=== PATIENT | female | born 1960 | race Caucasian/White ===

== ENCOUNTER → 2018-05-28 10:00 | Outpatient (CLI) | payer OTHER, SELFPAY ==
--- NOTE | 2018-05-28 10:08 | RAD_ITS ---
STUDY: X-RAY - LEFT ANKLE REASON FOR EXAM: Female, 58 years old. Left ankle injury following a fall. Lateral ankle pain. TECHNIQUE: 3 view(s) of the ankle. COMPARISON: None. FINDINGS: Normal visualized distal tibia and fibula. There is a nondisplaced oblique fracture of the distal fibula and lateral malleolus. Normal tibiotalar articulation and ankle mortise. Plantar spur. A spur is also seen at the insertion of the Achilles tendon. The visualized subtalar, talonavicular, calcaneocuboid and tarsal articulations are normal. Soft tissue swelling. RAD/Ankle min 3 Views IMPRESSION: Nondisplaced oblique fracture of the distal fibula and lateral malleolus with lateral soft tissue swelling. Electronically Signed: Bryant Zazueta MD at 10:46 EST Tel [phone], Service support ,
== END ==
PROVIDERS: Family Provider Family Medicine; PCP Family Medicine; Referring Provider Family Medicine; Visit Provider Family Medicine
DX: S93.402A Sprain of unspecified ligament of left ankle, initial encounter (principal)
CPT/HCPCS: 73610

== ENCOUNTER → 2018-06-08 17:23 | Outpatient (CLI) | payer OTHER, SELFPAY ==
--- NOTE | 2018-06-08 17:25 | RAD_ITS ---
HISTORY: follow up, fibula fx COMPARISON: None FINDINGS: XR Ankle Min 3 Views: Previous distal left fibular fracture. Fracture fragments are unchanged in position. As seen on the lateral view, fracture union appears solid. A fracture line is no longer visualized. The distal tibia is intact. Ankle mortise is not widened. No posttraumatic arthritis seen. RAD/Ankle min 3 Views IMPRESSION: The fibular fracture fragments are unchanged in position and fracture union appears solid. No complication seen. at 0412 Reported and signed by: Chavez Henson MD Electronically Signed: Chavez Henson, at 4:09 EST Tel , Service support ,
--- OUTSIDE RECORDS SUMMARY | 2018-07-21 16:29 | XMS RPT_ITS ---
:1960 Author Organization OHIP Care Team Providers Name Role Phone Silvestre Agarwal Attending Unavailable Silvestre Agarwal Referring Unavailable Silvestre Agarwal Primary Care Unavailable Ez Booker Attending Unavailable Ez Booker Referring Unavailable Silvestre Agarwal Primary Care Unavailable PROBLEMS PROBLEMS DATE TYPE CONDITION / CODE ATTENDING STATUS SOURCE 06/08/2018 Unknown S82.839A - Other Philomena Booker fracture of upper [facility] and lower end of Hospital unspecified Repository fibula, initial encounter for closed fracture / S82.839A(ICD-10) 05/28/2018 Unknown S93.402A - Sprain Silvestre Agarwal Active [place] of unspecified Community ligament of left Hospital ankle, initial Repository encounter / S93.402A(ICD-10) PROCEDURES PROCEDURES No Procedure Records FoundRESULTS RESULTS ANKLE MIN 3 VIEWS Observed: 06/08/2018 Status: F Source: [place] 5:25 PM [facility] REPOSITORY [facility] Imaging Services [address] [place] [address] Ankle min 3 Views MR#: [id number] Acct: [id number] Name: ECHO SILVESTRE Rep #: [id number] : 1960 F 58 From: Chavez Henson MD PCP: Silvestre Agarwal MD Status: REG CLI Study: Ankle min 3 Views Date of Exam: 06/08/18 Exam# [id number] Ordering Dr: Rhett Booker MD HISTORY: follow up, fibula fx COMPARISON: None FINDINGS: XR Ankle Min 3 Views: Previous distal left fibular fracture. Fracture fragments are unchanged in position. As seen on the lateral view, fracture union appears solid. A fracture line is no longer visualized. The distal tibia is intact. Ankle mortise is not widened. No posttraumatic arthritis seen. RAD/Ankle min 3 Views IMPRESSION: The fibular fracture fragments are unchanged in position and fracture union appears solid. No complication seen. at 0412 Reported and signed by: Chavez Henson MD Electronically Signed: Chavez Henson, at 4:09 EST Tel , Service support , CC: Ez Booker MD; Silvestre Agarwal MD Dinkey Engine Mechanic: Signed ANKLE MIN 3 VIEWS Observed: 05/28/2018 Status: F Source: [place] 10:08 AM [facility] REPOSITORY [facility] Imaging Services [address] [place] [address] Ankle min 3 Views MR#: [id number] Acct: [id number] Name: ECHO SILVESTRE Rep #: [id number] : 1960 F 58 From: Bryant Zazueta MD PCP: Silvestre Agarwal MD Status: REG CLI Study: Ankle min 3 Views Date of Exam: 05/28/18 Exam# [id number] Ordering Dr: Silvestre Agarwal MD STUDY: X-RAY - LEFT ANKLE REASON FOR EXAM: Female, 58 years old. Left ankle injury following a fall. Lateral ankle pain. TECHNIQUE: 3 view(s) of the ankle. COMPARISON: None. FINDINGS: Normal visualized distal tibia and fibula. There is a nondisplaced oblique fracture of the distal fibula and lateral malleolus. Normal tibiotalar articulation and ankle mortise. Plantar spur. A spur is also seen at the insertion of the Achilles tendon. The visualized subtalar, talonavicular, calcaneocuboid and tarsal articulations are normal. Soft tissue swelling. RAD/Ankle min 3 Views IMPRESSION: Nondisplaced oblique fracture of the distal fibula and lateral malleolus with lateral soft tissue swelling. Electronically Signed: Bryant Zazueta MD at 10:46 EST Tel [phone], Service support , CC: Silvestre Agarwal MD Dinkey Engine Mechanic: Signed ALLERGIES ALLERGIES No Allergies Records FoundENCOUNTERS ENCOUNTERS ADMIT/DISCHARGE ACCOUNT ADMITTING ENCOUNTER LOCATION SOURCE NUMBER CLASS 06/08/2018 [id number] [facility] ing:MTRAD Repository 05/28/[id number] [facility] ing:MTRAD Repository PAYERS PAYERS ENCOUNTER GUARANTOR PAYER SUBSCRIBER SOURCE 06/08/2018 ECHO J Primary ECHO J [place] [id number] OLD Insurance:MEDICAL FOUGHTDOB: [facility] [id number] Number: Repository [address]Epk: 330 [id number] [phone] () Date:[id number] [address]PJ: 06/08/2018 Secondary NOT GIVENUNK [place] Insurance:SELF PAY [facility] Number: Effective Repository Date:2018-06-08 05/28/2018 ECHO J Primary ECHO J [place] [id number] OLD Insurance:MEDICAL FOUGHTDOB: [facility] [id number] Number: Repository [address]Jmy: 330 [id number] [phone] () Date:[id number] [address]QI: 05/28/2018 Secondary NOT GIVENUNK [place] Insurance:SELF PAY [facility]: Effective Repository Date:2018-05-28
== END ==
PROVIDERS: Family Provider Family Medicine; PCP Family Medicine; Referring Provider Family Medicine; Visit Provider Family Medicine
DX: S82.832A Other fracture of upper and lower end of left fibula, initial encounter for closed fracture (principal)
CPT/HCPCS: 73610

== ENCOUNTER → 2018-07-22 12:41 | Outpatient (CLI) | payer OTHER, SELFPAY ==
[2018-07-22 15:02] LABS: BUN 11 mg/dL (7-18); Creatinine, Serum 0.57 mg/dL (0.55-1.02); Glucose 101 mg/dL (74-106)
[2018-07-22 15:03] LABS: Anion Gap 7 (5-15); BUN/Creat Ratio 19.2 RATIO (10-20); Calcium,Total 10.3 mg/dL (8.5-10.1); Chloride 99 mmol/L (98-107); Cholesterol 245 mg/dL (200); EST Glomerular Filtration Rate 115 mL/min (>60); Est Glom Filt Rate - Afr Amer 139 mL/min (>60); High Density Lipoprotein 59 mg/dL; Potassium 3.6 mmol/L (3.5-5.1); Sodium Level 139 mmol/L (136-145); Triglycerides 142 mg/dL; Very Low Density Lipoprotein 28 mg/dL (5-40)
== END ==
PROVIDERS: Family Provider Family Medicine; PCP Family Medicine; Referring Provider Family Medicine; Visit Provider Family Medicine
DX: I10 Essential (primary) hypertension (principal)
CPT/HCPCS: 36415; 80048; 80061

== ENCOUNTER 2018-07-31 17:36 | Emergency (ER) | payer OTHER, SELFPAY ==
[2018-07-31] VITALS (7 sets, daily range): BP systolic 133–195; BP diastolic 73–89; PULSE 74–103; RESP 14–20; TEMP 37.8; O2SAT 94–95; BMI 40.4
--- NOTE | 2018-07-31 17:53 | ED.RN ---
PT STATES SHE FEELS LIKE THE SWELLING IS A LITTLE IMPROVED AT THE FRONT OF HER TONGUE. DAVE REPORTS PT SPEECH AND VOICE SOUNDS SOME BETTER WELL.
[2018-07-31] MEDS: MethylPREDNISolone 125 MG/2 ML Vial IV (17:54)
[2018-07-31] MEDS: DiphenhydrAMINE 50 MG/ML Syringe 25 MG IV (17:54)
--- NOTE | 2018-07-31 18:44 | ED.RN ---
SPEECH SOUNDS SLIGHTLY IMPROVED. NO VISIBLE CHANGE IN SWELLING TO TONGUE. PT REPORTS FEELS ABOUT THE SAME.
--- NOTE | 2018-07-31 19:35 | ED.RN ---
pt had a 6 beat run of v-tach.dr winter aware.143/[id number].
--- NOTE | 2018-07-31 20:38 | ED.VISSUMM ---
- ER Visit Summary Date of Service: 07/31/18 Chief Complaint: Tongue swelling History of Present Illness: The patient is a 58 F history of hypertension on hydrochlorothiazide and recently started on lisinopril. States that around 4 PM today started having swelling of her tongue. No trouble swallowing or breathing. She states she is never had this happen before. She denies other complaints. Physical Examination: Well-appearing middle-age female. No acute distress. Vital signs are stable and afebrile. HEENT exam she has moderate swelling of her tongue on the right side more than the left. No drooling. No stridor. No trouble breathing. No distress. Neck nontender no lymphadenopathy. Lungs clear to auscultation bilaterally. Heart regular rhythm no murmur. Abdomen soft and nontender. Extremities moves all 4. No edema. Skin no rashes. Neurologically awake and alert no focal motor deficits. Test Results: None Emergency Department Course and Treatment: Patient's history and exam are consistent with JAN inhibitor induced angioneurotic edema. Patient was treated with IV Pepcid, Solu-Medrol and Benadryl. She has been watched in the ER multiple hours. She has shown signs of improvement. Her tongue is about half the size as she initially presented with. She has no complaints on repeat exam at 2039. Clinically she looks well. She is comfortable being discharged to home. I explained to her the cause of this. She needs us immediately stop her lisinopril. She will log her blood pressures and follow-up with her primary care physician because she may need to be started on a new second blood pressure medication because she is currently already on HCTZ. Treatment Plan: Return if worse. Disposition: Discharge Impression: Acute JAN inhibitor induced angioneurotic edema with tongue swelling This note was generated with CÜR dictation software. It may contain incorrect words, spelling, and punctuation that were not noted in review of the chart prior to signing ED Disposition - Plan for ED Patient: Chief Complaint: Allergic Reaction Referrals: Silvestre Fournier MD [Primary Care Provider] -
--- NOTE | 2018-07-31 20:43 | ED.DCSUM_ITS ---
- ER Visit Summary Date of Service: 07/31/18 Chief Complaint: Tongue swelling History of Present Illness: The patient is a 58 F history of hypertension on hydrochlorothiazide and recently started on lisinopril. States that around 4 PM today started having swelling of her tongue. No trouble swallowing or b reathing. She states she is never had this happen before. She denies other complaints. Physical Examination: Well-appearing middle-age female. No acute distress. Vital signs are stable and afebrile. HEENT exam she has moderate swelling of her tongue on the right side more than the left. No drooling. No stridor. No trouble breathing. No distress. Neck nontender no lymphadenopathy. Lungs clear to auscultation bilaterally. Heart regular rhythm no murmur. Abdomen soft and nontender. Extremities moves all 4. No edema. Skin no rashes. Neurologically awake and alert no focal motor deficits. Test Results: None Emergency Department Course and Treatment: Patient's history and exam are consistent with JAN inhibitor induced angioneurotic edema. Patient was treated with IV Pepcid, Solu-Medrol and Benadryl. She has been watched in the ER multiple hours. She has shown signs of improvement. Her tongue is about half the size as she initially presented with. She has no complaints on repeat exam at 2039. Clinically she looks well. She is comfortable being discharged to home. I explained to her the cause of this. She needs us immediately stop her lisinopril. She will log her blood pressures and follow-up with her primary care physician because she may need to be started on a new second blood pressure medication because she is currently already on HCTZ. Treatment Plan: Return if worse. Disposition: Discharge Impression: Acute JAN inhibitor induced angioneurotic edema with tongue swelling This note was generated with Embedded Chat dictation software. It may contain incorrect words, spelling, and punctuation that were not noted in review of the chart prior to signing ED Disposition - Plan for ED Patient: Chief Complaint: Allergic Reaction Referrals: Silvestre Fournier MD [Primary Care Provider] -
--- NOTE | 2018-07-31 20:43 | ED.DEP ---
ED Disposition - Plan for ED Patient: Disposition: Home or Assisted Living Chief Complaint: Allergic Reaction Instructions: ED Angioedema Referrals: Silvestre Fournier MD [Primary Care Provider] - As soon as possible Additional Instructions: Stop your lisinopril now. That is a JAN inhibitor blood pressure medication that you had a reaction to that caused her tongue to swell. You can no longer take that medication or any other JAN inhibitor blood pressure medications. Return if getting worse. Meaning more swelling of your tongue or any trouble breathing. Follow-up with your primary care physician next week. Log your blood pressures twice daily so Dr. Fournier will know if he needs to add a second blood pressure medication. You can use your hydrochlorothiazide but the lisinopril you must stop
--- OUTSIDE RECORDS SUMMARY | 2018-10-05 08:22 | XMS RPT_ITS ---
:1960 Author Organization OHIP Care Team Providers Name Role Phone Silvestre Agarwal Attending Unavailable Silvestre Agarwal Referring Unavailable Silvestre Agarwal Primary Care Unavailable Silvestre Agarwal Primary Care Unavailable Kelby Pena Attending Unavailable Silvestre Agarwal Attending Unavailable Silvestre Agarwal Referring Unavailable Silvestre Agarwal Primary Care Unavailable Ez Booker Attending Unavailable Ez Booker Referring Unavailable Silvestre Agarwal Primary Care Unavailable PROBLEMS PROBLEMS DATE TYPE CONDITION / CODE ATTENDING STATUS SOURCE 06/08/2018 Unknown S82.839A - Other Philomena Booker [place] fracture of upper [facility] and lower end of Hospital unspecified Repository fibula, initial encounter for closed fracture / S82.839A(ICD-10) 05/28/2018 Unknown S93.402A - Sprain Silvestre Agarwal Active [place] of unspecified Community ligament of left Hospital ankle, initial Repository encounter / S93.402A(ICD-10) PROCEDURES PROCEDURES No Procedure Records FoundRESULTS RESULTS EMERGENCY DEPARTMENT Observed: 08/01/2018 Status: F Source: [place] SUMMARY 12:00 AM [facility] REPOSITORY [facility] Medical Records Department [address] [place] [address] Emergency Department Summary 07/31/182037 MR#: [id number] Acct: [id number] Name: ECHO SILVESTRE Rep #: [id number] : 1960 58 From: Kelby Pena MD PCP: Silvestre Agarwal MD Status: DEP ER - ER Visit Summary Date of Service: 07/31/18 Chief Complaint: Tongue swelling History of Present Illness: The patient is a 58 F history of hypertension on hydrochlorothiazide and recently started on lisinopril. States that around 4 PM today started having swelling of her tongue. No trouble swallowing or breathing. She states she is never had this happen before. She denies other complaints. Physical Examination: Well-appearing middle-age female. No acute distress. Vital signs are stable and afebrile. HEENT exam she has moderate swelling of her tongue on the right side more than the left. No drooling. No stridor. No trouble breathing. No distress. Neck nontender no lymphadenopathy. Lungs clear to auscultation bilaterally. Heart regular rhythm no murmur. Abdomen soft and nontender. Extremities moves all 4. No edema. Skin no rashes. Neurologically awake and alert no focal motor deficits. Test Results: None Emergency Department Course and Treatment: Patient's history and exam are consistent with JAN inhibitor induced angioneurotic edema. Patient was treated with IV Pepcid, Solu-Medrol and Benadryl. She has been watched in the ER multiple hours. She has shown signs of improvement. Her tongue is about half the size as she initially presented with. She has no complaints on repeat exam at 2039. Clinically she looks well. She is comfortable being discharged to home. I explained to her the cause of this. She needs us immediately stop her lisinopril. She will log her blood pressures and follow-up with her primary care physician because she may need to be started on a new second blood pressure medication because she is currently already on HCTZ. Treatment Plan: Return if worse. Disposition: Discharge Impression: Acute JAN inhibitor induced angioneurotic edema with tongue swelling This note was generated with 9158 [employer] dictation software. It may contain incorrect words, spelling, and punctuation that were not noted in review of the chart prior to signing ED Disposition - Plan for ED Patient: Chief Complaint: Allergic Reaction Referrals: Silvestre Agarwal MD [Primary Care Provider] - What to do if you have Problems For any increased pain, shortness of breath, bleeding, nausea or vomiting, chest pain, or any unexpected problems, contact your Primary Care Provider. Call [facility] ([phone]) or report to the closest Emergency Room. Call 911 if necessary. 08/01/18 0000 <Electronically signed by Kelby Pena MD> Date Kelby Pena MD Cosigner Signature (If Indicated): Date CC: Silvestre Agarwal MD DISCHARGE INSTRUCTION Observed: 08/01/2018 Status: F Source: [place] 12:00 AM [facility] Medical Records Department [address] [place] [address] Discharge Instruction 07/31/182042 MR#: [id number] Acct: [id number] Name: ECHO SILVESTRE Rep #: [id number] : 1960 58 From: Kelby Pena MD PCP: Silvestre Agarwal MD Status: [facility] ER ED Disposition - Plan for ED Patient: Disposition: Home or Assisted Living Chief Complaint: Allergic Reaction Instructions: ED Angioedema Referrals: Silvestre Agarwal MD [Primary Care Provider] - As soon as possible Additional Instructions: Stop your lisinopril now. That is a JAN inhibitor blood pressure medication that you had a reaction to that caused her tongue to swell. You can no longer take that medication or any other JAN inhibitor blood pressure medications. Return if getting worse. Meaning more swelling of your tongue or any trouble breathing. Follow-up with your primary care physician next week. Log your blood pressures twice daily so Dr. Agarwal will know if he needs to add a second blood pressure medication. You can use your hydrochlorothiazide but the lisinopril you must stop What to do if you have Problems For any increased pain, shortness of breath, bleeding, nausea or vomiting, chest pain, or any unexpected problems, contact your Primary Care Provider. Call [facility] ([phone]) or report to the closest Emergency Room. Call 911 if necessary. 08/01/18 0000 <Electronically signed by Kelby Pena MD> Date Kelby Pena MD Cosigner Signature (If Indicated): Date CC: Silvestre Agarwal MD BASIC METABOLIC Collected: 07/22/2018 Status: F Source: [place] PROFILE ([facility]) 12:48 PM [facility] REPOSITORY TYPE CODE TESTS RESULT OUT OF RANGE REFERENCE UNITS LAB L501.0100 74-106 mg/dL Normal GLU 101 Result Comment: Fasting Glucose result from 100 to 125 mg/dL suggests IMPAIRED HOMEOSTASIS per A.D.A. criteria. Please note revised GLUCOSE reference range effective 2017. LAB L501.1000 7-18 mg/dL Normal BUN 11 LAB L501.1100 0.55-1.02 mg/dL Normal CREAT,SERUM 0.57 Result Comment: The validity of the calculated GFR AND GFRAA in patients over 70 years has not been determined. Clinical correlation is essential. LAB L501.1110 >60 mL/min Normal EST GFR 115 Result Comment: Non- GFR Calc LAB L501.1115 >60 mL/min Normal EST GFR - AA 139 Result Comment: GFR Calc LAB L501.1300 10-20 RATIO Normal BUN/CRE 19.2 LAB L501.2200 8.5-10.1 mg/dL High CA 10.3 LAB L501.5300 136-145 mmol/L NA Normal 139 LAB L501.5600 3.5-5.1 mmol/L K Normal 3.6 LAB L501.5900 98-107 mmol/L CL Normal 99 LAB L501.6100 21.0-32.0 mmol/L High CO2 33.0 LAB L501.6200 5-15 Normal GAP 7 Performed By: #### L500.2500, L500.4100 #### [facility] [address] [place], [address] LIPID PROFILE Collected: 07/22/2018 Status: F Source: [place] 12:48 PM [facility] REPOSITORY TYPE CODE TESTS RESULT OUT OF RANGE REFERENCE UNITS LAB L501.4900 200 mg/dL High CHOL 245 Result Comment: <200 mg/dL Desirable 200-240 mg/dL Borderline >240 mg/dL High Risk LAB L501.5000 mg/dL Normal TRIG 142 Result Comment: The drugs N-Acetylcysteine and Metamizole may falsely depress this assay. Serum Triglycerides Reference Interval Normal <150 mg/dL Borderline high 150 - 199 mg/dL High 200 - 499 mg/dL Very High > or = 500 mg/dL LAB L501.6400 mg/dL Normal HDL 59 Result Comment: The drugs N-Acetylcysteine and Metamizole may falsely depress this assay. Reference Range HDL <40 mg/dL Low HDL Cholesterol HDL >or= 60 mg/dL High HDL Cholesterol LAB L501.6500 0-130 mg/dL High LDL 158 LAB L501.6600 5-40 mg/dL Normal VLDL 28 Performed By: #### L500.2500, L500.4100 #### [facility] [address] [facility] [place], [address] ANKLE MIN 3 VIEWS Observed: 06/08/2018 Status: F Source: [place] 5:25 PM [facility] REPOSITORY [facility] Imaging Services [address] [place] [address] Ankle min 3 Views MR#: [id number] Acct: [id number] Name: ECHO SILVESTRE Rep #: [id number] : 1960 F 58 From: Chavez Henson MD PCP: Silvestre Agarwal MD Status: REG CLI Study: Ankle min 3 Views Date of Exam: 06/08/18 Exam# [id number] Ordering Dr: Rhett Booker MD HISTORY: follow [...] CC: Ez Booker MD; Silvestre Agarwal MD Eight Arm Operator: Signed ANKLE MIN 3 VIEWS Observed: 05/28/2018 Status: F Source: [place] 10:08 AM [facility] REPOSITORY [facility] Imaging Services [address] [place] [address] Ankle min 3 Views MR#: [id number] Acct: [id number] Name: ECHO SILVESTRE Rep #: [id number] : 1960 F 58 From: Bryant Zazueta MD PCP: Silvestre Agarwal MD Status: REG CLI Study: Ankle min 3 Views Date of Exam: 05/28/18 Exam# [id number] Ordering Dr: Silvestre Agarwal MD STUDY: X-RAY [...] Bryant Zazueta MD at 10:46 EST Tel [phone], Service support , CC: Silvestre Agarwal MD Eight Arm Operator: Signed ALLERGIES ALLERGIES DATE TYPE / CODE NAME / CODE REACTION SEVERITY SOURCE 07/31/2018 Drug lisinopril/F Angioedema Unknown [facility] Allergy/4160 [id number]( Hospital [address]84(SNOMED NORM) Repository CT) ENCOUNTERS ENCOUNTERS ADMIT/DISCHARGE ACCOUNT ADMITTING ENCOUNTER LOCATION SOURCE NUMBER CLASS 07/31/2018/ [id number] Emergency [place] 9 4 [facility] ing:ED Repository 07/22/2018 [id number] Ambulatory [place] 6 [facility] ing:MTLAB Repository 06/08/2018 [id number] Ambulatory [place] 8 [facility] ing:MTRAD Repository 05/28/2018 [id number] Ambulatory [place] 9 [facility] ing:MTRAD Repository PAYERS PAYERS ENCOUNTER GUARANTOR PAYER SUBSCRIBER SOURCE 07/31/2018 ECHO Santana Primary ECHO J [place] [id number] OLD Insurance:MEDICAL FOUGHTDOB: [facility] [id number] Number: Repository [id number]: [phone] [id number] [phone] () Date:2774-81-27[address] [address]VW: 07/31/2018 Secondary NOT GIVENUNK [place] Insurance:SELF PAY [facility] Number: Effective Repository Date:2018-07-31 07/22/2018 ECHO Santana Primary ECHO J [place] [id number] OLD Insurance:MEDICAL FOUGHTDOB: [facility] [id number] Number: Repository [id number]: 330 [id number] [phone] (HP) Date:9636-93-39VW [address] [place] [address]UL: 07/22/2018 Secondary NOT GIVENUNK [place] Insurance:SELF PAY [facility] Number: Effective Repository Date:2018-07-22 06/08/2018 ECHO J Primary ECHO J [place] [id number] OLD Insurance:MEDICAL FOUGHTDOB: [facility] [id number] Number: Repository [id number]: 330 [id number] [phone] (HP) Date:7539-95-68KW [address] [place] [phone]: 06/08/2018 Secondary NOT GIVENUNK [place] Insurance:SELF PAY [facility] Number: Effective Repository Date:2018-06-08 05/28/2018 ECHO J Primary ECHO J [place] [id number] OLD Insurance:MEDICAL FOUGHTDOB: [facility] [id number] Number: Repository [id number]: 330 [id number] [phone] (HP) Date:2034-71-63NF [address] [place] [phone]: 05/28/2018 Secondary NOT GIVENUNK [place] Insurance:SELF PAY [facility] Number: Effective Repository Date:2018-05-28
== END 2018-07-31 20:51 | disposition home or self-care (01) ==
PROVIDERS: Emergency Provider Emergency Medicine; Family Provider Family Medicine; PCP Family Medicine
DX: T78.3XXA Angioneurotic edema, initial encounter (principal); T46.4X5A Adverse effect of angiotensin-converting-enzyme inhibitors, initial encounter; I10 Essential (primary) hypertension; Z79.899 Other long term (current) drug therapy; Z72.0 Tobacco use
CPT/HCPCS: 96374; 96375; 99283; A4216; J3490

== ENCOUNTER → 2019-04-21 | Outpatient (CLI) | payer OTHER, SELFPAY ==
[2018-07-31 17:37] VITALS: BMI 40.4
[2019-04-21 14:25] LABS: Anion Gap 7 (5-15); BUN 11 mg/dL (7-18); BUN/Creat Ratio 18.8 RATIO (10-20); Calcium,Total 9.1 mg/dL (8.5-10.1); Chloride 98 mmol/L (98-107); Cholesterol 249 mg/dL (200); Creatinine, Serum 0.59 mg/dL (0.55-1.02); EST Glomerular Filtration Rate 112 mL/min (>60); Est Glom Filt Rate - Afr Amer 135 mL/min (>60); Glucose 93 mg/dL (74-106); High Density Lipoprotein 55 mg/dL; Potassium 3.5 mmol/L (3.5-5.1); Sodium Level 140 mmol/L (136-145); Triglycerides 145 mg/dL; Very Low Density Lipoprotein 29 mg/dL (5-40)
== END | disposition home or self-care (01) ==
PROVIDERS: Family Medicine; Family Provider Family Medicine; PCP Family Medicine; Referring Provider Family Medicine; Visit Provider Family Medicine
DX: I10 Essential (primary) hypertension (principal); E78.00 Pure hypercholesterolemia, unspecified
CPT/HCPCS: 36415; 80048; 80061

== ENCOUNTER → 2019-07-21 08:14 | Outpatient (CLI) | payer OTHER, SELFPAY ==
[2018-07-31 17:37] VITALS: BMI 40.4
[2019-07-21 10:37] LABS: Cholesterol 146 mg/dL (200); High Density Lipoprotein 59 mg/dL; Triglycerides 173 mg/dL; Very Low Density Lipoprotein 35 mg/dL (5-40)
== END ==
PROVIDERS: Family Provider Family Medicine; PCP Family Medicine; Referring Provider Family Medicine; Visit Provider Family Medicine
DX: E78.00 Pure hypercholesterolemia, unspecified (principal)
CPT/HCPCS: 36415; 80061

== ENCOUNTER → 2019-08-11 10:53 | Outpatient (CLI) | payer OTHER, SELFPAY ==
[2018-07-31 17:37] VITALS: BMI 40.4
--- NOTE | 2019-08-11 10:56 | BI_ITS ---
MAMMOGRAPHY - BILATERAL SCREENING REASON FOR EXAM: Female, 59 years old. Routine annual screening examination. PERTINENT HISTORY: Non-contributory. TECHNIQUE: Digital bilateral breast maria eugenia (3D mammographic acquisition) in the CC and MLO projections. 2-D mediolateral oblique (MLO) and craniocaudad (CC) views of both breasts were obtained. CAD: Full Field Digital Mammography with Computer Added Detection was performed. COMPARISON: Comparison is made with prior outside examination dated December 25, 2010. FINDINGS: Breast Composition: The breasts are almost entirely fatty. There are no dominant masses or suspicious calcifications. Stable benign-appearing bilateral axillary lymph nodes. No other significant abnormalities are identified. There has been no significant change since the prior study. BI/SCREEN MAMM (CAD) W/MARIA EUGENIA BILAT IMPRESSION: Stable bilateral screening mammogram. Yearly follow-up mammogram recommended. (A) ASSESSMENT CATEGORY: BIRADS Category 2: Benign. A letter regarding these results will be sent to the patient by the facility within 30 days. Approximately 10% of breast cancers are not detected by mammography. A normal mammogram should not delay biopsy of a clinically suspicious abnormality. [id number] Electronically Signed: Bryant Zazueta, at 12:16 EST , Service support ,
== END ==
PROVIDERS: Family Provider Family Medicine; PCP Family Medicine; Referring Provider Family Medicine; Visit Provider Family Medicine
DX: Z12.31 Encounter for screening mammogram for malignant neoplasm of breast (principal)
CPT/HCPCS: 77063; 77067

== ENCOUNTER → 2020-02-09 | Outpatient (CLI) | payer OTHER, SELFPAY ==
[2018-07-31 17:37] VITALS: BMI 40.4
[2020-02-09 10:33] LABS: ALB/GLOB Ratio 0.9 RATIO (0.9-2.4); AST(SGOT) 18 U/L (15-37); Alanine Aminotransfer ALT/SGPT 26 U/L (13-56); Albumin, Serum 3.4 g/dL (3.2-5.0); Alkaline Phosphatase 66 U/L (45-117); Anion Gap 1 (5-15); BUN 10 mg/dL (7-18); BUN/Creat Ratio 17.8 RATIO (10-20); Calcium,Total 8.7 mg/dL (8.5-10.1); Chloride 100 mmol/L (98-107); Cholesterol 149 mg/dL (200); Creatinine, Serum 0.56 mg/dL (0.55-1.02); EST Glomerular Filtration Rate 117 mL/min (>60); Est Glom Filt Rate - Afr Amer 141 mL/min (>60); Globulin 3.9 g/dL (2.2-4.2); Glucose 95 mg/dL (74-106); High Density Lipoprotein 57 mg/dL; Potassium 4.1 mmol/L (3.5-5.1); Protein, Total 7.3 g/dL (6.4-8.2); Sodium Level 137 mmol/L (136-145); Triglycerides 134 mg/dL; Very Low Density Lipoprotein 27 mg/dL (5-40)
== END | disposition home or self-care (01) ==
LOC: MFPLAB 08:19
PROVIDERS: PCP Family Medicine; Referring Provider Family Medicine; Visit Provider Family Medicine
DX: I10 Essential (primary) hypertension (principal)
CPT/HCPCS: 36415; 80053; 80061

== ENCOUNTER → 2020-08-16 11:34 | Outpatient (CLI) | payer OTHER, SELFPAY ==
[2018-07-31 17:37] VITALS: BMI 40.4
[2020-08-16 16:01] LABS: AST(SGOT) 20 U/L (15-37); Alanine Aminotransfer ALT/SGPT 24 U/L (13-56); Albumin, Serum 3.6 g/dL (3.2-5.0); Alkaline Phosphatase 71 U/L (45-117); Anion Gap 5 (5-15); BUN 8 mg/dL (7-18); BUN/Creat Ratio 13.1 RATIO (10-20); Calcium,Total 9.9 mg/dL (8.5-10.1); Chloride 96 mmol/L (98-107); Cholesterol 143 mg/dL (200); Creatinine, Serum 0.61 mg/dL (0.55-1.02); EST Glomerular Filtration Rate 106 mL/min (>60); Est Glom Filt Rate - Afr Amer 129 mL/min (>60); Globulin 3.7 g/dL (2.2-4.2); Glucose 99 mg/dL (74-106); High Density Lipoprotein 65 mg/dL; Potassium 3.9 mmol/L (3.5-5.1); Protein, Total 7.3 g/dL (6.4-8.2); Sodium Level 137 mmol/L (136-145); Triglycerides 108 mg/dL; Very Low Density Lipoprotein 22 mg/dL (5-40)
== END ==
PROVIDERS: PCP Family Medicine; Referring Provider Family Medicine; Visit Provider Family Medicine
DX: E78.00 Pure hypercholesterolemia, unspecified (principal)
CPT/HCPCS: 36415; 80053; 80061

== ENCOUNTER → 2020-09-11 09:44 | Outpatient (CLI) | payer OTHER, SELFPAY ==
[2018-07-31 17:37] VITALS: BMI 40.4
--- NOTE | 2020-09-11 09:46 | ECHOCS_ITS ---
Version 2 Reason For Study: MURMUR Procedure This was a 2D Doppler, Color Flow transthoracic echocardiogram. The study was technically difficult. Contrast injection was performed. Exam performed in department. Left Ventricle Normal LV size. Left ventricular systolic function is normal. The estimated ejection fraction is 65 %. No regional wall motion abnormalities noted. Right Ventricle Normal RV size. Normal systolic function. Atria The left atrium is mildly enlarged. Normal right atrium. Mitral Valve Normal mitral valve. Tricuspid Valve Normal tricuspid valve. Aortic Valve The aortic valve is not well visualized. Pulmonic Valve The pulmonic valve is not well visualized. Great Vessels Normal aortic root. The pulmonary artery is normal size. Normal inferior vena cava. Pericardium/Pleural No pericardial effusion. Medication 22 gauge I.V. with prn adaptor inserted into right arm. Diluted definity 4.0ml given slow IV push to enhance endocardial definition. MMode/2D Measurements & Calculations LVIDd: 4.8 cm IVSd: 1.1 cm Ao root diam: 3.8 cm LVIDs: 3.0 cm LVPWd: 1.1 cm RVDd: 4.2 cm FS: 37.4 % LAV(MOD-bp): 74.3 ml LVAd ap4: 32.2 cm2 SV(MOD-sp4): 68.4 ml LAV(MOD-bp) Indexed: 34.2 ml/m2 EDV(MOD-sp4): 100.9 ml LAV(MOD-sp2): 68.3 ml EDV(sp4-el): 101.5 ml LAV(MOD-sp4): 78.0 ml LVAs ap4: 16.3 cm2 ESV(MOD-sp4): 32.5 ml ESV(sp4-el): 33.1 ml EF(MOD-sp4): 67.8 % EF(sp4-el): 67.4 % SV(sp4-el): 68.4 ml LA A4 area: 24.8 cm2 LA dimension(2D): 4.4 cm RA A4 area: 15.7 cm2 Doppler Measurements & Calculations Lat Peak E' Asaf: 4.6 cm/sec Med Peak E' Asaf: 3.6 cm/sec MV V2 max: 131.1 cm/sec MV max P.9 mmHg MV V2 mean: 72.8 cm/sec MV mean P.4 mmHg MV V2 VTI: 29.9 cm Ao V2 max: 195.6 cm/sec LV V1 max: 167.3 cm/sec PA V2 max: 97.1 cm/sec Ao max P.3 mmHg LV V1 max P.2 mmHg TR max asaf: 189.1 cm/sec TR max P.3 mmHg Interpretation Summary Normal LV size. Left ventricular systolic function is normal. The estimated ejection fraction is 65 %. The left atrium is mildly enlarged. Contrast injection was performed. Ordering Physician: Edwin Scott Referring Physician: EDWIN SCOTT Performed By: Ekaterina Chavez, RDCS, RVT
== END ==
PROVIDERS: PCP Family Medicine; Referring Provider Family Medicine; Visit Provider Family Medicine
DX: R01.1 Cardiac murmur, unspecified (principal)
CPT/HCPCS: 93306; Q9957; A4216; C8929

== ENCOUNTER → 2021-02-14 11:10 | Outpatient (CLI) | payer OTHER, SELFPAY ==
[2018-07-31 17:37] VITALS: BMI 40.4
[2021-02-14 12:09] LABS: Hematocrit 54.6 % (37-47); Hemoglobin 17.9 g/dL (12.0-15.0); Mean Corp Hgb Conc 32.8 g/dL (32-36); Mean Corpuscular Hgb 32.1 pg (27.0-32.0); Mean Platelet Vol. 11.4 fl (6.2-12.0); Platelet Count 134 K/mm3 (150-450); RBC Distribution Width CV 13.7 % (11.6-14.6); RBC Distribution Width SD 49.4 fl (35.1-43.9); Red Blood Count 5.57 M/mm3 (4.2-5.4); White Blood Count 5.7 K/mm3 (4.4-11.0)
[2021-02-14 12:30] LABS: ALB/GLOB Ratio 0.9 RATIO (0.9-2.4); AST(SGOT) 21 U/L (15-37); Alanine Aminotransfer ALT/SGPT 24 U/L (13-56); Albumin, Serum 3.5 g/dL (3.2-5.0); Alkaline Phosphatase 69 U/L (45-117); Anion Gap 4 (5-15); BUN 9 mg/dL (7-18); BUN/Creat Ratio 16.4 RATIO (10-20); Calcium,Total 9.4 mg/dL (8.5-10.1); Chloride 98 mmol/L (98-107); Cholesterol 141 mg/dL (200); Creatinine, Serum 0.55 mg/dL (0.55-1.02); EST Glomerular Filtration Rate 120 mL/min (>60); Est Glom Filt Rate - Afr Amer 145 mL/min (>60); Globulin 3.7 g/dL (2.2-4.2); Glucose 101 mg/dL (74-106); High Density Lipoprotein 54 mg/dL; Potassium 3.9 mmol/L (3.5-5.1); Protein, Total 7.2 g/dL (6.4-8.2); Sodium Level 137 mmol/L (136-145); Triglycerides 140 mg/dL; Very Low Density Lipoprotein 28 mg/dL (5-40)
== END ==
PROVIDERS: PCP Family Medicine; Referring Provider Family Medicine; Visit Provider Family Medicine
DX: E78.00 Pure hypercholesterolemia, unspecified (principal); I10 Essential (primary) hypertension
CPT/HCPCS: 36415; 80053; 80061; 85027

== ENCOUNTER 2021-09-25 08:05 | Outpatient (CLI) | payer OTHER, SELFPAY ==
--- NOTE | 2021-09-25 08:06 | BI_ITS ---
MAMMOGRAPHY - BILATERAL SCREENING 3-D TOMOSYNTHESIS REASON FOR EXAM: Female, 61 years old. SCREENING PERTINENT HISTORY: No significant family history. TECHNIQUE: 2-D mammograms and 3-D Tomosynthesis of the breast (s) were performed. CAD was performed. COMPARISON: 08/11/2019 FINDINGS: The breast composition is composed of scattered fibroglandular density. Scattered benign calcifications are seen. No dense spiculated masses or suspicious microcalcifications are identified. No architectural distortion is identified. There is no skin thickening or retraction. There has been no significant change since the prior study. BI/SCRN MAMM (CAD)W/MARIA EUGENIA BILAT IMPRESSION: No mammographic signs of malignancy. Routine yearly mammograms recommended. ASSESSMENT CATEGORY: BIRADS Category 1: Negative. A letter regarding these results will be sent to the patient by the facility within 30 days. FOLLOW UP RECOMMENDATION: Yearly follow up mammogram recommended. (A) Approximately 10% of breast cancers are not detected by mammography. A normal mammogram should not delay biopsy of a clinically suspicious abnormality. Electronically Signed: Javier Love MD at 16:34 EDT ,
== END 2021-09-25 23:59 | disposition home or self-care (01) ==
LOC: OPBI 08:05
PROVIDERS: PCP Nurse Practitioner Family; Visit Provider Nurse Practitioner Family
DX: Z12.31 Encounter for screening mammogram for malignant neoplasm of breast (principal)
CPT/HCPCS: 77063; 77067

== ENCOUNTER → 2022-02-18 | Outpatient (CLI) | payer OTHER, SELFPAY ==
[2022-02-18 18:03] LABS: Absolute Lymphocyte Count 1.39 X10^3/uL (0.83-4.51); Absolute Neutrophil Count 3.5 X10^3/uL (2.0-7.7); Basophil# 0.03 X10^3/uL; Basophil% 0.5 % (0-1); Eosinophil# 0.04 X10^3/uL; Eosinophils% 0.7 % (0-5); Hematocrit 52.5 % (37-47); Hemoglobin 17.7 g/dL (12.0-15.0); Lymphocyte # 1.39 X10^3/ul (0.83-4.51); Lymphocyte % 25.4 % (19-41); Mean Corp Hgb Conc 33.7 g/dL (32-36); Mean Corpuscular Hgb 32.1 pg (27.0-32.0); Mean Corpuscular Volume 95.3 fL (81-99); Mean Platelet Vol. 11.3 fl (6.2-12.0); Monocyte% 9.1 % (0-10); NRBC Flagged by Analyzer 0 % (0-5); Neutrophil % 64.1 % (47-70); Platelet Count 160 K/mm3 (150-450); RBC Distribution Width CV 14.5 % (11.6-14.6); RBC Distribution Width SD 51.1 fl (35.1-43.9); Red Blood Count 5.51 M/mm3 (4.2-5.4); White Blood Count 5.5 K/mm3 (4.4-11.0)
[2022-02-18 18:21] LABS: AST(SGOT) 24 U/L (15-37); Alanine Aminotransfer ALT/SGPT 29 U/L (13-56); Albumin, Serum 3.6 g/dL (3.2-5.0); Alkaline Phosphatase 75 U/L (45-117); Anion Gap 5 (5-15); BUN 11 mg/dL (7-18); BUN/Creat Ratio 14.3 RATIO (10-20); Calcium,Total 10.2 mg/dL (8.5-10.1); Chloride 96 mmol/L (98-107); Cholesterol 151 mg/dL (200); Creatinine, Serum 0.77 mg/dL (0.55-1.02); EST Glomerular Filtration Rate 81 mL/min (>60); Est Glom Filt Rate - Afr Amer 98 mL/min (>60); Globulin 3.7 g/dL (2.2-4.2); Glucose 111 mg/dL (74-106); High Density Lipoprotein 53 mg/dL; Potassium 3.7 mmol/L (3.5-5.1); Protein, Total 7.3 g/dL (6.4-8.2); Sodium Level 136 mmol/L (136-145); Triglycerides 138 mg/dL; Very Low Density Lipoprotein 28 mg/dL (5-40)
[2022-02-18 18:37] LABS: Hemoglobin A1c 5.6 % (3.8-5.6)
== END | disposition home or self-care (01) ==
LOC: MFPLAB 16:34
PROVIDERS: PCP Nurse Practitioner Family; Visit Provider Family Medicine
DX: I10 Essential (primary) hypertension (principal); E66.01 Morbid (severe) obesity due to excess calories; E78.00 Pure hypercholesterolemia, unspecified
CPT/HCPCS: 36415; 80053; 80061; 83036; 85025

== ENCOUNTER → 2023-02-13 | Outpatient (CLI) | payer OTHER, SELFPAY ==
[2023-02-13 12:31] LABS: Hemoglobin A1c 5.5 % (3.8-5.6)
[2023-02-13 12:36] LABS: Absolute Lymphocyte Count 1.48 X10^3/uL (0.83-4.51); Absolute Neutrophil Count 3.9 X10^3/uL (2.0-7.7); Basophil# 0.04 X10^3/uL; Basophil% 0.7 % (0-1); Eosinophil# 0.09 X10^3/uL; Eosinophils% 1.5 % (0-5); Hematocrit 52.3 % (37-47); Hemoglobin 16.9 g/dL (12.0-15.0); Lymphocyte # 1.48 X10^3/ul (0.83-4.51); Lymphocyte % 24.8 % (19-41); Mean Corp Hgb Conc 32.3 g/dL (32-36); Mean Corpuscular Hgb 31.2 pg (27.0-32.0); Mean Corpuscular Volume 96.5 fL (81-99); Mean Platelet Vol. 12.2 fl (6.2-12.0); Monocyte# 0.44 X10^3/uL; Monocyte% 7.4 % (0-10); NRBC Flagged by Analyzer 0 % (0-5); Neutrophil # 3.89 X10^3/uL (2.7-7.7); Neutrophil % 65.3 % (47-70); Platelet Count 141 K/mm3 (150-450); RBC Distribution Width SD 49.9 fl (35.1-43.9); Red Blood Count 5.42 M/mm3 (4.2-5.4)
[2023-02-13 12:57] LABS: ALB/GLOB Ratio 0.9 RATIO (0.9-2.4); AST(SGOT) 19 U/L (15-37); Alanine Aminotransfer ALT/SGPT 27 U/L (13-56); Albumin, Serum 3.3 g/dL (3.2-5.0); Alkaline Phosphatase 75 U/L (45-117); Anion Gap 6 (5-15); BUN 9 mg/dL (7-18); BUN/Creat Ratio 16.1 RATIO (10-20); Calcium,Total 9.2 mg/dL (8.5-10.1); Chloride 98 mmol/L (98-107); Cholesterol 131 mg/dL (200); Creatinine, Serum 0.56 mg/dL (0.55-1.02); EST Glomerular Filtration Rate 117 mL/min (>60); Est Glom Filt Rate - Afr Amer 141 mL/min (>60); Globulin 3.8 g/dL (2.2-4.2); Glucose 109 mg/dL (74-106); High Density Lipoprotein 56 mg/dL; Potassium 3.7 mmol/L (3.5-5.1); Protein, Total 7.1 g/dL (6.4-8.2); Sodium Level 139 mmol/L (136-145); Thyroid Stim Hormone (TSH) 0.92 uIU/mL (0.358-3.74); Triglycerides 136 mg/dL; Very Low Density Lipoprotein 27 mg/dL (5-40)
== END | disposition home or self-care (01) ==
LOC: MTLAB 10:05
PROVIDERS: PCP Nurse Practitioner Family; Visit Provider Family Medicine
DX: I10 Essential (primary) hypertension (principal); E66.01 Morbid (severe) obesity due to excess calories; E78.00 Pure hypercholesterolemia, unspecified
CPT/HCPCS: 36415; 80053; 80061; 83036; 84443; 85025

== ENCOUNTER → 2023-02-27 | Outpatient (CLI) | payer OTHER, SELFPAY ==
--- NOTE | 2023-02-27 09:41 | BI_ITS ---
MAMMOGRAPHY - BILATERAL SCREENING REASON FOR EXAM: Female, 62 years old. Routine annual screening examination. PERTINENT HISTORY: Non-contributory. TECHNIQUE: Digital bilateral breast maria eugenia (3D mammographic acquisition) in the CC and MLO projections. 2-D mediolateral oblique (MLO) and craniocaudad (CC) views of both breasts were obtained. CAD: Full Field Digital Mammography with Computer Added Detection was performed. COMPARISON: Comparison is made with prior study dated September 25, 2021 and February 09, 2020. FINDINGS: Breast Composition: The breasts are almost entirely fatty. There are no dominant masses or suspicious calcifications. No other significant abnormalities are identified. There has been no significant change since the prior study. BI/SCRN MAMM (CAD)W/MARIA EUGENIA BILAT IMPRESSION: Stable bilateral screening mammogram. Yearly follow-up mammogram recommended. (A) ASSESSMENT CATEGORY: BIRADS Category 1: Negative. A letter regarding these results will be sent to the patient by the facility within 30 days. Approximately 10% of breast cancers are not detected by mammography. A normal mammogram should not delay biopsy of a clinically suspicious abnormality. [id number] Electronically Signed: Bryant Zazueta MD at 11:23 EDT ,
== END | disposition home or self-care (01) ==
LOC: OPBI 09:40
PROVIDERS: PCP Family Medicine; Referring Provider Family Medicine; Visit Provider Family Medicine
DX: Z12.31 Encounter for screening mammogram for malignant neoplasm of breast (principal)
CPT/HCPCS: 77063; 77067

== ENCOUNTER 2023-05-05 10:17 | Day surgery (SDC) | payer OTHER, SELFPAY ==
[2023-05-05] VITALS (7 sets, daily range): BP systolic 90–155; BP diastolic 48–81; PULSE 62–82; RESP 18; TEMP 36.5–36.7; O2SAT 92–97; BMI 39.8
--- NOTE | 2023-05-05 10:25 | HP.PCM_ITS ---
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 She has a past medical of mild hypertension. She also is past medical history of mild hypercholesterolemia. He had a colonoscopy proxy 5 years ago that showed some inflammation consistent with colitis. She does not take any medicine on daily b asis for that now. She did take medicine for few months but cannot recall which medicine it was. She denies any diarrhea, bleeding, nausea, chest pain or shortness of breath. [facility] Medical History Family hx of colon cancer High cholesterol History of echocardiogram History of edema HTN (hypertension) Hypercholesteremia Loose, teeth Smoker Home Medications loratadine 10 mg tablet (Allergy Relief (loratadine)) 10 mg PO DAILY 07/31/18 [History Last Taken Unknown] omega-3 fatty acids-fish oil 340 mg-1,000 mg capsule (Fish Oil) 1 ea PO DAILY 07/31/18 [History Last Taken Unknown] pediatric [id number] (Multi-Vitamins with Iron chewable tablet) 1 ea PO DAILY 07/31/18 [History Last Taken Unknown] amlodipine 5 mg tablet 5 mg PO DAILY 03/11/23 [History Last Taken Unknown] ascorbate calcium (vitamin C) 500 mg tablet 500 mg PO DAILY 03/11/23 [History Last Taken Unknown] atorvastatin 40 mg tablet 40 mg PO QHS 03/11/23 [History Last Taken Unknown] cholecalciferol (vitamin D3) 50 mcg (2,000 unit) capsule 50 mcg PO DAILY 03/11/23 [History Last Taken Unknown] hydrochlorothiazide 25 mg tablet 25 mg PO DAILY 03/11/23 [History Last Taken Unknown] zinc gluconate 30 mg tablet 30 mg PO DAILY 03/11/23 [History Last Taken Unknown] Allergy/AdvReac Type Severity Reaction Status Date / Time lisinopril Allergy Angioedema Verified 04/29/23 12:06 Family History (Updated 03/11/23 @ 10:39 by Charity Holman) Father Colon cancer Grandmother Colon cancer Brother Colon polyps Surgical History (Updated 04/29/23 @ 12:15 by Ginger Resendiz) History of tubal ligation History of wisdom tooth extraction Hx of colonoscopy Social History (Updated 03/11/23 @ 10:39 by Charity Holman) household members: children current occupational status: employed Smoking Status: Current every day smoker tobacco type: cigarettes ROS Review of Systems ROS Unobtainable: other Constitutional Constitutional: Denies fatigue, fever(s), poor appetite, weight gain or weight loss ENT HEENT: Denies mouth lesions Cardiovascular Cardiovascular: Denies abdominal bloating, abdominal edema or abdominal pain Respiratory/Chest Respiratory/Chest: Denies change in mental status, change in phlegm color, chest congestion or chest tightness Gastrointestinal Gastrointestinal: Denies belching, bloating, change in bowel habits, change in stool character, chewing difficulty, coffee ground emesis, constipation, cramping, diarrhea, dyspepsia, dysphagia, early satiety, excessive flatus, fecal incontinence, heartburn, hematemesis, hematochezia, hemorrhoids, loose stools, melena, nausea, odynophagia, rectal bleeding, tenesmus, vomiting or weight changes Genitourinary Genitourinary: Denies abdominal discomfort, burning urination or itching Musculoskeletal Musculoskeletal: Reports as per HPI; Denies muscle weakness or myalgias Integumentary Integumentary: Denies jaundice Neurologic Neurologic: Denies lack of coordination or weakness Psychiatric Psychiatric: Denies confusion, depression, memory loss, mood swings, paranoia or suicidal ideation Endocrine Endocrinology: Denies systems reviewed and no addt'l complaints, except as documented Hematologic/Lymphatic Hematologic/Lymphatic: Denies anemia, easy bleeding, easy bruising or lymphadenopathy Allergic/Immunologic Allergic/Immunologic: Denies systems reviewed and no addt'l complaints, except as documented Physical Exam Const alert General Appearance: cooperative Orientation / Consciousness: oriented to person HEENT hearing grossly normal bilaterally Head and Scalp: normal to inspection Face and Sinus: face symmetric Nose: external nose normal Mouth: oral and palatal mucosa normal Eyes conjunctivae normal General Eye: normal appearance of both eyes Neck full ROM General: normal visual inspection Lymph Lymphatic: no lymphadenopathy noted Chest inspection of chest normal and palpation of chest normal Chest: symmetrical chest wall rise Resp normal respiratory effort Effort and Inspection: able to speak in complete sentences Cardio regular rate GI non-distended Percussion: normal to percussion Rectal Exam: deferred Neuro Speech: speech normal Gait (Neuro): normal gait Assessment & Plan Assessment/Plan (1) Encounter for screening for malignant neoplasm of colon: PLAN: She was explained alternatives, risk, benefits including not withstanding bleeding, infection, sepsis, perforation, need for emergent surgery . She will have an ASA of 2.
[2023-05-05] MEDS: Lactated Ringers 1,000 ML 15 ML IV (10:50)
--- NOTE | 2023-05-05 11:45 | COLBX_PTH ---
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 Gregory Ruffin DO : 1960 BED: DIS: 05/05/2023 SPEC #: [id number] RECD: 05/05/23 14:27 STATUS: DEENA REQ #: [id number] HYUN: 05/05/23 11:[address]: Gregory Ruffin DEPT: SURGICAL PATHOLOGY RECD BY: Joanna Hidalgo ENTERED: 05/06/23 08:45 SP TYPE: COLON BX OTHR DR: Maribel Caraballo DO Tissues: A - Sigmoid colon biopsy B - Cecum, NOS C - Rectum, NOS Procedures: Surgery Specimen Level IV HEADER OPERATION: Colonoscopy with biopsy and polypectomy PRE-OP DIAGNOSIS: Screening TISSUE SUBMITTED: A - Sigmoid polyp, B - Cecal polyp biopsy, C - Rectal polyps MICROSCOPIC DIAGNOSIS A. Sigmoid polyp, polypectomy: Tubular adenoma. B. Cecal polyp, biopsy: Tubular adenoma. C. Rectal polyps, polypectomy: Fragments of hyperplastic polyp. JACKI:charmaine 05/07/2023 MICROSCOPIC DESCRIPTION Slides are reviewed. GROSS DESCRIPTION A - Received in fixative is one container labeled with the patient's name and designated sigmoid polyp. The specimen consists of a pink-red polyp measuring 0.9 x 0.8 x 0.6 cm. The presumed base is inked. The polyp is serially sectioned and submitted entirely in one cassette. B - Received in fixative is one container labeled with the patient's name and designated cecal polyp biopsy. The specimen consists of two irregular fragments of light veliz soft tissue that in aggregate measure 0.5 x 0.4 x 0.1 cm. The specimen is totally submitted in one cassette. C - Received in fixative is one container labeled with the patient's name and designated rectal polyps. The specimen consists of multiple irregular fragments of veliz-pink soft tissue that in aggregate measure 1.5 x 1.0 x 0.3 cm. The specimen is totally submitted in one cassette. / JACKI:charmaine 05/06/2023 TC:1 CPT: 57716 x3
--- NOTE | 2023-05-05 12:12 | OP.COLON_ITS ---
Patient Name: Noelle Dunn Procedure Date: 05/05/2023 11:34 AM Date of : 1960 Age: 63 Procedure: Colonoscopy Indications: Screening for colorectal malignant neoplasm Providers: Gregory Ruffin DO Referring MD: Maribel Caraballo Do Medicines: Monitored Anesthesia Care Patient Profile: This is a 63 year old female. Refer to note in patient chart for documentation of history and physical. Last Colonoscopy: several years ago. Complications: No immediate complications. Procedure: Pre-Anesthesia Assessment: - Prior to the procedure, a History and Physical was performed, and patient medications and allergies were reviewed. The risks and benefits of the procedure and the sedation options and risks were discussed with the patient. All questions were answered and informed consent was obtained. Patient identification and proposed procedure were verified by the physician in the pre-procedure area. Mental Status Examination: alert and oriented. Airway Examination: normal oropharyngeal airway and neck mobility. Respiratory Examination: clear to auscultation. CV Examination: normal. Prophylactic Antibiotics: The patient does not require prophylactic antibiotics. Prior Anticoagulants: The patient has taken no anticoagulant or antiplatelet agents. ASA Grade Assessment: II - A patient with mild systemic disease. After reviewing the risks and benefits, the patient was deemed in satisfactory condition to undergo the procedure. The anesthesia plan was to use monitored anesthesia care (MAC). Immediately prior to administration of medications, the patient was re-assessed for adequacy to receive sedatives. The heart rate, respiratory rate, oxygen saturations, blood pressure, adequacy of pulmonary ventilation, and response to care were monitored throughout the procedure. The physical status of the patient was re-assessed after the procedure. After I obtained informed consent, the scope was passed under direct vision. Throughout the procedure, the patient's blood pressure, pulse, and oxygen saturations were monitored continuously. The Colonoscope was introduced through the anus and advanced to the cecum, identified by appendiceal orifice and ileocecal valve. The colonoscopy was performed without difficulty. The patient tolerated the procedure well. The quality of the bowel preparation was adequate. The ileocecal valve, appendiceal orifice, and rectum were photographed. Scope In: 11:44:15 AM Scope Withdrawal Time 0 hours 12 minutes 31 seconds Scope Out: 12:05:14 PM Total Procedure Duration Time 0 hours 20 minutes 59 seconds Findings: The perianal and digital rectal examinations were normal. Multiple small and large-mouthed diverticula were found in the recto-sigmoid colon, sigmoid colon and descending colon. Five sessile polyps were found in the rectum and sigmoid colon. The polyps were 1 to 2 mm in size. These polyps were removed with a saline injection-lift technique using a hot snare. Resection and retrieval were complete. Verification of patient identification for the specimen was done. Estimated blood loss was minimal. Two sessile polyps were found in the rectum and cecum. The polyps were 1 to 2 mm in size. These polyps were removed with a jumbo cold forceps. Resection and retrieval were complete. Verification of patient identification for the specimen was done. Estimated blood loss was minimal. Impression: - Diverticulosis in the recto-sigmoid colon, in the sigmoid colon and in the descending colon. - Five 1 to 2 mm polyps in the rectum and in the sigmoid colon, removed using injection-lift and a hot snare. Resected and retrieved. - Two 1 to 2 mm polyps in the rectum and in the cecum, removed with a jumbo cold forceps. Resected and retrieved. Recommendation: - Repeat colonoscopy in 3 years for surveillance. - Continue present medications. Procedure Code(s): --- Professional --- 63948, Colonoscopy, flexible; with removal of tumor(s), polyp(s), or other lesion(s) by snare technique 49782, 59, Colonoscopy, flexible; with biopsy, single or multiple 63105, Colonoscopy, flexible; with directed submucosal injection(s), any substance CPT copyright 2021 [employer]. All rights reserved. The codes documented in this report are preliminary and upon elastic tape inserter review may be revised to meet current compliance requirements. Gregory Ruffin DO 05/05/2023 12:11:55 PM This report has been signed electronically. Number of Addenda: 0 Note Initiated On: 05/05/2023 11:34 AM
--- NOTE | 2023-05-05 12:12 | OP.CCLET_ITS ---
05/05/2023 Maribel Caraballo Do Re : Colonoscopy procedure for Noelle Dunn Dear Ilya This procedure was performed on Friday, May 05, 2023. My impressions and recommendations are as follows: Impressions : - Diverticulosis in the recto-sigmoid colon, in the sigmoid colon and in the descending colon. - Five 1 to 2 mm polyps in the rectum and in the sigmoid colon, removed using injection-lift and a hot snare. Resected and retrieved. - Two 1 to 2 mm polyps in the rectum and in the cecum, removed with a jumbo cold forceps. Resected and retrieved. Recommendations : - Repeat colonoscopy in 3 years for surveillance. - Continue present medications. My findings are described in the full procedure note, which is enclosed. If I can be of further assistance, please feel free to contact me at . Sincerely, Gregory Ruffin, 05/05/2023 12:11:55 PM This report has been signed electronically.
== END 2023-05-05 12:45 | disposition home or self-care (01) ==
LOC: EN 10:18 → AC 10:21
PROVIDERS: PCP Family Medicine; Referring Provider Family Medicine; Visit Provider Internal Medicine Gastroenterology
PROC: 0DJD8ZZ Inspection of Lower Intestinal Tract, Via Natural or Artificial Opening Endoscopic (ICD-10-PCS; CPT 45378; principal; 2023-05-05 11:40)
DX: Z12.11 Encounter for screening for malignant neoplasm of colon (principal); K57.30 Diverticulosis of large intestine without perforation or abscess without bleeding; I10 Essential (primary) hypertension; K62.1 Rectal polyp; Z80.0 Family history of malignant neoplasm of digestive organs; F17.210 Nicotine dependence, cigarettes, uncomplicated; E78.00 Pure hypercholesterolemia, unspecified; D12.5 Benign neoplasm of sigmoid colon; D12.0 Benign neoplasm of cecum; Z79.899 Other long term (current) drug therapy
CPT/HCPCS: 45380; 45385; 88305; J7120; J2405

== ENCOUNTER 2024-05-21 14:25 | Inpatient (IN) | payer OTHER, SELFPAY ==
[2024-05-21] VITALS (13 sets, daily range): BP systolic 126–144; BP diastolic 48–88; PULSE 81–88; RESP 12–25; TEMP 36.2–37.1; O2SAT 79–95; BMI 41.4; BMI 41.0
--- NOTE | 2024-05-21 14:36 | EKG12_ITS ---
Test Reason : SOB Blood Pressure : */* mmHG Vent. Rate : 88 BPM Atrial Rate : 88 BPM P-R Int : 166 ms QRS Dur : 74 ms QT Int : 362 ms P-R-T Axes : 57 -32 59 degrees QTcB Int : 438 ms Normal sinus rhythm Possible Left atrial enlargement Left axis deviation Low voltage QRS Confirmed by JEANNETTE ALY, HANSEL ([id number]), commercial production editor MAURICE MCNAMARA ([id number]) on 05/24/2024 10:28:59 AM Referred By: Confirmed By: HANSEL MACHADO MD
--- NOTE | 2024-05-21 14:37 | EDS_ITS ---
"HPI History of Present Illness Chief Complaint: Shortness of Breath Informant: patient and spouse/S.O. Narrative Narrative: Presents with daughter for increasing dyspnea fatigue. Symptoms started 5 days ago not feeling well all day on Friday. Friday started slight cough she smokes half pack per day no diagnosed asthma or COPD. States started to use Mucinex therefore productive sputum. She wheezing at home. Denies chest or abdominal pain. Denies nausea or vomiting. Denies fever chills or myalgias. Denies urinary symptoms. Is not a diabetic. Patient blood pressure and cholesterol medicines. She had COVID mild case 2020, no vaccinations no hospitalizations. Denies recent travel or surgeries. No history of PE or DVT. 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 Prior similar symptoms: No PFSH PFSH Medical History Loose, teeth High cholesterol Smoker History of edema History of echocardiogram Hypercholesteremia HTN (hypertension) Family hx of colon cancer Home Medications ?Medication ?Instructions ?Recorded ?Last Taken ?Type loratadine 10 mg tablet (Allergy 10 mg PO DAILY PRN allergy symptoms 07/31/18 Unknown History Relief (loratadine)) omega-3 fatty acids-fish oil 340 1 ea PO DAILY 07/31/18 Unknown History mg-1,000 mg capsule (Fish Oil) ascorbate calcium (vitamin C) 500 500 mg PO DAILY 03/11/23 Unknown History mg tablet atorvastatin 40 mg tablet 40 mg PO QHS 03/11/23 Unknown History cholecalciferol (vitamin D3) 50 50 mcg PO DAILY 03/11/23 Unknown History mcg (2,000 unit) capsule hydrochlorothiazide 25 mg tablet 25 mg PO DAILY 03/11/23 Unknown History zinc gluconate 30 mg tablet 30 mg PO DAILY 03/11/23 Unknown History amlodipine 10 mg tablet 10 mg PO DAILY 05/21/24 Unknown History Allergy/AdvReac Type Severity Reaction Status Date / Time lisinopril Allergy Angioedema Verified 05/21/24 14:26 Family History Father Colon cancer Grandmother Colon cancer Brother Colon polyps Surgical History History of wisdom tooth extraction History of tubal ligation Hx of colonoscopy Social History household members: children current occupational status: employed Smoking Status: Light Smoker (<10/day) ROS ROS ED Constitutional Constitutional ED: Denies chills, fever(s) or sweats Eyes Eyes: Denies change in vision ENT ENT ED: Denies dysphagia or sore throat Cardiovascular Cardiovascular: Denies chest pain, leg edema, palpitations or racing heartbeat Respiratory/Chest Respiratory/Chest: Reports cough and dyspnea; Denies dyspnea on exertion Gastrointestinal Gastrointestinal: Denies abdominal pain, diarrhea, nausea or vomiting Genitourinary Genitourinary ED: Denies dysuria, hematuria or urinary frequency Musculoskeletal Musculoskeletal: Denies back pain, extremity pain or neck pain Integumentary Denies rash or wounds Neurologic Neurologic: Denies headache(s), paresthesias or weakness EXAM Physical Exam Const Vital Signs: 05/21/24 14:26 05/21/24 14:30 05/21/24 14:56 Temperature 97.1 F L Temperature Source Oral Pulse Rate 85 86 Respiratory Rate 16 20 H Respiratory Effort Respiratory Depth Respiratory Pattern Blood Pressure 139/88 H Blood Pressure Mean 105 Pulse Ox 79 87 Oxygen Delivery Method Nasal Cannula Nasal Cannula Oxygen Flow Rate (L/min) 4 7 05/21/24 15:17 05/21/24 15:26 05/21/24 16:00 Temperature Temperature Source Pulse Rate 82 81 Respiratory Rate 19 H 12 Respiratory Effort Short of Breath Respiratory Depth Normal Respiratory Pattern Tachypnea Blood Pressure 138/66 H 144/76 H Blood Pressure Mean 90 98 Pulse Ox 90 90 Oxygen Delivery Method Nasal Cannula High Flow High Flow Oxygen Flow Rate (L/min) 7 7 7 05/21/24 17:00 05/21/24 17:07 05/21/24 17:08 Temperature 98 F 98 F Temperature Source Temporal Pulse Rate 86 86 86 Respiratory Rate 25 H 25 H 25 H Respiratory Effort Respiratory Depth Respiratory Pattern Blood Pressure 143/75 H 143/75 H 143/75 H Blood Pressure Mean 97 97 97 Pulse Ox 89 89 89 Oxygen Delivery Method High Flow High Flow Oxygen Flow Rate (L/min) 7 Positive well nourished and well developed Constitutional Narrative: 6 L nasal cannula no respiratory distress General Appearance ED: well developed and NAD HEENT Reports moist mucous membranes normocephalic and atraumatic Eyes EOMs intact bilaterally and conjunctivae normal General Eye ED: Yes normal appearance of both eyes Neck no lymphadenopathy and supple General: Negative for tenderness Chest Wall Chest: Negative for tenderness Resp Resp Narrative: Diminished breath sounds at the bases. Effort and Inspection: symmetric chest movement; Negative for respiratory distress Cardio regular rate, regular rhythm and no murmurs Peripheral Pulses: pulses 2+ throughout GI normal to inspection, nondistended, normoactive bowel sounds and non-tender Palpation: Negative for guarding or rebound tenderness present Back/Spine no CVA tenderness and no thoracic nor lumbar tenderness Extremity normal to inspection General Extremety ED: Negative for edema or tenderness General Extremity: Negative for edema Neuro oriented x3 and no sensory deficits noted Sensorium / Orientation: awake and alert Skin no rashes or lesions noted and no wounds MDM MDM MDM Narrative Medical decision making narrative: Interventions / MDM: Differential diagnosis: Pneumonia, hypoxia Diagnosis considered but do not suspect: PE however clinically with cough sputum pneumonia symptoms and findings. My EKG interpretation: Sinus rate of 88, no ST changes, T wave versions V1 V2 and aVL. No old for comparison. Imaging independently reviewed and interpreted by myself: 2 view chest x-ray: Right lower lobe infiltrate findings. No effusions. No pneumothorax. CT angiogram chest: No PE, right middle right upper lobe infiltrate with right lower lobe effusion. Also seen hepatic mass of 5 cm per radiology. External documents reviewed: N/A Test considered but not ordered:N/A ED course: Patient hypoxic on arrival reported cyanosis of the lips she was placed on 4 L brought back on 6 L. Current pulse ox 93%. There is diminished lung sounds bilateral bases. Afebrile. Check EKG chest x-ray labs. Solu- Medrol aerosol treatments ordered. 1500: Respiratory gave breathing treatment however placed her on high flow at 7 L due to hypoxia. Will add ABG. ABG pH of 7.42. CO2 60.9 PaO2 61.2. Bicarb 40. 1530: checks x-ray concerning right lower lobe infiltrate she is Continued on 7 L high flow oxygen. She is in no respiratory distress. Rocephin and Zithromax IV ordered for commune acquired pneumonia. I will speak with hospitalist for admission. I did discuss with Dr. Mims, discussed patient's findings with hypoxia, we michelle l obtain a CT angiogram in the ED as she is more hypoxic with slight findings on chest x-ray. I felt this is reasonable. 1705: Results of CT negative for PE right middle right upper lobe infiltrate per radiology. Right pleural effusion. Incidental 5 cm hepatic mass also reported. Dr. Mims was in the room updated the patient and daughter of the findings. Further workup will be required. Patient reports mother history of pancreatic cancer and father had colon cancer. Re-evaluation: stable Disposition discussed with patient/family/significant other: Patient and family Case discussed with consulting clinician: Hospitalist This note was generated with [employer] | [employer] dictation software. It may contain incorrect words, spelling, and punctuation that were not noted in checking the note before signing. Lab Data Attestation: I reviewed the patient's lab results. Labs: Laboratory Results - last 24 hr 05/21/24 14:55 WBC 6.9 RBC 5.77 H Hgb 17.6 H Hct 56.9 H MCV 98.6 MCH 30.5 MCHC 30.9 L RDW Std Deviation 59.3 H RDW Coeff of Blake 17.2 H Plt Count 157 MPV 10.7 Immature Gran % (Auto) 0.700 Neut % (Auto) 75.1 H Lymph % (Auto) 13.1 L [place] % (Auto) 10.7 H Eos % (Auto) 0.0 Baso % (Auto) 0.4 Absolute Neuts (auto) 5.2 Absolute Lymphs (auto) 0.91 Nucleated RBC % 1.2 Sodium 135 L Potassium 3.8 Chloride 93 L Carbon Dioxide 39.0 H Anion Gap 3 L BUN 18 Creatinine 0.54 L Estim Creat Clear Calc 136.48 Est GFR (MDRD) Af Amer 146 Est GFR (MDRD) Non-Af 121 BUN/Creatinine Ratio 33.3 H Glucose 125 H Calcium 10.3 H Total Bilirubin 0.80 AST 23 ALT 34 Alkaline Phosphatase 97 Total Protein 7.4 Albumin 3.2 Globulin 4.2 Albumin/Globulin Ratio 0.8 L ABG Data ABG results: ABG 05/21/24 15:18 Specimen Type ART Sample Site R Radial pH 7.43 Bicarbonate Actual 40.0 H Total CO2 42 Base Excess 16 H O2 Saturation 91 L O2 % 7.0 ABG pCO2 60.9 H ABG pO2 61 L [place] Test Positive O2 Delivery Device Cannula Vent Mode Not entered Radiography Diagnostic Testing: Clinical Impression(s) from Imaging Studies Chest X-Ray 05/21/24 15:00 IMPRESSION: Small right pleural effusion with infiltrate or atelectasis of the right lower lobe. Top normal heart size. Electronically Signed: Tripp Singletary MD at 15:17 EST , Chest CTA 05/21/24 15:47 IMPRESSION: 1. No evidence of acute pulmonary embolism. 2. Enlarged main pulmonary artery suggesting pulmonary arterial hypertension. 3. Right middle and upper lobe pneumonia associated with small right parapneumonic effusion. 4. 5 cm liver mass suspicious for neoplasm. Follow-up CT of the abdomen and pelvis recommended. Electronically Signed: Tripp Singletary MD at 16:58 EST , Discharge Plan Dx/Rx/DC Orders Clinical Impression: Pneumonia, Hypoxia, Tobacco dependence, Liver mass Disposition Disposition: Acute Care Hospital [facility] Discharge Date/Time: 05/21/24 18:10"
--- NOTE | 2024-05-21 15:00 | RAD_ITS ---
EXAM: XR CHEST, 2 VIEWS CLINICAL INDICATION: cough TECHNIQUE: Frontal and lateral views of the chest. COMPARISON: No relevant prior studies available. FINDINGS: LUNGS AND PLEURAL SPACES: Small right pleural effusion. Minimal infiltrate or atelectasis within the right lower lobe. Calcified granulomata noted within the right lung. HEART: Heart is top normal size. MEDIASTINUM: No mediastinal or hilar mass. BONES/JOINTS: No acute abnormality. RAD/Chest PA and Lateral IMPRESSION: Small right pleural effusion with infiltrate or atelectasis of the right lower lobe. Top normal heart size. Electronically Signed: Tripp Singletary MD at 15:17 EST ,
[2024-05-21 15:02] LABS: Absolute Lymphocyte Count 0.91 X10^3/uL (0.83-4.51); Absolute Neutrophil Count 5.2 X10^3/uL (2.0-7.7); Basophil# 0.03 X10^3/uL; Basophil% 0.4 % (0-1); Hemoglobin 17.6 g/dL (12.0-15.0); Lymphocyte # 0.91 X10^3/ul (0.83-4.51); Lymphocyte % 13.1 % (19-41); Mean Corp Hgb Conc 30.9 g/dL (32-36); Mean Corpuscular Hgb 30.5 pg (27.0-32.0); Mean Corpuscular Volume 98.6 fL (81-99); Mean Platelet Vol. 10.7 fl (6.2-12.0); Monocyte# 0.74 X10^3/uL; Monocyte% 10.7 % (0-10); NRBC Flagged by Analyzer 1.2 % (0-5); Neutrophil # 5.21 X10^3/uL (2.7-7.7); Neutrophil % 75.1 % (47-70); Platelet Count 157 K/mm3 (150-450); RBC Distribution Width CV 17.2 % (11.6-14.6); RBC Distribution Width SD 59.3 fl (35.1-43.9); Red Blood Count 5.77 M/mm3 (4.2-5.4); White Blood Count 6.9 K/mm3 (4.4-11.0)
[2024-05-21] MEDS: Ipratropium/Albuterol Sulfate 3 ML AMPUL.NEB INHALATION ×2 (15:09→20:21)
[2024-05-21 15:12] LABS: Hematocrit 56.9 % (37-47)
[2024-05-21] MEDS: MethylPREDNISolone 125 MG/2 ML Vial IV (15:13)
[2024-05-21 15:19] LABS: ALB/GLOB Ratio 0.8 RATIO (0.9-2.4); AST(SGOT) 23 U/L (15-37); Alanine Aminotransfer ALT/SGPT 34 U/L (13-56); Albumin, Serum 3.2 g/dL (3.2-5.0); Alkaline Phosphatase 97 U/L (45-117); Anion Gap 3 (5-15); BUN 18 mg/dL (7-18); BUN/Creat Ratio 33.3 RATIO (10-20); Calcium,Total 10.3 mg/dL (8.5-10.1); Chloride 93 mmol/L (98-107); Creatinine, Serum 0.54 mg/dL (0.55-1.02); EST Glomerular Filtration Rate 121 mL/min (>60); Est Glom Filt Rate - Afr Amer 146 mL/min (>60); Estimated Creatinine Clearance 136.48 ml/min; Globulin 4.2 g/dL (2.2-4.2); Glucose 125 mg/dL (74-106); Potassium 3.8 mmol/L (3.5-5.1); Protein, Total 7.4 g/dL (6.4-8.2); Sodium Level 135 mmol/L (136-145)
[2024-05-21 15:23] LABS: Allen Test Positive; Base Excess 16 mmol/L (-2 to +2); Blood Gas Specimen Type ART; Mode Not entered; O2 Delivery Device Cannula; PO2 61 mmHG (75-100); SITE R Radial; SO2 91 % (95-99); Total Carbon Dioxide 42 mmol/L; pCO2 60.9 mmHg (35-45); pH 7.43 (7.35-7.45)
--- NOTE | 2024-05-21 15:47 | CT_ITS ---
EXAM: CT ANGIOGRAPHY CHEST WITH INTRAVENOUS CONTRAST CLINICAL INDICATION: hypoxia TECHNIQUE: Helically acquired angiography images were obtained of the chest with intravenous contrast. This CT exam was performed using one or more of the following dose reduction techniques: automated exposure control, adjustment of the mA and/or kV according to patient size, and/or use of iterative reconstruction technique. MIP reconstructed images were created and reviewed. CONTRAST: IV 100mL [id number] COMPARISON: No relevant prior studies available. FINDINGS: PULMONARY ARTERIES: Main pulmonary artery measures 3.8 cm in diameter raising possibility of pulmonary arterial hypertension. No evidence of acute pulmonary embolism. AORTA: Normal. Normal in caliber. No evidence of dissection. GREAT VESSELS OF AORTIC ARCH: Normal. Normal in caliber. No evidence of dissection. LUNGS AND PLEURAL SPACES: Small right pleural effusion associated with mild compression atelectasis of the right lower lobe. Focal airspace opacification right middle lobe suggestive of pneumonia. Mild patchy groundglass density also noted within the right upper lobe suggestive of inflammatory or infectious process. No mass. HEART: Normal. No pericardial effusion. Normal heart size. Coronary artery calcifications present. MEDIASTINUM: Normal. No mediastinal or hilar adenopathy. Esophagus is unremarkable. No hiatal hernia. BONES/JOINTS: Normal. No suspicious lytic or blastic abnormality. LIVER: Ill-defined 5 cm mass is identified involving hepatic segment [address]/CTA Chest W/WO Contrast IMPRESSION: 1. No evidence of acute pulmonary embolism. 2. Enlarged main pulmonary artery suggesting pulmonary arterial hypertension. 3. Right middle and upper lobe pneumonia associated with small right parapneumonic effusion. 4. 5 cm liver mass suspicious for neoplasm. Follow-up CT of the abdomen and pelvis recommended. Electronically Signed: Tripp Singletary MD at 16:58 EST ,
[2024-05-21] MEDS: Ceftriaxone 1 GM/50 ML BAG IV (15:52)
[2024-05-21] MEDS: Azithromycin 500 MG in Dextrose 5%-Water (250mL Bag) 250 ML 250 MG IV (16:46)
--- NOTE | 2024-05-21 17:33 | HP.PCM.HOS_ITS ---
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 Patient arrived to the ED and was hypoxic to 79% and was placed on 4 L and then titrated up to 6 L and was maintaining sats at 93%.? Chest x-ray concerning for right lower lobe infiltrate and patient had to be titrated to 7 L high flow oxygen.? She is given Rocephin and azithromycin and a nebulizer and hospitalist contacted for admission.? Additionally due to her extent of hypoxia she also had a CTA which did not show any CTA and redemonstrated right-sided pneumonia. Also showed a liver mass patient was unaware of. Patient evaluated at bedside reports on Friday she was exhausted and slept all day, has had worsening fatigue and shortness of breath as well as cough with sputum production all week and yesterday called to make a doctor's appointment. Ultimately due to hypoxia and being generally unwell she was sent here and was found to be 79% on room air. Feels around the same as when she came in, denies any fevers, no chest pain, denies any bowel or bladder complaints. ROS otherwise negative. [facility] Medical History Loose, teeth High cholesterol Smoker History of edema History of echocardiogram Hypercholesteremia HTN (hypertension) Family hx of colon cancer Home Medications ?Medication ?Instructions ?Recorded ?Last Taken ?Type loratadine 10 mg tablet (Allergy 10 mg PO DAILY PRN allergy symptoms 07/31/18 Unknown History Relief (loratadine)) omega-3 fatty acids-fish oil 340 1 ea PO DAILY 07/31/18 Unknown History mg-1,000 mg capsule (Fish Oil) ascorbate calcium (vitamin C) 500 500 mg PO DAILY 03/11/23 Unknown History mg tablet atorvastatin 40 mg tablet 40 mg PO QHS 03/11/23 Unknown History cholecalciferol (vitamin D3) 50 50 mcg PO DAILY 03/11/23 Unknown History mcg (2,000 unit) capsule hydrochlorothiazide 25 mg tablet 25 mg PO DAILY 03/11/23 Unknown History zinc gluconate 30 mg tablet 30 mg PO DAILY 03/11/23 Unknown History amlodipine 10 mg tablet 10 mg PO DAILY 05/21/24 Unknown History Allergy/AdvReac Type Severity Reaction Status Date / Time lisinopril Allergy Angioedema Verified 05/21/24 14:26 Family History Father Colon cancer Grandmother Colon cancer Brother Colon polyps Surgical History History of wisdom tooth extraction History of tubal ligation Hx of colonoscopy Social History household members: children current occupational status: employed Smoking Status: Light Smoker (<10/day) ROS ROS Narrative General: Denies fever/chills HENT: Denies headache, does have some nasal congestion, denies sore throat EYES: Denies changes in vision Resp: Increasing cough with productivity and increasing shortness of breath Cardiac: Denies chest pain GI: Denies abdominal pain, denies changes in bowel, denies nausea/vomiting : Denies changes in urination Extremity: Denies swelling MSK: Denies weakness, just feels overall unwell and fatigued Neuro: Denies any numbness/tingling Heme: Denies any bleeding or bruising Skin: Denies rashes Psychiatric: No complaints voiced Vital Signs Vital Signs Vital Signs: 05/21/24 14:26 05/21/24 14:30 05/21/24 14:56 Temperature 97.1 F L Temperature Source Oral Pulse Rate 85 86 Respiratory Rate 16 20 H Respiratory Effort Respiratory Depth Respiratory Pattern Blood Pressure 139/88 H Blood Pressure Mean 105 Pulse Ox 79 87 Oxygen Delivery Method Nasal Cannula Nasal Cannula Oxygen Flow Rate (L/min) 4 7 05/21/24 15:17 05/21/24 15:26 05/21/24 16:00 Temperature Temperature Source Pulse Rate 82 81 Respiratory Rate 19 H 12 Respiratory Effort Short of Breath Respiratory Depth Normal Respiratory Pattern Tachypnea Blood Pressure 138/66 H 144/76 H Blood Pressure Mean 90 98 Pulse Ox 90 90 Oxygen Delivery Method Nasal Cannula High Flow High Flow Oxygen Flow Rate (L/min) 7 7 7 05/21/24 17:00 05/21/24 17:07 05/21/24 17:08 Temperature 98 F 98 F Temperature Source Temporal Pulse Rate 86 86 86 Respiratory Rate 25 H 25 H 25 H Respiratory Effort Respiratory Depth Respiratory Pattern Blood Pressure 143/75 H 143/75 H 143/75 H Blood Pressure Mean 97 97 97 Pulse Ox 89 89 89 Oxygen Delivery Method High Flow High Flow Oxygen Flow Rate (L/min) 7 Weight Weight: 116.4 kg Body Mass Index (BMI) 41.4 Physical Exam Narrative General: Alert, oriented, appears to feel unwell HEENT: Atraumatic, normocephalic Eyes: Anicteric, normal conjunctiva, extraocular movements grossly intact Neck: Supple Respiratory: Increased respiratory effort, diminished bilaterally but coarse on right greater than left Cardiovascular: Regular rate and rhythm GI: Slightly firm with no tenderness, rebound, guarding, or rigidity Extremities: Trace lower extremity edema Musculoskeletal: Moving all extremities Neuro: No overt focal neurological deficits Skin: Some chronic lower extremity changes Psych: Cooperative Results Lab / Micro Data 05/21/24 14:55 05/21/24 14:55 Labs: Laboratory Results - last 24 hr 05/21/24 14:55: WBC 6.9, RBC 5.77 H, Hgb 17.6 H, Hct 56.9 H, MCV 98.6, MCH 30.5, MCHC 30.9 L, RDW Std Deviation 59.3 H, RDW Coeff of Blake 17.2 H, Plt Count 157, MPV 10.7, Immature Gran % (Auto) 0.700, Neut % (Auto) 75.1 H, Lymph % (Auto) 13.1 L, [place] % (Auto) 10.7 H, Eos % (Auto) 0.0, Baso % (Auto) 0.4, Absolute Neuts (auto) 5.2, Absolute Lymphs (auto) 0.91, Nucleated RBC % 1.2, Sodium 135 L , Potassium 3.8, Chloride 93 L, Carbon Dioxide 39.0 H, Anion Gap 3 L, BUN 18, C reatinine 0.54 L, Estim Creat Clear Calc 136.48, Est GFR (MDRD) Af Amer 146, Est GFR (MDRD) Non-Af 121, BUN/Creatinine Ratio 33.3 H, Glucose 125 H, Calcium 10.3 H, Total Bilirubin 0.80, AST 23, ALT 34, Alkaline Phosphatase 97, Total Protein 7.4, Albumin 3.2, Globulin 4.2, Albumin/Globulin Ratio 0.8 L Micro: Microbiology 05/21/24 15:15 Mucosa - Nose SARS-CoV-2, Influenza & RSV (PCR) - Final ABG Data ABG results: ABG 05/21/24 15:18 Specimen Type ART Sample Site R Radial pH 7.43 Bicarbonate Actual 40.0 H Total CO2 42 Base Excess 16 H O2 Saturation 91 L O2 % 7.0 ABG pCO2 60.9 H ABG pO2 61 L [place] Test Positive O2 Delivery Device Cannula Vent Mode Not entered Imaging Radiology Impression Chest X-Ray 05/21/24 15:00 IMPRESSION: Small right pleural effusion with infiltrate or atelectasis of the right lower lobe. Top normal heart size. Electronically Signed: Tripp Singletary MD at 15:17 EST Reading Location ID and State: [facility] / [place] Tel , Service support , Chest CTA 05/21/24 15:47 IMPRESSION: 1. No evidence of acute pulmonary embolism. 2. Enlarged main pulmonary artery suggesting pulmonary arterial hypertension. 3. Right middle and upper lobe pneumonia associated with small right parapneumonic effusion. 4. 5 cm liver mass suspicious for neoplasm. Follow-up CT of the abdomen and pelvis recommended. Electronically Signed: Tripp Singletary MD at 16:58 EST , Assessment & Plan Assessment/Plan (1) Pneumonia: PLAN: Plan # Acute hypoxia secondary to community-acquired pneumonia -Imaging: Chest x-ray with right lower lobe infiltrate -DuoNebs and as needed albuterol -Sputum culture, blood culture given severity, COVID negative, respiratory panel ordered -Urine antigens -Mucinex, I/S -Rocephin and azithromycin #Liver mass -Liver function within normal limits -CT of the chest demonstrated an ill-defined mass of 5 cm involving hepatic segment -Will ultimately need further workup as she stabilizes #Hypertension -Hold home medications at this time, if patient becomes significantly hypertensive we will resume #Tobacco use -Advise cessation -Nicotine replacement available if desired #Alcohol use -Does drink roughly 6 beers a day but has not had a drink since Friday #Morbid obesity -BMI documented as 41.4 kg/m? at time of admission -Complicates treatment, prognosis, outcomes -Recommend weight loss and lifestyle changes #DVT ppx: Lovenox subcu Olena Mims MD Time spent in the patient's overall evaluation, decision-making process, review of diagnostic data, adjustment of management, discussion with other providers, nursing and ancillary staff involved in patient's care documentation, 60 Minutes Charges/Coding Visit Charges Inpatient E&M: 97013 Init Hosp L2
[2024-05-21] MEDS: guaiFENesin 1,200 MG Tablet 1200 MG PO (22:28)
[2024-05-21] MEDS: Atorvastatin Calcium 40 MG Tablet PO (22:28)
[2024-05-21] MEDS: Enoxaparin 40 MG/0.4 ML Syringe SC (22:30)
[2024-05-22] VITALS (18 sets, daily range): BP systolic 113–138; BP diastolic 69–78; PULSE 75–85; RESP 18–22; TEMP 36.3–36.8; O2SAT 60–97; BMI 41.4
[2024-05-22] MEDS: Ipratropium/Albuterol Sulfate 3 ML AMPUL.NEB INHALATION ×6 (00:20→20:10)
[2024-05-22 05:36] LABS: Absolute Lymphocyte Count 0.45 X10^3/uL (0.83-4.51); Absolute Neutrophil Count 7.4 X10^3/uL (2.0-7.7); Basophil# 0.04 X10^3/uL; Basophil% 0.5 % (0-1); Hematocrit 54.8 % (37-47); Hemoglobin 17.3 g/dL (12.0-15.0); Lymphocyte # 0.45 X10^3/ul (0.83-4.51); Lymphocyte % 5.5 % (19-41); Mean Corp Hgb Conc 31.6 g/dL (32-36); Mean Corpuscular Hgb 30.7 pg (27.0-32.0); Mean Corpuscular Volume 97.2 fL (81-99); Mean Platelet Vol. 11.3 fl (6.2-12.0); Monocyte# 0.23 X10^3/uL; Monocyte% 2.8 % (0-10); NRBC Flagged by Analyzer 1.7 % (0-5); Neutrophil # 7.35 X10^3/uL (2.7-7.7); Neutrophil % 90.3 % (47-70); POSITIVE DIFFERENTIAL YES; Platelet Count 148 K/mm3 (150-450); RBC Distribution Width CV 16.9 % (11.6-14.6); RBC Distribution Width SD 57.3 fl (35.1-43.9); Red Blood Count 5.64 M/mm3 (4.2-5.4); White Blood Count 8.1 K/mm3 (4.4-11.0)
[2024-05-22 06:01] LABS: International Normalized Ratio 1.2
[2024-05-22 06:22] LABS: ALB/GLOB Ratio 0.7 RATIO (0.9-2.4); AST(SGOT) 20 U/L (15-37); Alanine Aminotransfer ALT/SGPT 28 U/L (13-56); Albumin, Serum 2.9 g/dL (3.2-5.0); Alkaline Phosphatase 91 U/L (45-117); Anion Gap 6 (5-15); BUN 19 mg/dL (7-18); BUN/Creat Ratio 31.4 RATIO (10-20); Calcium,Total 9.4 mg/dL (8.5-10.1); Chloride 94 mmol/L (98-107); EST Glomerular Filtration Rate 106 mL/min (>60); Est Glom Filt Rate - Afr Amer 128 mL/min (>60); Estimated Creatinine Clearance 122.89 ml/min; Globulin 4.2 g/dL (2.2-4.2); Glucose 179 mg/dL (74-106); Magnesium 2.2 mg/dL (1.6-2.6); Protein, Total 7.1 g/dL (6.4-8.2); Sodium Level 136 mmol/L (136-145); Thyroid Stim Hormone (TSH) 0.175 uIU/mL (0.358-3.740)
[2024-05-22] MEDS: Enoxaparin 40 MG/0.4 ML Syringe SC ×2 (11:21→21:26)
[2024-05-22] MEDS: guaiFENesin 1,200 MG Tablet 1200 MG PO ×2 (11:22→21:26)
[2024-05-22] MEDS: Ceftriaxone 2 GM in 0.9% Normal Saline (50mL MB+) 50 ML IV (11:31)
--- NOTE | 2024-05-22 11:45 | CASEMGMT ---
JOSIAH REYES Face to Face with patient for initial transition planning/care coordination assessment. RN CM introduced self and role at [facility]. Patient lying in bed, alert and oriented. Patient willing to participate in assessment and is able to answer all questions appropriately. Care providers, pharmacy, and demographics verified. Strata: 1 PCP: Melinda Specialists: none Preferred Pharmacy: [facility] or [facility] Retail at discharge. Insurance: MMO Prescription Benefit: yes Living Will/HPOA: yes, sister, would like to update, SW notified LNOK: daughter Living Arrangements: Patient lives with step daughter and her family in a single story home with ramp to enter. Patient states she is independent at home. Transportation:self, family DME/HHC: Patient denies DME in the home. No previous HHC or SNF. Will monitor for home oxygen at discharge, prefers [employer], green sheet placed on chart. Patient wishes to discharge home, denies need for home health at this time. Patient states she has no further needs or concerns at this time. CM to follow for discharge planning needs that may arise. Disposition Plan: Patient to discharge home with family support and follow-up plans in place. Will monitor for home oxygen. Jerri ISRAEL, RN, CM
[2024-05-22] MEDS: Azithromycin 500 MG in Dextrose 5%-Water (250mL Bag) 250 ML 250 MG IV (12:28)
--- NOTE | 2024-05-22 13:25 | PN.HOSP_ITS ---
Reason for Visit Reason for Visit: Shortness of breath/hypoxia Subjective Subjective Patient states she feels much better today. She indicates she is at least 90% better. Still on high flow nasal cannula but this morning was on Airvo. Highly suspect patient has ROGER. She states she has been asked to be tested before but has not done it due to financial issues and insurance purposes. Objective Data Objective Data Vital Signs: Vital Signs Temp Pulse Resp BP Pulse Ox O2 Del Method O2 Flow Rate 97.7 F L 84 20 H 125/71 H 93 High Flow 7 05/22/24 08:03 05/22/24 11:11 05/22/24 11:11 05/22/24 08:03 05/22/24 11:11 05/22/24 11:11 05/22/24 11:11 FiO2 45 05/22/24 10:00 Oxygen Flow Rate (L/min) 7 Oxygen Delivery Method High Flow Weight: 116.5 kg Body Mass Index (BMI) 41.4 Intake & Output: Intake and Output for Last 24 Hours 05/20/24 05/21/24 05/22/24 23:59 23:59 23:59 Intake Total 305 / 305 350 / 350 Balance 305 / 305 350 / 350 Lab / Micro Data 05/22/24 05:22 05/22/24 05:22 Labs: Laboratory Results - last 24 hr 05/21/24 14:55: WBC 6.9, RBC 5.77 H, Hgb 17.6 H, Hct 56.9 H, MCV 98.6, MCH 30.5, MCHC 30.9 L, RDW Std Deviation 59.3 H, RDW Coeff of Blake 17.2 H, Plt Count 157, MPV 10.7, Immature Gran % (Auto) 0.700, Neut % (Auto) 75.1 H, Lymph % (Auto) 13.1 L, [place] % (Auto) 10.7 H, Eos % (Auto) 0.0, Baso % (Auto) 0.4, Absolute Neuts (auto) 5.2, Absolute Lymphs (auto) 0.91, Nucleated RBC % 1.2, Sodium 135 L , Potassium 3.8, Chloride 93 L, Carbon Dioxide 39.0 H, Anion Gap 3 L, BUN 18, C reatinine 0.54 L, Estim Creat Clear Calc 136.48, Est GFR (MDRD) Af Amer 146, Est GFR (MDRD) Non-Af 121, BUN/Creatinine Ratio 33.3 H, Glucose 125 H, Calcium 10.3 H, Total Bilirubin 0.80, AST 23, ALT 34, Alkaline Phosphatase 97, Total Protein 7.4, Albumin 3.2, Globulin 4.2, Albumin/Globulin Ratio 0.8 L 05/22/24 05:22: WBC 8.1, RBC 5.64 H, Hgb 17.3 H, Hct 54.8 H, MCV 97.2, MCH 30.7, MCHC 31.6 L, RDW Std Deviation 57.3 H, RDW Coeff of [place] 16.9 H, Plt Count 148 L, MPV 11.3, Immature Gran % (Auto) 0.900, Neut % (Auto) 90.3 H, Lymph % (Auto) 5.5 L, [place] % (Auto) 2.8, Eos % (Auto) 0.0, Baso % (Auto) 0.5, Absolute Neuts (auto) 7.4, Absolute Lymphs (auto) 0.45 L, Nucleated RBC % 1.7, PT 15.0 H, INR 1.2, Sodium 136, Potassium 4.0, Chloride 94 L, Carbon Dioxide 36.0 H, Anion Gap 6, B UN 19 H, Creatinine 0.60, Estim Creat Clear Calc 122.89, Est GFR (MDRD) Af Amer 128, Est GFR (MDRD) Non-Af 106, BUN/Creatinine Ratio 31.4 H, Glucose 179 H, Calcium 9.4, Magnesium 2.2, Total Bilirubin 0.70, AST 20, ALT 28, Alkaline Phosphatase 91, Total Protein 7.1, Albumin 2.9 L, Globulin 4.2, Albumin/Globulin Ratio 0.7 L, TSH 0.175 L Micro: Microbiology 05/22/24 00:35 Mucosa - Nasopharyngeal Respiratory Panel (PCR) - Final 05/21/24 22:30 Urine, Random Legionella Antigen - Final 05/21/24 22:30 Urine, Random Streptococcus pneumoniae Antigen (M - Final 05/21/24 15:15 Mucosa - Nose SARS-CoV-2, Influenza & RSV (PCR) - Final ABG Data ABG results: ABG 05/21/24 15:18 Specimen Type ART Sample Site R Radial pH 7.43 Bicarbonate Actual 40.0 H Total CO2 42 Base Excess 16 H O2 Saturation 91 L O2 % 7.0 ABG pCO2 60.9 H ABG pO2 61 L [place] Test Positive O2 Delivery Device Cannula Vent Mode Not entered Radiography Diagnostic Testing: Radiology Impression Chest X-Ray 05/21/24 15:00 IMPRESSION: Small right pleural effusion with infiltrate or atelectasis of the right lower lobe. Top normal heart size. Electronically Signed: Tripp Singletary MD at 15:17 EST , Chest CTA 05/21/24 15:47 IMPRESSION: 1. No evidence of acute pulmonary embolism. 2. Enlarged main pulmonary artery suggesting pulmonary arterial hypertension. 3. Right middle and upper lobe pneumonia associated with small right parapneumonic effusion. 4. 5 cm liver mass suspicious for neoplasm. Follow-up CT of the abdomen and pelvis recommended. Electronically Signed: Tripp Singletary MD at 16:58 EST , Physical Exam Const alert, oriented x3, no apparent distress and well nourished; Negative for average body habitus or healthy appearing Constitutional Narrative: Morbidly obese, white female, sitting up in a chair at the bedside, daughter at bedside, appears comfortable currently, no dyspnea with conversation, does not appear toxic, respiratory therapist at bedside and patient currently on breathing treatment HEENT head/scalp atraumatic and moist oral mucous membranes HEENT Narrative: Mallampati 3-4, no thrush Head and Scalp: normocephalic Resp normal respiratory effort, no retractions, no use of accessory muscles and clear to auscultation bilaterally Resp Narrative: Diffusely diminished, no signs of respiratory distress on high flow nasal cannula at 7 L, no dyspnea with conversation Auscultation: Negative for rales, rhonchi or wheezes Cardio regular rate, regular rhythm, S1 normal heart sound, S2 normal heart sound, no murmurs, no rub, no gallops and no clicks Cardio Narrative: Distant due to body habitus GI normal to inspection, nondistended, normoactive bowel sounds, soft to palpation and non-tender GI Narrative: Protuberant abdomen Extremity Extremity Narrative: Chronic venous stasis changes bilateral lower extremities, pitting edema bilateral lower extremities that appears to be chronic, no cyanosis or clubbing Neuro oriented x3, moves all extremities and no focal motor deficits Speech: speech normal Psych affect normal Psych Narrative: Tearful at times as we are talking about the CAT scan of her chest noting abnormality in her liver, we did discuss taking 1 day at a time as there is nothing we can do about to change tomorrow, if she stable tomorrow we did discuss that she will have CAT scan tomorrow to further investigate this Assessment & Plan Assessment/Plan (1) Liver mass: (2) Pneumonia: (3) Acute hypoxic respiratory failure: (4) Erythrocytosis: (5) Metabolic alkalosis: PLAN: Plan Acute hypoxic respiratory failure secondary to community-acquired pneumonia -Is not O2 dependent at baseline but on presentation initially was placed on 4 L and then increased to 7 L -Eventually required Airvo -Currently weaned back to 7 L heated high flow nasal cannula -Continue to wean oxygen as able -Will need ambulatory pulse ox prior to discharge -CTA of chest shows significant infiltrate in the right lower lobe with air bronchograms -Will transition to Levaquin for ease of administration and easy transfer to oral antibiotics at discharge -Continue Mucinex -Continue scheduled and as needed nebulizers -continue incentive spirometry -Sputum cultures pending -Strep pneumo and Legionella antigens are negative -COVID/respiratory viral panel are negative Liver mass -If oxygen requirements remain improved tomorrow we will check CT of the abdomen and pelvis -CT of the chest demonstrated an ill-defined mass that was 5 cm involving the liver Erythrocytosis -Appears to be chronic -Suspect patient may have chronic hypoxia and likely untreated sleep apnea -Would recommend room air blood gas be obtained when patient is clinically stable and calculation of an AA gradient -If AA gradient is normal patient likely has obesity hypoventilation syndrome Metabolic alkalosis -Appears to be chronic -Suspect related to chronic hypercapnia/untreated ROGER -Highly recommend outpatient sleep study -Will trial BiPAP here nightly at 16/10 Essential hypertension -Will hold antihypertensives for now as blood pressures are not markedly elevated -Reassess tomorrow and initiate if able Hyperlipidemia -Continue home atorvastatin History of colon polyps -Colonoscopy 05/05/2023 showed several colon polyps which were removed -Pathology was consistent with tubular adenomas as well as hyperplastic polyps -Repeat colonoscopy was recommended for 3 years Seasonal allergies -Continue home loratadine Tobacco abuse -Recommend cessation -Nicotine patch available Alcohol use -Patient reported that she drinks about 6 beers a day but has not had a drink since Friday so in almost a week -Low risk for alcohol withdrawal Morbid obesity -BMI is 41.5 -Recommend weight loss -Complicates treatment, prognosis, outcomes -Highly suspect patient has untreated ROGER and will recommend outpatient polysomnography at discharge DVT prophylaxis -Subcu Lovenox twice daily CODE STATUS -Full code Charges/Coding Visit Charges Inpatient E&M: 85451 Subs Hosp L2
--- NOTE | 2024-05-22 14:36 | CASEMGMT ---
Addendum entered by Blanca Grady 05/22/24 15:04: Social Work Pt also completed organ donation form, SW placed in envelope to be mailed. HAMIDA Andrade Original Note: Social Work Pt completed LW/POA documents w/SW, she named daughter Harsha as healthcare POA. SW placed copies on the chart, originals and copies given to pt. HAMIDA Andrade
[2024-05-22] MEDS: Furosemide 40 MG/4 ML Vial IV (16:13)
[2024-05-22] MEDS: Atorvastatin Calcium 40 MG Tablet PO (21:26)
[2024-05-22] MEDS: Senna/Docusate Sodium 1 Tablet 2 TABLET PO (21:36)
[2024-05-23] VITALS (9 sets, daily range): BP systolic 122–130; BP diastolic 70–73; PULSE 70–82; RESP 12–20; TEMP 36.1–37; O2SAT 92–98; BMI 55.3; BMI 40.9
[2024-05-23 06:21] LABS: Absolute Lymphocyte Count 1.37 X10^3/uL (0.83-4.51); Absolute Neutrophil Count 5.9 X10^3/uL (2.0-7.7); Basophil# 0.03 X10^3/uL; Basophil% 0.4 % (0-1); Eosinophil# 0.02 X10^3/uL; Eosinophils% 0.2 % (0-5); Lymphocyte # 1.37 X10^3/ul (0.83-4.51); Mean Corpuscular Hgb 29.7 pg (27.0-32.0); Mean Corpuscular Volume 98.8 fL (81-99); Mean Platelet Vol. 10.7 fl (6.2-12.0); Monocyte# 0.65 X10^3/uL; Monocyte% 8.1 % (0-10); NRBC Flagged by Analyzer 0.5 % (0-5); Neutrophil # 5.92 X10^3/uL (2.7-7.7); Neutrophil % 73.4 % (47-70); Platelet Count 141 K/mm3 (150-450); RBC Distribution Width CV 16.5 % (11.6-14.6); RBC Distribution Width SD 58.8 fl (35.1-43.9); Red Blood Count 5.73 M/mm3 (4.2-5.4); White Blood Count 8.1 K/mm3 (4.4-11.0)
[2024-05-23 06:41] LABS: Hematocrit 56.6 % (37-47)
[2024-05-23 07:01] LABS: Anion Gap 3 (5-15); BUN 24 mg/dL (7-18); BUN/Creat Ratio 41.1 RATIO (10-20); Chloride 95 mmol/L (98-107); Creatinine, Serum 0.58 mg/dL (0.55-1.02); EST Glomerular Filtration Rate 110 mL/min (>60); Est Glom Filt Rate - Afr Amer 134 mL/min (>60); Estimated Creatinine Clearance 151.26 ml/min; Glucose 109 mg/dL (74-106); Potassium 3.7 mmol/L (3.5-5.1); Sodium Level 138 mmol/L (136-145)
--- NOTE | 2024-05-23 07:09 | CT_ITS ---
STUDY: CT ABDOMEN AND PELVIS WITH CONTRAST REASON FOR EXAM: Female, 64 years old. Liver mass RADIATION DOSAGE (If Supplied By Facility): CTDIvol = ( 18.7 ) mGy, DLP = ( 1331.18 ) mGycm TECHNIQUE: Transaxial images were obtained from the dome of the diaphragm to the symphysis pubis without oral contrast. ml of 100mL Isovue-370 contrast was administered. Sagittal and coronal images were reconstructed. Individualized dose optimization techniques were used for this CT. COMPARISON: None. FINDINGS: Liver: 6.01 x 4.59 cm moderate size partially septated mixed fluid and cystic mucinous appearing lesion in the undersurface and dome of the left lobe of the liver. There is also mild enhancement of the wall of the cystic lesion in left lobe of the liver. MRI of the abdomen liver protocol with and without contrast is recommended. A PET/CT scan can also be obtained to determine if there is any malignant activity in the lesion or if it is benign. Normal remaining aspects of the liver. No demonstrated ductal dilatation. A moderate enhancing 3.29 cm soft tissue mass is present in the left uterine body intramural region possibly representing a fibroid, but cannot be excluded from uterine carcinoma on this study. Further assessment with pelvic ultrasound and MRI of the pelvis with and without contrast is recommended. Bilateral adnexal/fallopian tube clips are present. Moderate right lower lobe atelectasis is present with a small pleural effusion. Multiple calcified granulomata of the right lung are present. Scattered interstitial fibrotic scarring/opacities also present in both lungs. Chronic consolidative fibrosis is present in the medial and inferior aspect of the right middle lobe and the lingula. Normal liver. Normal gallbladder and extrahepatic biliary system. Normal spleen. Normal pancreas. Normal bilateral adrenal glands. There is mild cortical atrophy of the right kidney, consistent with chronic medical renal disease. There is mild cortical atrophy of the left kidney, consistent with chronic medical renal disease. Multiple small cysts are present in both kidneys that do not requiring additional imaging or assessment. Diffuse cortical lobularity of both kidneys consistent with chronic medical renal disease. No hydronephrosis or renal masses are present. Normal visualized stomach. Normal small intestine. There are multiple colonic diverticula consistent with diverticulosis. The appendix is visualized and appears normal. There is diffuse atherosclerotic calcification of the abdominal aorta, without a demonstrated aneurysm. Normal inferior vena cava. Normal retroperitoneum. Normal urinary bladder. There is a small umbilical hernia containing fat. There are diffuse degenerative changes of the visualized lumbar spine. No lytic or blastic lesions are seen in the bony structures on the current study. CT/Abdomen/Pelvis WITH Contrast IMPRESSION: 1. Liver: 6.01 x 4.59 cm moderate size partially septated mixed fluid and cystic mucinous appearing lesion in the undersurface and dome of the left lobe of the liver. There is also mild enhancement of the wall of the cystic lesion in left lobe of the liver. MRI of the abdomen liver protocol with and without contrast is recommended. A PET/CT scan can also be obtained to determine if there is any malignant activity in the lesion or if it is benign. Normal remaining aspects of the liver. No demonstrated ductal dilatation. 2. Also consider image guided biopsy with definitive assessment from pathology and definitive diagnosis 3. Uterine mass = A moderate enhancing 3.29 cm soft tissue mass is present in the left uterine body intramural region possibly representing a fibroid, but cannot be excluded from uterine carcinoma on this study. Further assessment with pelvic ultrasound and MRI of the pelvis with and without contrast is recommended. Bilateral adnexal/fallopian tube clips are present. Electronically Signed: Wilson Ivory MD at 10:38 EST ,
[2024-05-23] MEDS: Ipratropium/Albuterol Sulfate 3 ML AMPUL.NEB INHALATION ×3 (07:20→14:56)
[2024-05-23] MEDS: Furosemide 40 MG/4 ML Vial IV ×2 (09:12→17:38)
[2024-05-23] MEDS: levoFLOXacin IV 750 MG/150 ML BAG 100 MG IV (09:12)
[2024-05-23] MEDS: Enoxaparin 40 MG/0.4 ML Syringe SC ×2 (09:13→19:59)
[2024-05-23] MEDS: Ascorbic Acid 500 MG Tablet PO (09:14)
[2024-05-23] MEDS: Zinc Sulfate 50 mg zinc (220 mg) ORAL capsule PO (09:14)
[2024-05-23] MEDS: guaiFENesin 1,200 MG Tablet 1200 MG PO ×2 (09:15→19:59)
[2024-05-23] MEDS: 0.9% Saline Lock 10 ML Syringe IV ×2 (09:15→17:37)
[2024-05-23] MEDS: Senna/Docusate Sodium 1 Tablet 2 TABLET PO ×2 (09:51→17:37)
--- NOTE | 2024-05-23 12:23 | PN.HOSP_ITS ---
Reason for Visit Reason for Visit: Shortness of breath Subjective Subjective Patient states her breathing still feels much better than when she came in. We discussed the results of the CT of her abdomen pelvis redemonstrating a liver mass skin biopsy be recommended as well as uterine mass noted. CT-guided biopsy was ordered and I did discuss that it may not be done tomorrow as I was unclear if the interventional radiologist would be present to do it. Also, she will have a transvaginal ultrasound which we did discuss as well. May need further imaging depending on the results of that. Objective Data Objective Data Vital Signs: Vital Signs Temp Pulse Resp BP Pulse Ox O2 Del Method O2 Flow Rate 98.6 F 78 18 122/72 H 92 Nasal Cannula 7 05/23/24 09:02 05/23/24 10:05 05/23/24 10:05 05/23/24 09:02 05/23/24 09:02 05/23/24 09:42 05/23/24 09:42 FiO2 45 05/22/24 10:00 Oxygen Flow Rate (L/min) 7 Oxygen Delivery Method Nasal Cannula Weight: 115 kg Body Mass Index (BMI) 40.9 Intake & Output: Intake and Output for Last 24 Hours 05/21/24 05/22/24 05/23/24 23:59 23:59 23:59 Intake Total 305 / 305 1105 / 1105 150 / 150 Balance 305 / 305 1105 / 1105 150 / 150 Lab / Micro Data 05/23/24 06:10 05/23/24 06:10 Labs: Laboratory Results - last 24 hr 05/23/24 06:10: WBC 8.1, RBC 5.73 H, Hgb 17.0 H, Hct 56.6 H, MCV 98.8, MCH 29.7, MCHC 30.0 L D, RDW Std Deviation 58.8 H, RDW Coeff of [place] 16.5 H, Plt Count 141 L, MPV 10.7, Immature Gran % (Auto) 0.900, Neut % (Auto) 73.4 H, Lymph % (Auto) 17.0 L, [place] % (Auto) 8.1, Eos % (Auto) 0.2, Baso % (Auto) 0.4, Absolute Neuts (auto) 5.9, Absolute Lymphs (auto) 1.37, Nucleated RBC % 0.5, Sodium 138, Potassium 3.7, Chloride 95 L, Carbon Dioxide 40.0 H, Anion Gap 3 L, BUN 24 H, Creatinine 0.58, Estim Creat Clear Calc 151.26, Est GFR (MDRD) Af Amer 134, Est GFR (MDRD) Non-Af 110, BUN/Creatinine Ratio 41.1 H, Glucose 109 H, Calcium 9.0, Free T4 1.00 Micro: Microbiology 05/21/24 22:20 Sputum, Expectorated/Coughed Gram Stain - Final 05/21/24 22:20 Sputum, Expectorated/Coughed Respiratory Culture - Preliminary Appears to be normal respiratory abundio. Further studies to follow. 05/22/24 00:35 Mucosa - Nasopharyngeal Respiratory Panel (PCR) - Final 05/21/24 22:30 Urine, Random Legionella Antigen - Final 05/21/24 22:30 Urine, Random Streptococcus pneumoniae Antigen (M - Final 05/21/24 15:15 Mucosa - Nose SARS-CoV-2, Influenza & RSV (PCR) - Final Radiography Diagnostic Testing: Radiology Impression Abdomen/Pelvis CT 05/23/24 07:09 IMPRESSION: 1. Liver: 6.01 x 4.59 cm moderate size partially septated mixed fluid and cystic mucinous appearing lesion in the undersurface and dome of the left lobe of the liver. There is also mild enhancement of the wall of the cystic lesion in left lobe of the liver. MRI of the abdomen liver protocol with and without contrast is recommended. A PET/CT scan can also be obtained to determine if there is any malignant activity in the lesion or if it is benign. Normal remaining aspects of the liver. No demonstrated ductal dilatation. 2. Also consider image guided biopsy with definitive assessment from pathology and definitive diagnosis 3. Uterine mass = A moderate enhancing 3.29 cm soft tissue mass is present in the left uterine body intramural region possibly representing a fibroid, but cannot be excluded from uterine carcinoma on this study. Further assessment with pelvic ultrasound and MRI of the pelvis with and without contrast is recommended. Bilateral adnexal/fallopian tube clips are present. Electronically Signed: Wilson Ivory MD at 10:38 EST Reading Location ID and State: [facility] / [place] , Service support , Physical Exam Const alert, oriented x3, no apparent distress and well nourished; Negative for average body habitus or healthy appearing Constitutional Narrative: Morbidly obese, white female, sitting up in bed, daughter at bedside, on phone with sister, appears comfortable currently, no dyspnea with conversation, remains nontoxic HEENT head/scalp atraumatic and moist oral mucous membranes HEENT Narrative: Mallampati 3-4, no thrush Head and Scalp: normocephalic Resp normal respiratory effort, no retractions, no use of accessory muscles and clear to auscultation bilaterally Resp Narrative: Diffusely diminished with few crackles at right base, remains stable on 7 L nasal cannula heated high flow, no dyspnea with conversation, no signs of extremis Auscultation: Negative for rales, rhonchi or wheezes Cardio regular rate, regular rhythm, S1 normal heart sound, S2 normal heart sound, no murmurs, no rub, no gallops and no clicks Cardio Narrative: Distant due to body habitus GI normal to inspection, nondistended, normoactive bowel sounds, soft to palpation and non-tender GI Narrative: Protuberant abdomen Extremity Extremity Narrative: Chronic venous stasis changes bilateral lower extremities, pitting edema bilateral lower extremities that appears to be chronic but slightly improved today with diuretics, no cyanosis or clubbing Neuro oriented x3, moves all extremities and no focal motor deficits Speech: speech normal Psych affect normal Psych Narrative: Still intermittently tearful when discussing the results of her tests but very pleasant and grateful, thanked me for care Assessment & Plan Assessment/Plan (1) Liver mass: (2) Pneumonia: (3) Acute hypoxic respiratory failure: (4) Erythrocytosis: (5) Metabolic alkalosis: PLAN: Plan Acute hypoxic respiratory failure secondary to community-acquired pneumonia -Is not O2 dependent at baseline but on presentation initially was placed on 4 L and then increased to 7 L -Eventually required Airvo -Remains stable on 7 L heated high flow at this time -Continue to wean oxygen as able -Will need ambulatory pulse ox prior to discharge--> I would not be surprised if patient needs oxygen at discharge -CTA of chest shows significant infiltrate in the right lower lobe with air bronchograms -Will transition to Levaquin for ease of administration and easy transfer to oral antibiotics at discharge -Continue Mucinex -Continue scheduled and as needed nebulizers -continue incentive spirometry -Sputum cultures thus far show only oral abundio however right base is fairly socked in with infiltrate -Strep pneumo and Legionella antigens are negative -COVID/respiratory viral panel are negative -Repeat Lasix IV x 2 doses today and reassess daily--> if bicarb goes up further may want to consider Diamox for diuresis Liver mass -Redemonstrated on CT of the abdomen pelvis today -PET versus MRI recommended -Will get CT-guided biopsy--> IR not available tomorrow so hopeful for Friday as I think patient will still be here with regards to her respiratory issues Uterine mass -Will check transvaginal ultrasound--> radiology indicated that it could be a fibroid however unable to tell on imaging Erythrocytosis -Appears to be chronic -Suspect patient may have chronic hypoxia and likely untreated sleep apnea -Would recommend room air blood gas be obtained when patient is clinically stable and calculation of an AA gradient -If AA gradient is normal patient likely has obesity hypoventilation syndrome Metabolic alkalosis -Appears to be chronic -Suspect related to chronic hypercapnia/untreated ROGER -Highly recommend outpatient sleep study -Continue nocturnal BiPAP Essential hypertension -Will hold antihypertensives for now as blood pressures are not markedly elevated -Reassess tomorrow and initiate if able Hyperlipidemia -Continue home atorvastatin History of colon polyps -Colonoscopy 05/05/2023 showed several colon polyps which were removed -Pathology was consistent with tubular adenomas as well as hyperplastic polyps -Repeat colonoscopy was recommended for 3 years Seasonal allergies -Continue home loratadine Tobacco abuse -Recommend cessation -Nicotine patch available Alcohol use -Patient reported that she drinks about 6 beers a day but has not had a drink since Friday so in almost a week -Low risk for alcohol withdrawal Morbid obesity -BMI is 40.9 -Recommend weight loss -Complicates treatment, prognosis, outcomes -Highly suspect patient has untreated ROGER and will recommend outpatient polysomnography at discharge DVT prophylaxis -Subcu Lovenox twice daily CODE STATUS -Full code Charges/Coding Visit Charges Inpatient E&M: 78190 Subs Hosp L2
[2024-05-23] MEDS: Atorvastatin Calcium 40 MG Tablet PO (19:59)
[2024-05-24] VITALS (16 sets, daily range): BP systolic 122–140; BP diastolic 60–75; PULSE 73–89; RESP 16–18; TEMP 35.7–36.7; O2SAT 92–97; BMI 40.5
--- NOTE | 2024-05-24 01:09 | CPS ---
RN made RT aware that patient requested to take the BIPAP off at this time stating that it feels like it's entirely too much - RN took patient off BIPAP and placed her back on 6L nasal cannula.
[2024-05-24 06:39] LABS: Absolute Lymphocyte Count 1.07 X10^3/uL (0.83-4.51); Absolute Neutrophil Count 4.5 X10^3/uL (2.0-7.7); Basophil# 0.05 X10^3/uL; Basophil% 0.8 % (0-1); Eosinophil# 0.05 X10^3/uL; Eosinophils% 0.8 % (0-5); Hemoglobin 17.4 g/dL (12.0-15.0); Lymphocyte # 1.07 X10^3/ul (0.83-4.51); Lymphocyte % 17.3 % (19-41); Mean Corpuscular Hgb 30.1 pg (27.0-32.0); Mean Corpuscular Volume 97.1 fL (81-99); Mean Platelet Vol. 11.2 fl (6.2-12.0); Monocyte# 0.56 X10^3/uL; NRBC Flagged by Analyzer 0 % (0-5); Neutrophil # 4.45 X10^3/uL (2.7-7.7); Neutrophil % 71.8 % (47-70); Platelet Count 143 K/mm3 (150-450); RBC Distribution Width CV 16.4 % (11.6-14.6); RBC Distribution Width SD 57.1 fl (35.1-43.9); Red Blood Count 5.78 M/mm3 (4.2-5.4); White Blood Count 6.2 K/mm3 (4.4-11.0)
[2024-05-24 06:46] LABS: Hematocrit 56.1 % (37-47)
--- NOTE | 2024-05-24 07:00 | US_ITS ---
INDICATION: Uterine mass -- Uterine mass EXAMINATION: Ultrasound US Pelvis Non OB Complete With Transvaginal Imaging TECHNIQUE: Transabdominal and transvaginal pelvic ultrasound was performed. Grayscale, spectral waveform, and color flow Doppler evaluation of the adnexa. COMPARISON: Prior study dated: CT abdomen and pelvis 05/23/2024 LMP: 20 years ago. FINDINGS: UTERUS: 6.4 cm length. Normal configuration. Relatively focal heterogeneous lesion posteriorly on the left likely fibroid, 3.3 x 2.8 x 3.3 cm. ENDOMETRIUM: Not thickened. OVARIES: The ovaries were not visualized. Limited by body habitus. FREE FLUID: None. US/Pelvic w/ Transvaginal IMPRESSION: 3.3 cm uterine mass presumed fibroid. MRI may be helpful for further characterization. Nonvisualized ovaries. Electronically Signed: Ekaterina Freitas MD at 7:19 EST ,
[2024-05-24] MEDS: Ipratropium/Albuterol Sulfate 3 ML AMPUL.NEB INHALATION ×4 (07:08→20:35)
[2024-05-24 07:50] LABS: Anion Gap 4 (5-15); BUN 20 mg/dL (7-18); Calcium,Total 9.1 mg/dL (8.5-10.1); Chloride 94 mmol/L (98-107); Creatinine, Serum 0.56 mg/dL (0.55-1.02); EST Glomerular Filtration Rate 117 mL/min (>60); Est Glom Filt Rate - Afr Amer 142 mL/min (>60); Estimated Creatinine Clearance 130.71 ml/min; Glucose 105 mg/dL (74-106); Potassium 3.4 mmol/L (3.5-5.1); Sodium Level 138 mmol/L (136-145)
[2024-05-24] MEDS: Zinc Sulfate 50 mg zinc (220 mg) ORAL capsule PO (08:55)
[2024-05-24] MEDS: Enoxaparin 40 MG/0.4 ML Syringe SC ×2 (08:55→22:13)
[2024-05-24] MEDS: Ascorbic Acid 500 MG Tablet PO (08:56)
[2024-05-24] MEDS: guaiFENesin 1,200 MG Tablet 1200 MG PO ×2 (08:56→22:13)
[2024-05-24] MEDS: levoFLOXacin IV 750 MG/150 ML BAG 100 MG IV (10:34)
[2024-05-24] MEDS: Cholecalciferol (VIT D3) 25 MCG TABLET (1,000 UNITS) 50 MCG PO (10:35)
--- NOTE | 2024-05-24 10:35 | PN.HOSP_ITS ---
Reason for Visit Reason for Visit: Diagnoses Secondary polycythemia (05/21/24) Alkalosis (05/21/24) Pneumonia, unspecified organism (05/21/24) Acute respiratory failure with hypoxia (05/21/24) Hepatomegaly, not elsewhere classified (05/21/24) Subjective Subjective Patient is a 64-year-old lady who presented with progressive shortness of breath and assessment of acute hypoxic respiratory failure secondary to community- acquired pneumonia made admitted to monitored bed for further management Objective Data Objective Data Vital Signs: Vital Signs Temp Pulse Resp BP Pulse Ox O2 Del Method O2 Flow Rate 97.8 F 87 18 122/65 H 95 Nasal Cannula 7 05/24/24 08:47 05/24/24 08:47 05/24/24 08:47 05/24/24 08:47 05/24/24 08:47 05/24/24 09:15 05/24/24 09:15 FiO2 50 05/23/24 23:35 Oxygen Flow Rate (L/min) 7 Oxygen Delivery Method Nasal Cannula Weight: 115 kg Body Mass Index (BMI) 40.9 Intake & Output: Intake and Output for Last 24 Hours 05/22/24 05/23/24 05/24/24 23:59 23:59 23:59 Intake Total 1105 / 1105 1050 / 1050 Balance 1105 / 1105 1050 / 1050 Lab / Micro Data 05/24/24 06:09 05/24/24 06:09 Labs: Laboratory Results - last 24 hr 05/24/24 06:09: WBC 6.2, RBC 5.78 H, Hgb 17.4 H, Hct 56.1 H, MCV 97.1, MCH 30.1, MCHC 31.0 L, RDW Std Deviation 57.1 H, RDW Coeff of Blake 16.4 H, Plt Count 143 L, MPV 11.2, Immature Gran % (Auto) 0.300, Neut % (Auto) 71.8 H, Lymph % (Auto) 17.3 L, [place] % (Auto) 9.0, Eos % (Auto) 0.8, Baso % (Auto) 0.8, Absolute Neuts (auto) 4.5, Absolute Lymphs (auto) 1.07, Nucleated RBC % 0, Sodium 138, P otassium 3.4 L, Chloride 94 L, Carbon Dioxide 39.0 H, Anion Gap 4 L, BUN 20 H, Creatinine 0.56, Estim Creat Clear Calc 130.71, Est GFR (MDRD) Af Amer 142, Est GFR (MDRD) Non-Af 117, BUN/Creatinine Ratio 36.0 H, Glucose 105, Calcium 9.1 Micro: Microbiology 05/21/24 22:30 Urine, Random Legionella Antigen - Final 05/21/24 22:30 Urine, Random Streptococcus pneumoniae Antigen (M - Final 05/21/24 22:20 Sputum, Expectorated/Coughed Gram Stain - Final 05/21/24 22:20 Sputum, Expectorated/Coughed Respiratory Culture - Final Streptococcus group F 05/21/24 17:55 Blood Culture (Wb) - Anticubital Left Blood Culture - Preliminary No growth in 48 hours. 05/22/24 00:35 Mucosa - Nasopharyngeal Respiratory Panel (PCR) - Final 05/21/24 15:15 Mucosa - Nose SARS-CoV-2, Influenza & RSV (PCR) - Final Radiography Diagnostic Testing: Radiology Impression Abdomen/Pelvis CT 05/23/24 07:09 IMPRESSION: 1. Liver: 6.01 x 4.59 cm moderate size partially septated mixed fluid and cystic mucinous appearing lesion in the undersurface and dome of the left lobe of the liver. There is also mild enhancement of the wall of the cystic lesion in left lobe of the liver. MRI of the abdomen liver protocol with and without contrast is recommended. A PET/CT scan can also be obtained to determine if there is any malignant activity in the lesion or if it is benign. Normal remaining aspects of the liver. No demonstrated ductal dilatation. 2. Also consider image guided biopsy with definitive assessment from pathology and definitive diagnosis 3. Uterine mass = A moderate enhancing 3.29 cm soft tissue mass is present in the left uterine body intramural region possibly representing a fibroid, but cannot be excluded from uterine carcinoma on this study. Further assessment with pelvic ultrasound and MRI of the pelvis with and without contrast is recommended. Bilateral adnexal/fallopian tube clips are present. Electronically Signed: Wilson Ivory MD at 10:38 EST Reading Location ID and State: [facility] / [place] , Service support , Physical Exam Narrative GENERAL: cooperative HEENT: Atraumatic; normocephalic EYES; Anicteric, Normal Conjunctiva NECK; supple, normal thyroid, RESPIRATORY: Diminished to auscultation CARDIOVASCULAR: Regular S1 S2, GI: soft, normoactive bowel sounds, : No Renal angle tenderness; EXTREMITIES: No edema, no clubbing, MUSCULOSKELETAL: no muscle wasting NEURO: Awake; no lateralizing signs. SKIN: No Rash PSYCH; Flat affect Assessment & Plan Assessment/Plan (1) Liver mass: (2) Pneumonia: (3) Acute hypoxic respiratory failure: PLAN: Plan Patient is a 64-year-old lady who presented with progressive shortness of breath and assessment of acute hypoxic respiratory failure secondary to community- acquired pneumonia made admitted to monitored bed for further management 1. Acute hypoxic respiratory failure secondary to community-acquired pneumonia secondary to streptococcal pneumonia, Blood and sputum cultures sent. Sputum cultures came back positive for Streptococcus group F. Patient placed on Levaquin and placed on oxygen titrated to keep Pulse Ox greater than 90. Patient still requires significant amount of oxygen 7 L. Of note patient was not on any oxygen prior to her admission patient will be assessed for home oxygen prior to being discharged 2. Liver mass -CT of the abdomen and pelvis did show Liver: 6.01 x 4.59 cm moderate size partially septated mixed fluid and cystic mucinous appearing lesion in the undersurface and dome of the left lobe of the liver. There is also mild enhancement of the wall of the cystic lesion in left lobe of the liver MRI of the abdomen liver protocol with and without contrast was recommended by radiology subsequently ordered. An order was also placed for patient to undergo CT-guided biopsy 3. Uterine mass -Transvaginal ultrasound ordered for subsequent eval 4. Polycythemia ? Thought to be secondary to chronic hypoxia given patient history of tobacco use. Will continue with monitoring 5. Suspected obstructive sleep apnea -sleep study as outpatient 6. Hypertension ? Blood pressure controlled, home medications continued with dose adjustment as needed 7. Dyslipidemia ?Patient is on statin therapy, continued at home dose 8. History of colon polyps -Colonoscopy 05/05/2023 showed several colon polyps which were removed; Pathology was consistent with tubular adenomas as well as hyperplastic polyps. Repeat colonoscopy was recommended for 3 years 9. Seasonal allergies -Continue home loratadine 10. Tobacco dependence ? Counseled on cessation, offered nicotine patch for tobacco cravings 11. Class III obesity with BMI of 40.9 ? Complicating care weight loss advised. 12. DVT prophylaxis ? On enoxaparin Time spent in the patient's overall evaluation,decision-making process, review of diagnostic data, adjustment of management, discussion with other providers, nursing nursing and ancillary staff involved in patient's care documentation, 50 Minutes Charges/Coding Visit Charges Inpatient E&M: 61070 [facility] L3
--- NOTE | 2024-05-24 12:03 | MRI_ITS ---
INDICATION: Liver mass, F/U TO FINDINGS ON CT EXAMINATION: MRI - MR Abdomen WO/W Contrast TECHNIQUE: Multiplanar, multisequential MRI examination of the abdomen was performed with sequences acquired before and after the administration of intravenous gadolinium. MCRP sequences also obtained with 3-D reconstructions. IV Contrast Dosage and Agent: 15 mL dotarem COMPARISON: CT abdomen/pelvis dated 05/23/2024 FINDINGS: LOWER CHEST: Trace pleural effusion with accompanying atelectasis. Mild cardiomegaly. No pericardial effusion. LIVER: The liver is normal in size, contour and morphology. As seen on the prior CT, there is a solid and cystic heterogeneously enhancing mass along the posteroinferior aspect of the lateral segment, with the bulk of the tumor measuring 6.4 x 5.4 x 3.9 cm. The solid components of the mass exhibits progressive enhancement. There is an adjacent 1.6 cm component along the anterosuperior aspect of the mass, as seen on series 1002, image 28 which also exhibits aggressive enhancement. There is restricted diffusion associated with the more solid, enhancing components. The cystic/necrotic components show mild T2 hyperintensity. There is a subcentimeter cyst in hepatic segment 7 which is benign. GALLBLADDER AND BILIARY TREE: No filling defects in the gallbladder. No gallbladder distension or wall edema. No intra- or extrahepatic biliary ductal dilation. PANCREAS: No inflammation or mass. No pancreatic ductal dilation. SPLEEN: Normal size. No focal lesions. ADRENAL GLANDS: Unremarkable. KIDNEYS: Normal size and morphology. No hydronephrosis. Bilateral simple renal cysts are benign. No follow-up imaging recommended for these. No suspicious renal cysts or masses. GI: Tiny hiatal hernia. Stomach and included portions of the GI tract are unremarkable. PERITONEUM: No ascites or free air. LYMPH NODES: No lymphadenopathy. VESSELS: Unremarkable. OSSEOUS STRUCTURES: No fractures. No suspicious marrow signal abnormalities. MRI/MRI Abd WITH and W/O Contrast IMPRESSION: * Solid and cystic and/or necrotic mass in the lateral segment of the liver measuring up to 6.4 cm, compatible with a primary liver malignancy. Favored diagnostic considerations include biliary cystadenocarcinoma and cystic peripheral cholangiocarcinoma. * No lymphadenopathy or evidence of metastatic disease. Electronically Signed: Nirav Zuñiga MD at 23:23 EST ,
[2024-05-24] MEDS: 0.9% Saline Lock 10 ML Syringe IV (18:24)
[2024-05-24] MEDS: Furosemide 40 MG/4 ML Vial IV (18:24)
[2024-05-24] MEDS: Atorvastatin Calcium 40 MG Tablet PO (22:13)
[2024-05-25] VITALS (19 sets, daily range): BP systolic 114–141; BP diastolic 72–79; PULSE 67–87; RESP 16–18; TEMP 35.1–36.8; O2SAT 86–96; BMI 40.5
--- NOTE | 2024-05-25 00:22 | CPS ---
Patient was switched to a sleep lab BIPAP machine to see if she would better tolerate therapy. She also started out on lower pressures for the same reason. She is tolerating this machine much better than the V60 BIPAP machine she was placed on last night.
--- NOTE | 2024-05-25 00:26 | CPS ---
RN made RT aware that the patient's sat was dropping while on the bipap machine at the settings of 14/8 with a 3L bleed. RT returned to patient bedside and increased the BIPAP settings to 16/10 and a 7L bleed. The patient is now satting 94% on the new settings.
--- NOTE | 2024-05-25 04:53 | CPS ---
patient continues to have issues with oxygen sat while on BIPAP with auto titrating settings and 7L bleed. She requested to come off the BIPAP at this time.
--- NOTE | 2024-05-25 04:57 | CPS ---
patient BIPAP settings changed to auto titrating with Max pressure of 20 and Min pressure of 7 with a pressure support of 6. She remains on the 7L bleed in at this time. Therapy started at 13/7 and increased to 19.9/13.9. Patient still having desats into the 70s on these settings.
[2024-05-25 07:03] LABS: Absolute Neutrophil Count 4.2 X10^3/uL (2.0-7.7); Basophil# 0.03 X10^3/uL; Basophil% 0.5 % (0-1); Eosinophil# 0.09 X10^3/uL; Eosinophils% 1.5 % (0-5); Hemoglobin 17.2 g/dL (12.0-15.0); Lymphocyte % 16.9 % (19-41); Mean Corp Hgb Conc 30.6 g/dL (32-36); Mean Corpuscular Hgb 29.6 pg (27.0-32.0); Mean Corpuscular Volume 96.9 fL (81-99); Monocyte# 0.51 X10^3/uL; Monocyte% 8.6 % (0-10); NRBC Flagged by Analyzer 0 % (0-5); Neutrophil # 4.24 X10^3/uL (2.7-7.7); Neutrophil % 71.8 % (47-70); Platelet Count 130 K/mm3 (150-450); RBC Distribution Width CV 15.9 % (11.6-14.6); RBC Distribution Width SD 56.6 fl (35.1-43.9); Red Blood Count 5.81 M/mm3 (4.2-5.4); White Blood Count 5.9 K/mm3 (4.4-11.0)
[2024-05-25 07:10] LABS: Hematocrit 56.3 % (37-47)
[2024-05-25 07:16] LABS: Partial Thromboplast Time 26.3 Seconds (24.1-36.2); Prothrombin Time (Protime)PT. 13.5 SECONDS (11.7-14.9)
[2024-05-25 07:28] LABS: ALB/GLOB Ratio 0.8 RATIO (0.9-2.4); AST(SGOT) 22 U/L (15-37); Alanine Aminotransfer ALT/SGPT 24 U/L (13-56); Albumin, Serum 2.8 g/dL (3.2-5.0); Alkaline Phosphatase 66 U/L (45-117); Anion Gap 4 (5-15); BUN 15 mg/dL (7-18); BUN/Creat Ratio 29.2 RATIO (10-20); Calcium,Total 9.2 mg/dL (8.5-10.1); Chloride 94 mmol/L (98-107); Creatinine, Serum 0.51 mg/dL (0.55-1.02); EST Glomerular Filtration Rate 128 mL/min (>60); Est Glom Filt Rate - Afr Amer 155 mL/min (>60); Estimated Creatinine Clearance 142.75 ml/min; Globulin 3.5 g/dL (2.2-4.2); Glucose 109 mg/dL (74-106); Magnesium 1.9 mg/dL (1.6-2.6); Phosphorus 3.8 mg/dL (2.5-4.9); Potassium 3.2 mmol/L (3.5-5.1); Protein, Total 6.3 g/dL (6.4-8.2); Sodium Level 138 mmol/L (136-145)
[2024-05-25] MEDS: Ipratropium/Albuterol Sulfate 3 ML AMPUL.NEB INHALATION ×4 (07:31→19:10)
--- NOTE | 2024-05-25 08:15 | PCM.PN.HOSP ---
Reason for Visit Reason for Visit: Diagnoses Secondary polycythemia (05/21/24) Alkalosis (05/21/24) Pneumonia, unspecified organism (05/21/24) Acute respiratory failure with hypoxia (05/21/24) Hepatomegaly, not elsewhere classified (05/21/24) Subjective Subjective patient is scheduled liver biopsy postponed to tomorrow. Patient apparently did receive Lovenox this a.m.. Diagnostic data reviewed significant for potassium of 3.2 replacement initiated Objective Data Objective Data Vital Signs: Vital Signs Temp Pulse Resp BP Pulse Ox O2 Del Method O2 Flow Rate 95.2 F L 87 18 134/75 H 93 Nasal Cannula 3 05/25/24 05:30 05/25/24 07:32 05/25/24 07:32 05/25/24 05:30 05/25/24 07:40 05/25/24 07:40 05/25/24 07:40 FiO2 50 05/23/24 23:35 Oxygen Flow Rate (L/min) 3 Oxygen Delivery Method Nasal Cannula Weight: 113.9 kg Body Mass Index (BMI) 40.5 Intake & Output: Intake and Output for Last 24 Hours 05/23/24 05/24/24 05/25/24 23:59 23:59 23:59 Intake Total 1050 / 1050 1170 / 1570 400 / 400 Balance 1050 / 1050 1170 / 1570 400 / 400 Lab / Micro Data 05/25/24 06:09 05/25/24 06:09 Labs: Laboratory Results - last 24 hr 05/25/24 06:09: WBC 5.9, RBC 5.81 H, Hgb 17.2 H, Hct 56.3 H, MCV 96.9, MCH 29.6, MCHC 30.6 L, RDW Std Deviation 56.6 H, RDW Coeff of Blake 15.9 H, Plt Count 130 L, MPV 11.0, Immature Gran % (Auto) 0.700, Neut % (Auto) 71.8 H, Lymph % (Auto) 16.9 L, [place] % (Auto) 8.6, Eos % (Auto) 1.5, Baso % (Auto) 0.5, Absolute Neuts (auto) 4.2, Absolute Lymphs (auto) 1.00, Nucleated RBC % 0, PT 13.5, INR 1.0, APTT 26.3, Sodium 138, Potassium 3.2 L, Chloride 94 L, Carbon Dioxide 40.0 H, Anion Gap 4 L, BUN 15, Creatinine 0.51 L, Estim Creat Clear Calc 142.75, Est GFR (MDRD) Af Amer 155, Est GFR (MDRD) Non-Af 128, BUN/Creatinine Ratio 29.2 H, Glucose 109 H, Calcium 9.2, Phosphorus 3.8, Magnesium 1.9, Total Bilirubin 0.70, AST 22, ALT 24, Alkaline Phosphatase 66, Total Protein 6.3 L, Albumin 2.8 L, Globulin 3.5, Albumin/Globulin Ratio 0.8 L Micro: Microbiology 05/21/24 22:30 Urine, Random Legionella Antigen - Final 05/21/24 22:30 Urine, Random Streptococcus pneumoniae Antigen (M - Final 05/21/24 22:20 Sputum, Expectorated/Coughed Gram Stain - Final 05/21/24 22:20 Sputum, Expectorated/Coughed Respiratory Culture - Final Streptococcus group F 05/21/24 17:55 Blood Culture (Wb) - Anticubital Left Blood Culture - Preliminary No growth in 48 hours. 05/22/24 00:35 Mucosa - Nasopharyngeal Respiratory Panel (PCR) - Final 05/21/24 15:15 Mucosa - Nose SARS-CoV-2, Influenza & RSV (PCR) - Final Radiography Diagnostic Testing: Radiology Impression Pelvic/Transvag US 05/24/24 07:00 IMPRESSION: 3.3 cm uterine mass presumed fibroid. MRI may be helpful for further characterization. Nonvisualized ovaries. Electronically Signed: Ekaterina Freitas MD at 7:19 EST , Physical Exam Narrative GENERAL: cooperative HEENT: Atraumatic; normocephalic EYES; Anicteric, Normal Conjunctiva NECK; supple, normal thyroid, RESPIRATORY: Diminished to auscultation CARDIOVASCULAR: Regular S1 S2, GI: soft, normoactive bowel sounds, : No Renal angle tenderness; EXTREMITIES: No edema, no clubbing, MUSCULOSKELETAL: no muscle wasting NEURO: Awake; no lateralizing signs. SKIN: No Rash PSYCH; Flat affect Assessment & Plan Assessment/Plan (1) Liver mass: (2) Pneumonia: (3) Acute hypoxic respiratory failure: PLAN: Plan Patient is a 64-year-old lady who presented with progressive shortness of breath and assessment of acute hypoxic respiratory failure secondary to community-acquired pneumonia made admitted to monitored bed for further management 1. Acute hypoxic respiratory failure secondary to community-acquired pneumonia secondary to streptococcal pneumonia, Blood and sputum cultures sent. Sputum cultures came back positive for Streptococcus group F. Patient placed on Levaquin and placed on oxygen titrated to keep Pulse Ox greater than 90. Patient still requires significant amount of oxygen 7 L. Of note patient was not on any oxygen prior to her admission patient will be assessed for home oxygen prior to being discharged ? 05/25/2024 patient down to 3 L flow per minute 2. Liver mass -CT of the abdomen and pelvis did show Liver: 6.01 x 4.59 cm moderate size partially septated mixed fluid and cystic mucinous appearing lesion in the undersurface and dome of the left lobe of the liver. There is also mild enhancement of the wall of the cystic lesion in left lobe of the liver MRI of the abdomen liver protocol with and without contrast was recommended by radiology subsequently ordered. An order was also placed for patient to undergo CT-guided biopsy ? 05/25/2024; patient is scheduled liver biopsy postponed to tomorrow. Patient apparently did receive Lovenox this a.m. 3. Uterine mass -Transvaginal ultrasound ordered for subsequent eval ? Transvaginal ultrasound demonstrated 3.3 cm uterine mass presumed fibroid. 4. Polycythemia ? Thought to be secondary to chronic hypoxia given patient history of tobacco use. Will continue with monitoring 5. Suspected obstructive sleep apnea -sleep study as outpatient 6. Hypertension ? Blood pressure controlled, home medications continued with dose adjustment as needed 7. Dyslipidemia ?Patient is on statin therapy, continued at home dose 8. History of colon polyps -Colonoscopy 05/05/2023 showed several colon polyps which were removed; Pathology was consistent with tubular adenomas as well as hyperplastic polyps. Repeat colonoscopy was recommended for 3 years 9. Seasonal allergies -Continue home loratadine 10. Tobacco dependence ? Counseled on cessation, offered nicotine patch for tobacco cravings 11. Class III obesity with BMI of 40.9 ? Complicating care weight loss advised. 12. DVT prophylaxis ? On enoxaparin 13. Hypokalemia -Corrected per protocol Time spent in the patient's overall evaluation,decision-making process, review of diagnostic data, adjustment of management, discussion with other providers, nursing nursing and ancillary staff involved in patient's care documentation, 50 Minutes Charges/Coding Visit Charges Inpatient E&M: 17368 [facility] Hosp L3
[2024-05-25] MEDS: guaiFENesin 1,200 MG Tablet 1200 MG PO ×2 (10:49→20:37)
[2024-05-25] MEDS: Zinc Sulfate 50 mg zinc (220 mg) ORAL capsule PO (10:49)
[2024-05-25] MEDS: Ascorbic Acid 500 MG Tablet PO (10:49)
[2024-05-25] MEDS: Cholecalciferol (VIT D3) 25 MCG TABLET (1,000 UNITS) 50 MCG PO (10:49)
[2024-05-25] MEDS: Furosemide 40 MG/4 ML Vial IV ×2 (10:49→18:06)
[2024-05-25] MEDS: Potassium Chloride Oral Tablet 20 MEQ 40 MEQ PO (10:54)
[2024-05-25] MEDS: 0.9% Saline Lock 10 ML Syringe IV ×2 (10:54→18:12)
[2024-05-25] MEDS: levoFLOXacin IV 750 MG/150 ML BAG 100 MG IV (11:05)
[2024-05-25] MEDS: Senna/Docusate Sodium 1 Tablet 2 TABLET PO (15:31)
[2024-05-25] MEDS: Potassium Chloride Oral Tablet 20 MEQ PO (18:04)
[2024-05-25] MEDS: Sodium Chloride 0.65% 1 SPRAY SPRAY.BTL 2 SPRAY NASAL (18:58)
[2024-05-25] MEDS: Atorvastatin Calcium 40 MG Tablet PO (20:37)
[2024-05-26] VITALS (27 sets, daily range): BP systolic 99–161; BP diastolic 62–118; PULSE 71–101; RESP 15–23; TEMP 36.4–37.3; O2SAT 90–97; BMI 40.1
--- NOTE | 2024-05-26 | ASPIGT_PTH ---
PATIENT: ECHO SILVESTRE LOC: [facility] U#:[id number] AGE/SX: 64/F ROOM: [facility] RE05/21/[address]: Dr. Nirav Bolden MD : 1960 BED: 1 DIS: 05/27/2024 SPEC #: [id number] RECD: 05/26/24 10:05 STATUS: DEENA REManolo #: [id number] HYUN: 05/26/24 00:[address]: Nirav Bolden DEPT: SURGICAL PATHOLOGY RECD BY: Joanna Hidalgo ENTERED: 05/26/24 10:05 SP TYPE: ASP RAD OTHR DR: MD Dr. Lisa Valdez DO Dr. Paige Pierce, MD Tissues: Liver, NOS Procedures: FNA Specimen Adequacy Special Stain Group II Surgery Specimen Level IV Surgery Specimen Level V Imprint (control) HEADER OPERATION: CT guided liver biopsy PRE-OP DIAGNOSIS: Liver lesion TISSUE SUBMITTED: 18 gauge x 5 cores MICROSCOPIC DIAGNOSIS Liver lesion, CT guided core biopsy: Liver parenchymal tissue with fibrosis, hyalinization and degenerative changes. Negative for malignancy. See comment. 05/27/2024 COMMENT The specimen is evaluated at the time of biopsy by Dr. Galo. Immediate Evaluation = Negative for malignant cells. Reported to Dr. Zazueta at 9:45am on . The lesion may represent hyalinized hemangioma with extensive degenerative changes. Correlation with clinical, radiologic findings and appropriate follow up are necessary. Rebiopsy of the lesion is suggested, if clinically indicated. Case has been reviewed in consultation with Dr. Muir who concurs with the above diagnosis. IDC:AM MICROSCOPIC DESCRIPTION Slides are reviewed. GROSS DESCRIPTION Received in fixative is one container labeled with the patient's name and designated Liver lesion. The specimen consists of multiple irregular fragments of veliz soft tissue that in aggregate measure 2.0 x 0.2 x 0.1 cm. The specimen is totally submitted in one cassette. Two touch imprints are prepared at the time of core biopsy. 05/26/2024 TC:5 CPT:62853,94573
--- NOTE | 2024-05-26 05:09 | CPS ---
Pt tried a nasal mask with a chin strap. 5L bled in at first but after 2:30 am spo2 dropped, re-adjusted chin strap and increased O2 to 7 L bled in.
[2024-05-26 06:06] LABS: Absolute Lymphocyte Count 1.05 X10^3/uL (0.83-4.51); Absolute Neutrophil Count 3.7 X10^3/uL (2.0-7.7); Basophil# 0.03 X10^3/uL; Basophil% 0.6 % (0-1); Eosinophil# 0.13 X10^3/uL; Eosinophils% 2.4 % (0-5); Hematocrit 54.6 % (37-47); Hemoglobin 16.9 g/dL (12.0-15.0); Lymphocyte # 1.05 X10^3/ul (0.83-4.51); Lymphocyte % 19.4 % (19-41); Mean Corpuscular Hgb 29.8 pg (27.0-32.0); Mean Corpuscular Volume 96.1 fL (81-99); Mean Platelet Vol. 11.2 fl (6.2-12.0); Monocyte# 0.53 X10^3/uL; Monocyte% 9.8 % (0-10); NRBC Flagged by Analyzer 0 % (0-5); Neutrophil # 3.67 X10^3/uL (2.7-7.7); Neutrophil % 67.6 % (47-70); Platelet Count 137 K/mm3 (150-450); RBC Distribution Width CV 15.6 % (11.6-14.6); RBC Distribution Width SD 54.5 fl (35.1-43.9); Red Blood Count 5.68 M/mm3 (4.2-5.4); White Blood Count 5.4 K/mm3 (4.4-11.0)
[2024-05-26 07:12] LABS: ALB/GLOB Ratio 0.9 RATIO (0.9-2.4); AST(SGOT) 27 U/L (15-37); Alanine Aminotransfer ALT/SGPT 21 U/L (13-56); Albumin, Serum 2.9 g/dL (3.2-5.0); Alkaline Phosphatase 59 U/L (45-117); Anion Gap 2 (5-15); BUN 16 mg/dL (7-18); BUN/Creat Ratio 28.3 RATIO (10-20); Calcium,Total 9.2 mg/dL (8.5-10.1); Chloride 97 mmol/L (98-107); Creatinine, Serum 0.56 mg/dL (0.55-1.02); EST Glomerular Filtration Rate 115 mL/min (>60); Est Glom Filt Rate - Afr Amer 139 mL/min (>60); Estimated Creatinine Clearance 129.36 ml/min; Globulin 3.4 g/dL (2.2-4.2); Glucose 111 mg/dL (74-106); Potassium 3.6 mmol/L (3.5-5.1); Protein, Total 6.3 g/dL (6.4-8.2); Sodium Level 138 mmol/L (136-145)
[2024-05-26] MEDS: Ipratropium/Albuterol Sulfate 3 ML AMPUL.NEB INHALATION ×3 (07:46→19:55)
[2024-05-26] MEDS: 0.9% Saline Lock 10 ML Syringe IV ×4 (08:43→20:58)
--- NOTE | 2024-05-26 09:00 | CT_ITS ---
PROCEDURE: CT DIRECTED CORE LIVER BIOPSY INDICATION: Female, 64 years old. Liver mass PHYSICIAN: Dr. Carlita Morrison CONSENT: Written informed consent was obtained having explained the risks, benefits and alternatives in detail with the patient who accepted the risks and agreed to proceed. Laboratory review and clinical assessment was performed. CONSCIOUS SEDATION PROTOCOL: The Drugs used were: 2 mg Versed, IV., and 50 mcg Fentanyl, IV. The sedation time was: 20 minutes. Conscious sedation was started at 9:26 AM and terminated at 9:46 AM. The conscious sedation protocol was independently monitored. RADIATION DOSAGE (If Supplied By Facility): CTDIvol = ( 29 ) mGy, DLP = ( 956.79 ) mGycm Individualized dose optimization techniques were used for this CT. TECHNIQUE: Using CT image guidance with image documentation, a suitable location in the left lobe of the liver was identified. Using an anterior approach, puncture of the liver was uneventful with an 18-gauge core needle system. 5, 18-gauge core samples were obtained, and submitted in formalin to the pathologist for further assessment. Followup CT scan revealed no distinct sequelae. CT/Biopsy/Inj or Needle Placement IMPRESSION: 1. CT directed core needle biopsy of the liver, using CT image guidance with image documentation as described. 2. Conscious Sedation protocol utilized with independent monitoring. Electronically Signed: Bryant Zazueta MD at 10:25 EST ,
[2024-05-26] MEDS: Midazolam 2 MG/2 ML Syringe IV (09:26)
[2024-05-26] MEDS: fentaNYL 100 MCG/2 ML Ampul IV (09:27)
[2024-05-26] MEDS: Lidocaine 2% (20 ml mdv) 20 ML Vial INFILT (09:40)
--- NOTE | 2024-05-26 10:13 | PCM.PN.HOSP ---
Reason for Visit Reason for Visit: Diagnoses Secondary polycythemia (05/21/24) Alkalosis (05/21/24) Pneumonia, unspecified organism (05/21/24) Acute respiratory failure with hypoxia (05/21/24) Hepatomegaly, not elsewhere classified (05/21/24) Subjective Subjective Patient underwent liver biopsy this a.m. Still requiring supplemental oxygen. Objective Data Objective Data Vital Signs: Vital Signs Temp Pulse Resp BP Pulse Ox O2 Del Method O2 Flow Rate 97.5 F L 73 20 H 160/118 H 90 Non-Rebreather 15 05/26/24 08:31 05/26/24 09:40 05/26/24 09:40 05/26/24 09:40 05/26/24 08:31 05/26/24 09:40 05/26/24 09:40 FiO2 50 05/23/24 23:35 Oxygen Flow Rate (L/min) 15 Oxygen Delivery Method Non-Rebreather Weight: 112.9 kg Body Mass Index (BMI) 40.1 Intake & Output: Intake and Output for Last 24 Hours 05/24/24 05/25/24 05/26/24 23:59 23:59 23:59 Intake Total 1170 / 1570 1470 / 1670 200 / 200 Balance 1170 / 1570 1470 / 1670 200 / 200 Lab / Micro Data 05/26/24 05:45 05/26/24 05:45 Labs: Laboratory Results - last 24 hr 05/26/24 05:45: WBC 5.4, RBC 5.68 H, Hgb 16.9 H, Hct 54.6 H, MCV 96.1, MCH 29.8, MCHC 31.0 L, RDW Std Deviation 54.5 H, RDW Coeff of Blake 15.6 H, Plt Count 137 L, MPV 11.2, Immature Gran % (Auto) 0.200, Neut % (Auto) 67.6, Lymph % (Auto) 19.4, [place] % (Auto) 9.8, Eos % (Auto) 2.4, Baso % (Auto) 0.6, Absolute Neuts (auto) 3.7, Absolute Lymphs (auto) 1.05, Nucleated RBC % 0, Sodium 138, Potassium 3.6, Chloride 97 L, Carbon Dioxide 39.0 H, Anion Gap 2 L, BUN 16, Creatinine 0.56, Estim Creat Clear Calc 129.36, Est GFR (MDRD) Af Amer 139, Est GFR (MDRD) Non-Af 115, BUN/Creatinine Ratio 28.3 H, Glucose 111 H, Calcium 9.2, Total Bilirubin 0.90, AST 27, ALT 21, Alkaline Phosphatase 59, Total Protein 6.3 L, Albumin 2.9 L, Globulin 3.4, Albumin/Globulin Ratio 0.9 Micro: Microbiology 05/21/24 22:30 Urine, Random Legionella Antigen - Final 05/21/24 22:30 Urine, Random Streptococcus pneumoniae Antigen (M - Final 05/21/24 22:20 Sputum, Expectorated/Coughed Gram Stain - Final 05/21/24 22:20 Sputum, Expectorated/Coughed Respiratory Culture - Final Streptococcus group F 05/21/24 17:55 Blood Culture (Wb) - Anticubital Left Blood Culture - Preliminary No growth in 48 hours. 05/22/24 00:35 Mucosa - Nasopharyngeal Respiratory Panel (PCR) - Final 05/21/24 15:15 Mucosa - Nose SARS-CoV-2, Influenza & RSV (PCR) - Final Radiography Diagnostic Testing: Radiology Impression Abdomen MRI 05/24/24 12:03 IMPRESSION: * Solid and cystic and/or necrotic mass in the lateral segment of the liver measuring up to 6.4 cm, compatible with a primary liver malignancy. Favored diagnostic considerations include biliary cystadenocarcinoma and cystic peripheral cholangiocarcinoma. * No lymphadenopathy or evidence of metastatic disease. Electronically Signed: Nirav Zuñiga MD at 23:23 EST Reading Location ID and State: [address] [place] [address] Tel , Service support , ADDENDUM: 05/25/24 [id number] IMPRESSION: undefined Physical Exam Narrative GENERAL: cooperative HEENT: Atraumatic; normocephalic EYES; Anicteric, Normal Conjunctiva NECK; supple, normal thyroid, RESPIRATORY: Diminished to auscultation CARDIOVASCULAR: Regular S1 S2, GI: soft, normoactive bowel sounds, : No Renal angle tenderness; EXTREMITIES: No edema, no clubbing, MUSCULOSKELETAL: no muscle wasting NEURO: Awake; no lateralizing signs. SKIN: No Rash PSYCH; Flat affect Assessment & Plan Assessment/Plan (1) Liver mass: (2) Pneumonia: (3) Acute hypoxic respiratory failure: PLAN: Plan Patient is a 64-year-old lady who presented with progressive shortness of breath and assessment of acute hypoxic respiratory failure secondary to community-acquired pneumonia made admitted to monitored bed for further management 1. Acute hypoxic respiratory failure secondary to community-acquired pneumonia secondary to streptococcal pneumonia, Blood and sputum cultures sent. Sputum cultures came back positive for Streptococcus group F. Patient placed on Levaquin and placed on oxygen titrated to keep Pulse Ox greater than 90. Patient still requires significant amount of oxygen 7 L. Of note patient was not on any oxygen prior to her admission patient will be assessed for home oxygen prior to being discharged ? 05/25/2024 patient down to 3 L flow per minute 2. Liver mass -CT of the abdomen and pelvis did show Liver: 6.01 x 4.59 cm moderate size partially septated mixed fluid and cystic mucinous appearing lesion in the undersurface and dome of the left lobe of the liver. There is also mild enhancement of the wall of the cystic lesion in left lobe of the liver MRI of the abdomen liver protocol with and without contrast was recommended by radiology subsequently ordered. An order was also placed for patient to undergo CT-guided biopsy ? 05/25/2024; patient is scheduled liver biopsy postponed to tomorrow. Patient apparently did receive Lovenox this a.m. ? 05/26/2024; patient underwent liver biopsy this a.m. MRI obtained the day prior results are as below Solid and cystic and/or necrotic mass in the lateral segment of the liver measuring up to 6.4 cm, compatible with a primary liver malignancy. Favored diagnostic considerations include biliary cystadenocarcinoma and cystic peripheral cholangiocarcinoma. No lymphadenopathy or evidence of metastatic disease. Patient informed of the results and the need to wait for biopsy. Patient's preference would be to follow-up with Dr. Martínez as outpatient 3. Uterine mass -Transvaginal ultrasound ordered for subsequent eval ? Transvaginal ultrasound demonstrated 3.3 cm uterine mass presumed fibroid. 4. Polycythemia ? Thought to be secondary to chronic hypoxia given patient history of tobacco use. Will continue with monitoring 5. Suspected obstructive sleep apnea -sleep study as outpatient 6. Hypertension ? Blood pressure controlled, home medications continued with dose adjustment as needed 7. Dyslipidemia ?Patient is on statin therapy, continued at home dose 8. History of colon polyps -Colonoscopy 05/05/2023 showed several colon polyps which were removed; Pathology was consistent with tubular adenomas as well as hyperplastic polyps. Repeat colonoscopy was recommended for 3 years 9. Seasonal allergies -Continue home loratadine 10. Tobacco dependence ? Counseled on cessation, offered nicotine patch for tobacco cravings 11. Class III obesity with BMI of 40.9 ? Complicating care weight loss advised. 12. DVT prophylaxis ? On enoxaparin 13. Hypokalemia -Corrected per protocol Time spent in the patient's overall evaluation,decision-making process, review of diagnostic data, adjustment of management, discussion with other providers, nursing nursing and ancillary staff involved in patient's care documentation, 40 Minutes Charges/Coding Visit Charges Inpatient E&M: 33647 Subs Hosp L2
[2024-05-26] MEDS: Potassium Chloride Oral Tablet 20 MEQ PO ×2 (10:15→17:19)
[2024-05-26] MEDS: Furosemide 40 MG/4 ML Vial IV ×2 (10:15→17:19)
[2024-05-26] MEDS: Cholecalciferol (VIT D3) 25 MCG TABLET (1,000 UNITS) 50 MCG PO (10:15)
[2024-05-26] MEDS: Zinc Sulfate 50 mg zinc (220 mg) ORAL capsule PO (10:15)
[2024-05-26] MEDS: guaiFENesin 1,200 MG Tablet 1200 MG PO ×2 (10:15→20:58)
[2024-05-26] MEDS: Ascorbic Acid 500 MG Tablet PO (10:15)
[2024-05-26] MEDS: levoFLOXacin IV 750 MG/150 ML BAG 100 MG IV (10:27)
[2024-05-26] MEDS: Atorvastatin Calcium 40 MG Tablet PO (20:58)
[2024-05-27] VITALS (9 sets, daily range): BP systolic 103–138; BP diastolic 69–82; PULSE 78–88; RESP 17–20; TEMP 36.4–37.1; O2SAT 85–96; BMI 40.1
--- NOTE | 2024-05-27 02:28 | CPS ---
[0200] Pt. adamant on not wearing BiPAP at this time. Pt.'s currently on 5L NC with appropriate oxygen saturations. RN notified.
[2024-05-27 07:32] LABS: Absolute Lymphocyte Count 0.85 X10^3/uL (0.83-4.51); Absolute Neutrophil Count 3.6 X10^3/uL (2.0-7.7); Basophil# 0.03 X10^3/uL; Basophil% 0.6 % (0-1); Eosinophil# 0.13 X10^3/uL; Eosinophils% 2.5 % (0-5); Hematocrit 55.3 % (37-47); Lymphocyte # 0.85 X10^3/ul (0.83-4.51); Lymphocyte % 16.4 % (19-41); Mean Corp Hgb Conc 30.7 g/dL (32-36); Mean Corpuscular Hgb 29.8 pg (27.0-32.0); Mean Corpuscular Volume 96.8 fL (81-99); Mean Platelet Vol. 11.2 fl (6.2-12.0); Monocyte# 0.55 X10^3/uL; Monocyte% 10.6 % (0-10); NRBC Flagged by Analyzer 0 % (0-5); Neutrophil % 69.7 % (47-70); Platelet Count 141 K/mm3 (150-450); RBC Distribution Width CV 15.8 % (11.6-14.6); RBC Distribution Width SD 56.4 fl (35.1-43.9); Red Blood Count 5.71 M/mm3 (4.2-5.4); White Blood Count 5.2 K/mm3 (4.4-11.0)
[2024-05-27 08:16] LABS: ALB/GLOB Ratio 0.8 RATIO (0.9-2.4); AST(SGOT) 29 U/L (15-37); Alanine Aminotransfer ALT/SGPT 28 U/L (13-56); Alkaline Phosphatase 63 U/L (45-117); Anion Gap 4 (5-15); BUN 18 mg/dL (7-18); BUN/Creat Ratio 27.1 RATIO (10-20); Calcium,Total 9.2 mg/dL (8.5-10.1); Chloride 98 mmol/L (98-107); Creatinine, Serum 0.66 mg/dL (0.55-1.02); EST Glomerular Filtration Rate 95 mL/min (>60); Est Glom Filt Rate - Afr Amer 115 mL/min (>60); Estimated Creatinine Clearance 109.81 ml/min; Globulin 3.7 g/dL (2.2-4.2); Glucose 114 mg/dL (74-106); Potassium 3.7 mmol/L (3.5-5.1); Protein, Total 6.7 g/dL (6.4-8.2); Sodium Level 139 mmol/L (136-145)
--- NOTE | 2024-05-27 09:54 | PCM.DC.SUM ---
Providers Date of Admission: 05/21/24 Date of Discharge: 05/27/24 Primary Care Physician: Kourtney Lawrence MD Reason For Visit: HYPOXIA, PNA Diagnosis Discharge Diagnosis (1) Liver mass: Status: Acute Code(s): R16.0 - Hepatomegaly, not elsewhere classified (2) Pneumonia: Status: Acute Code(s): J18.9 - Pneumonia, unspecified organism (3) Acute hypoxic respiratory failure: Status: Acute Code(s): J96.01 - Acute respiratory failure with hypoxia Plan Patient is a 64-year-old lady who presented with progressive shortness of breath and assessment of acute hypoxic respiratory failure secondary to community-acquired pneumonia made admitted to monitored bed for further management 1. Acute hypoxic respiratory failure secondary to community-acquired pneumonia secondary to streptococcal pneumonia, Blood and sputum cultures sent. Sputum cultures came back positive for Streptococcus group F. Patient placed on Levaquin and placed on oxygen titrated to keep Pulse Ox greater than 90. Patient still requires significant amount of oxygen 7 L. Of note patient was not on any oxygen prior to her admission patient will be assessed for home oxygen prior to being discharged ? 05/25/2024 patient down to 3 L flow per minute ? I have reviewed the oxygen testing, and this patient qualifies for the home equipment and portability. The patient is mobile in the home and the community. 2. Liver mass -CT of the abdomen and pelvis did show Liver: 6.01 x 4.59 cm moderate size partially septated mixed fluid and cystic mucinous appearing lesion in the undersurface and dome of the left lobe of the liver. There is also mild enhancement of the wall of the cystic lesion in left lobe of the liver MRI of the abdomen liver protocol with and without contrast was recommended by radiology subsequently ordered. An order was also placed for patient to undergo CT-guided biopsy ? 05/25/2024; patient is scheduled liver biopsy postponed to tomorrow. Patient apparently did receive Lovenox this a.m. ? 05/26/2024; patient underwent liver biopsy this a.m. MRI obtained the day prior results are as below Solid and cystic and/or necrotic mass in the lateral segment of the liver measuring up to 6.4 cm, compatible with a primary liver malignancy. Favored diagnostic considerations include biliary cystadenocarcinoma and cystic peripheral cholangiocarcinoma. No lymphadenopathy or evidence of metastatic disease. Patient informed of the results and the need to wait for biopsy. Patient's preference would be to follow-up with Dr. Keen as outpatient ? Plan is for patient to follow-up with oncology as outpatient 3. Uterine mass -Transvaginal ultrasound ordered for subsequent eval ? Transvaginal ultrasound demonstrated 3.3 cm uterine mass presumed fibroid. 4. Polycythemia ? Thought to be secondary to chronic hypoxia given patient history of tobacco use. Will continue with monitoring 5. Suspected obstructive sleep apnea -sleep study as outpatient 6. Hypertension ? Blood pressure controlled, home medications continued with dose adjustment as needed 7. Dyslipidemia ?Patient is on statin therapy, continued at home dose 8. History of colon polyps -Colonoscopy 05/05/2023 showed several colon polyps which were removed; Pathology was consistent with tubular adenomas as well as hyperplastic polyps. Repeat colonoscopy was recommended for 3 years 9. Seasonal allergies -Continue home loratadine 10. Tobacco dependence ? Counseled on cessation, offered nicotine patch for tobacco cravings 11. Class III obesity with BMI of 40.9 ? Complicating care weight loss advised. 12. DVT prophylaxis ? On enoxaparin 13. Hypokalemia -Corrected per protocol Time spent in the patient's overall evaluation,decision-making process, review of diagnostic data, adjustment of management, discussion with other providers, nursing nursing and ancillary staff involved in patient's care documentation, 40 Minutes Medications at Discharge Home Medications loratadine 10 mg tablet (Allergy Relief (loratadine)) 10 mg PO DAILY PRN allergy symptoms 07/31/18 omega-3 fatty acids-fish oil 340 mg-1,000 mg capsule (Fish Oil) 1 ea PO DAILY 07/31/18 ascorbate calcium (vitamin C) 500 mg tablet 500 mg PO DAILY 03/11/23 atorvastatin 40 mg tablet 40 mg PO QHS 03/11/23 cholecalciferol (vitamin D3) 50 mcg (2,000 unit) capsule 50 mcg PO DAILY 03/11/23 hydrochlorothiazide 25 mg tablet 25 mg PO DAILY 03/11/23 zinc gluconate 30 mg tablet 30 mg PO DAILY 03/11/23 amlodipine 10 mg tablet 10 mg PO DAILY 05/21/24 albuterol sulfate 90 mcg/actuation aerosol inhaler 2 puff inhalation Q6H PRN shortness of breath or wheezing #8.5 grams 05/27/24 budesonide-formoterol HFA 80 mcg-4.5 mcg/actuation aerosol inhaler (Breyna) 1 inh inhalation BID #10.2 grams 05/27/24 cefdinir 300 mg capsule 300 mg PO BID 7 days #14 caps 05/27/24 furosemide 40 mg tablet (Lasix) 40 mg PO BID #60 tabs 05/27/24 potassium chloride 20 mEq tablet,extended release(part/cryst) 20 meq PO BIDCM 30 days #60 tabs 05/27/24 prednisone 20 mg tablet 20 mg PO BID #10 tabs 05/27/24 sodium chloride 0.65 % nasal spray aerosol (Deep Sea Nasal) 2 spray NASAL BID PRN PRN NASAL DRYNESS #0 mL 05/27/24 Physical Exam Narrative GENERAL: cooperative HEENT: Atraumatic; normocephalic EYES; Anicteric, Normal Conjunctiva NECK; supple, normal thyroid, RESPIRATORY: Diminished to auscultation CARDIOVASCULAR: Regular S1 S2, GI: soft, normoactive bowel sounds, : No Renal angle tenderness; EXTREMITIES: No edema, no clubbing, MUSCULOSKELETAL: no muscle wasting NEURO: Awake; no lateralizing signs. SKIN: No Rash PSYCH; Flat affect Weight / BMI Weight Weight: 113 kg Body Mass Index (BMI) 40.1 ABG / Lab / Microbiology Data 05/27/24 07:07 05/27/24 07:07 Laboratory: Laboratory Results - last 24 hr 05/27/24 07:07: WBC 5.2, RBC 5.71 H, Hgb 17.0 H, Hct 55.3 H, MCV 96.8, MCH 29.8, MCHC 30.7 L, RDW Std Deviation 56.4 H, RDW Coeff of Blake 15.8 H, Plt Count 141 L, MPV 11.2, Immature Gran % (Auto) 0.200, Neut % (Auto) 69.7, Lymph % (Auto) 16.4 L, [place] % (Auto) 10.6 H, Eos % (Auto) 2.5, Baso % (Auto) 0.6, Absolute Neuts (auto) 3.6, Absolute Lymphs (auto) 0.85, Nucleated RBC % 0, Sodium 139, Potassium 3.7, Chloride 98, Carbon Dioxide 37.0 H, Anion Gap 4 L, BUN 18, Creatinine 0.66, Estim Creat Clear Calc 109.81, Est GFR (MDRD) Af Amer 115, Est GFR (MDRD) Non-Af 95, BUN/Creatinine Ratio 27.1 H, Glucose 114 H, Calcium 9.2, Total Bilirubin 0.90, AST 29, ALT 28, Alkaline Phosphatase 63, Total Protein 6.7, Albumin 3.0 L, Globulin 3.7, Albumin/Globulin Ratio 0.8 L Microbiology: Microbiology 05/21/24 17:55 Blood Culture (Wb) - Anticubital Left Blood Culture - Final No growth in 5 days. 05/21/24 22:30 Urine, Random Legionella Antigen - Final 05/21/24 22:30 Urine, Random Streptococcus pneumoniae Antigen (M - Final 05/21/24 22:20 Sputum, Expectorated/Coughed Gram Stain - Final 05/21/24 22:20 Sputum, Expectorated/Coughed Respiratory Culture - Final Streptococcus group F 05/22/24 00:35 Mucosa - Nasopharyngeal Respiratory Panel (PCR) - Final 05/21/24 15:15 Mucosa - Nose SARS-CoV-2, Influenza & RSV (PCR) - Final Radiography Diagnostic Testing: Radiology Impression Biopsy CT 05/26/24 09:00 IMPRESSION: 1. CT directed core needle biopsy of the liver, using CT image guidance with image documentation as described. 2. Conscious Sedation protocol utilized with independent monitoring. Electronically Signed: Bryant Zazueta MD at 10:25 EST , D/C Instructions Discharge Diet: No restrictions Discharge Activity: Return to Normal Activity Call your doctor if you observe: Fever of 101 or Higher, Shortness of breath, Fainting spells and Chest pain Meaningful Use Info Meaningful Use Meaningful Use Diagnoses (Choose all that apply): None applicable Ischemic Stroke Statin Dosing Therapy Reference: STATIN DOSE THERAPY REFERENCE: * Patients > 75 years receive moderate or high dose statin therapy. * Patients 75 years or YOUNGER should receive HIGH intensity statin dose unless contraindicated. You will be required to document reason for non-treatment if statin daily dose does not meet guidelines. HIGH DOSE STATIN THERAPY DAILY Atorvastatin > than or = to 40 mg Rosuvastatin > than or = to 20 mg Amlodipine + Atorvastatin > than or = to 2.5/40 mg Ezetimibe + Simvastatin 10/80 mg Simvastatin 80mg Discharge Plan Admission Admit Date/Time: 05/21/24 17:34 Attending Provider: Nirav Bolden Primary Care Provider: Kourtney Lawrence Consulting Providers: Olena Mims; Lisa Romero Instructions Patient Instructions: RAD RN Biopsy Liver Dc, RAD RN Procedural Sedation Discharge Orders/Prescriptions Prescriptions: New potassium chloride 20 mEq Tablet,Er Particles/Crystals 20 meq PO BIDCM 30 Days Qty: 60 0RF Deep Sea Nasal 0.65 % Aerosol,Sharps 2 spray NASAL BID PRN PRN (Reason: NASAL DRYNESS) Qty: 0 0RF furosemide [Lasix] 40 mg tablet 40 mg PO BID Qty: 60 0RF prednisone 20 mg tablet 20 mg PO BID Qty: 10 0RF cefdinir 300 mg capsule 300 mg PO BID 7 Days Qty: 14 0RF albuterol sulfate 90 mcg/actuation HFA aerosol inhaler 2 puff inhalation Q6H PRN (Reason: shortness of breath or wheezing) Qty: 8.5 0RF budesonide-formoterol [Breyna] 80-4.5 mcg/actuation HFA aerosol inhaler 1 inh inhalation BID Qty: 10.2 0RF Continued hydrochlorothiazide 25 mg tablet 25 mg PO DAILY atorvastatin 40 mg tablet 40 mg PO QHS zinc gluconate 30 mg tablet 30 mg PO DAILY ascorbate calcium (vitamin C) 500 mg tablet 500 mg PO DAILY cholecalciferol (vitamin D3) 50 mcg (2,000 unit) capsule 50 mcg PO DAILY loratadine [Allergy Relief (loratadine)] 10 MG tablet 10 mg PO DAILY PRN (Reason: allergy symptoms) Fish Oil 1 EACH capsule 1 ea PO DAILY amlodipine 10 mg tablet 10 mg PO DAILY Referrals / Follow Up: Kourtney Lawrence MD [Primary Care Provider] - Mark Keen DO [Med Staff - Active Staff] - In 1 Week (Call as quickly after discharge as possible to be seen in follow-up) NOT,DEFINED [Non-Staff] - Morelia Owens NP, BIOMETRICS CONSULTANT-C [Med Staff - Adv Practice Prof] - See Referral Note (Call to set up an appointment to be scheduled for an outpatient sleep study as your schedule allows) Disposition Disposition (needs filled in before D/C Order can be placed): Home, Self Care Charges/Coding Visit Charges Inpatient E&M: 22947 Disch Hosp >30min
[2024-05-27] MEDS: guaiFENesin 1,200 MG Tablet 1200 MG PO (10:06)
[2024-05-27] MEDS: Zinc Sulfate 50 mg zinc (220 mg) ORAL capsule PO (10:06)
[2024-05-27] MEDS: Furosemide 40 MG/4 ML Vial IV (10:06)
[2024-05-27] MEDS: Ascorbic Acid 500 MG Tablet PO (10:07)
[2024-05-27] MEDS: levoFLOXacin IV 750 MG in Empty Viaflex Q24 100 MG IV (10:07)
[2024-05-27] MEDS: Cholecalciferol (VIT D3) 25 MCG TABLET (1,000 UNITS) 50 MCG PO (10:07)
[2024-05-27] MEDS: Potassium Chloride Oral Tablet 20 MEQ PO (10:07)
[2024-05-27] MEDS: Ipratropium/Albuterol Sulfate 3 ML AMPUL.NEB INHALATION ×2 (10:55→15:04)
--- NOTE | 2024-05-27 12:44 | CHAPLAIN ---
Type of Pastoral Visit _x__ Initial Visit ___ Follow-up Visit ___ On-call Visit ___ General Patient Visit ___ Spiritual Assessment ___ Family Conference ___ Bereavement ___ Rapid Response ___ Code Blue ___ Other (describe below) Pastoral Care Referral From _x__ Patient ___ Family ___ Nurse ___ Physician ___ Band Saw Runner ___ Humanities And Languages Professor ___ Other (describe below) Sacrament/Intervention _x__ Active listening ___ Anointing ___ Anabaptist ___ Bereavement ___ Communion _x__ Berna exploration ___ ___ Life review _x__ Prayer ___ Reconciliation ___ Sacrament of Sick ___ Supportive presence ___ Wedding ___ Other (describe below) Pastoral Comments patient and a friend are in the room; pt states that she is doing pretty well but admits that she has had many calls and messages for her to answer about her health; pt states that she wants to talk with each but also it makes her more tired; friend speaks support to patient and says that prayer would be good; pt then reveals that she had a new diagnosis of cancer yesterday; now pt is asked about how she is processing, what she is feeling, and how she might address her concerns; pt is relying on friends and taking this one day at a time; pt admits not having time to process it yet; pt is not caodaism but agrees with her friend that a prayer would be accepted; offer of ongoing support given to the patient as she desires
--- NOTE | 2024-05-27 14:55 | CASEMGMT ---
Patient has order for discharge. Patient qualifies for home oxygen, script received and [place] [facility] [place] [facility]'s preferred provider, portable tank arranged to be delivered to patient's room. RN CM in to discuss needs at discharge. RN CM reviewed oxygen referral. Patient up independent in room. Patient denies needs or help at discharge. Patient had no further questions or concerns. Discharge plan updated.
--- NOTE | 2024-05-27 15:03 | PHA.DC_ITS ---
Pharmacy [facility] has performed discharge medication reconciliation and counseling for this patient. 1. ALBUTEROL MDI 2 PUFFS INHALATION Q6H PRN SHORTNESS OF BREATH/WHEEZING 2. BREYNA 1 PUFF INHALATION BID 3. CEFDINIR 300MG PO BID X 7 DAYS 4. FUROSEMIDE 40MG PO BID 5. POTASSIUM CHLORIDE 20MEQ PO BIDCM 6. PREDNISONE 20MG PO BID X 5 DAYS 7. OCEAN NASAL SPRAY The patient's discharge medication list was reviewed for discrepancies and discrepancies were resolved. The patient was counseled on the following discharge medications and changes in medications for homegoing were reviewed. The Reason for Use, instructions for use, and potential side effects were reviewed for all new medications. The patient's questions regarding all of their medications were answered. The patient was able to verbally demonstrate an understanding of their discharge medications. Medications at Discharge Home Medications loratadine 10 mg tablet (Allergy Relief (loratadine)) 10 mg PO DAILY PRN allergy symptoms 07/31/18 omega-3 fatty acids-fish oil 340 mg-1,000 mg capsule (Fish Oil) 1 ea PO DAILY supplement 07/31/18 ascorbate calcium (vitamin C) 500 mg tablet 500 mg PO DAILY supplement 03/11/23 atorvastatin 40 mg tablet 40 mg PO QHS cholesterol 03/11/23 cholecalciferol (vitamin D3) 50 mcg (2,000 unit) capsule 50 mcg PO DAILY supplement 03/11/23 hydrochlorothiazide 25 mg tablet 25 mg PO DAILY water pill 03/11/23 zinc gluconate 30 mg tablet 30 mg PO DAILY supplement 03/11/23 amlodipine 10 mg tablet 10 mg PO DAILY blood pressure 05/21/24 albuterol sulfate 90 mcg/actuation aerosol inhaler 2 puff inhalation Q6H PRN shortness of breath or wheezing #8.5 grams 05/27/24 budesonide-formoterol HFA 80 mcg-4.5 mcg/actuation aerosol inhaler (Breyna) 1 inh inhalation BID #10.2 grams 05/27/24 cefdinir 300 mg capsule 300 mg PO BID 7 days #14 caps 05/27/24 furosemide 40 mg tablet (Lasix) 40 mg PO BID #60 tabs 05/27/24 potassium chloride 20 mEq tablet,extended release(part/cryst) 20 meq PO BIDCM 30 days #60 tabs 05/27/24 prednisone 20 mg tablet 20 mg PO BID #10 tabs 05/27/24 sodium chloride 0.65 % nasal spray aerosol (Deep Sea Nasal) 2 spray NASAL BID PRN PRN NASAL DRYNESS #0 mL 05/27/24
== END 2024-05-27 16:04 | disposition home or self-care (01) | DRG 441 ==
LOC: ED 15:40 → PCU 17:36
PROVIDERS: Anesthesiology; Internal Medicine; Admitting Provider Internal Medicine; Emergency Provider Emergency Medicine; PCP Family Medicine; Visit Provider Internal Medicine
DX: R16.0 Hepatomegaly, not elsewhere classified (principal); J15.4 Pneumonia due to other streptococci; J96.01 Acute respiratory failure with hypoxia; E87.3 Alkalosis; J44.0 Chronic obstructive pulmonary disease with (acute) lower respiratory infection; Z68.41 Body mass index [BMI] 40.0-44.9, adult; J91.0 Malignant pleural effusion; I10 Essential (primary) hypertension; D75.1 Secondary polycythemia; F17.200 Nicotine dependence, unspecified, uncomplicated; E78.00 Pure hypercholesterolemia, unspecified; J30.2 Other seasonal allergic rhinitis; G47.33 Obstructive sleep apnea (adult) (pediatric); E66.01 Morbid (severe) obesity due to excess calories; E87.6 Hypokalemia; F10.90 Alcohol use, unspecified, uncomplicated; D25.9 Leiomyoma of uterus, unspecified; Z80.0 Family history of malignant neoplasm of digestive organs; Z11.52 Encounter for screening for COVID-19; E66.813 Obesity, class 3; Z86.0100 Personal history of colon polyps, unspecified
CPT/HCPCS: 36415; 36600; 71046; 71275; 74177; 74183; 76830; 76856; 77012; 80048; 80053; 82803; 83735; 84100; 84439; 84443; 85025; 85610; 85730; 87040; 87070; 87077; 87205; 87449; 87631; 87633; 88172; 88305; 88307; 88313; 93005; 94002; 94003; 94640; 94660; 94668; 94762; 97802; 99156; 99252; 99285; 99406; A9575; Q9967; A4216; G0463; J0696; J1940

== ENCOUNTER → 2024-07-02 | Outpatient (CLI) | payer OTHER, SELFPAY ==
[2024-07-02 15:57] LABS: Anion Gap 9 (5-15); BUN 12 mg/dL (7-18); BUN/Creat Ratio 16.1 RATIO (10-20); Calcium,Total 10.5 mg/dL (8.5-10.1); Chloride 90 mmol/L (98-107); Creatinine, Serum 0.75 mg/dL (0.55-1.02); EST Glomerular Filtration Rate 83 mL/min (>60); Est Glom Filt Rate - Afr Amer 101 mL/min (>60); Glucose 109 mg/dL (74-106); Potassium 2.7 mmol/L (3.5-5.1); Sodium Level 135 mmol/L (136-145)
== END | disposition home or self-care (01) ==
LOC: MFPLAB 11:54
PROVIDERS: PCP Family Medicine; Referring Provider Family Medicine; Visit Provider Family Medicine
DX: E87.6 Hypokalemia (principal)
CPT/HCPCS: 36415; 80048

== ENCOUNTER → 2024-07-05 | Outpatient (CLI) | payer OTHER, SELFPAY ==
[2024-07-05 17:27] LABS: Anion Gap 7 (5-15); BUN 13 mg/dL (7-18); BUN/Creat Ratio 21.4 RATIO (10-20); Chloride 100 mmol/L (98-107); Creatinine, Serum 0.61 mg/dL (0.55-1.02); EST Glomerular Filtration Rate 106 mL/min (>60); Est Glom Filt Rate - Afr Amer 128 mL/min (>60); Glucose 113 mg/dL (74-106); Potassium 3.4 mmol/L (3.5-5.1); Sodium Level 140 mmol/L (136-145)
== END | disposition home or self-care (01) ==
LOC: MFPLAB 12:02
PROVIDERS: PCP Family Medicine; Referring Provider Family Medicine; Visit Provider Family Medicine
DX: E87.6 Hypokalemia (principal)
CPT/HCPCS: 36415; 80048

== ENCOUNTER → 2024-07-26 | Outpatient (CLI) | payer OTHER, SELFPAY ==
[2024-07-29 00:06] LABS: HPV APTIMA, High Risk Negative (Negative)
== END | disposition home or self-care (01) ==
LOC: BWCLAB 15:06
PROVIDERS: PCP Family Medicine; Referring Provider Obstetrics & Gynecology; Visit Provider Obstetrics & Gynecology
DX: Z12.4 Encounter for screening for malignant neoplasm of cervix (principal)

== ENCOUNTER → 2024-08-05 | Outpatient (CLI) | payer OTHER, SELFPAY ==
--- NOTE | 2024-08-05 14:01 | BI_ITS ---
MAMMOGRAPHY - BILATERAL SCREENING REASON FOR EXAM: Female, 64 years old. Routine annual screening examination. PERTINENT HISTORY: Non-contributory. TECHNIQUE: Digital bilateral breast maria eugenia (3D mammographic acquisition) in the CC and MLO projections. 2-D mediolateral oblique (MLO) and craniocaudad (CC) views of both breasts were obtained. CAD: Full Field Digital Mammography with Computer Added Detection was performed. COMPARISON: Comparison is made with prior study dated February 27, 2023 and September 25, 2021. FINDINGS: Breast Composition: The breasts are almost entirely fatty. There are no dominant masses or suspicious calcifications. No other significant abnormalities are identified. There has been no significant change since the prior study. BI/SCRN MAMM (CAD)W/MARIA EUGENIA BILAT IMPRESSION: Stable bilateral screening mammogram. Yearly follow-up mammogram recommended. (A) ASSESSMENT CATEGORY: BIRADS Category 1: Negative. A letter regarding these results will be sent to the patient by the facility within 30 days. Approximately 10% of breast cancers are not detected by mammography. A normal mammogram should not delay biopsy of a clinically suspicious abnormality. [id number] Electronically Signed: Bryant Zazueta MD at 14:43 EST ,
== END | disposition home or self-care (01) ==
LOC: OPBI 14:00
PROVIDERS: PCP Family Medicine; Referring Provider Obstetrics & Gynecology; Visit Provider Obstetrics & Gynecology
DX: Z12.31 Encounter for screening mammogram for malignant neoplasm of breast (principal)
CPT/HCPCS: 77063; 77067

== ENCOUNTER → 2024-09-30 | Outpatient (CLI) | payer OTHER, SELFPAY ==
[2024-09-30 20:35] LABS: Hemoglobin A1c 4.8 % (<=5.6)
[2024-09-30 21:05] LABS: Anion Gap 14 (5-15); BUN 12 mg/dL (4-19); BUN/Creat Ratio 19.2 RATIO (10-20); Calcium,Total 10.6 mg/dL (7.6-11.0); Chloride 95 mmol/L (98-108); Cholesterol 163 mg/dL (<=200); Creatinine, Serum 0.62 mg/dL (0.70-1.20); EST Glomerular Filtration Rate 100 (>60); Glucose 98 mg/dL (70-99); High Density Lipoprotein 55 mg/dL; Low Density Lipoprotein Calc. 82 mg/dL; Potassium 3.6 mmol/L (3.3-5.1); Sodium Level 140 mmol/L (133-145); Thyroid Stim Hormone (TSH) 0.899 uIU/mL (0.300-4.200); Triglycerides 132 mg/dL; Very Low Density Lipoprotein 26 mg/dL (5-40); cholesterol:hdl ratio screen 2.97
== END | disposition home or self-care (01) ==
LOC: MTLAB 12:40
PROVIDERS: PCP Family Medicine; Referring Provider Family Medicine; Visit Provider Family Medicine
DX: E87.6 Hypokalemia (principal); R79.89 Other specified abnormal findings of blood chemistry; E78.00 Pure hypercholesterolemia, unspecified; R73.09 Other abnormal glucose
CPT/HCPCS: 36415; 80048; 80061; 83036; 84443

== ENCOUNTER → 2025-05-10 | Outpatient (CLI) | payer MEDICARE, OTHER, SELFPAY ==
--- NOTE | 2025-05-10 14:50 | CT_ITS ---
PROCEDURE: CT/Low Dose CT Lung Screening
== END | disposition home or self-care (01) ==
LOC: CT 14:37
PROVIDERS: PCP Family Medicine; Referring Provider Nurse Practitioner Acute Care; Visit Provider Nurse Practitioner Acute Care
DX: F17.200 Nicotine dependence, unspecified, uncomplicated (principal); I25.10 Atherosclerotic heart disease of native coronary artery without angina pectoris; R91.1 Solitary pulmonary nodule
CPT/HCPCS: 71271

== ENCOUNTER → 2025-07-12 | Outpatient (CLI) | payer MEDICARE, SELFPAY ==
--- NOTE | 2025-07-12 09:26 | RAD_ITS ---
PROCEDURE: KNEE 4 OR MORE VIEWS 07/12/2025 REASON FOR EXAM: RIGHT PAIN TECHNIQUE: Procedure Code: RADKN Modality: DX Procedure: KNEE 4 OR MORE VIEWS FINDINGS: Medial joint space narrowing. No definite effusion. Hypertrophic spurring off the superior patella. Mild marginal osseous ridging off the medial tibial plateau. Well-positioned patella without patellofemoral joint space narrowing. No evidence of fracture RAD/Knee 4 or More Views IMPRESSION: Medial compartment chondral thinning causing joint space narrowing. Hypertrophic spurring off the medial and patellofemoral compartments. Reading Location: [facility]
--- OUTSIDE RECORDS SUMMARY | 2025-07-12 09:55 | XMS RPT_ITS | CCD ---
Author Organization [facility] Care Team Providers Care Fashion Design Professor Name Role Phone DO Maribel Caraballo Primary Care Provider Charity Holman Attending Provider Unavailable DO Maribel Caraballo Referring Provider Friend, Dr. Jenkins Attending Provider FriendDr. Jenkins Other Provider [phone] Unavailable Primary Care Provider Unavailabl e Madalyn ALY, Kourtney Primary Care Provider KOURTNEY BERGMAN Primary Care Unavailable ETHEL ALY, KARTHIKEYAN PÉREZ Referring Unava florence DAVENPORT MD, KARTHIKEYAN PÉREZ Attending Unacyndy DAVENPORT MD, KARTHIKEYAN PÉREZ Admitting Kourtney Hartman MD Primary Care Provider Kourtney Bergman MD Attending Provider Kourtney Bergman MD Referring Provider Dr. Cassidy Mathew DO Attending Provider Dr. Cassidy Mathew DO Referring Provider Graciela LOWECMorelia Attending Provider OSMANI MARK A Attending Unavailable MADALYN, CHALON Primary Care Unavailable MASCI, MARK A Referring Unavailable MADALYN, CHALON Primary Care Unavailable MASCI, MARK A Referring Unavailable MADALYN, CHALON Primary Care Unavailable MADALYN, CHALON Primary Care Unavailable MASCI, MARK A Referring Unavailable MADALYN, CHALON Primary Care Unavailable MASCI, MARK A Referring Unavailable Madalyn, Chalon Primary Care Unavailable Morelia Owens NP Attending Unavailable Madalyn, Chalon Referring Unavailable Madalyn, Chalon Primary Care Unavailable Honey Guy Cassidy Attending Unavailabl e Madalyn, Chalon Referring Unavailable Graciela COOLER ROOM WORKER, Morelia Attending Unavailable Madalyn, Chalon Referring Unavailable Madalyn, Chalon Primary Care Unavailable Madalyn, Chalon Primary Care Unavailable Madalyn, Chalon Attending Unavailable Madalyn, Chalon Primary Care Unavailable Vande Velde, Cassidy Attending Unavailabl e Vande Velde, Cassidy Referring Unavailabl e Madalyn, Chalon Primary Care Unavailable Graciela COOLER ROOM WORKER, Morelia Attending Unavailable Graciela COOLER ROOM WORKER, Morelia Referring Unavailable Madalyn, Chalon Primary Care Unavailable Madalyn, Chalon Attending Unavailable Madalyn, Chalon Referring Unavailable Madalyn, Chalon Primary Care Unavailable Madalyn, Chalon Attending Unavailable Madalyn, Chalon Referring Unavailable Madalyn, Chalon Primary Care Unavailable Madalyn, Chalon Attending Unavailable Madalyn, Chalon Referring Unavailable Vande Velde, Cassidy Referring Unavailabl e Madalyn, Chalon Primary Care Unavailable Vande Velde, Cassidy Attending Unavailabl e Allergies Allergy Classification Reported Allergen(s) Allergy Type Date of Onset Reaction(s) Facility (17 sources) Lisinopril; Translations: [LISINOPRIL] Drug Allergy 07-31-2018 [facility] (1 source) Lisinopril Drug Allergy 09-02-2024 [facility] Repository Medications Current Medications Medication Drug Class(es) Dates Sig (Normalized) Sig (Original) [id number] actuat albuterol 0.09 mg/actuat metered dose inhaler (1 source) beta2-Adrenergic Agonist Start: 05-27-2024 Albuterol Sulfate 90 mcg/actuation HFA aerosol inhaler Active 2 NMA INHALATION EVERY 6 HOURS as needed for shortness of breath or wheezing 8.5 May 27, 2024 1:00am amLODIPine 10 mg oral tablet (12 sources) Dihydropyridine Calcium Channel Yuliya Start: 05-21-2024 take 1 tablet by mouth once daily amLODIPine (NORVASC) 10 mg tablet Take 10 mg by mouth once daily. 05/21/2024 Active Start: 03-11-2023 End: 05-21-2024 take 1 tablet by mouth once daily Amlodipine 5 mg tablet Discontinued 5 mg PO DAILY March 11, 2023 12:00am May 21, 2024 4:20pm Ascorbic Acid (9 sources) Vitamin C take 1 tablet by mouth once daily ascorbic acid (VITAMIN C ORAL) Take 1 tablet by mouth once daily. Active atorvastatin 40 mg oral tablet (11 sources) HMG-CoA Reductase Inhibitor Start: 03-11-20 take 1 tablet by mouth once daily at bedtime atorvastatin (LIPITOR) 40 mg tablet Take 40 mg by mouth daily at bedtime. 03/11/2023 Active calcium ascorbate 500 mg oral tablet (2 sources) Start: 03-11-20 take 1 tablet by mouth once daily Ascorbate Calcium (Vitamin C) 500 mg tablet Active 500 mg PO DAILY March 11, 2023 12:00am cholecalciferol 0.05 mg oral capsule (2 sources) Vitamin D Start: 03-11-20 take 1 capsule by mouth once daily Cholecalciferol (Vitamin D3) 50 mcg (2,000 unit) capsule Active 50 ug PO DAILY March 11, 2023 12:00am cholecalciferol, vitamin D3, (VITAMIN D3 ORAL) (9 sources) take 1 tablet by mouth once daily cholecalciferol, vitamin D3, (VITAMIN D3 ORAL) Take 1 tablet by mouth once daily. Active docosahexaenoic acid/epa (FISH OIL ORAL) (9 sources) take 1 capsule by mouth once daily docosahexaenoic acid/epa (FISH OIL ORAL) Take 1 capsule by mouth once daily. Active furosemide 40 mg oral tablet (11 sources) Loop Diuretic Start: 09-02-19 take 1 tablet by mouth once daily Furosemide (Lasix) 40 mg tablet Active 40 mg PO daily September 02, 2024 10:46am Start: 05-27-2024 End: 09-02-2024 take 1 tablet by mouth twice daily furosemide (LASIX) 40 mg tablet Take 40 mg by mouth two times a day. 05/27/2024 Active hydroCHLOROthiazide 25 mg oral tablet (11 sources) Thiazide Diuretic Start: 03-11-2023 take 1 tablet by mouth once daily hydroCHLOROthiazide 25 mg tablet Take 1 tablet by mouth once daily. 04/23/2024 Active iv contrast (will be provided with radiology test) (3 sources) Start: 11-11-2024 End: 11-12-2024 iv contrast (will be provided with radiology test) Indications: Liver mass MRI Liver Inject, intravenously, once for 1 dose. No IV access, insert saline lock prior to the beginning of sedation, infusion, injection of imaging exam. Discontinue saline lock post exam. If Pt. has a central line or IVAD, may access for administration according to line specific nursing protocol. Once exam is complete flush line and de-access according to line specific nursing protocol in the MR contrast administration guidelines link. 1 each 11/11/2024 11/12/2024 Active Start: 07-27-2024 End: 07-28-2024 iv contrast (will be provide d with radiology test) Indications: Liver disease , Liver mass MRI LIVER (EOVIST) Inject, intravenously, once for 1 dose. No IV access, insert saline lock prior to the beginning of sedation, infusion, injection of imaging exam. Discontinue saline lock post exam. If Pt. has a central line or IVAD, may access for administration according to line specific nursing protocol. Once exam is complete flush line and de-access according to line specific nursing protocol in the MR contrast administration guidelines link. 1 Each 07/27/2024 07/28/2024 Start: 07-18-2024 End: 07-19-2024 iv contrast (will be provide d with radiology test) Indications: Liver mass MRI Liver Inject, intravenously, once for 1 dose. No IV access, insert saline lock prior to the beginning of sedation, infusion, injection of imaging exam. Discontinue saline lock post exam. If Pt. has a central line or IVAD, may access for administration according to line specific nursing protocol. Once exam is complete flush line and de-access according to line specific nursing protocol in the MR contrast administration guidelines link. 1 Each 07/18/2024 07/19/2024 Active loratadine 10 mg oral tablet (15 sources) Start: 07-31-2018 take 1 tablet by mouth once daily as needed Loratadine (Allergy Relief (Loratadine)) 10 MG tablet Active 10 mg PO DAILY as needed for allergy symptoms July 31, 2018 1:00am multivitamin tablet (9 sources) take 1 tablet by mouth once daily multivitamin tablet Take 1 tablet by mouth once daily. Active [place]-3 Fatty Acids-Fish Oil (Fish Oil 1,000 Mg Capsule) 1 EACH capsule (5 sources) Start: 07-31-2018 [place]-3 Fatty Acids-Fish Oil (Fish Oil 1,000 Mg Capsule) 1 EACH capsule Active 1 EACH PO DAILY July 31, 2018 6:40pm Start: 07-31-2018 [place]-3 Fatty Acids-Fish Oil (Fish Oil 1,000 Mg Capsule) 1 EACH capsule Active 1 EACH PO DAILY July 31, 2018 1:00am [place]-3 Fatty Acids-Fish Oil (Fish Oil) 1 EACH capsule (1 source) Start: 07-31-2018 [place]-3 Fatty Acids-Fish Oil (Fish Oil) 1 EACH capsule Active 1 NMA PO DAILY July 31, 2018 1:00am Pediatric Mawquqjd-Lmar-Dju (Multivitamins With Iron) 1 EACH Tab.Chew (2 sources) Start: 07-31-2018 take 1 tablet by mouth once daily Pediatric Jjkdqcev-Zbdy-Rlo (Multivitamins With Iron) 1 EACH Tab.Chew Active 1 EACH PO DAILY July 31, 2018 6:40pm Start: 07-31-2018 take 1 tablet by ila th once daily Pediatric Umbcxjit-Iylz-Jex (Multivitamins With Iron) 1 EACH Tab.Chew Active 1 EACH PO DAILY July 31, 2018 1:00am microencapsulated potassium chloride 20 meq extended release oral tablet (10 sources) Start: 05-27-2024 take 1 tablet by mouth twice daily potassium chloride ER (KLOR-CON) 20 mEq tablet Take 20 mEq by mouth two times a day. 05/27/2024 Active sodium chloride 0.111 meq/ml nasal spray (1 source) Start: 05-27-2024 Sodium Chlorid e (Deep Sea Nasal) 0.65 % Aerosol,[place] Active 2 NMA NASAL TWICE DAILY NEEDED as needed for NASAL DRYNESS 0 May 27, 2024 1:00am Zinc (9 sources) take 1 tablet by mouth once daily ZINC ORAL Take 1 tablet by mouth once daily. Active zinc gluconate 30 mg oral tablet (2 sources) Start: 03-11-2023 take 1 tablet by mouth once daily Zinc Gluconate 30 mg tablet Active 30 mg PO DAILY March 11, 2023 12:00am Completed/Discontinued Medications Medication Drug Class(es) Dates Sig (Normalized) Sig (Original) Budesonide-Formot lonnie (1 source) Corticosteroid, beta2-Adrenergic Agonist Start: 05-27-2024 End: 09-02-2024 Budesonide-Formote rol (Breyna) 80-4.5 mcg/actuation HFA aerosol inhaler Discontinued 1 NMA INHALATION TWICE A DAY 10.2 May 27, 2024 1:00am September 02, 2024 10:45am cefdinir 300 mg oral capsule (1 source) Cephalosporin Antibacterial Start: 05-27-2024 End: 07-26-2024 take 1 capsule by mouth twice daily Cefdinir 300 mg capsule Discontinued 300 mg PO TWICE A DAY 14 May 27, 2024 1:00am July 26, 2024 12:17pm Pediatric Goxdjxpt-Rqdr-Vxu (Multivitamins With Iron) 1 EACH tablet,chewable (4 sources) Start: 07-31-2018 End: 05-21-2024 take 1 tablet by mouth once daily Pediatric Ebelxknj-Cbgp-Jxo (Multivitamins With Iron) 1 EACH tablet,chewable Discontinued 1 NMA PO DAILY July 31, 2018 1:00am May 21, 2024 4:22pm Start: 07-31-2018 take 1 tablet by ila th once daily Pediatric Uoaamiud-Swlf-Knr (Multivitamins With Iron) 1 EACH tablet,chewable Active 1 EACH PO DAILY July 31, 2018 1:00am predniSONE 20 mg oral tablet (1 source) Start: 05-27-2024 End: 07-26-2024 take 1 tablet by mouth twice daily Prednisone 20 mg tablet Discontinued 20 mg PO TWICE A DAY May 27, 2024 1:00am July 26, 2024 12:17pm Problems Active Problems Problem Classification Problem Date Documented Date Episodic/Chronic Benign neoplasm of uterus (2 sources) Uterine leiomyoma; Translations: [Leiomyoma of uterus, unspecified] 07-26-2024 Episodic Other female genital disorders (1 source) Mass of uterus; Translations: [Other specified noninflammatory disorders of uterus] 07-26-2024 Episodic Comment on above: On CT at [facility] 4 uterine carcinoma cannot be excluded Other hematologic conditions (2 sources) Secondary polycythemia; Translations: [Secondary polycythemia] 06-23-2024 Episodic Other hematologic conditions (2 sources) Erythrocytosis; Translations: [Secondary polycythemia] 06-27-2024 Episodic Other liver diseases (1 source) Disease of liver; Translations: [Liver disease, unspecified] 07-27-2024 Chronic Other liver diseases (9 sources) Liver mass; Translations: [Hepatomegaly, not elsewhere classified] 06-23-2024 Episodic Other lower respiratory disease (2 sources) Dyspnea on exertion; Translations: [Shortness of breath] 09-02-2024 Episodic Other lower respiratory disease (1 source) Hypoxia; Translations: [Hypoxemia] 05-21-2024 Episodic Other nutritional; endocrine; and metabolic disorders (1 source) Hypercalcemia; Translations: [Hypercalcemia] 06-24-2024 Chronic Other nutritional; endocrine; and metabolic disorders (1 source) Hypercalcemia; Translations: [Hypercalcemia] Onset: 06-24-2024 Chronic Pulmonary heart disease (2 sources) Dilatation of pulmonary artery; Translations: [Other diseases of pulmonary vessels] 09-02-2024 Episodic Residual codes; unclassified (2 sources) Obstructive sleep apnea syndrome; Translations: [Obstructive sleep apnea (adult) (pediatric)] 09-02-2024 Chronic Respiratory failure; insufficiency; arrest (adult) (1 source) Acute respiratory failure; Translations: [Acute respiratory failure with hypoxia] 06-04-2024 Episodic Substance-related disorders (3 sources) Tobacco dependence syndrome; Translations: [Nicotine dependence, unspecified, uncomplicated] Onset: 05-21-2025 05-21-2024 Chronic Past or Other Problems Problem Classification Problem Date Documented Da te Episodic/Chronic Fluid and electrolyte disorders (4 sources) Hyperkalemia; Translations: [Hyperkalemia] Onset: 07-02-2024 06-27-2024 Episodic Other hematologic conditions (2 sources) Secondary polycythemia; Translations: [Polycythemia] Onset: 06-23-2024 Episodic Other liver diseases (2 sources) Hepatomegaly, not elsewhere classified; Translations: [Liver mass] Onset: 06-23-2024 Episodic Other screening for suspected conditions (not mental disorders or infectious disease) (6 sources) Patient encounter status; Translations: [Encounter for screening for malignant neoplasm of colon] Onset: 08-18-2024 03-11-2023 Episodic Comment on above: 05/23/24 [facility] Pneumonia (except that caused by tuberculosis or sexually transmitted disease) (1 source) Pneumonia; Translations: [Pneumonia, unspecified organism] Resolved: 05-14-2024 09-02-2024 Episodic Results Test Name Value Interpretation Reference Range Facility Low Dose CT Lung Screeningon 05-10-[address] Lung Screening [facility] Imaging Services [address] [place] [address] Lung Screening MR#: [id number] Acct: [id number] Name: ECHO DUNN Rep #: [id number] : 1960 F 65 From: Bryant august MD PCP: Dr. Kourtney Bergman MD Status: [facility] Study: Low Dose CT Lung Screening Date of Exam: 05/10 Exam# [id number] Ordering Dr: Morelia Owens COOLER ROOM WORKER COOLER ROOM WORKER-C PROCEDURE: LOW DOSE CT LUNG SCREENING 05/10/2025 REASON FOR EXAM: SMOKING 25 PACK YEARS TECHNIQUE: Procedure Code: CTLUNGSCREEN Modality: CT Procedure: LOW DOSE CT LUNG SCREENING Coronal and Sagittal reconstruction series were provided. One or more dose reduction techniques were used (e.g., Automated exposure control, adjustment of the mA and/or kV according to patient size, use of iterative reconstruction technique). REFERENCE LINK: [facility] Lung-RADS RADIATION DOSE SUMMARY: CTDlvol: 4.02 mGy DLP: 129.38 mGycm COMPARISON: Prior study dated May 21, 2024. FINDINGS: PULMONARY NODULES: (Only nodules >3mm are reported) Nodules described below are on series 1 unless otherwise specified. Pulmonary Nodules: Stable 6 mm calcific granuloma in the superior aspect of the right lower lobe. Stable calcified granuloma in the anterior aspect of the right lower lobe. Stable calcified granuloma in the anterior aspect of the right middle lobe. Hardware:None Lymph Nodes:None Heart and Vasculature:The heart is nonenlarged. Coronary Artery Calcifications: Present Lungs and Airways: Mild scarring at the right lung apex. Pleura:Unremarkable Upper Abdomen:Findings suggestive of hepatomegaly. The previously seen density in the medial aspect of the right lobe of the liver is not well seen on this examination. Bones:Degenerative changes of the thoracic spine. CT/Low Dose CT Lung Screening IMPRESSION: Calcific granulomas in the right lung as described. No suspicious nodule seen. Coronary artery calcification (CAC) is is present Lung-RADS Category: 2 BENIGN (BASED ON IMAGING FEATURES OR INDOLENT BEHAVIOR). RECOMMEND 12-MONTH SCREENING LDCT. Other Significant Findings: Reading Location: [place] CC: YANA Owens; Dr. Kourtney Bergman MD Occ Med Physician: Signed [facility] 11-11-2024 [facility] Telephone (MEPRAD) ECHO DUNN ([id number]) 1960 F Date Time Provider Department 11/11/24 MARK KEEN During your visit today, we recorded the following information about you: Mark Keen DO 11/11/2024 8:14 AM Signed Can let her know the MRI shows stable findings. No need for repeat biopsy. We would like to perform 1 more MRI of the liver in about 6 months. Office visit with me following that. DO Malvin Cotter Melanie, LPN 11/11/2024 8:26 AM Signed Patient aware of all information. Dr. Keen- please file order. PSS- please contact patient to schedule MRI then OV in 6 months. ADELE Seymour Paul A, DO 11/11/2024 10:08 AM Signed Thank you. Filed. Alex Weiss 11/11/2024 11:05 AM Signed Spoke w pt and she is scheduled as directed. Alex Wesis Allergies As of Date: 11/11/2024 Noted Allergy Reaction LISINOPRIL 06/23/2024 7 - Swelling Date Reviewed: 07/15/2024 Reviewed by: Karthikeyan Davenport MD, MD - Fully Assessed Reason for Visit: Results [95] Primary Visit Diagnosis:Liver mass [R16.0] Order(s):MRI LIVER WO/W IVCON [[id number]] Order #: [id number] FUTURE iv contrast (will be provided with radiology test)MRI Liver Inject, intravenously, once for 1 dose. No IV access, insert saline lock prior to the beginning of sedation, infusion, injection of imaging exam. Discontinue saline lock post exam. If Pt. has a central line or IVAD, may access for administration according to line specific nursing protocol. Once exam is complete flush line and de-access according to line specific nursing protocol in the MR contrast administration guidelines link.Disp: 1 eachRfl: 0 Prescriptions as of 11/11/2024 - iv contrast (will be provided with radiology test) MRI Liver Inject, intravenously, once for 1 dose. No IV access, insert saline lock prior to the beginning of sedation, infusion, injection of imaging exam. Discontinue saline lock post exam. If Pt. has a central line or IVAD, may access for administration according to line specific nursing protocol. Once exam is complete flush line and de-access according to line specific nursing protocol in the MR contrast administration guidelines link. - amLODIPine (NORVASC) 10 mg tablet Take 10 mg by mouth once daily. - hydroCHLOROthiazide 25 mg tablet Take 1 tablet by mouth once daily. - atorvastatin (LIPITOR) 40 mg tablet Take 40 mg by mouth daily at bedtime. - furosemide (LASIX) 40 mg tablet Take 40 mg by mouth two times a day. - potassium chloride ER (KLOR-CON) 20 mEq tablet Take 20 mEq by mouth two times a day. - multivitamin tablet Take 1 tablet by mouth once daily. - docosahexaenoic acid/epa (FISH OIL ORAL) Take 1 capsule by mouth once daily. - ascorbic acid (VITAMIN C ORAL) Take 1 tablet by mouth once daily. - cholecalciferol, vitamin D3, (VITAMIN D3 ORAL) Take 1 tablet by mouth once daily. - ZINC ORAL Take 1 tablet by mouth once daily. - loratadine (CLARITIN) 10 mg tablet Take 10 mg by mouth once daily. Problem List As Of Date: 11/11/2024 (None) Prescriptions ordered this encounter Disp Refills Start End IV CONTRAST (RADIOLOGY PROCEDURE) - * 1 ea* 0 11/11/2024 11/12/2024 Class: In Office Sig: MRI Liver Inject, intravenously, once for 1 dose. No IV access, insert saline lock prior to the beginning of sedation, infusion, injection of imaging exam. Discontinue saline lock post exam. If Pt. has a central line or IVAD, may access for administration according to line specific nursing protocol. Once exam is complete flush line and de-access according to line specific nursing protocol in the MR contrast administration guidelines link. Encounter Status:Closed by ALEX WEISS on 11/11/24 [facility] MRI LIVER WO/W IVCONon 10-28 MRI LIVER WO/W IVCON * * *Final Report* * * DATE OF EXAM: Oct 28 2024 2:12PM M 0727 - MRI LIVER WO/W IVCON / PROCEDURE REASON: Liver mass * * * * Physician Interpretation * * * * Examination: MRI LIVER WO/W IVCON History: Liver mass COMPARISON: MRI of 05/24/2024 CT 05/23/2024 TECHNIQUE: Routine liver mri protocol, including axial 3D gradient echo volume acquisition (VIBE) before and after Elucirem 10cc, axial gradient echo in- and opposed- phase, axial fast STIR, coronal HASTE. Image subtraction performed on 3D gradient echo images. RESULT: Liver: Comparison made with prior study, allowing for difference in technique. Diffuse fatty infiltration of the liver 1.3 cm T1 hypointense/T2 moderately hyperintense lesion in the dome of the left liver series series 13 image 21. Stable More inferior multilobulated T1 hypointense/T2 heterogeneously moderately intense left lobe lesion of 5.9 x 6.6 cm. Image 25 series 13. Unchanged from previous study, image 8 series 5. 4 cm sagittal height. Stable Both lesions are heterogeneously peripherally enhancing, again, similar to previous. Subcentimeter posterior right hepatic lobe cyst Biliary: No bile duct dilation. Stable few millimeter gallbladder polyp. Spleen: No mass. No splenomegaly. Pancreas: No enlargement, solid mass or duct dilation. A few sub-5 mm cystic foci are stable Adrenals: No mass. Kidneys: Bilateral cysts. No gross obstructive uropathy or suspicious lesion GI tract: No dilation or wall thickening. The appendix appears normal Lymph nodes: No abdominal lymphadenopathy. Mesentery/Peritoneum: No ascites or mass. Retroperitoneum: No mass. Vasculature: - Abdominal aorta and iliac arteries: No aneurysm. - Celiac and SMA: Patent without stenosis. - Portal venous system (SMV, splenic vein, portal vein and branches): Patent. - Hepatic veins: Patent. Lower thorax: 8 mm nodule at the right lung base is stable. Image 18 series 18 Localizer images: No additional findings. IMPRESSION: Diffuse fatty infiltration of the liver Lobulated left hepatic lobe mass is unchanged. Smaller more superior enhancing 1.3 cm focus is also stable. Small gallbladder polyp. Stable nodule at the right lung base. Renal cysts. No new or developing suspicious mass or adenopathy Occ Med Physician: OUSMANE Transcribe Date/Time: Nov 04 2024 8:08A Dictated by : VIVI SIBLEY MD This examination was interpreted and the report reviewed and electronically signed by: VIVI SIBLEY MD on Nov 04 2024 8:35AM EST [id number] Normal [facility] CNPNon 10-19-2024 CNPN Telephone (HEMAWS) ECHO DUNN ([id number]) 1960 F Date Time Provider Department 10/19/24 MEENU LEI During your visit today, we recorded the following information about you: Meenu Lei RN 10/19/2024 11:07 AM Signed Patient was supposed to have an MRI in 3 months which would've been in October 2024. It looks like the MRI was originally scheduled this morning but then the patient called in to reschedule the scan and it is now scheduled in March. Called patient, no answer, left a VM requesting a call back. When patient calls back, can we see if there is a reason why she rescheduled for March and not an earlier date? Thank you. JOSIAH Handy Amber, RN 10/19/2024 2:34 PM Signed Patient called back and left a VM stating that she rescheduled her MRI's for March due to insurance reasons. JOSIAH Handy Paul A, DO 10/20/2024 5:16 PM Signed Did insurance not approve it? Is it a co-pay issue? Anything we can do to help get it done in the next couple weeks? DO Alyssa Cotter Melissa 10/21/2024 8:18 AM Signed Referral in [facility] is authorized starting 07/18/24 for liver and abdomen. Meenu Lei RN 10/21/2024 3:51 PM Addendum Patient stated she hasn't met her deductible for the year and she currently has a balance with [facility] of around $1,300. Patient stated the reason is a financial reason because she will be going on Medicare 03/14/25 and the cost will be next to nothing if she waits until March. Patient also stated she is supposed to have another MRI to evaluate a fibroid tumor but is putting this off until March as well. Patient stated if it is really important for her to have the MRI sooner then she will pay for the MRI. Patient was given the number to Billing Customer Service and Patient [employer]. JOSIAH Handy Paul A, DO 10/21/2024 4:15 PM Signed I'm sorry about the financial burden, but important to get MRI in next few weeks. DO Tomás Cotter Pamela S, LPN 10/21/2024 4:27 PM Signed Spoke with pt. Informed of Dr. Keen response concerning getting the MRI in the next few weeks. Pt. Voiced understanding and will call to make arrangements to get sooner as directed. ADELE Lima Pamela S, LPN 10/21/2024 4:34 PM Signed Pt. 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 - hydroCHLOROthiazide 25 mg tablet Take 1 tablet by mouth once daily. - atorvastatin (LIPITOR) 40 mg tablet Take 40 mg by mouth daily at bedtime. - furosemide (LASIX) 40 mg tablet Take 40 mg by mouth two times a day. - potassium chloride ER (KLOR-CON) 20 mEq tablet Take 20 mEq by mouth two times a day. - multivitamin tablet Take 1 tablet by mouth once daily. - docosahexaenoic acid/epa (FISH OIL ORAL) Take 1 capsule by mouth once daily. - ascorbic acid (VITAMIN C ORAL) Take 1 tablet by mouth once daily. - cholecalciferol, vitamin D3, (VITAMIN D3 ORAL) Take 1 tablet by mouth once daily. - ZINC ORAL Take 1 tablet by mouth once daily. - loratadine (CLARITIN) 10 mg tablet Take 10 mg by mouth once daily. Problem List As Of Date: 10/19/2024 (None) Encounter Status:Closed by MEENU LEI on 10/22/24 Normal [facility] Anion gap in Serum or Plasma Ordered By: Kourtney Bergman on 09-30-2024 Anion gap [Moles/Vol] 14 mmol/L 11-25 [facility] BUN/creatinine ratioOrdered By: Kourtney Bergman on 09-30-2024 Urea nitrogen/Creatinine [Mass ratio] 19.2 mg/mg 05-02 [facility] Basic Metabolic Profile (BMP )on 09-30-2024 BUN/CRE 19.2 RATIO Normal 05-02 [facility] Comment on above: Order Comment: Order Date: 09/23/24Order Info: [id number] - BMPOrder Info: [id number] - LIPIDOrder Info: [id number] - TSH Performed By: #### L 300.3900, L300.4310 #### [facility] [address] [place], [address] Calcium [Mass/Vol] 10.6 mg/dL Normal 7.6-11.0 [facility] Comment on above: Order Comment: Order Date: 09/23/24Order Info: [id number] - BMPOrder Info: [id number] - LIPIDOrder Info: [id number] - TSH Performed By: #### L 300.3900, L300.4310 #### [facility] [address] [place], [address] Chloride [Moles/Vol] 95 mmol/L Low 98-[address] [facility] Comment on above: Order Comment: Order Date: 09/23/24Order Info: [id number] - BMPOrder Info: [id number] - LIPIDOrder Info: [id number] - TSH Performed By: #### L 300.3900, L300.4310 #### [facility] [address] [place], [address] CO2 [Moles/Vol] 30.0 mmol/L Normal 21.0-32.0 [facility] Comment on above: Order Comment: Order Date: 09/23/24Order Info: 666- - BMPOrder Info: - LIPIDOrder Info: 3 - TSH Performed By: #### L 300.3900, L300.4310 #### [facility] [address] [place], [address] Creatinine [Mass/Vol] 0.62 mg/dL Low 0.70-1.20 [facility] Comment on above: Order Comment: Order Date: 09/23/24Order Info: 666- - BMPOrder Info: - LIPIDOrder Info: [id number] - TSH Performed By: #### L 300.3900, L300.4310 #### [facility] [address] [place], [address] GAP 14 Normal 5-15 [facility] Comment on above: Order Comment: Order Date: 09/23/24Order Info: 666- - BMPOrder Info: - LIPIDOrder Info: [id number] - TSH Performed By: #### L 300.3900, L300.4310 #### [facility] [address] [place], [address] GFR/1.73 sq M.predicted among non-blacks MDRD (S/P/Bld) [Vol rate/Area] 100 mL/min/{1.73_m2} Normal >60 [facility] Comment on above: Order Comment: Order Date: 09/23/24Order Info: 666- - BMPOrder Info: [id number] - LIPIDOrder Info: [id number] - TSH Result Comment: mL/m in/1.73m2 CKD-EPI Creatinine Equation (2020) Performed By: #### L 300.3900, L300.4310 #### [facility] [address] [place], [address] Glucose [Mass/Vol] 98 mg/dL Normal 70-99 [facility] Comment on above: Order Comment: Order Date: 09/23/24Order Info: 666- - BMPOrder Info: [id number] - LIPIDOrder Info: [id number] - TSH Performed By: #### L 300.3900, L300.4310 #### [facility] [address] [place], [address] Potassium [Moles/Vol] 3.6 mmol/L Normal 3.3-5.1 [facility] Comment on above: Order Comment: Order Date: 09/23/24Order Info: 666- - BMPOrder Info: [id number] - LIPIDOrder Info: [id number] - TSH Performed By: #### L 300.3900, L300.4310 #### [facility] [address] [place], [address] Sodium [Moles/Vol] 140 mmol/L Normal 133-145 [facility] Comment on above: Order Comment: Order Date: 09/23/24Order Info: 666- - BMPOrder Info: [id number] - LIPIDOrder Info: [id number] - TSH Performed By: #### L 300.3900, L300.4310 #### [facility] [address] [place], [address] Urea nitrogen [Mass/Vol] 12 mg/dL Normal 4-19 [facility] Comment on above: Order Comment: Order Date: 09/23/24Order Info: 666- - BMPOrder Info: [id number] - LIPIDOrder Info: [id number] - TSH Performed By: #### L 300.3900, L300.4310 #### [facility] [address] [place], [address] Calculated very low density lipoprotein (VLDL) cholesterol measurementOrdered By: Kourtney Bergman on 09-30-2024 VLDL Cholesterol 26 mg/dL 5-40 [facility] Carbon dioxide, total [Moles /volume] in Central venous bloodOrdered By: Kourtney Bergman on 09-30-2024 CO2 [Moles/Vol] 30.0 mmol/L 21.0-32.0 [facility] Chloride assayOrdered By: Zaki Bergman on 09-30-2024 Chloride [Moles/Vol] 95 mmol/L Low 98-[address] [facility] GFR/1.73 sq M.predicted andrew g non-blacks MDRD (S/P/Bld) [Vol rate/Area]Ordered By: Kourtney Bergman on 09-30-2024 Estimated GFR (MDRD) Non-Af Amer 100 >60 [facility] Comment on above: mL/min/1.73m2 CKD-EP I Creatinine Equation (2020) Hemoglobin A1con 09-30-2024 HbA1c (Bld) [Mass fraction] 4.8 % Low <=5.6 [facility] Comment on above: Order Comment: Order Date: 09/23/24Order Info: [id number] - A1C Performed By: #### L 300.3900, L300.4310 #### [facility] Laboratory [facility] [place], [address] Hemoglobin A1c percentageOrd ered By: Kourtney Bergman on 09-30-2024 HbA1c (Bld) [Mass fraction] 4.8 % Low >5.7 [facility] LDL calc ser/plasOrdered By: Kourtney Bergman on 09-30-2024 LDL Cholesterol, Calculated 82 mg/dL [facility] Comment on above: Ozaniudpha=746-932 m g/dL & Higher Awyl=923 mg/dL or greater Lipid Profileon 09-30-2024 CHOL:HDL 2.97 Normal [facility] Comment on above: Order Comment: Order Date: 09/23/24Order Info: [id number] - BMPOrder Info: [id number] - LIPIDOrder Info: [id number] - TSH Performed By: #### L 300.3900, L300.4310 #### [facility] [address] [place], [address] Cholesterol [Mass/Vol] 163 mg/dL Normal <=200 [facility] Comment on above: Order Comment: Order Date: 09/23/24Order Info: [id number] - BMPOrder Info: [id number] - LIPIDOrder Info: [id number] - TSH Result Comment: Chol esterol level, Desirable <200 mg/dL Borderline high cholesterol 200-239 mg/dL High cholesterol >=240 mg/dL Recommendations of the NCEP Adult Treatment Panel for the following risk-cutoff thresholds for the [place] population. Performed By: #### L 300.3900, L300.4310 #### [facility] [address] [place], [address] Cholesterol in HDL [Mass/Vol] 55 mg/dL Normal [facility] Comment on above: Order Comment: Order Date: 09/23/24Order Info: [id number] - BMPOrder Info: - LIPIDOrder Info: [id number] - TSH Result Comment: Debbie onal Cholesterol Education Program (NCEP) guidelines: <40 mg/dL: Low HDL-cholesterol (major risk factor for CHD) >= 60 mg/dL: High HDL-cholesterol (negative risk factor for CHD) HDL-cholesterol is affected by a number of factors, e.g. smoking, exercise, hormones, sex and age. Performed By: #### L 300.3900, L300.4310 #### [facility] [address] [place], [address] Cholesterol in LDL [Mass/Vol] 82 mg/dL Normal [facility] Comment on above: Order Comment: Order Date: 09/23/24Order Info: [id number] - BMPOrder Info: [id number] - LIPIDOrder Info: [id number] - TSH Result Comment: Bord mdmagn=823-364 mg/dL Higher Qgzx=902 mg/dL or greater Performed By: #### L 300.3900, L300.4310 #### [facility] [address] [place], [place], [address] Cholesterol in VLDL [Mass/Vol] 26 mg/dL Normal 5-40 [facility] Comment on above: Order Comment: Order Date: 09/23/24Order Info: [id number] - BMPOrder Info: [id number] - LIPIDOrder Info: [id number] - TSH Performed By: #### L 300.3900, L300.4310 #### [facility] [address] [place], [address] Triglyceride [Mass/Vol] 132 mg/dL Normal [facility] Comment on above: Order Comment: Order Date: 09/23/24Order Info: [id number]- - BMPOrder Info: [id number] - LIPIDOrder Info: [id number] - TSH Result Comment: The drugs N-Acetylcysteine and Metamizole may falsely depress this assay. Normal range: <150 mg/dL Borderline High: 150-199 mg/dL High: 200-499 mg/dL Very High: >500 mg/dL Performed By: #### L 300.3900, L300.4310 #### [facility] [address] [place], [place], [address] Potassium (Unsp spec) [Mass/ Vol]Ordered By: Kourtney Bergman on 09-30-2024 Potassium [Moles/Vol] 3.6 mmol/L 3.3-5.1 [facility] Screening total cholesterol/ high density lipoprotein (HDL) cholesterol ratioOrdered By: Kourtney Bergman on 09-30-2024 Cholesterol.total/Concetta sterol in HDL [Mass ratio] 2.97 {ratio} [facility] Serum creatinine measurement (mass/volume)Ordered By: Kourtney Bergman on 09-30-2024 Creatinine [Mass/Vol] 0.62 mg/dL Low 0.70-1.20 [facility] Serum glucose measurement (m ass/volume)Ordered By: Kourtney Bergman on 09-30-2024 Glucose [Mass/Vol] 98 mg/dL 70-99 [facility] Serum or plasma calcium derrick urement (mass/volume)Ordered By: Kourtney Bergman on 09-30-2024 Calcium [Mass/Vol] 10.6 mg/dL 7.6-11.0 [facility] Serum or plasma cholesterol in HDL measurement (mass/volume)Ordered By: Kourtney Bergman on 09-30-2024 Cholesterol in HDL [Mass/Vol] 55 mg/dL >40 [facility] Comment on above: National Cholesterol Education Program (NCEP) guidelines:<40 mg/dL: Low HDL-cholesterol (major risk factor for CHD)>= 60 mg/dL: High HDL-cholesterol (negative risk factor for CHD)HDL-cholesterol is affected by a number of factors, e.g. smoking, exercise, hormones, sex and age. Serum or plasma cholesterol measurement (mass/volume)Ordered By: Kourtney Bergman on 09-30-2024 Cholesterol [Mass/Vol] 163 mg/dL <201 [facility] Comment on above: Cholesterol level, D esirable <200 mg/dLBorderline high cholesterol 200-239 mg/dLHigh cholesterol >=240 mg/dLRecommendations of the NCEP Adult Treatment Panel for the following risk-cutoff thresholds for the [place] population. Serum or plasma urea nitroge n measurement (mass/volume)Ordered By: Kourtney Bergman on 09-30-2024 Urea nitrogen [Mass/Vol] 12 mg/dL 4-19 [facility] Sodium levelOrdered By: Paulie Bergman on 09-30-2024 Sodium [Moles/Vol] 140 mmol/L 133-145 [facility] TSH DL <= 0.005 mIU/L QnOrde red By: Kourtney Bergman on 09-30-2024 Thyroid Stimulating Hormone (TSH) 0.899 uIU/mL 0.300-4.200 [facility] Thyroid Stim Hormone (TSH)on 09-30-2024 TSH 0.899 uIU/mL Normal 0.300-4.200 [facility] Comment on above: Order Comment: Order Date: 09/23/24Order Info: [id number] - BMPOrder Info: [id number] - LIPIDOrder Info: [id number] - TSH Performed By: #### L 300.3900, L300.4310 #### [facility] [address] [place], [address] Triglycerides measurementOrd ered By: Kourtney Bergman on 09-30-2024 Triglyceride [Mass/Vol] 132 mg/dL <199 [facility] Comment on above: The drugs N-Acetylcy steine and Metamizole may falsely depress this assay. Normal range: <150 mg/dLBorderline High: 150-199 mg/dLHigh: 200-499 mg/dLVery High: >500 mg/dL Pulmonary Visit Reporton Pulmonary Visit Report [facility] [place] [address] [place] [address] OFFICE VISIT Date of Service: 09/02/24 MR#: [id number] Acct: [id number] Name: ECHO DUNN Rep #: [id number] : 1960 Provider: YANA Owens Age/Sex: 64/F [place] [facility] Status: Signed Assessment and Plan Assessment and Plan (1) ROGER (obstructive sleep apnea): Status: Acute Plan: Highly suspicious for obstructive sleep apnea. However, after discussing the risks of untreated sleep apnea and the benefits of treatment, the patient states that she has thousands of dollars of medical bills right now and would prefer to wait to be test. She is also motivated to lose some weight, she is aware that some weight loss may decrease her risk of obstructive sleep apnea. She will return to the office in the fall and we will readdress these symptoms and determine if the patient still qualifies for testing. She is agreeable with this plan. (2) Enlarged pulmonary artery: Status: Acute Plan: Noted on CTA of the chest. I did explain to the patient that this could be related to the fact that she has undiagnosed underlying obstructive sleep apnea. However, as previously mentioned, the patient is not interested in additional testing at this time. I would suggest repeating an echocardiogram. She would benefit from a pulmonary stress test. She states that she checks her oxygen saturations at home and they are always in the high 90s. (3) Tobacco dependence: Status: Acute Plan: Encourage ongoing smoking cessation. This patient will be appropriate for LDCT due in May. This has been ordered accordingly. (4) Shortness of breath on exertion: Status: Acute Plan: Of unclear etiology. Given the patient's significant smoking history there is a possibility that she has COPD. I informed her that I would like to evaluate a pulmonary function test, but she states that she is not interested in additional testing at this time. She will return to the office this fall, we will readdress at that time. No maintenance medications at this time as the patient is only symptomatic on exertion. The patient has been encouraged to contact our office if symptoms progress in the meantime. Orders: Orders Low Dose CT Lung Screening 05/14/25 F17.200 - Nicotine dependence, unspecified, uncomplicated HPI ROGER Chief Complaint: Concern for obstructive sleep apnea HPI Comments Details: This patient presents to the office today for initial consultation regarding concern for obstructive sleep apnea. She is ambulatory and currently on room air. The patient is not sure if she snores. She states I do not know, I am single. She admits that she is not feeling rested when she wakes up in the morning. She has at least 2 episodes of nocturia nightly. She has never awakened herself by gasping or choking. She denies nodding off to sleep unintentionally. She is not having morning headaches. 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 She states that she has a very sedentary lifestyle and job. She states I sit at a desk all day. She has never seen a gmat tutor. She has never been prescribed an inhaler. She has never participated in a pulmonary function test. She was a 1/2 pack/day smoker for 50 years. She successfully quit smoking in May. She was also drinking 8 beers a day up until May when she became ill. She is no longer drinking any alcohol or smoking cigarettes. Past medical family history is significant for: Mother of pancreatic cancer. Father of colon cancer. She has 3 siblings. She has a sister who is a medical disaster, is on oxygen and has a paralyzed diaphragm. She has a brother and second sister who have good health. The patient has 1 daughter who has Graves' disease. The patient does experience shortness of breath on exertion only, for example, when she arrives at the top of the steps that she finds herself to be short of breath. She denies any difficulty with cough, sputum production or hemoptysis. She denies any wheezing, chest tightness, chest pain or palpitations. She has not had any fever, chills or body aches. The patient reports that she was hospitalized back in May and was told many times over that she needed to be evaluated for sleep apnea. She reports that she was treated with a BiPAP during her hospitalization. She admits that she did not tolerate the full facemask with a high pressure easily. She admits that she did feel somewhat more comfortable with a nasal mask, but at the time still felt like she was being treated with too much pressure. STOP-BANG Assessment: 1. Do you snore? N 2. Are you frequently tired during the day? Y 3. Have you been observed gasping or choking while asleep? N 4. Do you have high blood pressure? Y 5. BMI - greater than 35kg/m (more content not included)... Normal [facility] SCRN MAMM (CAD)W/MARIA EUGENIA BILATo n 08-05-2024 SCRN MAMM (CAD)W/MARIA EUGENIA BILAT [facility] Imaging Services [address] [place] [address] [id number] SCRN MAMM (CAD)W/MARIA EUGENIA BILAT MR#: [id number] Acct: [id number] Name: ECHO DUNN Rep #: [id number] : 1960 F 64 From: Bryant august MD PCP: Dr. Kourtney Bergman MD Status: [facility] Study: SCRN MAMM (CAD)W/MARIA EUGENIA BILAT Date of Exam: 07/15 10/05 Exam# [id number] Ordering Dr: Cassidy Mathew DO [id number] MAMMOGRAPHY - BILATERAL SCREENING REASON FOR EXAM: Female, 64 years old. Routine annual screening examination. PERTINENT HISTORY: Non-contributory. TECHNIQUE: Digital bilateral breast maria eugenia (3D mammographic acquisition) in the CC and MLO projections. 2-D mediolateral oblique (MLO) and craniocaudad (CC) views of both breasts were obtained. CAD: Full Field Digital Mammography with Computer Added Detection was performed. COMPARISON: Comparison is made with prior study dated February 27, 2023 and September 25, 2021. FINDINGS: Breast Composition: The breasts are almost entirely fatty. There are no dominant masses or suspicious calcifications. No other significant abnormalities are identified. There has been no significant change since the prior study. BI/SCRN MAMM (CAD)W/MARIA EUGENIA BILAT IMPRESSION: Stable bilateral screening mammogram. Yearly follow-up mammogram recommended. (A) ASSESSMENT CATEGORY: BIRADS Category 1: Negative. A letter regarding these results will be sent to the patient by the facility within 30 days. Approximately 10% of breast cancers are not detected by mammography. A normal mammogram should not delay biopsy of a clinically suspicious abnormality. [id number] Electronically Signed: Bryant Zazueta MD at 14:43 EST Reading Location ID and State: [address] [place] [address] , Service support , CC: Dr. Kourtney Bergman MD; Dr. Cassidy Mathew DO Occ Med Physician: Signed Normal [facility] PAP IG HPV APTIMA 16/18,45on 07-29-2024 ADEQ Comment Normal . [facility] Comment on above: Order Comment: Specromero plascencia Comment: [id number] Comment: Source.............CervixSpecimen Comment: No. of containers..01 ThinPrep Vial Result Comment: Sati sfactory for evaluation. Endocervical and/or squamous metaplastic cells (endocervical component) are present. Performed By: #### L 300.3900, L300.4310 #### [facility] [address] [place], [address] COMM . Normal . [facility] Comment on above: Order Comment: Speci men Comment: [id number] Comment: Source.............CervixSpecimen Comment: No. of containers..01 ThinPrep Vial Performed By: #### L 300.3900, L300.4310 #### [facility] [address] [place], [place], [id number] COMMENT Comment Normal . [facility] Comment on above: Order Comment: Speci men Comment: [id number] Comment: Source.............CervixSpecimen Comment: No. of containers..01 ThinPrep Vial Result Comment: This liquid based ThinPrep(R) pap test was screened with the use of an image guided system. Performed By: #### L 300.3900, L300.4310 #### [facility] [address] [place], [place], [id number] DIAG Comment Normal . [facility] Comment on above: Order Comment: Speci men Comment: [id number] Comment: Source.............CervixSpecimen Comment: No. of containers..01 ThinPrep Vial Result Comment: NEGA TIVE FOR INTRAEPITHELIAL LESION OR MALIGNANCY. Performed By: #### L 300.3900, L300.4310 #### [facility] [address] [place], [place], [address] HPV APTIMA, HR Negative Normal Negative [facility] Comment on above: Order Comment: Speci men Comment: [id number] Comment: Source.............CervixSpecimen Comment: No. of containers..01 ThinPrep Vial Result Comment: This nucleic acid amplification test detects fourteen high- risk HPV types (16,18,31,33,35,39,45,51,52,56,58,59,66,68) without differentiation. Performed By: #### L 300.3900, L300.4310 #### [facility] [address] [place], [place], [address] HPV Karyna Rfx Comment Normal . [facility] Comment on above: Order Comment: Speci men Comment: [id number] Comment: Source.............CervixSpecimen Comment: No. of containers..01 ThinPrep Vial Result Comment: Crit eria not met, HPV Genotype not performed. Performed at: - [facility] [id number] Production Honing Machine Operator: Joanne Maradiaga MD, Phone: [phone] Performed at: = - [facility] [id number] Production Honing Machine Operator: Joanne Maradiaga MD, Phone: [phone] Performed By: #### L 300.3900, L300.4310 #### [facility] [address] [place], [place], [id number] PAPSMR Comment Normal . [facility] Comment on above: Order Comment: Speci men Comment: [id number] Comment: Source.............CervixSpecimen Comment: No. of containers..01 ThinPrep Vial Result Comment: The Pap smear is a screening test designed to aid in the detection of premalignant and malignant conditions of the uterine cervix. It is not a diagnostic procedure and should not be used as the sole means of detecting cervical cancer. Both false-positive and false-negative reports do occur. Performed By: #### L 300.3900, L300.4310 #### [facility] [facility] [address] [place], [place], [address] PERFORM Comment Normal . [facility] Comment on above: Order Comment: Speci men Comment: [id number] Comment: Source.............CervixSpecimen Comment: No. of containers..01 ThinPrep Vial Result Comment: Marta Enamorado, Cargo Router (ASCP) Performed By: #### L 300.3900, L300.4310 #### [facility] [address] [place], [address] Ricky 07-27-2024 MOSES Telephone (MEPRAD) ECHO DUNN ([id number]) 1960 F Date Time Provider Department 07/27/24 MARK KEEN During your visit today, we recorded the following information about you: Mark Keen DO 07/27/2024 3:48 PM Signed Please change 3 month follow up MRI liver to MRI liver with Eovist. New order filed. DO Malvin Cotter Melanie, LPN 07/30/2024 8:08 AM Signed PSS linked correct order. Padmini Benson LPN Allergies As of Date: 07/27/2024 Noted Allergy Reaction LISINOPRIL 06/23/2024 7 - Swelling Date Reviewed: 07/15/2024 Reviewed by: Karthikeyan Davenport MD, MD - Fully Assessed Reason for Visit: Follow Up [171] Primary Visit Diagnosis:Liver disease [K76.9] Other Visit Diagnosis:Liver mass [R16.0] Order(s):MRI LIVER (EOVIST) WO/W IVCON [[id number]] Order #: [id number] FUTURE [] iv contrast (will be provided with radiology test)MRI LIVER (EOVIST) Inject, intravenously, once for 1 dose. No IV access, insert saline lock prior to the beginning of sedation, infusion, injection of imaging exam. Discontinue saline lock post exam. If Pt. has a central line or IVAD, may access for administration according to line specific nursing protocol. Once exam is complete flush line and de-access according to line specific nursing protocol in the MR contrast administration guidelines link.Disp: 1 EachRfl: 0 Prescriptions as of 07/30/2024 - amLODIPine (NORVASC) 10 mg tablet Take 10 mg by mouth once daily. - hydroCHLOROthiazide 25 mg tablet Take 1 tablet by mouth once daily. - atorvastatin (LIPITOR) 40 mg tablet Take 40 mg by mouth daily at bedtime. - furosemide (LASIX) 40 mg tablet Take 40 mg by mouth two times a day. - potassium chloride ER (KLOR-CON) 20 mEq tablet Take 20 mEq by mouth two times a day. - multivitamin tablet Take 1 tablet by mouth once daily. - docosahexaenoic acid/epa (FISH OIL ORAL) Take 1 capsule by mouth once daily. - ascorbic acid (VITAMIN C ORAL) Take 1 tablet by mouth once daily. - cholecalciferol, vitamin D3, (VITAMIN D3 ORAL) Take 1 tablet by mouth once daily. - ZINC ORAL Take 1 tablet by mouth once daily. - loratadine (CLARITIN) 10 mg tablet Take 10 mg by mouth once daily. Problem List As Of Date: 07/27/2024 (None) Prescriptions ordered this encounter Disp Refills Start End IV CONTRAST (RADIOLOGY PROCEDURE) - * 1 Ea* 0 07/27/2024 07/28/2024 Class: In Office Sig: MRI LIVER (EOVIST) Inject, intravenously, once for 1 dose. No IV access, insert saline lock prior to the beginning of sedation, infusion, injection of imaging exam. Discontinue saline lock post exam. If Pt. has a central line or IVAD, may access for administration according to line specific nursing protocol. Once exam is complete flush line and de-access according to line specific nursing protocol in the MR contrast administration guidelines link. Encounter Status:Closed by PADMINI BENSON on 07/30/24 [facility] Service Supervisor Cyto stain Nom (C vx/Vag) [ID]Ordered By: Cassidy Guy on 07-26-2024 Pap Smear Performed By Comment . [facility] Comment on above: Trmeayne Enamorado, Rizwanat echnologist (ASCP) Cytology report Cyto stain D oc (Cvx/Vag)Ordered By: Cassidy Guy on 07-26-2024 Thin Prep Pap Smear Comment . [facility] Comment on above: The Pap smear is a s creening test designed to aid in thedetection of premalignant and malignant conditions of theuterine cervix. It is not a diagnostic procedure andshould not be used as the sole means of detecting cervicalcancer. Both false-positive and false-negative reports dooccur. Cytology report Cyto stain.t hin prep Doc (Cvx/Vag)Ordered By: Cassidy Guy on 07-26-2024 HPV Genotype Special Info Comment . [facility] Comment on above: Criteria not met, HP V Genotype not performed.Performed at: - [facility] [id number] Director: Joanne Maradiaga MD, Phone: [phone] at: =G - [facility] [address] [id number] Director: Joanne Maradiaga MD, Phone: [phone] HPV 16+18+31+33+35+39+45+51+ 52+56+58+59+66+68 DNA Probe+sig amp Ql (Cvx)Ordered By: Cassidy Guy on 07-26-2024 Human Papillomavirus High Risk Negative Negative [facility] Comment on above: This nucleic acid am plification test detects fourteen high-risk HPV types (16,18,31,33,35,39,45,51,52,56,58,59,66,68)without differentiation. Image-guided ThinPrep PapOrd ered By: Cassidy Guy on 07-26-2024 Pap Smear Note Comment . [facility] Comment on above: This liquid based Th inPrep(R) pap test was screened withthe use of an image guided system. Image-guided liquid-based Pa pOrdered By: Cassidy Guy on 07-26-2024 Pap Smear Diagnosis Comment . [facility] Comment on above: NEGATIVE FOR INTRAEP ITHELIAL LESION OR MALIGNANCY. Patternmaker Sample Office Visit Reporton 07-26-2024 Patternmaker Sample Office Visit Report [facility] [address], [address] [place] [address] OFFICE VISIT Date of Service: 07/26/24 MR#: [id number] Acct: [id number] Name: ECHO DUNN Rep #: [id number] : 1960 Provider: Dr. 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 Required: No Is patient in pain?: No Allergies lisinopril Allergy (Verified 07/26/24 11:09) Angioedema Medications ???Medication ???Instructions ???Recorded ???Confirmed ???Type loratadine 10 mg tablet (Allergy 10 mg PO DAILY PRN allergy symptoms 07/31/18 07/26/24 History Relief (loratadine)) omega-3 fatty acids-fish oil 340 1 ea PO DAILY supplement 07/31/18 07/26/24 History mg-1,000 mg capsule (Fish Oil) ascorbate calcium (vitamin C) 500 500 mg PO DAILY supplement 03/11/23 07/26/24 History mg tablet atorvastatin 40 mg tablet 40 mg PO QHS cholesterol 03/11/23 07/26/24 History cholecalciferol (vitamin D3) 50 50 mcg PO DAILY supplement 03/11/23 07/26/24 History mcg (2,000 unit) capsule hydrochlorothiazide 25 mg tablet 25 mg PO DAILY water pill 03/11/23 07/26/24 History zinc gluconate 30 mg tablet 30 mg PO DAILY supplement 03/11/23 07/26/24 History amlodipine 10 mg tablet 10 mg PO DAILY blood pressure 05/21/24 07/26/24 History albuterol sulfate 90 mcg/actuation 2 puff inhalation Q6H PRN 05/27/24 07/26/24 Rx aerosol inhaler shortness of breath or wheezing #8.5 grams budesonide-formoterol HFA 80 1 inh inhalation BID #10.2 grams 05/27/24 07/26/24 Rx mcg-4.5 mcg/actuation aerosol inhaler (Breyna) furosemide 40 mg tablet (Lasix) 40 mg PO BID #60 tabs 05/27/24 07/26/24 Rx potassium chloride 20 mEq 20 meq PO BIDCM 30 days #60 tabs 05/27/24 07/26/24 Rx tablet,extended release(part/cryst) sodium chloride 0.65 % nasal spray 2 spray NASAL BID PRN PRN NASAL 05/27/24 07/26/24 Rx aerosol (Deep Sea Nasal) DRYNESS #0 mL Is last menstrual period known: No Post menopausal: No Patient : No : No PFSH Medical History (Updated 07/26/24 @ 11:[address] Cassidy Mathew, DO) Loose, teeth High cholesterol Smoker History of edema History of echocardiogram Hypercholesteremia HTN (hypertension) Family hx of colon cancer Surgical History (Updated 07/26/24 @ 11:18 by Traci Daniel) History of liver biopsy History of wisdom tooth extraction History of tubal ligation Hx of colonoscopy Family History (Updated 07/26/24 @ 11:20 by Traci Daniel) Father Colon cancer Hypertension Heart disease Grandmother No problems noted. Brother No problems noted. Mother Pancreatic cancer Other Lung cancer Lymphoma Social History (Updated 07/26/24 @ 11:20 by Traci Daniel) household members: children current occupational status: employed Smoking Status: Former smoker alcohol intake: never substance use type: does not use caffeine: Yes what type of physical activity do you participate in: none seatbelt use: always do you feel safe at home: Yes additional social history: Single HPI uterine fibroid ([place]) Details: ECHO DUNN is a 64 year old who presents for follow up ultrasound that showed a 3 cm fibroid and a 6 cm uterus. She initially had a CXR for pneumonia and they saw a liver mass. This lead to a CT of the abdomen and pelvis which confirmed the large liver mass. Biopsy x 2 were benign. But the CT saw the mass in the uterus and wrote can not rule out carcinoma. A pelvic MRI was recommended but was not performed yet. She states that she has not undergone a pap since starting menopause. She denies bleeding or cramping. No complaints at all. History 1 Elective abortions Hx Para 1 Spontaneous abortions Hx # Term Pregnancies Ectopic pregnancies Hx # Pregnancies Multiple births # of living children Past Pregnancies Del. Date Name GA/Weeks Outcome Route Bth Weight Gen Labor Lgth Anesthesia Del Locatn Provider FOB Unknown Harsha ROS Const ROS Unobtainable: All systems reviewed are unremarkable except as noted in H Resp Resp: Reports system reviewed and no additional complaints, except as documented; Denies cough GI GI: Reports as per HPI Psych Psych: Reports system reviewed and no additional complaints, except as documented Exam Const General: cooperative, healthy appearing, comfortable and no acute distress Resp Effort Inspection: normal respiratory effort General: bimanual renal exam normal bilaterally External Female Exam: normal appearance of the urethra Urethra: normal appe (more content not included)... Normal [facility] Service comment (Unsp spec) [Interp]Ordered By: Cassidy Guy on 07-26-2024 Pap Smear Comment (3) . . [facility] CNPNon 07-18-2024 CNPN Telephone (HEMAWS) ECHO DUNN ([id number]) 1960 F Date Time Provider Department 07/18/24 MARK KEEN During your visit today, we recorded the following information about you: Mark Keen DO 07/18/2024 4:22 PM Signed Good news. Can let her know the biopsies suggested no cancer. Similar findings to biopsy at [facility]. I will confirm with surgery, but for now recommend repeat MRI liver in about 3 months to assess stability. Order filed. DO Tomás Cotter Pamela S, LPN 07/19/2024 9:02 AM Signed Spoke with pt. Concerning results of biopsy, but for now recommend repeat MRI liver in about 3 months to assess stability. Order filed.PSS please reach out to pt. To schedule. DO Yash Cotter Angela 07/19/2024 9:50 AM Signed Spoke with patient and scheduled Cora Berrios Allergies As of Date: 07/18/2024 Noted Allergy Reaction LISINOPRIL 06/23/2024 7 - Swelling Date Reviewed: 07/15/2024 Reviewed by: Karthikeyan Davenport MD, MD - Fully Assessed Reason for Visit: Results [95] Primary Visit Diagnosis:Liver mass [R16.0] Order(s):MRI LIVER WO/W IVCON [[id number]] Order #: [id number] FUTURE iv contrast (will be provided with radiology test)MRI Liver Inject, intravenously, once for 1 dose. No IV access, insert saline lock prior to the beginning of sedation, infusion, injection of imaging exam. Discontinue saline lock post exam. If Pt. has a central line or IVAD, may access for administration according to line specific nursing protocol. Once exam is complete flush line and de-access according to line specific nursing protocol in the MR contrast administration guidelines link.Disp: 1 EachRfl: 0 Prescriptions as of 07/19/2024 - iv contrast (will be provided with radiology test) MRI Liver Inject, intravenously, once for 1 dose. No IV access, insert saline lock prior to the beginning of sedation, infusion, injection of imaging exam. Discontinue saline lock post exam. If Pt. has a central line or IVAD, may access for administration according to line specific nursing protocol. Once exam is complete flush line and de-access according to line specific nursing protocol in the MR contrast administration guidelines link. - amLODIPine (NORVASC) 10 mg tablet Take 10 mg by mouth once daily. - hydroCHLOROthiazide 25 mg tablet Take 1 tablet by mouth once daily. - atorvastatin (LIPITOR) 40 mg tablet Take 40 mg by mouth daily at bedtime. - furosemide (LASIX) 40 mg tablet Take 40 mg by mouth two times a day. - potassium chloride ER (KLOR-CON) 20 mEq tablet Take 20 mEq by mouth two times a day. - multivitamin tablet Take 1 tablet by mouth once daily. - docosahexaenoic acid/epa (FISH OIL ORAL) Take 1 capsule by mouth once daily. - ascorbic acid (VITAMIN C ORAL) Take 1 tablet by mouth once daily. - cholecalciferol, vitamin D3, (VITAMIN D3 ORAL) Take 1 tablet by mouth once daily. - ZINC ORAL Take 1 tablet by mouth once daily. - loratadine (CLARITIN) 10 mg tablet Take 10 mg by mouth once daily. Problem List As Of Date: 07/18/2024 (None) Prescriptions ordered this encounter Disp Refills Start End IV CONTRAST (RADIOLOGY PROCEDURE) - * 1 Ea* 0 07/18/2024 07/19/2024 Class: In Office Sig: MRI Liver Inject, intravenously, once for 1 dose. No IV access, insert saline lock prior to the beginning of sedation, infusion, injection of imaging exam. Discontinue saline lock post exam. If Pt. has a central line or IVAD, may access for administration according to line specific nursing protocol. Once exam is complete flush line and de-access according to line specific nursing protocol in the MR contrast administration guidelines link. Encounter Status:Closed by MEENU LEI on 07/19/24 Normal [facility] BRIEF OP NOTon 07-15-2024 BRIEF OP NOT HNO ID: [id number] Author: KARTHIKEYAN DAVENPORT MD Service: Interventional Radiology Author Type: Physician Type: Brief Op Note Filed: 07/15/2024 11:34 Note Text: BRIEF OPERATIVE / PROCEDURE NOTE LOG ID: [id number] SURGERY/PROCEDURE DATE: 07/15/2024 INCISION/PROCEDURE START TIME: 11:08 AM INCISION CLOSE/PROCEDURE END TIME: 11:29 AM SURGEON(S)/PROCEDURALI ST(S) AND MANAGER OF MEDICAL(S): Surgeons and Role: * Karthikeyan Davenport MD, MD - Primary No Additional Staff SURGERY/PROCEDURE(S): Targeted liver biopsy ANESTHESIA: Procedural Sedation FINDINGS: 8 passes ESTIMATED BLOOD LOSS: Minimal SPECIMENS: Sent in formalin COMPLICATIONS: None CLOSURE TECHNIQUE: Primary PRE-OP/PRE-PROCEDURE DIAGNOSIS: Liver lesion POST-OP/POST-PROCEDURE DIAGNOSIS: Same as Preop SIGNATURE: Karthikeyan Davenport MD PATIENT NAME: Echo Dunn DATE: July 15, 2024 TIME: 11:34 AM [facility] HISTORY PHYSICALon HISTORY PHYSICAL HNO ID: [id number] Author: KARTHIKEYAN DAVENPORT MD Service: Interventional Radiology Author Type: Physician Type: H&P Filed: 07/15/2024 11:03 Note Text: UPDATED HISTORY AND PHYSICAL EXAMINATION SERVICE DATE: 07/15/2024 SERVICE TIME: 11:03 AM PHYSICAL EXAM MUST BE COMPLETED ON ADMISSION The History and Physical (completed in the past 30 days) has been reviewed and the patient has been examined. The contents accurately reflect the patient's condition with the following additions or revisions since the HANDP was completed. Examination indicates no changes. This HANDP can be found in the Electronic Medical Record. SIGNATURE: Karthikeyan Davenport MD PATIENT NAME: Echo Dunn DATE: July 15, 2024 TIME: 11:03 AM Normal [facility] PT panel Coag (PPP)on 2024 INR Coag (PPP) [Relative time] 1.0 {INR} Normal 0.9-1.3 [facility] Comment on above: Order Comment: Chente plascencia Type: BLOOD SPECIMEN Ordering Facility: [facility] Address: [address] [place] [address] Result Comment: Ivon min K Antagonist (VKA) Therapeutic Range: INR 2 to 3 (Target INR of 2.5) Note: For patients treated with VKA drugs, such as warfarin, the [place] [employer] 2012 Guideline recommends a therapeutic INR range of 2 to 3 (target INR of 2.5). This recommendation includes high-risk patients with antiphospholipid syndrome with previous arterial or venous thromboembolism, current-generation mechanical or bioprosthetic aortic heart valve replacement. Note: Patients with mechanical aortic valve replacement and additional risk factors for thromboembolic events (atrial fibrillation, previous thromboembolism, LV dysfunction, hypercoagulable conditions) or an older generation mechanical AVR (i.e., ball in-Cage) or any mechanical MVR should have a INR therapeutic range of 2.5 to 3.5 (target INR of 3). Cass GH, et al. Chest 2012, 141:7S-47S Gloria RA et al. [facility] 2017, 70: 252-289 Performed By: #### 3 4528-0 #### [facility] CLIA [id number] [address] OF [facility] PT Coag (PPP) [Time] 11.2 s Normal 9.7-13.0 [facility] Comment on above: Order Comment: Chente plascencia Type: BLOOD SPECIMEN Ordering Facility: [facility] Address: [address] [place] [address] Performed By: #### 3 4528-0 #### [facility] CLIA [id number] [address] SURGICAL PATHOLOGYon 025 CASE REPORT Normal [facility] Comment on above: Order Comment: Speci men Type: TISSUE SPECIMEN Ordering Facility: [facility] Address: [address] [place] [address] Result Comment: Surg [facility] Pathology Report Case: [id number] Authorizing Provider: JemimaKarthikeyan miranda Francis Narvaez, Collected: 07/15/2024 11:27 AM MD SHEEBA Ordering Location: [facility] Received: 07/15/2024 11:58 AM INTERVENTIONAL RADIOLOGY Pathologist: Cora Melton MD Specimen: Liver, Mass, Biopsy Performed By: #### S #### [facility] CLIA [id number] [address] [place] [address] CLINICAL HISTORY liver lesion Normal [facility] Comment on above: Order Comment: Speci men Type: TISSUE SPECIMEN Ordering Facility: [facility] Address: [address] [place] [address] Performed By: #### S #### [facility] CLIA [id number] [address] [place] [address] DIAGNOSIS COMMENT Normal [facility] Comment on above: Order Comment: Speci men Type: TISSUE SPECIMEN Ordering Facility: [facility] Address: [address] [place] [address] Result Comment: The biopsies suggest an involuting process, perhaps vascular in nature. Findings should be correlated with clinical history and imaging studies. 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 The background liver parenchyma demonstrates a mild degree of macrovesicular steatosis (10%).The steatosis grade is 1, the lobular inflammation grade is 1 and the fibrosis score is 0. There are no ballooning hepatocytes. A Brian's trichrome stain does not demonstrate evidence of bridging or nodular fibrosis. A PAS stain is negative and an iron stain demonstrates trace iron deposition. The case was also reviewed by Dr. Miguelito Concepcion. Performed By: #### S #### [facility] CLIA [id number] [address] [place] [address] FINAL DIAGNOSIS Normal [facility] Comment on above: Order Comment: Speci men Type: TISSUE SPECIMEN Ordering Facility: [facility] Address: [address] [place] [address] Result Comment: Live r mass, core biopsies: - Stromal degeneration and hyalinization. - Mild macrovesicular steatosis without fibrosis. See comment. Performed By: #### S #### [facility] CLIA [id number] [address] [place] [address] FINAL PERFORMING LAB Normal [facility] Comment on above: Order Comment: Speci men Type: TISSUE SPECIMEN Ordering Facility: [facility] Address: [address] [place] [address] Result Comment: Diag nostic interpretation performed at [facility], [address] [place] [address] CLIA# [id number] Sea Foam Kiss Maker: Herbert Arriola M.D. Performed By: #### S #### [facility] CLIA [id number] [address] [place] [address] GROSS DESCRIPTION Normal [facility] Comment on above: Order Comment: Speci men Type: TISSUE SPECIMEN Ordering Facility: [facility] Address: [address] [place] [address] Result Comment: Jorge Becerra ivhector, Mass, Biopsy Received in formalin labeled liver mass biopsy are multiple veliz segments of tissue aggregating to 1.9 x 0.8 x 0.1 cm. The specimens are totally submitted in formalin in 1 cassette. Gross examination performed at [facility], [address] [place] [address] KVB July 15, 2024 2:24 PM Performed By: #### S #### [facility] CLIA [id number] [address] [place] [address] OF [facility] US BIOPSY LIVERon 07-15-2024 US BIOPSY LIVER * * *Final Report* * * DATE OF EXAM: Jul 15 2024 11:33AM AKU [id number] - US BIOPSY LIVER / PROCEDURE REASON: R16.0 * * * * Physician Interpretation * * * * PROCEDURE PERFORMED: ULTRASOUND GUIDED TARGETED LIVER BIOPSY ON 07/15/2024 INDICATION FOR PROCEDURE: The patient is a 64 years old Female who presents with a liver mass. STAFF RADIOLOGIST: Karthikeyan Davenport MD MANAGER OF MEDICAL(S): None CONSENT: The risks, benefits, treatment options, potential complications and personnel involved were discussed with the patient. All questions were answered and consent was obtained. The patient indicated she was willing to proceed. The staff physician personally verified consent. TIME OUT: A time out was performed immediately prior to procedure start with the nursing, anesthesia and interventional team, correctly identifying the patient name, date of , procedure, anatomy (including marking of site and side), patient position, procedure consent form, relevant diagnostic and radiology test results, antibiotic administration, safety precautions, and procedure-specific equipment needs. RESULT: PROCEDURE: After performing the time out, the mass in the left lobe was localized with ultrasound, images were obtained and archived. The right upper quadrant was prepped and draped in the usual sterile fashion. Under direct ultrasound guidance, 8 passes were made into the lesion using an 18 gauge cutting needle. The procedure was performed by the: attending radiologist, without an ophthalmic assistant. The attending radiologist performed the following procedural activities: Entire procedure ANESTHESIA/SEDATION: Conscious sedation was achieved using Versed and Fentanyl intravenously. Local anesthesia was achieved utilizing lidocaine. Vital signs were monitored by the nurse. START TIME/TIMEOUT TIME: 11:08 AM END TIME: 11:29 AM INTRA-SERVICE (SEDATION) TIME: 25 minutes PATIENT MONITORING: The staff physician personally supervised and directed an independent trained observer who assisted in monitoring the patient?s level of consciousness and physiological status throughout the procedure. COMPLICATIONS: None SIGN-OUT DISCUSSION: Completed ESTIMATED BLOOD LOSS: Minimal SPECIMENS: 8 core biopsy specimen(s) was/were sent to pathology in formalin BIOPSY DEVICE: 18 gauge Bard core biopsy needle. IMPRESSION: ULTRASOUND GUIDED TARGETED LIVER BIOPSY DESCRIBED Occ Med Physician: PSCB Transcribe Date/Time: Jul 16 2024 1:38P Dictated by : KARTHIKEYAN DAVENPORT MD This examination was interpreted and the report reviewed and electronically signed by: KARTHIKEYAN DAVENPORT MD on Jul 16 2024 1:43PM EST [id number] Normal [facility] Basic Metabolic Profile (BMP )on 07-05-2024 BUN/CRE 21.4 RATIO High 10-20 [facility] Comment on above: Order Comment: Order Date: 07/02/24Order Info: 0667-1 - BMPLow potassium Performed By: #### L 300.3900, L300.4310 #### [facility] [address] [place], [address] CA,Total 10.0 mg/dL Normal 8.5-10.1 [facility] Comment on above: Order Comment: Order Date: 07/02/24Order Info: 666- - BMPLow potassium Performed By: #### L 300.3900, L300.4310 #### [facility] [address] [place], [address] Chloride [Moles/Vol] 100 mmol/L Normal 98-[address] [facility] Comment on above: Order Comment: Order Date: 07/02/24Order Info: 666- - BMPLow potassium Performed By: #### L 300.3900, L300.4310 #### [facility] [address] [place], [address] CO2 [Moles/Vol] 33.0 mmol/L High 21.0-32.0 [facility] Comment on above: Order Comment: Order Date: 07/02/24Order Info: 666-07 - BMPLow potassium Performed By: #### L 300.3900, L300.4310 #### [facility] [address] [place], [address] Creatinine [Mass/Vol] 0.61 mg/dL Normal 0.55-1.02 [facility] Comment on above: Order Comment: Order Date: 07/02/24Order Info: 666- - BMPLow potassium Result Comment: The validity of the calculated GFR GFRAA in patients over 70 years has not been determined. Clinical correlation is essential. Performed By: #### L 300.3900, L300.4310 #### [facility] [address] [place], [address] EST GFR - AA 128 mL/min Normal >60 [facility] Comment on above: Order Comment: Order Date: 07/02/24Order Info: 666- - BMPLow potassium Result Comment: Afri can Bol[place] GFR Calc Performed By: #### L 300.3900, L300.4310 #### [facility] [address] [place], [address] GAP 7 Normal 5-15 [facility] Comment on above: Order Comment: Order Date: 07/02/24Order Info: 06- - BMPLow potassium Performed By: #### L 300.3900, L300.4310 #### [facility] [address] [place], [address] GFR/1.73 sq M.predicted among non-blacks MDRD (S/P/Bld) [Vol rate/Area] 106 mL/min/{1.73_m2} Normal >60 [facility] Comment on above: Order Comment: Order Date: 07/02/24Order Info: 0667- - BMPLow potassium Result Comment: Non- GFR Calc Performed By: #### L 300.3900, L300.4310 #### [facility] [address] [place], [address] Glucose [Mass/Vol] 113 mg/dL High 74-106 [facility] Comment on above: Order Comment: Order Date: 07/02/24Order Info: 0667- - BMPLow potassium Result Comment: Fast ing Glucose result from 100 to 125 mg/dL suggests IMPAIRED HOMEOSTASIS per A.D.A. criteria. Performed By: #### L 300.3900, L300.4310 #### [facility] [address] [place], [address] Potassium [Moles/Vol] 3.4 mmol/L Low 3.5-5.1 [facility] Comment on above: Order Comment: Order Date: 07/02/24Order Info: 06-1 - BMPLow potassium Performed By: #### L 300.3900, L300.4310 #### [facility] [address] [place], [address] Sodium [Moles/Vol] 140 mmol/L Normal 136-145 [facility] Comment on above: Order Comment: Order Date: 07/02/24Order Info: 0667-1 - BMPLow potassium Performed By: #### L 300.3900, L300.4310 #### [facility] [address] [place], [place], [id number] Urea nitrogen [Mass/Vol] 13 mg/dL Normal 7-18 [facility] Comment on above: Order Comment: Order Date: 07/02/24Order Info: 0667-1 - BMPLow potassium Performed By: #### L 300.3900, L300.4310 #### [facility] [address] [place], [place], [id number] Blood urea nitrogen (BUN)/cr eatinine ratioOrdered By: Kourtney Bergman on 07-05-2024 Urea nitrogen/Creatinine [Mass ratio] 21.4 mg/mg High 10-20 [facility] Carbon dioxide measurementOr dered By: Kourtney Bergman on 07-05-2024 CO2 [Moles/Vol] 33.0 mmol/L High 21.0-32.0 [facility] Chloride measurementOrdered By: Kourtney Bergman on 07-05-2024 Chloride [Moles/Vol] 100 mmol/L 98-[address] [facility] Estimated glomerular filtrat ion rate (GFR) AmericanOrdered By: Kourtney Bergman on 07-05-2024 Estimated GFR (MDRD) Amer 128 mL/min >60 [facility] Comment on above: GFR Calc Glomerular filtration rate ( GFR) estimationOrdered By: Kourtney Bergman on 07-05-2024 Estimated GFR (MDRD) Non-Af Amer 106 mL/min >60 [facility] Comment on above: Non- GFR Calc Glucose measurementOrdered B y: Kourtney Bergman on 07-05-2024 Glucose [Mass/Vol] 113 mg/dL High 74-106 [facility] Comment on above: Fasting Glucose resu lt from 100 to 125 mg/dL suggests IMPAIRED HOMEOSTASIS per A.D.A. criteria. Potassium measurementOrdered By: Kourtney Bergman on 07-05-2024 Potassium [Moles/Vol] 3.4 mmol/L Low 3.5-5.1 [facility] Serum anion gap measurementO rdered By: Kourtney Payneke on 07-05-2024 Anion gap [Moles/Vol] 7 mmol/L - [facility] Serum or plasma calcium derrick urement (mass/volume)Ordered By: Kourtney Bergman on 07-05-2024 Calcium [Mass/Vol] 10.0 mg/dL 8.5-10.1 [facility] Serum or plasma creatinine m easurement (mass/volume)Ordered By: Kourtney Bergman on 07-05-2024 Creatinine [Mass/Vol] 0.61 mg/dL 0.55-1.02 [facility] Comment on above: The validity of the calculated GFR & GFRAA in patients over 70 years has not been determined. Clinical correlation is essential. Serum or plasma urea nitroge n measurement (mass/volume)Ordered By: Kourtney Bergman on 07-05-2024 Urea nitrogen [Mass/Vol] 13 mg/dL 01-28 [facility] Sodium levelOrdered By: Paulie Bergman on 07-05-2024 Sodium [Moles/Vol] 140 mmol/L 136-145 [facility] - Hematology and Cell countson 07-04-2024 Hematocrit (Bld) [Volume fraction] 59.0 % [facility] MCV (RBC) [Entitic vol] 91.6 fL [facility] No Panel Informationon 07-04 Platelet Count (Clinic) 176 g/gL [facility] Basic Metabolic Profile (BMP )on 07-02-2024 BUN/CRE 16.1 RATIO Normal 05-02 [facility] Comment on above: Performed By: #### L 500.2500 #### [facility] [address] [place], [address] CA,Total 10.5 mg/dL High 8.5-10.1 [facility] Comment on above: Performed By: #### L 500.2500 #### [facility] [address] [place], [address] Chloride [Moles/Vol] 90 mmol/L Low 98-[address] [facility] Comment on above: Performed By: #### L 500.2500 #### [facility] [address] [place], [address] CO2 [Moles/Vol] 36.0 mmol/L High 21.0-32.0 [facility] Comment on above: Performed By: #### L 500.2500 #### [facility] [address] [place], [address] Creatinine [Mass/Vol] 0.75 mg/dL Normal 0.55-1.02 [facility] Comment on above: Result Comment: The validity of the calculated GFR GFRAA in patients over 70 years has not been determined. Clinical correlation is essential. Performed By: #### L 500.2500 #### [facility] [address] [place], [address] EST GFR - AA 101 mL/min Normal >60 [facility] Comment on above: Result Comment: Afri can Bol[place] GFR Calc Performed By: #### L 500.2500 #### [facility] [address] [place], [address] GAP 9 Normal 5-15 [facility] Comment on above: Performed By: #### L 500.2500 #### [facility] [address] [place], [address] GFR/1.73 sq M.predicted among non-blacks MDRD (S/P/Bld) [Vol rate/Area] 83 mL/min/{1.73_m2} Normal >60 [facility] Comment on above: Result Comment: Non- GFR Calc Performed By: #### L 500.2500 #### [facility] [address] [place], [address] Glucose [Mass/Vol] 109 mg/dL High 74-106 [facility] Comment on above: Result Comment: Fast ing Glucose result from 100 to 125 mg/dL suggests IMPAIRED HOMEOSTASIS per A.D.A. criteria. Performed By: #### L 500.2500 #### [facility] [address] [place], [address] Potassium [Moles/Vol] 2.7 mmol/L Invalid Interpretation Code 3.5-5.1 [facility] Comment on above: Result Comment: Crit ical Result(s) Called at: 15:55:44 07/02/2024 by: MONSE ALFRED. Results read back by Dr. Bergman Performed By: #### L 500.2500 #### [facility] [address] [place], [address] Sodium [Moles/Vol] 135 mmol/L Low 136-145 [facility] Comment on above: Performed By: #### L 500.2500 #### [facility] [address] [place], [address] Urea nitrogen [Mass/Vol] 12 mg/dL Normal 7-18 [facility] Comment on above: Performed By: #### L 500.2500 #### [facility] [address] [place], [address] Blood urea nitrogen (BUN)/cr eatinine ratioOrdered By: Kourtney Bergman on 07-02-2024 Urea nitrogen/Creatinine [Mass ratio] 16.1 mg/mg 10-20 [facility] Carbon dioxide measurementOr dered By: Kourtney Bergman on 07-02-2024 CO2 [Moles/Vol] 36.0 mmol/L High 21.0-32.0 [facility] Chloride measurementOrdered By: Kourtney Bergman on 07-02-2024 Chloride [Moles/Vol] 90 mmol/L Low 98-[address] [facility] Estimated glomerular filtrat ion rate (GFR) AmericanOrdered By: Kourtney Bergman on 07-02-2024 Estimated GFR (MDRD) Amer 101 mL/min >60 [facility] Comment on above: GFR Calc Glomerular filtration rate ( GFR) estimationOrdered By: Kourtney Bergman on 07-02-2024 Estimated GFR (MDRD) Non-Af Amer 83 mL/min >60 [facility] Comment on above: Non- GFR Calc Glucose measurementOrdered B y: Kourtney Bergman on 07-02-2024 Glucose [Mass/Vol] 109 mg/dL High 74-106 [facility] Comment on above: Fasting Glucose resu lt from 100 to 125 mg/dL suggests IMPAIRED HOMEOSTASIS per A.D.A. criteria. MYELOPROLIFERATIVE NEOPLASM PANEL BLOODon 07-02-2024 MYELOPROLIFERATIVE NEOPLASM PNL PERIPHERAL BLOOD Normal [facility] Comment on above: Order Comment: Speci men Type: BLOOD SPECIMENOrdering Facility: [facility] Address: [address] [place] [address] Result Comment: Myel oproliferative Neoplasm Panel Laboratory Accession Number: [id number] Sample Type: Peripheral Blood Result: CALR - No variant detected (Reference sequence: [id number]). JAK2 - No variant detected (Reference sequence: [id number]). MPL - No variant detected (Reference sequence: [id number]). Interpretation: No variants were identified in CALR exon 9, JAK2 exons 12-16 or MPL exons 10 and 11. This result does not exclude the possibility of a myeloproliferative neoplasm. If clinically indicated, additional testing for a broader panel of myeloid neoplasm-associated mutations (i.e., Hematologic Neoplasms NGS panel) may be helpful to further assess for clonal hematopoiesis. Methodology: Genomic DNA extracted from blood or bone marrow was subject to an amplicon based method to enrich for CALR exon 9, JAK2 exons 12-16 and MPL exons 10 and 11, including the flanking canonical splicing sites. Pair-end DNA sequencing was performed on the Illumina instrument ([place], [place]). A customized bioinformatic pipeline was used to align the sequencing reads to the reference human genome (GRCh37/hg19). Benign common polymorphisms are not reported. Limitations: Sequence changes outside the analyzed regions, including intronic, noncoding, and splice-site variants, will not be identified by this test. The lower limit of detection of this assay is approximately 1% allele proportion for the JAK2 V617F, JAK2 exon 12, CALR Type 1 (p.Q052Ryy09, c.1099_1150del) and Type 2 (p.M158Ihw04, c.1154_1155insTTGTC), MPL W515 variants and approximately 5% allele proportion for all other variants. Variants below these limits of detection may be reported at the discretion of the molecular pathology professional staff if the technical quality of the sequencing is sufficient at that location and the call is unequivocal. Common germline polymorphisms are considered to represent wild type sequence and are not included in this report. The presence of nucleotide polymorphisms or variants at the annealing sites of the primers used in amplification and sequencing may cause allele drop-outs, hence a false negative result is possible. Disclaimer: This test was developed and its performance characteristics determined by [facility]'s Pathology and Laboratory Medicine Department. It has not been cleared or approved by the FDA. [facility] Pathology and Laboratory Medicine Department is regulated under CLIA as certified to perform high-complexity testing. This test is used for clinical purposes. It should not be regarded as investigational or for research. Testing and interpretation performed at [facility], [address] [place] [address]. CLIA Number: [id number] References: 1) Fiona DA, Morgan A, Sultana R, Antony J, Xavier MJ, [place] MM, et al. The 2016 revision to the World Health Organization (WHO) classification of myeloid neoplasms and acute leukemia. Blood 2016;127: 2391-405. 2) NCCN Guidelines, Myeloproliferative Neoplasms, Version 2.2018. 3) Leonarda Whitman, Mario HUI. Genomics of Myeloproliferative Neoplasms. J Clin Oncol. 2017 Sep 30;35(9):947-954. As reviewed by Nirav Barragan MD Performed By: #### M PNP ####[facility] [id number] [address] [place] PTH RELATED PEPTIDEon 2023 PTH RELATED PEPTIDE 2.3 pmol/L Normal 0.0-3.4 [facility] Comment on above: Order Comment: Speci men Type: BLOOD SPECIMEN [facility] Facility: [facility] Address: [address] [place] [address] Result Comment: INTE RPRETIVE INFORMATION: Parathyroid Hormone-Related Peptide This test was developed and its performance characteristics determined by [facility]. It has not been cleared or approved by the US Food and Drug Administration. This test was performed in a CLIA certified laboratory and is intended for clinical purposes. Performed By: [facility] [address] [place] [address] [employer] Foam Kiss Maker: Jr Thomas MD, PhD CLIA Number: [id number] Performed By: #### I [facility] #### [facility] CLIA [id number] [address] [place] [address] [place] Potassium measurementOrdered By: Kourtney Bergman on 07-02-2024 Potassium [Moles/Vol] 2.7 mmol/L Low 3.5-5.1 [facility] Comment on above: Critical Result(s) C alled at: 15:55:44 07/02/2024 by: MONSE ALFRED. Results read back by Dr. Bergman Serum anion gap measurementO rdered By: Kourtney Bergman on 07-02-2024 Anion gap [Moles/Vol] 9 mmol/L 5-15 [facility] Serum or plasma calcium derrick urement (mass/volume)Ordered By: Kourtney Bergman on 07-02-2024 Calcium [Mass/Vol] 10.5 mg/dL High 8.5-10.1 [facility] Serum or plasma creatinine m easurement (mass/volume)Ordered By: Kourtney Bergman on 07-02-2024 Creatinine [Mass/Vol] 0.75 mg/dL 0.55-1.02 [facility] Comment on above: The validity of the calculated GFR & GFRAA in patients over 70 years has not been determined. Clinical correlation is essential. Serum or plasma urea nitroge n measurement (mass/volume)Ordered By: Kourtney Bergman on 07-02-2024 Urea nitrogen [Mass/Vol] 12 mg/dL 7-18 [facility] Sodium levelOrdered By: Paulie Bergman on 07-02-2024 Sodium [Moles/Vol] 135 mmol/L Low 136-145 [facility] CNPNon 06-28-2024 RICHARDSONN Telephone (HEMModbook) ECHO DNUN ([id number]) 1960 F Date Time Provider Department 06/28/24 MARK KEEN ZHANG During your visit today, we recorded the following information about you: Mark Keen DO 06/28/2024 6:35 PM Signed Let her know the surgeons I ran her case by recommended repeat biopsy of the liver lesion. Please schedule at [facility]. Order filed. DO Malvin Cotter Melanie, LPN 06/29/2024 8:21 AM Signed Patient is aware of all information. PSS- please contact patient to assist in scheduling biopsy at [facility] as directed below. ADELE Seymour Stephanie 06/29/2024 9:21 AM Signed [employer] Secure Chat started for scheduling purposes for Liver Biopsy. Spoke with patient and she is aware that [facility] will be calling once her biopsy is triaged and ready to schedule. Arlette Francois 07/02/2024 11:36 AM Signed Patient is scheduled on 07/15 Allergies As of Date: 06/28/2024 Noted Allergy Reaction LISINOPRIL 06/23/2024 7 - Swelling Date Reviewed: 06/23/2024 Reviewed by: Joceline Allen Ma, [place] - Fully Assessed Reason for Visit: Follow Up [171] Primary Visit Diagnosis:Liver mass [R16.0] Order(s):IMAGING GUIDED BIOPSY LIVER [[id number]] Order #: [id number] Prescriptions as of 07/27/2024 - amLODIPine (NORVASC) 10 mg tablet Take 10 mg by mouth once daily. - hydroCHLOROthiazide 25 mg tablet Take 1 tablet by mouth once daily. - atorvastatin (LIPITOR) 40 mg tablet Take 40 mg by mouth daily at bedtime. - furosemide (LASIX) 40 mg tablet Take 40 mg by mouth two times a day. - potassium chloride ER (KLOR-CON) 20 mEq tablet Take 20 mEq by mouth two times a day. - multivitamin tablet Take 1 tablet by mouth once daily. - docosahexaenoic acid/epa (FISH OIL ORAL) Take 1 capsule by mouth once daily. - ascorbic acid (VITAMIN C ORAL) Take 1 tablet by mouth once daily. - cholecalciferol, vitamin D3, (VITAMIN D3 ORAL) Take 1 tablet by mouth once daily. - ZINC ORAL Take 1 tablet by mouth once daily. - loratadine (CLARITIN) 10 mg tablet Take 10 mg by mouth once daily. Problem List As Of Date: 06/28/2024 (None) Encounter Status:Closed by MARK KEEN on 07/27/24 [facility][id number]) 1960 F Date Time Provider Department 06/27/24 MARK KEEN HEMAWS During your visit today, we recorded the following information about you: Mark Keen DO 06/27/2024 7:07 PM Signed Can let her know repeat test (more sensitive) showed calcium a bit high. Need one more lab help sort this out. Order filed. Also let her know our radiologist couldn't come to a definitive answer on liver lesions. Although probably benign, I'm going to get the opinion of one of the surgeons at [facility]. Will update her once I here from one of them. Additionally, hematocrit still significantly elevated so would really encourage follow through on sleep apnea testing. DO Tomás Cotter Pamela S, LPN 06/28/2024 8:58 AM Signed Spoke with pt. Given information concerning recent lab results. Also informed the radiologist couldn't come to a definitive answer on liver lesions. Although probably benign, Dr. Keen is going to get the opinion of one of the surgeons at [facility]. Will update her once I here from one of them. Additionally, hematocrit still significantly elevated so would really encourage follow through on sleep apnea testing. Pt. Voiced understanding. PSS please put on lab schedule 07/02/@ 12 noon for labs ordered on 06/27 DO Yash Cotter Angela 06/28/2024 11:12 AM Signed Scheduled labs as requested Cora Berrios Allergies As of Date: 06/27/2024 Noted Allergy Reaction LISINOPRIL 06/23/2024 7 - Swelling Date Reviewed: 06/23/2024 Reviewed by: Joceline Allen Ma, MA - Fully Assessed Reason for Visit: Results [95] Primary Visit Diagnosis:Hyperkalemia [E87.5] Other Visit Diagnosis:Polycythemia [D75.1] Order(s):PTH RELATED PEPTIDE [SQPTHPEP] Order #: [id number] FUTURE MYELOPROLIFERATIVE NEOPLASM PANEL BLOOD [SQMPNP] Order #: [id number] FUTURE Prescriptions as of 06/28/2024 - amLODIPine (NORVASC) 10 mg tablet Take 10 mg by mouth once daily. - hydroCHLOROthiazide 25 mg tablet Take 1 tablet by mouth once daily. - atorvastatin (LIPITOR) 40 mg tablet Take 40 mg by mouth daily at bedtime. - furosemide (LASIX) 40 mg tablet Take 40 mg by mouth two times a day. - potassium chloride ER (KLOR-CON) 20 mEq tablet Take 20 mEq by mouth two times a day. - multivitamin tablet Take 1 tablet by mouth once daily. - docosahexaenoic acid/epa (FISH OIL ORAL) Take 1 capsule by mouth once daily. - ascorbic acid (VITAMIN C ORAL) Take 1 tablet by mouth once daily. - cholecalciferol, vitamin D3, (VITAMIN D3 ORAL) Take 1 tablet by mouth once daily. - ZINC ORAL Take 1 tablet by mouth once daily. - loratadine (CLARITIN) 10 mg tablet Take 10 mg by mouth once daily. Problem List As Of Date: 06/27/2024 (None) Encounter Status:Closed by CORA BERRIOS on 06/28/24 Normal [facility] B2 Microglob SerPl-mCncon Rgeh-[id number]-Qrajsyjwjvbqm [Mass/Vol] 2.5 ug/mL Normal <3.1 [facility] Comment on above: Order Comment: Speci men Type: BLOOD SPECIMEN [facility] Address: [address] [place] [address] Result Comment: Beta -2 Microglobulin test is performed using the [employer] immunoturbidimetric method. Results obtained with different methods or kits cannot be used interchangeably. Performed By: #### I [facility] #### [facility] CLIA [id number] [address] [place] [address] [place] CNPSwati 06-24-2024 CNPN Telephone (HEMAWS) ECHO DUNN ([id number]) 1960 F Date Time Provider Department 06/24/24 MARK KEEN During your visit today, we recorded the following information about you: Mark Keen DO 06/24/2024 6:47 AM Signed Let her know calcium is higher than normal. May be an endocrinologic issue and not related to cancer, but needs ionized calcium and PTH as well as myeloma labs with no urine to further assess. Please pend orders. Potassium still really low and I see she already has Rx for potassium. Verify she is taking as prescribed. DO Malvin Cotter Melanie, LPN 06/24/2024 9:24 AM Signed Patient is taking potassium 20 meq BID but is also taking Lasix 40 mg BID and HCTZ 25 mg every day. PSS- please make a lab appointment for today @ 12:30- patient is aware. Please attach all of Dr. Keen's lab orders to the appointment. ADELE Seymour Paul A, DO 06/24/2024 9:45 AM Signed Thank you. Then please fax a copy of her chemistry panel to her PCP and have her reach out to him for further management of the hypokalemia. DO Aleks Gonzalez Stephanie 06/24/2024 10:03 AM Signed Lab scheduled as directed. Padmini Betancur LPN 06/24/2024 10:07 AM Signed Patient is aware of all information. I faxed the lab results and a copy of this note to her PCP. 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] Other Visit Diagnoses:Liver mass [R16.0] Hypercalcemia [E83.52] Order(s):PTH INTACT [SQPTHI] Order #: [id number] FUTURE CALCIUM, IONIZED [SQICA] Order #: [id number] FUTURE B2 MICROGLOBULIN [SQB2M] Order #: [id number] FUTURE LACTATE DEHYDROGENASE [SQLD6] Order #: [id number] FUTURE IMMUNOGLOBULINS,IGG,IG A,IGM [SQSERIMM] Order #: [id number] FUTURE KAPPA/JIMENEZ,FREE,SER [SQKLFRS] Order #: [id number] FUTURE MONOCLONAL PROTEIN, SERUM (BLOOD) [SQSERMPA] Order #: [id number] FUTURE PROTEIN ELECTROPHORESIS SERUM W/INTERP [SQSEPG] Order #: [id number] FUTURE Prescriptions as of 06/24/2024 - amLODIPine (NORVASC) 10 mg tablet Take 10 mg by mouth once daily. - hydroCHLOROthiazide 25 mg tablet Take 1 tablet by mouth once daily. - atorvastatin (LIPITOR) 40 mg tablet Take 40 mg by mouth daily at bedtime. - furosemide (LASIX) 40 mg tablet Take 40 mg by mouth two times a day. - potassium chloride ER (KLOR-CON) 20 mEq tablet Take 20 mEq by mouth two times a day. - multivitamin tablet Take 1 tablet by mouth once daily. - docosahexaenoic acid/epa (FISH OIL ORAL) Take 1 capsule by mouth once daily. - ascorbic acid (VITAMIN C ORAL) Take 1 tablet by mouth once daily. - cholecalciferol, vitamin D3, (VITAMIN D3 ORAL) Take 1 tablet by mouth once daily. - ZINC ORAL Take 1 tablet by mouth once daily. - loratadine (CLARITIN) 10 mg tablet Take 10 mg by mouth once daily. Problem List As Of Date: 06/24/2024 (None) Encounter Status:Closed by PADMINI BENSON on 06/24/24 Normal [facility] Calcium.ionized [Moles/Vol]o n 06-24-2024 Calcium.ionized (Bld) [Mass/Vol] 1.31 mmol/L High 1.08-1.30 [facility] Comment on above: Order Comment: Speci men Type: BLOOD SPECIMEN Ordering Facility: [facility] Address: [address] [place] [address] Performed By: #### I FESC #### [facility] CLIA [id number] [address] [place] [address] [place] Calcium.ionized adjusted to pH 7.4 (Bld) [Moles/Vol] 1.31 mmol/L High 1.08-1.30 [facility] Comment on above: Order Comment: Speci men Type: BLOOD SPECIMEN Ordering Facility: [facility] Address: [address] [place] [address] Performed By: #### I FESC #### [facility] CLIA [id number] [address] [place] [address] [place] IMMUNOFIXATION SCREEN, SERUM on 06-24-2024 MPA RESULT No M protein is identified. Normal No M protein is identified. [facility] Comment on above: Order Comment: Speci men Type: BLOOD SPECIMEN Ordering Facility: [facility] Address: [address] [place] [address] Performed By: #### I FESC #### [facility] CLIA [id number] [address] [place] [address] [place] STAFF REVIEW (MPA) Reviewed by Shelbie Green MD Normal [facility] Comment on above: Order Comment: Speci men Type: BLOOD SPECIMEN Ordering Facility: [facility] Address: [address] [place] [address] Performed By: #### I FESC #### [facility] CLIA [id number] [address] [place] [address] [place] IMMUNOGLOBULINS,IGG,IGA,IGMo n 12-12-2024 IgA [Mass/Vol] 310 mg/dL Normal 70-400 [facility] Comment on above: Order Comment: Speci men Type: BLOOD SPECIMENOrdering Facility: [facility] Address: [address] [place] [address] Performed By: #### S ERIMM ####[facility] LABCLIA [id number] [place] [address] [place] IgG [Mass/Vol] 982 mg/dL Normal 700-1600 [facility] Comment on above: Order Comment: Speci men Type: BLOOD SPECIMENOrdering Facility: [facility] Address: [address] [place] [address] Performed By: #### S ERIMM ####[facility] LABCLIA [id number] [place] [address] [place] IgM [Mass/Vol] 86 mg/dL Normal 40-230 [facility] Comment on above: Order Comment: Speci men Type: BLOOD SPECIMENOrdering Facility: [facility] Address: [address] [place] [address] Performed By: #### S ERIMM ####[facility] LABCLIA [id number] [place] [address] [place] KAPPA/JIMENEZ,FREE,SERon 2023 Immunoglobulin light chains.kappa.free (S) [Mass/Vol] 30.5 mg/L High 3.3-19.4 [facility] Comment on above: Order Comment: Speci men Type: BLOOD SPECIMEN Ordering Facility: [facility] Address: [address] [place] [address] Result Comment: Rare ly, increased serum free light chains levels may not be detected or accurately quantified due to prozone phenomenon or in high viscosity samples using this immunoturbidimetric assay. Correlation with other laboratory results and clinical findings is recommended. The Stamping Ground Free Light Chain was performed using the Binding Site Optilite immunoturbidimetric method. Result obtained with different assay methods or kits cannot be used interchangeably. Performed By: #### K LFRS #### [facility] CLIA [id number] [address] [place] [address] [place] Immunoglobulin light chains.kappa/Immunoglob ulin light chains.lambda (S) [Mass ratio] 1.38 Normal 0.26-1.65 [facility] Comment on above: Order Comment: Speci men Type: BLOOD SPECIMEN Ordering Facility: [facility] Address: [address] [place] [address] Performed By: #### K LFRS #### [facility] CLIA [id number] [address] [place] [address] [place] Immunoglobulin light chains.lambda.free [Mass/Vol] 22.1 mg/L Normal 5.7-26.3 [facility] Comment on above: Order Comment: Speci men Type: BLOOD SPECIMEN Ordering Facility: [facility] Address: [address] [place] [address] Result Comment: Rare ly, increased serum free light chains levels may not be detected or accurately quantified due to prozone phenomenon or in high viscosity samples using this immunoturbidimetric assay. Correlation with other laboratory results and clinical findings is recommended. The Lambda Free Light Chain was performed using the Binding Site Optilite immunoturbidimetric method. Result obtained with different assay methods or kits cannot be used interchangeably. Performed By: #### K LFRS #### [facility] CLIA [id number] [address] [place] [address] [place] LACTATE DEHYDROGENASEOrdered By: Janae Wise on 06-24-2024 LDH [Catalytic activity/Vol] 265 U/L High 135 - 214 U/L [facility] Comment on above: Hemolysis present. T he origin of the hemolysis, in vitro versus an in vivo hemolytic process, cannot be distinguished via this assay alone. In vitro hemolysis may lead to non-physiological (spurious) elevation in lactate dehydrogenase (LDH) results. The result should be interpreted in context of the clinical setting and other test results. Suggest reorder as clinically indicated. LDH SerPl-cCncon 06-24-2024 LDH [Catalytic activity/Vol] 265 U/L High 135-214 [facility] Comment on above: Order Comment: Speci men Type: BLOOD SPECIMEN Ordering Facility: [facility] Address: [address] [place] [address] Result Comment: Hemo lysis present. The origin of the hemolysis, in vitro versus an in vivo hemolytic process, cannot be distinguished via this assay alone. In vitro hemolysis may lead to non-physiological (spurious) elevation in lactate dehydrogenase (LDH) results. The result should be interpreted in context of the clinical setting and other test results. Suggest reorder as clinically indicated. Performed By: #### I FESC #### [facility] CLIA [id number] [address] [place] [address] [place] LDH [Catalytic activity/Vol] Ordered By: Janae Wise on 06-24-2024 Interpretation and review of laboratory results Abnormal [facility] PROTEIN ELECTROPHORESIS SERU M (P)on 06-24-2024 Albumin [Mass/Vol] 4.05 g/dL Normal 3.43-5.41 [facility] Comment on above: Order Comment: Speci men Type: BLOOD SPECIMEN Ordering Facility: [facility] Address: [address] [place] [address] Performed By: #### I FESC #### [facility] CLIA [id number] [address] [place] [address] [place] Alpha 1 globulin Elph [Mass/Vol] 0.45 g/dL High 0.18-0.43 [facility] Comment on above: Order Comment: Speci men Type: BLOOD SPECIMEN Ordering Facility: [facility] Address: [address] [place] [address] Performed By: #### I FESC #### [facility] CLIA [id number] [address] [place] [address] [place] Alpha 2 globulin Elph [Mass/Vol] 0.98 g/dL Normal 0.42-0.98 [facility] Comment on above: Order Comment: Speci men Type: BLOOD SPECIMEN Ordering Facility: [facility] Address: [address] [place], [place] [address] Performed By: #### I FESC #### [facility] CLIA [id number] [address] [place] [address] [place] Beta globulin Elph [Mass/Vol] 1.06 g/dL Normal 0.61-1.17 [facility] Comment on above: Order Comment: Speci men Type: BLOOD SPECIMEN Ordering Facility: [facility] Address: [address] [place] [address] Performed By: #### I FESC #### [facility] CLIA [id number] [address] [place] [address] [place] Gamma globulin Elph [Mass/Vol] 0.87 g/dL Normal 0.53-1.51 [facility] Comment on above: Order Comment: Speci men Type: BLOOD SPECIMEN Ordering Facility: [facility] Address: [address] [place] [address] Performed By: #### I FESC #### [facility] CLIA [id number] [address] [place] [address] [place] M-PROTEIN LOCATION Normal [facility] Comment on above: Order Comment: Speci men Type: BLOOD SPECIMEN Ordering Facility: [facility] Address: [address] [place] [address] Result Comment: Not Applicable. Performed By: #### I FESC #### [facility] CLIA [id number] [address] [place], [place] [address] [place] Protein Fractions [Interp] No definitive M protein is identified on protein electrophoresis. Normal No definitive M protein is identified on protein electrophore sis. [facility] Comment on above: Order Comment: Speci men Type: BLOOD SPECIMEN Ordering Facility: [facility] Address: [address] [place], [place] [address] Performed By: #### I FESC #### [facility] CLIA [id number] [address] [place], [place] [address] [place] Protein.monoclonal Elph [Mass/Vol] 0.00 g/dL Normal <=0.00 [facility] Comment on above: Order Comment: Speci men Type: BLOOD SPECIMEN Ordering Facility: [facility] Address: [address] [place] [address] Performed By: #### I FESC #### [facility] CLIA [id number] [address] [place] [address] [place] SPE STAFF REVIEW Reviewed by Shelbie Green MD [facility] Comment on above: Order Comment: Speci men Type: BLOOD SPECIMEN Ordering Facility: [facility] Address: [address] [place] [address] Performed By: #### I FESC #### [facility] CLIA [id number] [address] [place] [address] [place] PTH-Intact SerPl-mCncon 06-13 Parathyrin.intact [Mass/Vol] 35 pg/mL Normal 15-65 [facility] Comment on above: Order Comment: Speci men Type: BLOOD SPECIMEN Ordering Facility: [facility] Address: [address] [place] [address] Performed By: #### I FESC #### [facility] CLIA [id number] [address] [place] [address] [place] Prot SerPl-mCncon 06-24-2024 Protein [Mass/Vol] 7.4 g/dL Normal 6.3-8.0 [facility] Comment on above: Order Comment: Speci men Type: BLOOD SPECIMEN Ordering Facility: [facility] Address: [address] [place] [address] Performed By: #### I FESC #### [facility] CLIA [id number] [address] [place] [address] [place] AFP SerPl-mCncon 06-23-2024 AFP [Mass/Vol] 4.08 ng/mL Normal <9.00 [facility] Comment on above: Order Comment: Speci men Type: BLOOD SPECIMENOrdering Facility: [facility] Address: [address] [place] [address] Result Comment: The Alpha-Fetoprotein test was performed using the Belen Unicel DxI immunoenzymatic assay. Results obtained with different assay methods or kits cannot be used interchangeably. Performed By: #### 1 834-1 ####[facility] LABCLIA [id number] [facility] [id number] [place] [address] [place] CBC W Auto Differential pane l (Bld)on 06-23-2024 Basophils (Bld) [#/Vol] 0.04 10*3/uL [facility] Basophils/100 WBC (Bld) 0.6 % [facility] Differential cell count method Nom (Bld) Auto [facility] Eosinophils (Bld) [#/Vol] 0.10 10*3/uL [facility] Eosinophils/100 WBC (Bld) 1.6 % [facility] Erythrocyte distribution width (RBC) [Ratio] 15.0 % 11.5 - 15.0 % [facility] Hematocrit (Bld) [Volume fraction] 59.0 % High 36.0 - 46.0 % [facility] Comment on above: No clot detected. Hemoglobin (Bld) [Mass/Vol] 18.8 g/dL High 11.5 - 15.5 g/dL [facility] Immature granulocytes (Bld) [#/Vol] [facility] Immature granulocytes/100 WBC (Bld) 0.3 % [facility] Interpretation and review of laboratory results Abnormal [facility] Lymphocytes (Bld) [#/Vol] 1.46 10*3/uL [facility] Lymphocytes/100 WBC (Bld) 23.5 % [facility] MCH (RBC) [Entitic mass] 29.2 pg 26.0 - 34.0 pg [facility] MCHC (RBC) [Mass/Vol] 31.9 g/dL 30.5 - 36.0 g/dL [facility] MCV (RBC) [Entitic vol] 91.6 fL 80.0 - 100.0 fL [facility] Monocytes (Bld) [#/Vol] 0.47 10*3/uL [facility] Monocytes/100 WBC (Bld) 7.6 % [facility] Neutrophils (Bld) [#/Vol] 4.12 10*3/uL [facility] Neutrophils/100 WBC (Bld) 66.4 % [facility] Nucleated RBC (Bld) [#/Vol] NINF [facility] Nucleated RBC/100 WBC (Bld) [Ratio] 0.0 % /100 WBC [facility] Platelet mean volume (Bld) [Entitic vol] 10.8 fL 9.0 - 12.7 fL [facility] Platelets (Bld) [#/Vol] 176 10*3/uL [facility] RBC (Bld) [#/Vol] 6.44 10*6/uL High 3.90 - 5.2 0 m/uL [facility] WBC (Bld) [#/Vol] 6.21 10*3/uL [facility] Basophils (Bld) [#/Vol] 0.04 10*3/uL Normal <0.11 [facility] Comment on above: Order Comment: Speci men Type: BLOOD SPECIMENOrdering Facility: [facility] Address: [address] [place] [address] Performed By: #### 5 7021-8 ####[facility] [id number] [address] STATES OF [facility] Basophils/100 WBC (Bld) 0.6 % Normal [facility] Comment on above: Order Comment: Speci men Type: BLOOD SPECIMENOrdering Facility: [facility] Address: [address] [place] [address] Performed By: #### 5 7021-8 ####[facility] [id number] [place] [address] [place] Differential cell count method Nom (Bld) Auto Normal [facility] Comment on above: Order Comment: Speci men Type: BLOOD SPECIMENOrdering Facility: [facility] Address: [address] [place] [address] Performed By: #### 5 7021-8 ####[facility] [id number] [place] [address] [place] Eosinophils (Bld) [#/Vol] 0.10 10*3/uL Normal <0.46 [facility] Comment on above: Order Comment: Speci men Type: BLOOD SPECIMENOrdering Facility: [facility] Address: [address] [place] [address] Performed By: #### 5 7021-8 ####[facility] [id number] [place] [address] [place] Eosinophils/100 WBC (Bld) 1.6 % Normal [facility] Comment on above: Order Comment: Speci men Type: BLOOD SPECIMENOrdering Facility: [facility] Address: [address] [place] [address] Performed By: #### 5 7021-8 ####[facility] [id number] [place] [address] [place] Erythrocyte distribution width (RBC) [Ratio] 15.0 % Normal 11.5-15.0 [facility] Comment on above: Order Comment: Speci men Type: BLOOD SPECIMENOrdering Facility: [facility] Address: [address] [place] [address] Performed By: #### 5 7021-8 ####[facility] [id number] [place] [address] [place] Hematocrit (Bld) [Volume fraction] 59.0 % High 36.0-46.0 [facility] Comment on above: Order Comment: Speci men Type: BLOOD SPECIMENOrdering Facility: [facility] Address: [address] [place] [address] Result Comment: No c lot detected. Performed By: #### 5 7021-8 ####[facility]ITALNCLI [id number] [place] [address] [place] Hemoglobin (Bld) [Mass/Vol] 18.8 g/dL High 11.5-15.5 [facility] Comment on above: Order Comment: Speci men Type: BLOOD SPECIMENOrdering Facility: [facility] Address: [address] [place] [address] Performed By: #### 5 7021-8 ####[facility]USLIA [id number] [place] [address] [place] Immature granulocytes (Bld) [#/Vol] 10*3/uL Normal <0.10 [facility] Comment on above: Order Comment: Speci men Type: BLOOD SPECIMENOrdering Facility: [facility] Address: [address] [place] [address] Performed By: #### 5 7021-8 ####[facility] [id number] [place] [address] [place] Immature granulocytes/100 WBC (Bld) 0.3 % Normal [facility] Comment on above: Order Comment: Speci men Type: BLOOD SPECIMENOrdering Facility: [facility] Address: [address] [place] [address] Performed By: #### 5 7021-8 ####[facility] [id number] [place] [address] [place] Lymphocytes (Bld) [#/Vol] 1.46 10*3/uL Normal 1.00-4.00 [facility] Comment on above: Order Comment: Speci men Type: BLOOD SPECIMENOrdering Facility: [facility] Address: [address] [place] [address] Performed By: #### 5 7021-8 ####[facility] [id number] [place] [address] [place] Lymphocytes/100 WBC (Bld) 23.5 % Normal [facility] Comment on above: Order Comment: Speci men Type: BLOOD SPECIMENOrdering Facility: [facility] Address: [address] [place] [address] Performed By: #### 5 7021-8 ####[facility] TERRICHAVA [id number] [address] MCH (RBC) [Entitic mass] 29.2 pg Normal 26.0-34.0 [facility] Comment on above: Order Comment: Speci men Type: BLOOD SPECIMENOrdering Facility: [facility] Address: [address] [place] [address] Performed By: #### 5 7021-8 ####[facility]ITALKORINAJORD[facility] [id number] [place] [address] [place] MCHC (RBC) [Mass/Vol] 31.9 g/dL Normal 30.5-36.0 [facility] Comment on above: Order Comment: Speci men Type: BLOOD SPECIMENOrdering Facility: [facility] Address: [address] [place] [address] Performed By: #### 5 7021-8 ####[facility] [id number] [place] [address] [place] MCV (RBC) [Entitic vol] 91.6 fL Normal 80.0-100.[address] [facility] Comment on above: Order Comment: Speci men Type: BLOOD SPECIMENOrdering Facility: [facility] Address: [address] [place] [address] Performed By: #### 5 7021-8 ####[facility] [id number] [place] [address] [place] [facility] [place] Monocytes (Bld) [#/Vol] 0.47 10*3/uL Normal <0.87 [facility] Comment on above: Order Comment: Speci men Type: BLOOD SPECIMENOrdering Facility: [facility] Address: [address] [place] [address] Performed By: #### 5 7021-8 ####[facility] TERRIWNCLIA [id number] [place] [address] [place] Monocytes/100 WBC (Bld) 7.6 % Normal [facility] Comment on above: Order Comment: Speci men Type: BLOOD SPECIMENOrdering Facility: [facility] Address: [address] [place] [address] Performed By: #### 5 7021-8 ####[facility]AMPUSLIA [id number] [place] [address] [place] Neutrophils (Bld) [#/Vol] 4.12 10*3/uL Normal 1.45-7.50 [facility] Comment on above: Order Comment: Speci men Type: BLOOD SPECIMENOrdering Facility: [facility] Address: [address] [place] [address] Performed By: #### 5 7021-8 ####[facility]ITAL[facility] [id number] [place] [address] [place] Neutrophils/100 WBC (Bld) 66.4 % Normal [facility] Comment on above: Order Comment: Speci men Type: BLOOD SPECIMENOrdering Facility: [facility] Address: [address] [place] [address] Performed By: #### 5 7021-8 ####[facility] CAMPUSLIA [id number] [place] [address] [place] Nucleated RBC (Bld) [#/Vol] 10*3/uL Normal <0.01 [facility] Comment on above: Order Comment: Speci men Type: BLOOD SPECIMENOrdering Facility: [facility] Address: [address] [place] [address] Performed By: #### 5 7021-8 ####[facility]ITALNCLIA [id number] [place] [address] [place] Nucleated RBC/100 WBC (Bld) [Ratio] 0.0 /100 WBC Normal [facility] Comment on above: Order Comment: Speci men Type: BLOOD SPECIMENOrdering Facility: [facility] Address: [address] [place] [address] Performed By: #### 5 7021-8 ####[facility]PITALNCJORDAN [facility] [id number] [place] [address] [place] Platelet mean volume (Bld) [Entitic vol] 10.8 fL Normal 9.0-12.7 [facility] Comment on above: Order Comment: Speci men Type: BLOOD SPECIMENOrdering Facility: [facility] Address: [address] [place] [address] Performed By: #### 5 7021-8 ####[facility] [id number] [place] [address] [place] Platelets (Bld) [#/Vol] 176 10*3/uL Normal 150-400 [facility] Comment on above: Order Comment: Speci men Type: BLOOD SPECIMENOrdering Facility: [facility] Address: [address] [place] [address] Performed By: #### 5 7021-8 ####[facility] [id number] [place] [address] [place] RBC (Bld) [#/Vol] 6.44 10*6/uL High 3.90-5.20 [facility] Comment on above: Order Comment: Speci men Type: BLOOD SPECIMENOrdering Facility: [facility] Address: [address] [place] [address] Performed By: #### 5 7021-8 ####[facility]PITALNCJORDAN [facility] [id number] [place] [address] [place] WBC (Bld) [#/Vol] 6.21 10*3/uL Normal 3.70-11.00 [facility] Comment on above: Order Comment: Speci men Type: BLOOD SPECIMENOrdering Facility: [facility] Address: [address] [address] Performed By: #### 5 7021-8 ####[facility] [id number] [place] [id number] [place] [address] OF [facility] CNOVSPon 06-23-2024 CNOVSP Visit (SP) Office ([facility]MA[facility]) ECHO DUNN ([id number]) 1960 F Date Time Provider Department 06/23/24 10:30 AM MARK KEEN During your visit today, we recorded the following information about you: Temperature Pulse Blood pressure Weight 97.7 degrees 92/minute 147/83 108.9 kg Height 1.651 m Mark Keen DO 06/23/2024 1:32 PM Signed Patient self-referred for liver mass and polycythemia. HPI: The patient is a 64-year-old female with a past medical history as outlined below. Early May 2024, started feeling unwell--generalized malaise--like the flu without fever or muscle aches. No fever, cough, URI symptoms, chills or GI symptoms Went to see PCP. Pulse ox 70s. Sent to ED. CTA of the chest identified no pulmonary embolism but there was an incidental finding of a possible liver mass. Subsequent CT scan of the abdomen on 05/23/2024 demonstrated a 6 cm x 4.6 cm moderately sized partially septated mixed fluid and cystic mucinous appearing lesion on the undersurface do not left lower liver. There is also mild enhancement wall cystic lesion of the left lower liver. MRI was recommended. There was also a enhancing 3.2 cm soft tissue mass in the left uterine body intramural region possibly representing a fibroid. Subsequent MRI on 05/24/2014 revealed that the liver was normal in size, contour and morphology but there was a solid and cystic heterogeneously enhancing mass along posterior aspect lateral segment with the bulk of the tumor measuring 6.4 x 5.4 x 3.9 cm. The solid components and mass exhibited progressive enhancement. There was an adjacent 1.6 mm earphone along the anterior superior aspect of the mass which it also exhibited aggressive enhancement. There is restricted diffusion associated with more solid enhancing components. Patient went on to have have a biopsy of the lesion which demonstrated liver parenchymal tissue with fibrosis, hyalinization and degenerative changes. No malignancy was observed. 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 [place] better after antibiotics. Discharged on O2. Uses 3 lpm at night. Has appointment with pulmonology in August. Quit smoking. Was drinking about 8 beers a night. Quit altogether. No history hepatitis. PAST MEDICAL HISTORY Diagnosis Date Cervicitis and endocervicitis Dysmenorrhea Dysplasia of cervix, unspecified Hypercholesterolemia Hypertension PAST SURGICAL HISTORY Procedure Laterality Date LIG/TRNSXJ FLP TUBE ABDL/VAG APPR UNI/BI 2002 Tubal ligation PAST SURGICAL HISTORY OF AGE 18 MOLAR EXTRACTION amLODIPine (NORVASC) 10 mg tablet Take 10 mg by mouth once daily. hydroCHLOROthiazide 25 mg tablet Take 1 tablet by mouth once daily. atorvastatin (LIPITOR) 40 mg tablet Take 40 mg by mouth daily at bedtime. furosemide (LASIX) 40 mg tablet Take 40 mg by mouth two times a day. potassium chloride ER (KLOR-CON) 20 mEq tablet Take 20 mEq by mouth two times a day. multivitamin tablet Take 1 tablet by mouth once daily. docosahexaenoic acid/epa (FISH OIL ORAL) Take 1 capsule by mouth once daily. ascorbic acid (VITAMIN C ORAL) Take 1 tablet by mouth once daily. cholecalciferol, vitamin D3, (VITAMIN D3 ORAL) Take 1 tablet by mouth once daily. ZINC ORAL Take 1 tablet by mouth once daily. loratadine (CLARITIN) 10 mg tablet Take 10 mg by mouth once daily. ALLERGIES Allergen Reactions Lisinopril Swelling Social History Tobacco Use Smoking status: Every Day Types: Cigarettes Smokeless tobacco: Never Tobacco comments: Pt smoked 1/2 pack daily x 50 years, quit May 2024 Substance Use Topics Alcohol use: Yes Comment: SOCIALLY Drug use: No FAMILY HISTORY Problem Relation Age of Onset Cancer Mother pancreatic Colon Cancer Father Heart Father triple bypass Gastric Cancer Maternal Grandfather Colon Cancer Paternal Grandmother REVIEW OF SYSTEMS: Constitutional: No episodes of fever and night sweats. Not significantly fatigued. Normal appetite. Neuro: No PUCKETT, vertigo, dizziness and imbalance. No symptoms of neuropathy. HEENT: No recent change in voice, vision or hearing. Resp: See above.. CVS: No exertional chest pain, PND, orthopnea and LE edema. GI: No dysphagia and odynophagia. No reflux, n/v, change in bowel habits or abdominal pain. : No dysuria or gross hematuria. No symptoms of bladder outlet obstruction. Endo: No hot flashes. No polyuria and polydipsia. No heat and cold intolerance. Musculoskeletal: No bone, back, joint and muscular pain. Derm: No current rash. No history of jaundice or diffuse pruritis. Heme: No unusual bleeding and unexplained bruising. Psych: Normal mood. PHYSICAL EXAM: Vitals: Blood pressure 147/83, pulse 92, temperature 36.5 ?C (97.7 ?F), temperature source Temporal, height 165.1 cm (5' 5), w (more content not included)... Normal [facility] Comprehensive metabolic 2000 panelOrdered By: Zuleyma Valente on 06-23-2024 Albumin [Mass/Vol] 4.7 g/dL 3.9 - 4.9 g/dL [facility] ALP [Catalytic activity/Vol] 115 U/L 34 - 123 U/L [facility] ALT [Catalytic activity/Vol] 33 U/L 7 - 38 U/L [facility] Anion gap [Moles/Vol] 13 mmol/L 8 - 15 mmol/L [facility] AST [Catalytic activity/Vol] 29 U/L 13 - 35 U/L [facility] Bilirubin [Mass/Vol] 0.9 mg/dL 0.2 - 1 .3 mg/dL [facility] Calcium [Mass/Vol] 11.3 mg/dL High 8.5 - 10. 2 mg/dL [facility] Chloride [Moles/Vol] 88 mmol/L Low 98 - 10 7 mmol/L [facility] CO2 [Moles/Vol] 39 mmol/L High 22 - 30 mmol/L [facility] Creatinine [Mass/Vol] 0.58 mg/dL 0.58 - 0.96 mg/dL [facility] GFR/1.73 sq M.predicted among non-blacks MDRD (S/P/Bld) [Vol rate/Area] 101 mL/min/{1.73_m2} - PINF [facility] Comment on above: Estimated Glomerular Filtration Rate (eGFR) is calculated using the 2020 CKD-EPI creatinine equation. This equation utilizes serum creatinine, sex, and age as parameters. The creatinine assay has traceable calibration to isotope dilution-mass spectrometry. Refer to KDIGO guidelines for clinical interpretation. In patients with unstable renal function, e.g. those with acute kidney injury, the eGFR may not accurately reflect actual GFR. Glucose [Mass/Vol] 110 mg/dL High 74 - 99 mg/dL [facility] Comment on above: The [place] Diabete s Association (ADA) provides guidance for cutoff values for fasting glucose and random glucose. The ADA defines fasting as no caloric intake for at least 8 hours. Fasting plasma glucose results between 100 to 125 mg/dL indicate increased risk for diabetes (prediabetes). Fasting plasma glucose results greater than or equal to 126 mg/dL meet the criteria for diagnosis of diabetes. In the absence of unequivocal hyperglycemia, results should be confirmed by repeat testing. In a patient with classic symptoms of hyperglycemia or hyperglycemic crisis, random plasma glucose results greater than or equal to 200 mg/dL meet the criteria for diagnosis of diabetes. Reference: Standards of Medical Care in Diabetes 2016, [place] Diabetes Association. Diabetes Care. 2016.39(Suppl 1). Interpretation and review of laboratory results Abnormal [facility] Potassium [Moles/Vol] 2.9 mmol/L Low 3.7 - 5.1 mmol/L [facility] Protein [Mass/Vol] 8.5 g/dL High 6.3 - 8.0 g/dL [facility] Sodium [Moles/Vol] 140 mmol/L 136 - 144 mmol/L [facility] Urea nitrogen [Mass/Vol] 14 mg/dL 7 - 21 mg/dL [facility] Comprehensive metabolic 2000 panelon 06-23-2024 Albumin [Mass/Vol] 4.7 g/dL Normal 3.9-4.9 [facility] Comment on above: Order Comment: Speci men Type: BLOOD SPECIMENOrdering Facility: [facility] Address: [facility] [place] [address] Performed By: #### 2 4323-8 ####[facility] TELLOL[facility] [id number] [place] [address] [place] ALP [Catalytic activity/Vol] 115 U/L Normal 34-123 [facility] Comment on above: Order Comment: Speci men Type: BLOOD SPECIMENOrdering Facility: [facility] Address: [address] [place] [address] Performed By: #### 2 4323-8 ####[facility] MILLTOWNCLIA [id number] [place] [address] [place] ALT [Catalytic activity/Vol] 33 U/L Normal 7-38 [facility] Comment on above: Order Comment: Speci men Type: BLOOD SPECIMENOrdering Facility: [facility] Address: [address] [place] [address] Performed By: #### 2 4323-8 ####[facility]ITALNCLIA [id number] [place] [address] [place] Anion gap [Moles/Vol] 13 mmol/L Normal 8-15 [facility] Comment on above: Order Comment: Speci men Type: BLOOD SPECIMENOrdering Facility: [facility] Address: [address] [place] [address] Performed By: #### 2 4323-8 ####[facility]ENTERWNCLIA [id number] [place] [address] [place] AST [Catalytic activity/Vol] 29 U/L Normal 13-35 [facility] Comment on above: Order Comment: Speci men Type: BLOOD SPECIMENOrdering Facility: [facility] Address: [address] [place] [address] Performed By: #### 2 4323-8 ####[facility] MILLWHITESVILLENCLIA [id number] [place] [address] [place] Bilirubin [Mass/Vol] 0.9 mg/dL Normal 0.2-1.[address] [facility] Comment on above: Order Comment: Speci men Type: BLOOD SPECIMENOrdering Facility: [facility] Address: [address] [place] [address] Performed By: #### 2 4323-8 ####[facility] JESSICANCLIA [id number] [place] [address] [place] Calcium [Mass/Vol] 11.3 mg/dL High 8.5-10.2 [facility] Comment on above: Order Comment: Speci men Type: BLOOD SPECIMENOrdering Facility: [facility] Address: [address] [place] [address] Performed By: #### 2 4323-8 ####[facility]ITALNCLIA [id number] [place] [address] [place] Chloride [Moles/Vol] 88 mmol/L Low 98-[address] [facility] Comment on above: Order Comment: Speci men Type: BLOOD SPECIMENOrdering Facility: [facility] Address: [address] [place] [address] Performed By: #### 2 4323-8 ####[facility]ITALNCLIA [id number] [place] [address] [place] CO2 [Moles/Vol] 39 mmol/L High 22-30 [facility] Comment on above: Order Comment: Speci men Type: BLOOD SPECIMENOrdering Facility: [facility] Address: [address] [place] [address] Performed By: #### 2 4323-8 ####[facility]ITALNCLIA [id number] [place] [address] [place] Creatinine [Mass/Vol] 0.58 mg/dL Normal 0.58-0.96 [facility] Comment on above: Order Comment: Speci men Type: BLOOD SPECIMENOrdering Facility: [facility] Address: [address] [place] [address] Performed By: #### 2 4323-8 ####[facility]ITALNCJORD[facility] [id number] [place] [address] [place] Creatinine and Glomerular filtration rate.predicted panel (S/P/Bld) 101 mL/min/1.73m??? Normal >=60 [facility] Comment on above: Order Comment: Chente plascencia Type: BLOOD SPECIMENOrdering Facility: [facility] Address: [address] [place] [address] Result Comment: Maria Dolores mated Glomerular Filtration Rate (eGFR) is calculated using the 2020 CKD-EPI creatinine equation. This equation utilizes serum creatinine, sex, and age as parameters. The creatinine assay has traceable calibration to isotope dilution-mass spectrometry. Refer to KDIGO guidelines for clinical interpretation. In patients with unstable renal function, e.g. those with acute kidney injury, the eGFR may not accurately reflect actual GFR. Performed By: #### 2 4323-8 ####[facility] [id number] [place] [address] [place] Glucose [Mass/Vol] 110 mg/dL High 74-99 [facility] Comment on above: Order Comment: Chente plascencia Type: BLOOD SPECIMENOrdering Facility: [facility] Address: [address] [place] [address] Result Comment: The [place] Diabetes Association (ADA) provides guidance for cutoff values for fasting glucose and random glucose. The ADA defines fasting as no caloric intake for at least 8 hours. Fasting plasma glucose results between 100 to 125 mg/dL indicate increased risk for diabetes (prediabetes). Fasting plasma glucose results greater than or equal to 126 mg/dL meet the criteria for diagnosis of diabetes. In the absence of unequivocal hyperglycemia, results should be confirmed by repeat testing. In a patient with classic symptoms of hyperglycemia or hyperglycemic crisis, random plasma glucose results greater than or equal to 200 mg/dL meet the criteria for diagnosis of diabetes. Reference: Standards of Medical Care in Diabetes 2016, [place] Diabetes Association. Diabetes Care. 2016.39(Suppl 1). Performed By: #### 2 4323-8 ####[facility] [id number] [place] [address] [place] Potassium [Moles/Vol] 2.9 mmol/L Low 3.7-5.1 [facility] Comment on above: Order Comment: Speci men Type: BLOOD SPECIMENOrdering Facility: [facility] Address: [address] [place] [address] Performed By: #### 2 4323-8 ####[facility] CENTERWKORINALIA [id number] [place] [address] [place] Protein [Mass/Vol] 8.5 g/dL High 6.3-8.0 [facility] Comment on above: Order Comment: Speci men Type: BLOOD SPECIMENOrdering Facility: [facility] Address: [address] [place] [address] Performed By: #### 2 4323-8 ####[facility] HOSPITALKORINALIRacheal [id number] [place] [address] [place] Sodium [Moles/Vol] 140 mmol/L Normal 136-144 [facility] Comment on above: Order Comment: Speci men Type: BLOOD SPECIMENOrdering Facility: [facility] Address: [address] [place] [address] Performed By: #### 2 4323-8 ####[facility] HOSPITALKORINALIA [id number] [place] [address] [place] Urea nitrogen [Mass/Vol] 14 mg/dL Normal 7-21 [facility] Comment on above: Order Comment: Speci men Type: BLOOD SPECIMENOrdering Facility: [facility] Address: [address] [place] [address] Performed By: #### 2 4323-8 ####[facility]ITALNCLIA [id number] [place] [address] [place] HBV core Ab Ser Qlon 024 HBV core Ab Ql (S) Negative Normal Negative [facility] Comment on above: Order Comment: Speci men Type: BLOOD SPECIMENOrdering Facility: [facility] Address: [address] [place] [address] Result Comment: No e vidence of current or past infection with Hepatitis B virus. Should recent infection be suspected, repeat testing may be considered 3-4 weeks after this draw. Performed By: #### 2 2322-2, 5195-3, 55381-8 ####[facility] LABCLIA [id number] [place] [address] [place] HBV surface Ab Ql (S)on 06-13 HBV surface Ab Qn (S) <8.00 Normal [facility] Comment on above: Order Comment: Speci men Type: BLOOD SPECIMENOrdering Facility: [facility] Address: [address] [place] [address] Result Comment: <8 m IU/mL: No serological evidence of immunity to Hepatitis B Virus. >/= 8 to <12 mIU/mL: No serological evidence of immunity to Hepatitis B Virus. >/= 12 mIU/mL: Consistent with serological evidence of immunity to Hepatitis B Virus. Performed By: #### 2 2322-2, 5195-3, 61044-0 ####[facility] LABCLIA [id number] [address] [place] HBV surface Ab Ser Qlon 06-13 HBV surface Ab Ql (S) Negative Normal [facility] Comment on above: Order Comment: Speci men Type: BLOOD SPECIMENOrdering Facility: [facility] Address: [address] [place] [address] Result Comment: No s erological evidence of immunity to Hepatitis B Virus. Performed By: #### 2 2322-2, 5195-3, 32259-8 ####[facility] LABCLIA [id number] [place] [address] [place] HBV surface Ag Ser Qlon 06-13 HBV surface Ag Ql (S) Negative Normal Negative [facility] Comment on above: Order Comment: Chente plascencia Type: BLOOD SPECIMENOrdering Facility: [facility] Address: [address] [place] [address] Performed By: #### 2 2322-2, 5195-3, 71554-7 ####[facility] LABCLIA [id number] [address] [place] HCV Ab Ser Qlon 06-23-2024 HCV Ab Ql (S) Negative Normal Negative [facility] Comment on above: Order Comment: Speci men Type: BLOOD SPECIMENOrdering Facility: [facility] Address: [address] [place] [address] Result Comment: The result suggests no evidence of active infection with Hepatitis C virus. Should recent infection be suspected, repeat testing may be considered 4-6 weeks after this draw. Performed By: #### 1 6128-1 ####[facility] LABCLIA [id number] [address] OF [facility] CNPSwati 05-28-2024 [facility] ECHO DUNN ([id number]) 1960 F Date Time Provider Department 05/28/24 MARK KEEN During your visit today, we recorded the following information about you: Marie Paz 05/28/2024 9:51 AM Signed Patient faxing records to [facility]. States she is still waiting for biopsy results from [facility]. Mark Keen DO 05/30/2024 7:28 PM Signed The good news is that biopsy is negative for cancer. 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 I took care of her both her mother and father years ago so I know she is distressed about this. Let's get all recent images uploaded from [facility] MILLIE and we'll get her to see one of the surgeons at [facility] to see if a surgical biopsy is indicated. DO Malvin Cotter Melanie, LPN 05/31/2024 7:56 AM Signed Left message for patient to contact office. Images requested from [facility]. ADELE Seymour Pamela S, LPN 05/31/2024 8:12 AM Signed Spoke with pt. Infomed that biopsy is negative for cancer. 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 Request for images to be pushed to [facility] were requested 05/28. Will await complete push thru and Dr. Keen will then request surgeon @ [facility] look to see if surgical BX is indicated. Pt. Voiced understanding . A[facility]LE [place] Melanie, LPN 06/03/2024 8:27 AM Signed Images uploaded. ADELE Seymour Paul A, DO 06/04/2024 12:43 PM Signed Can schedule her to see me next new appointment time. I'll see her first and then refer to surgeon if indicated. DO Aleks Cotter Stephanie 06/04/2024 1:38 PM Signed Left message for patient to return call. When she calls, please schedule first available New Patient with Dr. Keen. Carol Shah [facility] 06/04/2024 1:45 PM Signed Scheduled with patient Allergies As of Date: 05/28/2024 (No Known Allergies) Date Reviewed: 05/14/2006 Reviewed by: Joceline Chavez Lpn - Dario Reason for Visit: New Patient [172] Problem List As Of Date: 05/28/2024 (None) Encounter Status:Closed by PADMINI BENSON on 06/07/24 Normal [facility] CBC W/Diff, Automatedon - Absolute Lymph 0.85 X10 3/uL Normal 0.83-4.51 [facility] Comment on above: Performed By: #### L 300.3900, L300.4310 #### [facility] [address] [place], [address] Absolute Neut 3.6 X10 3/uL Normal 2.0-7.7 [facility] Comment on above: Performed By: #### L 300.3900, L300.4310 #### [facility] [address] [place], [address] Basophils/100 WBC (Bld) 0.6 % Normal 0-1 [facility] Comment on above: Performed By: #### L 300.3900, L300.4310 #### [facility] [address] [place], [address] Eosinophils/100 WBC (Bld) 2.5 % Normal 0-5 [facility] Comment on above: Performed By: #### L 300.3900, L300.4310 #### [facility] [address] [place], [address] Erythrocyte distribution width (RBC) [Ratio] 15.8 % High 11.6-14.6 [facility] Comment on above: Performed By: #### L 300.3900, L300.4310 #### [facility] [address] [place], [address] Hematocrit (Bld) [Volume fraction] 55.3 % High 37-47 [facility] Comment on above: Performed By: #### L 300.3900, L300.4310 #### [facility] [address] [place], [address] Hemoglobin (Bld) [Mass/Vol] 17.0 g/dL High 12.0-15.0 [facility] Comment on above: Performed By: #### L 300.3900, L300.4310 #### [facility] [address] [place], [address] IG% 0.200 Normal 0.0-0.9 [facility] Comment on above: Result Comment: IG% - Immature Granulocytes (promyelocytes, myelocytes and metamyelocytes) > 1% indicates that a LEFT SHIFT is Present. Performed By: #### L 300.3900, L300.4310 #### [facility] [address] [place], [address] Lymphocytes/100 WBC (Bld) 16.4 % Low 19-41 [facility] Comment on above: Performed By: #### L 300.3900, L300.4310 #### [facility] [address] [place], [address] MCH (RBC) [Entitic mass] 29.8 pg Normal 27.0-32.0 [facility] Comment on above: Performed By: #### L 300.3900, L300.4310 #### [facility] [address] [place], [address] MCHC (RBC) [Mass/Vol] 30.7 g/dL Low 32-36 [facility] Comment on above: Performed By: #### L 300.3900, L300.4310 #### [facility] [address] [place], [address] MCV (RBC) [Entitic vol] 96.8 fL Normal 81-99 [facility] Comment on above: Performed By: #### L 300.3900, L300.4310 #### [facility] [address] [place], [address] Monocytes/100 WBC (Bld) 10.6 % High 0-10 [facility] Comment on above: Performed By: #### L 300.3900, L300.4310 #### [facility] [address] [place], [address] Neutrophils/100 WBC (Bld) 69.7 % Normal 47-70 [facility] Comment on above: Performed By: #### L 300.3900, L300.4310 #### [facility] [address] [place], [address] Nucleated RBC (Bld) [#/Vol] 0 10*3/uL Normal 0-5 [facility] Comment on above: Performed By: #### L 300.3900, L300.4310 #### [facility] [address] [place], [address] Platelet mean volume (Bld) [Entitic vol] 11.2 fL Normal 6.2-12.0 [facility] Comment on above: Performed By: #### L 300.3900, L300.4310 #### [facility] [address] [place], [address] Platelets (Bld) [#/Vol] 141 10*3/uL Low 150-450 [facility] Comment on above: Performed By: #### L 300.3900, L300.4310 #### [facility] [address] [place], [address] RBC (Bld) [#/Vol] 5.71 10*6/uL High 4.2-5.4 [facility] Comment on above: Performed By: #### L 300.3900, L300.4310 #### [facility] [address] [place], [address] RDW SD 56.4 fl High 35.1-43.9 [facility] Comment on above: Performed By: #### L 300.3900, L300.4310 #### [facility] [address] [place], [address] WBC (Bld) [#/Vol] 5.2 10*3/uL Normal 4.4-11.0 [facility] Comment on above: Performed By: #### L 300.3900, L300.4310 #### [facility] [address] [place], [address] Comprehensive Metabolic Prof alshasha 05-27-2024 Albumin [Mass/Vol] 3.0 g/dL Low 3.2-5.0 [facility] Comment on above: Performed By: #### L 300.3900, L300.4310 #### [facility] Laboratory [address] [place], [address] Albumin/Globulin [Mass ratio] 0.8 {ratio} Low 0.9-2.4 [facility] Comment on above: Performed By: #### L 300.3900, L300.4310 #### [facility] Laboratory [address] [place], [address] ALK P 63 U/L Normal 45-117 [facility] Comment on above: Performed By: #### L 300.3900, L300.4310 #### [facility] Laboratory [address] [place], [address] ALT [Catalytic activity/Vol] 28 U/L Normal 13-56 [facility] Comment on above: Performed By: #### L 300.3900, L300.4310 #### [facility] Laboratory [address] [place], [address] AST [Catalytic activity/Vol] 29 U/L Normal 15-37 [facility] Comment on above: Performed By: #### L 300.3900, L300.4310 #### [facility] Laboratory [address] [place], [address] Bilirubin [Mass/Vol] 0.90 mg/dL Normal 0.20-1.[address] [facility] Comment on above: Result Comment: For patients on eltrombopag therapy, use of Dimension [place] TBIL is not recommended. Performed By: #### L 300.3900, L300.4310 #### [facility] Laboratory [address] [place], [address] BUN/CRE 27.1 RATIO High 10-20 [facility] Comment on above: Performed By: #### L 300.3900, L300.4310 #### [facility] Laboratory [address] [place], [address] CA,Total 9.2 mg/dL Normal 8.5-10.1 [facility] Comment on above: Performed By: #### L 300.3900, L300.4310 #### [facility] Laboratory [address] [place], [address] Chloride [Moles/Vol] 98 mmol/L Normal 98-[address] [facility] Comment on above: Performed By: #### L 300.3900, L300.4310 #### [facility] Laboratory [address] [place], [address] CO2 [Moles/Vol] 37.0 mmol/L High 21.0-32.0 [facility] Comment on above: Performed By: #### L 300.3900, L300.4310 #### [facility] Laboratory [address] [place], [address] Creatinine [Mass/Vol] 0.66 mg/dL Normal 0.55-1.02 [facility] Comment on above: Result Comment: The validity of the calculated GFR GFRAA in patients over 70 years has not been determined. Clinical correlation is essential. Performed By: #### L 300.3900, L300.4310 #### [facility] Laboratory [address] [place], [address] ECRCL 109.81 ml/min Normal [facility] Comment on above: Performed By: #### L 300.3900, L300.4310 #### [facility] Laboratory [address] [place], [address] EST GFR - AA 115 mL/min Normal >60 [facility] Comment on above: Result Comment: Afri can [place] GFR Calc Performed By: #### L 300.3900, L300.4310 #### [facility] Laboratory [address] [place], [address] GAP 4 Low 5-15 [facility] Comment on above: Performed By: #### L 300.3900, L300.4310 #### [facility] Laboratory [address] [place], [address] GFR/1.73 sq M.predicted among non-blacks MDRD (S/P/Bld) [Vol rate/Area] 95 mL/min/{1.73_m2} Normal >60 [facility] Comment on above: Result Comment: Non- GFR Calc Performed By: #### L 300.3900, L300.4310 #### [facility] Laboratory [address] [place], [address] Globulin (S) [Mass/Vol] 3.7 g/dL Normal 2.2-4.2 [facility] Comment on above: Performed By: #### L 300.3900, L300.4310 #### [facility] Laboratory [address] [place], [address] Glucose [Mass/Vol] 114 mg/dL High 74-106 [facility] Comment on above: Result Comment: Fast ing Glucose result from 100 to 125 mg/dL suggests IMPAIRED HOMEOSTASIS per A.D.A. criteria. Performed By: #### L 300.3900, L300.4310 #### [facility] Laboratory [address] [place], [address] Potassium [Moles/Vol] 3.7 mmol/L Normal 3.5-5.1 [facility] Comment on above: Performed By: #### L 300.3900, L300.4310 #### [facility] Laboratory [address] [place], [address] Sodium [Moles/Vol] 139 mmol/L Normal 136-145 [facility] Comment on above: Performed By: #### L 300.3900, L300.4310 #### [facility] Laboratory [address] [place], [address] T PROT 6.7 g/dL Normal 6.4-8.2 [facility] Comment on above: Performed By: #### L 300.3900, L300.4310 #### [facility] Laboratory [address] [place], [address] Urea nitrogen [Mass/Vol] 18 mg/dL Normal 7-18 [facility] Comment on above: Performed By: #### L 300.3900, L300.4310 #### [facility] Laboratory [address] [place], [address] Biopsy/Inj or Needle Placeme nton 05-26-2024 Biopsy/Inj or Needle Placement [facility] Imaging Services [address] [place] [address] Biopsy/Inj or Needle Placement MR#: [id number] Acct: [id number] Name: ECHO DUNN Rep #: [id number] : 1960 F [id number] From: Bryant august MD PCP: Dr. Kourtney Bergman MD Status: ADM IN Study: Biopsy/Inj or Needle Placement Date of Exam: 07/26/23 Exam# [id number] Ordering Dr: Lisa Romero DO [id number] PROCEDURE: CT DIRECTED CORE LIVER BIOPSY INDICATION: Female, 64 years old. Liver mass PHYSICIAN: Dr. Cralita Morrison CONSENT: Written informed consent was obtained having explained the risks, benefits and alternatives in detail with the patient who accepted the risks and agreed to proceed. Laboratory review and clinical assessment was performed. CONSCIOUS SEDATION PROTOCOL: The Drugs used were: 2 mg Versed, IV., and 50 mcg Fentanyl, IV. The sedation time was: 20 minutes. Conscious sedation was started at 9:26 AM and terminated at 9:46 AM. The conscious sedation protocol was independently monitored. RADIATION DOSAGE (If Supplied By Facility): CTDIvol = ( 29 ) mGy, DLP = ( 956.79 ) mGycm Individualized dose optimization techniques were used for this CT. TECHNIQUE: Using CT image guidance with image documentation, a suitable location in the left lobe of the liver was identified. Using an anterior approach, puncture of the liver was uneventful with an 18-gauge core needle system. 5, 18-gauge core samples were obtained, and submitted in formalin to the pathologist for further assessment. Followup CT scan revealed no distinct sequelae. CT/Biopsy/Inj or Needle Placement IMPRESSION: 1. CT directed core needle biopsy of the liver, using CT image guidance with image documentation as described. 2. Conscious Sedation protocol utilized with independent monitoring. Electronically Signed: Bryant Zazueta MD at 10:25 EST , CC: Dr. Kourtney Bergman MD; Dr. Lisa Romero DO Occ Med Physician: Signed Normal [facility] CBC W/Diff, Automated05-14 Absolute Lymph 1.05 X10 3/uL Normal 0.83-4.51 [facility] Comment on above: Performed By: #### L 300.3900, L300.4310 #### [facility] Laboratory [address] [place], [address] Absolute Neut 3.7 X10 3/uL Normal 2.0-7.7 [facility] Comment on above: Performed By: #### L 300.3900, L300.4310 #### [facility] Laboratory [address] [place], [address] Basophils/100 WBC (Bld) 0.6 % Normal 0-1 [facility] Comment on above: Performed By: #### L 300.3900, L300.4310 #### [facility] Laboratory [address] [place], [address] Eosinophils/100 WBC (Bld) 2.4 % Normal 0-5 [facility] Comment on above: Performed By: #### L 300.3900, L300.4310 #### [facility] Laboratory [address] [place], [address] Erythrocyte distribution width (RBC) [Ratio] 15.6 % High 11.6-14.6 [facility] Comment on above: Performed By: #### L 300.3900, L300.4310 #### [facility] Laboratory [address] [place], [address] Hematocrit (Bld) [Volume fraction] 54.6 % High 37-47 [facility] Comment on above: Performed By: #### L 300.3900, L300.4310 #### [facility] Laboratory [address] [place], [address] Hemoglobin (Bld) [Mass/Vol] 16.9 g/dL High 12.0-15.0 [facility] Comment on above: Performed By: #### L 300.3900, L300.4310 #### [facility] Laboratory [address] [place], [address] IG% 0.200 Normal 0.0-0.9 [facility] Comment on above: Result Comment: IG% - Immature Granulocytes (promyelocytes, myelocytes and metamyelocytes) > 1% indicates that a LEFT SHIFT is Present. Performed By: #### L 300.3900, L300.4310 #### [facility] Laboratory [address] [place], [address] Lymphocytes/100 WBC (Bld) 19.4 % Normal 19-41 [facility] Comment on above: Performed By: #### L 300.3900, L300.4310 #### [facility] Laboratory [address] [place], [address] MCH (RBC) [Entitic mass] 29.8 pg Normal 27.0-32.0 [facility] Comment on above: Performed By: #### L 300.3900, L300.4310 #### [facility] Laboratory [address] [place], [address] MCHC (RBC) [Mass/Vol] 31.0 g/dL Low 32-36 [facility] Comment on above: Performed By: #### L 300.3900, L300.4310 #### [facility] Laboratory [address] [place], [address] MCV (RBC) [Entitic vol] 96.1 fL Normal 81-99 [facility] Comment on above: Performed By: #### L 300.3900, L300.4310 #### [facility] Laboratory [address] [place], [address] Monocytes/100 WBC (Bld) 9.8 % Normal 0-10 [facility] Comment on above: Performed By: #### L 300.3900, L300.4310 #### [facility] Laboratory [address] [place], [address] Neutrophils/100 WBC (Bld) 67.6 % Normal 47-70 [facility] Comment on above: Performed By: #### L 300.3900, L300.4310 #### [facility] Laboratory [address] [place], [address] Nucleated RBC (Bld) [#/Vol] 0 10*3/uL Normal 0-5 [facility] Comment on above: Performed By: #### L 300.3900, L300.4310 #### [facility] Laboratory [address] [place], [address] Platelet mean volume (Bld) [Entitic vol] 11.2 fL Normal 6.2-12.0 [facility] Comment on above: Performed By: #### L 300.3900, L300.4310 #### [facility] Laboratory [address] [place], [address] Platelets (Bld) [#/Vol] 137 10*3/uL Low 150-450 [facility] Comment on above: Performed By: #### L 300.3900, L300.4310 #### [facility] Laboratory [address] [place], [address] RBC (Bld) [#/Vol] 5.68 10*6/uL High 4.2-5.4 [facility] Comment on above: Performed By: #### L 300.3900, L300.4310 #### [facility] Laboratory [address] [place], [address] RDW SD 54.5 fl High 35.1-43.9 [facility] Comment on above: Performed By: #### L 300.3900, L300.4310 #### [facility] Laboratory [address] [place], [address] WBC (Bld) [#/Vol] 5.4 10*3/uL Normal 4.4-11.0 [facility] Comment on above: Performed By: #### L 300.3900, L300.4310 #### [facility] Laboratory [address] [place], [address] Comprehensive Metabolic Prof [facility] 05-26-2024 Albumin [Mass/Vol] 2.9 g/dL Low 3.2-5.0 [facility] Comment on above: Performed By: #### L 300.3900, L300.4310 #### [facility] Laboratory [address] [place], [address] Albumin/Globulin [Mass ratio] 0.9 {ratio} Normal 0.9-2.4 [facility] Comment on above: Performed By: #### L 300.3900, L300.4310 #### [facility] Laboratory [address] [place], [address] ALK P 59 U/L Normal 45-117 [facility] Comment on above: Performed By: #### L 300.3900, L300.4310 #### [facility] Laboratory [address] [place], [address] ALT [Catalytic activity/Vol] 21 U/L Normal 13-56 [facility] Comment on above: Performed By: #### L 300.3900, L300.4310 #### [facility] Laboratory [address] [place], [address] AST [Catalytic activity/Vol] 27 U/L Normal 15-37 [facility] Comment on above: Result Comment: Slig ht Hemolysis, Result may be falsely increased. Performed By: #### L 300.3900, L300.4310 #### [facility] Laboratory [address] [place], [address] Bilirubin [Mass/Vol] 0.90 mg/dL Normal 0.20-1.[address] [facility] Comment on above: Result Comment: For patients on eltrombopag therapy, use of Dimension [place] TBIL is not recommended. Performed By: #### L 300.3900, L300.4310 #### [facility] Laboratory [address] [place], [address] BUN/CRE 28.3 RATIO High 10-20 [facility] Comment on above: Performed By: #### L 300.3900, L300.4310 #### [facility] Laboratory [address] [place], [address] CA,Total 9.2 mg/dL Normal 8.5-10.1 [facility] Comment on above: Performed By: #### L 300.3900, L300.4310 #### [facility] Laboratory [address] [place], [address] Chloride [Moles/Vol] 97 mmol/L Low 98-[address] [facility] Comment on above: Performed By: #### L 300.3900, L300.4310 #### [facility] Laboratory [address] [place], [address] CO2 [Moles/Vol] 39.0 mmol/L High 21.0-32.0 [facility] Comment on above: Performed By: #### L 300.3900, L300.4310 #### [facility] Laboratory [address] [place], [address] Creatinine [Mass/Vol] 0.56 mg/dL Normal 0.55-1.02 [facility] Comment on above: Result Comment: The validity of the calculated GFR GFRAA in patients over 70 years has not been determined. Clinical correlation is essential. Performed By: #### L 300.3900, L300.4310 #### [facility] Laboratory [address] [place], [address] ECRCL 129.36 ml/min Normal [facility] Comment on above: Performed By: #### L 300.3900, L300.4310 #### [facility] Laboratory [address] [place], [address] EST GFR - AA 139 mL/min Normal >60 [facility] Comment on above: Result Comment: Afri can [place] GFR Calc Performed By: #### L 300.3900, L300.4310 #### [facility] Laboratory [address] [place], [address] GAP 2 Low 5-15 [facility] Comment on above: Performed By: #### L 300.3900, L300.4310 #### [facility] Laboratory [address] [place], [address] GFR/1.73 sq M.predicted among non-blacks MDRD (S/P/Bld) [Vol rate/Area] 115 mL/min/{1.73_m2} Normal >60 [facility] Comment on above: Result Comment: Non- GFR Calc Performed By: #### L 300.3900, L300.4310 #### [facility] Laboratory [address] [place], [address] Globulin (S) [Mass/Vol] 3.4 g/dL Normal 2.2-4.2 [facility] Comment on above: Performed By: #### L 300.3900, L300.4310 #### [facility] Laboratory [address] [place], [address] Glucose [Mass/Vol] 111 mg/dL High 74-106 [facility] Comment on above: Result Comment: Fast ing Glucose result from 100 to 125 mg/dL suggests IMPAIRED HOMEOSTASIS per A.D.A. criteria. Performed By: #### L 300.3900, L300.4310 #### [facility] Laboratory [address] [place], [address] Potassium [Moles/Vol] 3.6 mmol/L Normal 3.5-5.1 [facility] Comment on above: Result Comment: Slig ht Hemolysis, Result may be falsely increased. Performed By: #### L 300.3900, L300.4310 #### [facility] Laboratory [address] [place], [address] Sodium [Moles/Vol] 138 mmol/L Normal 136-145 [facility] Comment on above: Performed By: #### L 300.3900, L300.4310 #### [facility] Laboratory [address] [place], [address] T PROT 6.3 g/dL Low 6.4-8.2 [facility] Comment on above: Performed By: #### L 300.3900, L300.4310 #### [facility] Laboratory [address] [place], [address] Urea nitrogen [Mass/Vol] 16 mg/dL Normal 7-18 [facility] Comment on above: Performed By: #### L 300.3900, L300.4310 #### [facility] [place], [address] Special Stain Group IIon Special Stain Group II ----- ---- Patient Age/Sex Location Account Attending Physician ---- ECHO DUNN 64/F [facility] [id number] Dr. Nirav Bolden MD ---- Specimen: [id number] Received: 05/26/24 Status: DEENA Conner Num: [id number] Spec Type: ASP RAD Shavonne Dr: Dr. Nirav Bolden MD HEADER OPERATION: CT guided liver biopsy PRE-OP DIAGNOSIS: Liver lesion TISSUE SUBMITTED: 18 gauge x 5 cores ---- MICROSCOPIC DIAGNOSIS Liver lesion, CT guided core biopsy: Liver parenchymal tissue with fibrosis, hyalinization and degenerative changes. Negative for malignancy. See comment. [email or web address] 05/27/2024 COMMENT The specimen is evaluated at the time of biopsy by Dr. Galo. Immediate Evaluation = Negative for malignant cells. Reported to Dr. Zazueta at 9:45am on . The lesion may represent hyalinized hemangioma with extensive degenerative changes. Correlation with clinical, radiologic findings and appropriate follow up are necessary. Rebiopsy of the lesion is suggested, if clinically indicated. Case has been reviewed in consultation with Dr. Muir who concurs with the above diagnosis. IDC:[email or web address] MICROSCOPIC DESCRIPTION Slides are reviewed. GROSS DESCRIPTION Received in fixative is one container labeled with the patient's name and designated Liver lesion. The specimen consists of multiple irregular fragments of veliz soft tissue that in aggregate measure 2.0 x 0.2 x 0.1 cm. The specimen is totally submitted in one cassette. Two touch imprints are prepared at the time of core biopsy. SJ. 05/26/2024 TC:5 [facility]:[id number] ---- Patient Age/Sex Location Account Attending Physician ---- ECHO DUNN 64/F U [id number] Dr. Nirav Bolden MD ---- Signed (signature on file) Dr. Douglas Galo MD 05/27/24 1203 ---- Normal [facility] Comment on above: Performed By: #### L 300.3900, L300.4310 #### [facility] Laboratory [address] [place], [address] CBC W/Diff, Automatedon 05-14 Hematocrit (Bld) [Volume fraction] 56.3 % High 37-47 [facility] Comment on above: Performed By: #### L 501.2300, L501.5200, L500.4050, L100.0100 #### [facility] Laboratory [address] [place], [address] Absolute Lymph 1.00 X10 3/uL Normal 0.83-4.51 [facility] Comment on above: Performed By: #### L 501.2300, L501.5200, L500.4050, L100.0100 #### [facility] Laboratory [address] [place], [address] Absolute Neut 4.2 X10 3/uL Normal 2.0-7.7 [facility] Comment on above: Performed By: #### L 501.2300, L501.5200, L500.4050, L100.0100 #### [facility] Laboratory [address] [place], [address] Basophils/100 WBC (Bld) 0.5 % Normal 0-1 [facility] Comment on above: Performed By: #### L 501.2300, L501.5200, L500.4050, L100.0100 #### [facility] Laboratory [address] [place], [address] Eosinophils/100 WBC (Bld) 1.5 % Normal 0-5 [facility] Comment on above: Performed By: #### L 501.2300, L501.5200, L500.4050, L100.0100 #### [facility] Laboratory [address] [place], [address] Erythrocyte distribution width (RBC) [Ratio] 15.9 % High 11.6-14.6 [facility] Comment on above: Performed By: #### L 501.2300, L501.5200, L500.4050, L100.0100 #### [facility] Laboratory [address] [place], [address] Hemoglobin (Bld) [Mass/Vol] 17.2 g/dL High 12.0-15.0 [facility] Comment on above: Performed By: #### L 501.2300, L501.5200, L500.4050, L100.0100 #### [facility] Laboratory [address] [place], [address] IG% 0.700 Normal 0.0-0.9 [facility] Comment on above: Result Comment: IG% - Immature Granulocytes (promyelocytes, myelocytes and metamyelocytes) > 1% indicates that a LEFT SHIFT is Present. Performed By: #### L 501.2300, L501.5200, L500.4050, L100.0100 #### [facility] Laboratory [address] [place], [address] Lymphocytes/100 WBC (Bld) 16.9 % Low 19-41 [facility] Comment on above: Performed By: #### L 501.2300, L501.5200, L500.4050, L100.0100 #### [facility] Laboratory [address] [place], [address] MCH (RBC) [Entitic mass] 29.6 pg Normal 27.0-32.0 [facility] Comment on above: Performed By: #### L 501.2300, L501.5200, L500.4050, L100.0100 #### [facility] Laboratory [address] [place], [address] MCHC (RBC) [Mass/Vol] 30.6 g/dL Low 32-36 [facility] Comment on above: Performed By: #### L 501.2300, L501.5200, L500.4050, L100.0100 #### [facility] Laboratory [address] [place], [address] MCV (RBC) [Entitic vol] 96.9 fL Normal 81-99 [facility] Comment on above: Performed By: #### L 501.2300, L501.5200, L500.4050, L100.0100 #### [facility] Laboratory [address] [place], [address] Monocytes/100 WBC (Bld) 8.6 % Normal 0-10 [facility] Comment on above: Performed By: #### L 501.2300, L501.5200, L500.4050, L100.0100 #### [facility] Laboratory [address] [place], [address] Neutrophils/100 WBC (Bld) 71.8 % High 47-70 [facility] Comment on above: Performed By: #### L 501.2300, L501.5200, L500.4050, L100.0100 #### [facility] [address] [place], [address] Nucleated RBC (Bld) [#/Vol] 0 10*3/uL Normal 0-5 [facility] Comment on above: Performed By: #### L 501.2300, L501.5200, L500.4050, L100.0100 #### [facility] [address] [place], [address] Platelet mean volume (Bld) [Entitic vol] 11.0 fL Normal 6.2-12.0 [facility] Comment on above: Performed By: #### L 501.2300, L501.5200, L500.4050, L100.0100 #### [facility] [address] [place], [address] Platelets (Bld) [#/Vol] 130 10*3/uL Low 150-450 [facility] Comment on above: Performed By: #### L 501.2300, L501.5200, L500.4050, L100.0100 #### [facility] [address] [place], [address] RBC (Bld) [#/Vol] 5.81 10*6/uL High 4.2-5.4 [facility] Comment on above: Performed By: #### L 501.2300, L501.5200, L500.4050, L100.0100 #### [facility] [address] [place], [address] RDW SD 56.6 fl High 35.1-43.9 [facility] Comment on above: Performed By: #### L 501.2300, L501.5200, L500.4050, L100.0100 #### [facility] [address] [place], [address] WBC (Bld) [#/Vol] 5.9 10*3/uL Normal 4.4-11.0 [facility] Comment on above: Performed By: #### L 501.2300, L501.5200, L500.4050, L100.0100 #### [facility] [address] [place], [address] Comprehensive Metabolic Prof ilon 05-25-2024 Albumin [Mass/Vol] 2.8 g/dL Low 3.2-5.0 [facility] Comment on above: Performed By: #### L 501.2300, L501.5200, L500.4050, L100.0100 #### [facility] [address] [place], [address] Albumin/Globulin [Mass ratio] 0.8 {ratio} Low 0.9-2.4 [facility] Comment on above: Performed By: #### L 501.2300, L501.5200, L500.4050, L100.0100 #### [facility] [address] [place], [address] ALK P 66 U/L Normal 45-117 [facility] Comment on above: Performed By: #### L 501.2300, L501.5200, L500.4050, L100.0100 #### [facility] [address] [place], [address] ALT [Catalytic activity/Vol] 24 U/L Normal 13-56 [facility] Comment on above: Performed By: #### L 501.2300, L501.5200, L500.4050, L100.0100 #### [facility] [address] [place], [address] AST [Catalytic activity/Vol] 22 U/L Normal 15-37 [facility] Comment on above: Performed By: #### L 501.2300, L501.5200, L500.4050, L100.0100 #### [facility] [address] [place], [address] Bilirubin [Mass/Vol] 0.70 mg/dL Normal 0.20-1.[address] [facility] Comment on above: Result Comment: For patients on eltrombopag therapy, use of Dimension [place] TBIL is not recommended. Performed By: #### L 501.2300, L501.5200, L500.4050, L100.0100 #### [facility] [address] [place], [address] BUN/CRE 29.2 RATIO High 10-20 [facility] Comment on above: Performed By: #### L 501.2300, L501.5200, L500.4050, L100.0100 #### [facility] [address] [place], [address] CA,Total 9.2 mg/dL Normal 8.5-10.1 [facility] Comment on above: Performed By: #### L 501.2300, L501.5200, L500.4050, L100.0100 #### [facility] [address] [place], [address] Chloride [Moles/Vol] 94 mmol/L Low 98-[address] [facility] Comment on above: Performed By: #### L 501.2300, L501.5200, L500.4050, L100.0100 #### [facility] [address] [place], [address] CO2 [Moles/Vol] 40.0 mmol/L High 21.0-32.0 [facility] Comment on above: Performed By: #### L 501.2300, L501.5200, L500.4050, L100.0100 #### [facility] [address] [place], [address] Creatinine [Mass/Vol] 0.51 mg/dL Low 0.55-1.02 [facility] Comment on above: Result Comment: The validity of the calculated GFR GFRAA in patients over 70 years has not been determined. Clinical correlation is essential. Performed By: #### L 501.2300, L501.5200, L500.4050, L100.0100 #### [facility] [address] [place], [address] ECRCL 142.75 ml/min Normal [facility] Comment on above: Performed By: #### L 501.2300, L501.5200, L500.4050, L100.0100 #### [facility] [address] [place], [address] EST GFR - AA 155 mL/min Normal >60 [facility] Comment on above: Result Comment: Afri can [place] GFR Calc Performed By: #### L 501.2300, L501.5200, L500.4050, L100.0100 #### [facility] [address] [place], [address] GAP 4 Low 5-15 [facility] Comment on above: Performed By: #### L 501.2300, L501.5200, L500.4050, L100.0100 #### [facility] [address] [place], [address] GFR/1.73 sq M.predicted among non-blacks MDRD (S/P/Bld) [Vol rate/Area] 128 mL/min/{1.73_m2} Normal >60 [facility] Comment on above: Result Comment: Non- GFR Calc Performed By: #### L 501.2300, L501.5200, L500.4050, L100.0100 #### [facility] [address] [place], [address] Globulin (S) [Mass/Vol] 3.5 g/dL Normal 2.2-4.2 [facility] Comment on above: Performed By: #### L 501.2300, L501.5200, L500.4050, L100.0100 #### [facility] [address] [place], [address] Glucose [Mass/Vol] 109 mg/dL High 74-106 [facility] Comment on above: Result Comment: Fast ing Glucose result from 100 to 125 mg/dL suggests IMPAIRED HOMEOSTASIS per A.D.A. criteria. Performed By: #### L 501.2300, L501.5200, L500.4050, L100.0100 #### [facility] [address] [place], [address] Potassium [Moles/Vol] 3.2 mmol/L Low 3.5-5.1 [facility] Comment on above: Performed By: #### L 501.2300, L501.5200, L500.4050, L100.0100 #### [facility] [address] [place], [address] Sodium [Moles/Vol] 138 mmol/L Normal 136-145 [facility] Comment on above: Performed By: #### L 501.2300, L501.5200, L500.4050, L100.0100 #### [facility] [address] [place], [address] T PROT 6.3 g/dL Low 6.4-8.2 [facility] Comment on above: Performed By: #### L 501.2300, L501.5200, L500.4050, L100.0100 #### [facility] [address] [place], [address] Urea nitrogen [Mass/Vol] 15 mg/dL Normal 7-18 [facility] Comment on above: Performed By: #### L 501.2300, L501.5200, L500.4050, L100.0100 #### [facility] [address] [place], [address] Magnesiumon 05-25-2024 Magnesium [Mass/Vol] 1.9 mg/dL Normal 1.6-2.[address] [facility] Comment on above: Performed By: #### L 501.2300, L501.5200, L500.4050, L100.0100 #### [facility] [address] [place], [address] Partial Thromboplast Timeon 05-25-2024 aPTT Coag (Bld) [Time] 26.3 s Normal 24.1-36.2 [facility] Comment on above: Performed By: #### L 300.3900, L300.4310 #### [facility] [address] [place], [address] Phosphoruson 05-25-2024 Phosphate [Mass/Vol] 3.8 mg/dL Normal 2.5-4.[address] [facility] Comment on above: Performed By: #### L 501.2300, L501.5200, L500.4050, L100.0100 #### [facility] [address] [place], [address] Prothrombin Time w/INRon INR Coag (PPP) [Relative time] 1.0 {INR} Normal [facility] Comment on above: Performed By: #### L 300.3900, L300.4310 #### [facility] [address] [place], [address] PT Coag (PPP) [Time] 13.5 s Normal 11.7-14.[address] [facility] Comment on above: Performed By: #### L 300.3900, L300.4310 #### [facility] [address] [place], [address] Basic Metabolic Profile (BMP )on 05-24-2024 BUN/CRE 36.0 RATIO High 10-20 [facility] Comment on above: Performed By: #### L 500.2500, L100.0100 #### [facility] [address] [place], [address] CA,Total 9.1 mg/dL Normal 8.5-10.1 [facility] Comment on above: Performed By: #### L 500.2500, L100.0100 #### [facility] [address] [place], [address] Chloride [Moles/Vol] 94 mmol/L Low 98-[address] [facility] Comment on above: Performed By: #### L 500.2500, L100.0100 #### [facility] [address] [place], [address] CO2 [Moles/Vol] 39.0 mmol/L High 21.0-32.0 [facility] Comment on above: Performed By: #### L 500.2500, L100.0100 #### [facility] [address] [place], [address] Creatinine [Mass/Vol] 0.56 mg/dL Normal 0.55-1.02 [facility] Comment on above: Result Comment: The validity of the calculated GFR GFRAA in patients over 70 years has not been determined. Clinical correlation is essential. Performed By: #### L 500.2500, L100.0100 #### [facility] [address] [place], [address] ECRCL 130.71 ml/min Normal [facility] Comment on above: Performed By: #### L 500.2500, L100.0100 #### [facility] [address] [place], [address] EST GFR - AA 142 mL/min Normal >60 [facility] Comment on above: Result Comment: Afri can [place] GFR Calc Performed By: #### L 500.2500, L100.0100 #### [facility] [address] [place], [address] GAP 4 Low 5-15 [facility] Comment on above: Performed By: #### L 500.2500, L100.0100 #### [facility] [address] [place], [address] GFR/1.73 sq M.predicted among non-blacks MDRD (S/P/Bld) [Vol rate/Area] 117 mL/min/{1.73_m2} Normal >60 [facility] Comment on above: Result Comment: Non- GFR Calc Performed By: #### L 500.2500, L100.0100 #### [facility] [address] [place], [address] Glucose [Mass/Vol] 105 mg/dL Normal 74-106 [facility] Comment on above: Result Comment: Fast ing Glucose result from 100 to 125 mg/dL suggests IMPAIRED HOMEOSTASIS per A.D.A. criteria. Performed By: #### L 500.2500, L100.0100 #### [facility] [address] [place], [address] Potassium [Moles/Vol] 3.4 mmol/L Low 3.5-5.1 [facility] Comment on above: Performed By: #### L 500.2500, L100.0100 #### [facility] [address] [place], [address] Sodium [Moles/Vol] 138 mmol/L Normal 136-145 [facility] Comment on above: Performed By: #### L 500.2500, L100.0100 #### [facility] [address] [place], [address] Urea nitrogen [Mass/Vol] 20 mg/dL High 7-18 [facility] Comment on above: Performed By: #### L 500.2500, L100.0100 #### [facility] [address] [place], [address] CBC W/Diff, Automatedon 11-1 Hematocrit (Bld) [Volume fraction] 56.1 % High 37-47 [facility] Comment on above: Performed By: #### L 500.2500, L100.0100 #### [facility] [address] [place], [address] Absolute Lymph 1.07 X10 3/uL Normal 0.83-4.51 [facility] Comment on above: Performed By: #### L 500.2500, L100.0100 #### [facility] [address] [place], [address] Absolute Neut 4.5 X10 3/uL Normal 2.0-7.7 [facility] Comment on above: Performed By: #### L 500.2500, L100.0100 #### [facility] [address] [place], [address] Basophils/100 WBC (Bld) 0.8 % Normal 0-1 [facility] Comment on above: Performed By: #### L 500.2500, L100.0100 #### [facility] [address] [place], [address] Eosinophils/100 WBC (Bld) 0.8 % Normal 0-5 [facility] Comment on above: Performed By: #### L 500.2500, L100.0100 #### [facility] [address] [place], [address] Erythrocyte distribution width (RBC) [Ratio] 16.4 % High 11.6-14.6 [facility] Comment on above: Performed By: #### L 500.2500, L100.0100 #### [facility] [address] [place], [address] Hemoglobin (Bld) [Mass/Vol] 17.4 g/dL High 12.0-15.0 [facility] Comment on above: Performed By: #### L 500.2500, L100.0100 #### [facility] [address] [place], [address] IG% 0.300 Normal 0.0-0.9 [facility] Comment on above: Result Comment: IG% - Immature Granulocytes (promyelocytes, myelocytes and metamyelocytes) > 1% indicates that a LEFT SHIFT is Present. Performed By: #### L 500.2500, L100.0100 #### [facility] [address] [place], [address] Lymphocytes/100 WBC (Bld) 17.3 % Low 19-41 [facility] Comment on above: Performed By: #### L 500.2500, L100.0100 #### [facility] [address] [place], [address] MCH (RBC) [Entitic mass] 30.1 pg Normal 27.0-32.0 [facility] Comment on above: Performed By: #### L 500.2500, L100.0100 #### [facility] [address] [place], [address] MCHC (RBC) [Mass/Vol] 31.0 g/dL Low 32-36 [facility] Comment on above: Performed By: #### L 500.2500, L100.0100 #### [facility] [address] [place], [address] MCV (RBC) [Entitic vol] 97.1 fL Normal 81-99 [facility] Comment on above: Performed By: #### L 500.2500, L100.0100 #### [facility] [address] [place], [address] Monocytes/100 WBC (Bld) 9.0 % Normal 0-10 [facility] Comment on above: Performed By: #### L 500.2500, L100.0100 #### [facility] [address] [place], [address] Neutrophils/100 WBC (Bld) 71.8 % High 47-70 [facility] Comment on above: Performed By: #### L 500.2500, L100.0100 #### [facility] [address] [place], [address] Nucleated RBC (Bld) [#/Vol] 0 10*3/uL Normal 0-5 [facility] Comment on above: Performed By: #### L 500.2500, L100.0100 #### [facility] [address] [place], [address] Platelet mean volume (Bld) [Entitic vol] 11.2 fL Normal 6.2-12.0 [facility] Comment on above: Performed By: #### L 500.2500, L100.0100 #### [facility] [address] [place], [address] Platelets (Bld) [#/Vol] 143 10*3/uL Low 150-450 [facility] Comment on above: Performed By: #### L 500.2500, L100.0100 #### [facility] [address] [place], [address] RBC (Bld) [#/Vol] 5.78 10*6/uL High 4.2-5.4 [facility] Comment on above: Performed By: #### L 500.2500, L100.0100 #### [facility] [address] [place], [address] RDW SD 57.1 fl High 35.1-43.9 [facility] Comment on above: Performed By: #### L 500.2500, L100.0100 #### [facility] [address] [place], [address] WBC (Bld) [#/Vol] 6.2 10*3/uL Normal 4.4-11.0 [facility] Comment on above: Performed By: #### L 500.2500, L100.0100 #### [facility] [address] [place], [place], [id number] MRI Abd WITH and W/O Contras ton 05-24-2024 MRI Abd WITH and W/O Contrast [facility] Imaging Services [address] [place], [place] [address] MRI Abd WITH and W/O Contrast MR#: [id number] Acct: [id number] Name: ECHO DUNN Rep #: [id number] : 1960 F 64 From: Nirav Louise PCP: Dr. Kourtney Bergman MD Status: ADM IN Study: MRI Abd WITH and W/O Contrast Date of Exam: Exam# [id number] Ordering Dr: Nirav Bolden MD ADDENDUM by Dr. Nirav Zuñiga MD on 05/25/24 at 2122 ====== ADDENDUM ====== [id number] In addition to biliary cystadenocarcinoma and cystic peripheral cholangiocarcinoma (CCA), also consider mucinous cystic neoplasm (MCN) of the liver. The progressive enhancement of the solid components, however is unusual for MCN, and would favor peripheral CCA. Cystic HCC is considered less likely in the absence of ostensible liver disease (ie cirrhosis). Electronically Signed: Nirav Zuñiga MD at 23:29 EST , 05/25/242328 Date cc: Dr. Kourtney Bergman MD; Dr. Nirav Bolden MD * Signed ADDENDUM by Dr. Nirav Zuñiga MD on 05/25/24 at 2329 MRI/MRI Abd WITH and W/O Contrast IMPRESSION: undefined 05/25/24 233 Date cc: Dr. Kourtney Bergman MD; Dr. Nirav Bolden MD * Signed [id number] INDICATION: Liver mass, F/U TO FINDINGS ON CT EXAMINATION: MRI - MR Abdomen WO/W Contrast TECHNIQUE: Multiplanar, multisequential MRI examination of the abdomen was performed with sequences acquired before and after the administration of intravenous gadolinium. MCRP sequences also obtained with 3-D reconstructions. IV Contrast Dosage and Agent: 15 mL dotarem COMPARISON: CT abdomen/pelvis dated 05/23/2024 FINDINGS: LOWER CHEST: Trace pleural effusion with accompanying atelectasis. Mild cardiomegaly. No pericardial effusion. LIVER: The liver is normal in size, contour and morphology. As seen on the prior CT, there is a solid and cystic heterogeneously enhancing mass along the posteroinferior aspect of the lateral segment, with the bulk of the tumor measuring 6.4 x 5.4 x 3.9 cm. The solid components of the mass exhibits progressive enhancement. There is an adjacent 1.6 cm component along the anterosuperior aspect of the mass, as seen on series 1002, image 28 which also exhibits aggressive enhancement. There is restricted diffusion associated with the more solid, enhancing components. The cystic/necrotic components show mild T2 hyperintensity. There is a subcentimeter cyst in hepatic segment 7 which is benign. GALLBLADDER AND BILIARY TREE: No filling defects in the gallbladder. No gallbladder distension or wall edema. No intra- or extrahepatic biliary ductal dilation. PANCREAS: No inflammation or mass. No pancreatic ductal dilation. SPLEEN: Normal size. No focal lesions. ADRENAL GLANDS: Unremarkable. KIDNEYS: Normal size and morphology. No hydronephrosis. Bilateral simple renal cysts are benign. No follow-up imaging recommended for these. No suspicious renal cysts or masses. GI: Tiny hiatal hernia. Stomach and included portions of the GI tract are unremarkable. PERITONEUM: No ascites or free air. LYMPH NODES: No lymphadenopathy. VESSELS: Unremarkable. OSSEOUS STRUCTURES: No fractures. No suspicious marrow signal abnormalities. MRI/MRI Abd WITH and W/O Contrast IMPRESSION: * Solid and cystic and/or necrotic mass in the lateral segment of the liver measuring up to 6.4 cm, compatible with a primary liver malignancy. Favored diagnostic considerations include biliary cystadenocarcinoma and cystic peripheral cholangiocarcinoma. * No lymphadenopathy or evidence of metastatic disease. Electronically Signed: Nirav Zuñiga MD at 23:23 EST , CC: Dr. Kourtney Bergman MD; Dr. Nirav Bolden MD Occ Med Physician: Signed Normal [facility] Pelvic w/ Transvaginalon Pelvic w/ Transvaginal [facility] Imaging Services [address] [place] [address] Pelvic w/ Transvaginal MR#: [id number] Acct: [id number] Name: ECHO DUNN Rep #: [id number] : 1960 F 64 From: Ekaterina Louise PCP: Dr. Kourtney Bergman MD Status: ADM IN Study: Pelvic w/ Transvaginal Date of Exam: 05/24/24 Exam# [id number] Ordering Dr: Lisa Romero DO [id number] INDICATION: Uterine mass -- Uterine mass EXAMINATION: Ultrasound US Pelvis Non OB Complete With Transvaginal Imaging TECHNIQUE: Transabdominal and transvaginal pelvic ultrasound was performed. Grayscale, spectral waveform, and color flow Doppler evaluation of the adnexa. COMPARISON: Prior study dated: CT abdomen and pelvis 05/23/2024 LMP: 20 years ago. FINDINGS: UTERUS: 6.4 cm length. Normal configuration. Relatively focal heterogeneous lesion posteriorly on the left likely fibroid, 3.3 x 2.8 x 3.3 cm. ENDOMETRIUM: Not thickened. OVARIES: The ovaries were not visualized. Limited by body habitus. FREE FLUID: None. US/Pelvic w/ Transvaginal IMPRESSION: 3.3 cm uterine mass presumed fibroid. MRI may be helpful for further characterization. Nonvisualized ovaries. Electronically Signed: Ekaterina Freitas MD at 7:19 EST Reading Location ID and State: [facility] / [place] Tel , Service support , CC: Dr. Kourtney Bergman MD; Dr. Lisa Romero DO Occ Med Physician: Signed Normal [facility] Abdomen/Pelvis WITH Contrast on 05-23-2024 Abdomen/Pelvis WITH Contrast [facility] Imaging Services [address] [place] [id number] Abdomen/Pelvis WITH Contrast MR#: [id number] Acct: [id number] Name: ECHO DUNN Rep #: [id number] : 1960 F 64 From: Wilson hagen MD PCP: Dr. Kourtney Bergman MD Status: ADM IN Study: Abdomen/Pelvis WITH Contrast Date of Exam: 05/06 Exam# [id number] Ordering Dr: Lisa Romero DO [id number] STUDY: CT ABDOMEN AND PELVIS WITH CONTRAST REASON FOR EXAM: Female, 64 years old. Liver mass RADIATION DOSAGE (If Supplied By Facility): CTDIvol = ( 18.7 ) mGy, DLP = ( 1331.18 ) mGycm TECHNIQUE: Transaxial images were obtained from the dome of the diaphragm to the symphysis pubis without oral contrast. ml of 100mL Isovue-370 contrast was administered. Sagittal and coronal images were reconstructed. Individualized dose optimization techniques were used for this CT. COMPARISON: None. FINDINGS: Liver: 6.01 x 4.59 cm moderate size partially septated mixed fluid and cystic mucinous appearing lesion in the undersurface and dome of the left lobe of the liver. There is also mild enhancement of the wall of the cystic lesion in left lobe of the liver. MRI of the abdomen liver protocol with and without contrast is recommended. A PET/CT scan can also be obtained to determine if there is any malignant activity in the lesion or if it is benign. Normal remaining aspects of the liver. No demonstrated ductal dilatation. A moderate enhancing 3.29 cm soft tissue mass is present in the left uterine body intramural region possibly representing a fibroid, but cannot be excluded from uterine carcinoma on this study. Further assessment with pelvic ultrasound and MRI of the pelvis with and without contrast is recommended. Bilateral adnexal/fallopian tube clips are present. Moderate right lower lobe atelectasis is present with a small pleural effusion. Multiple calcified granulomata of the right lung are present. Scattered interstitial fibrotic scarring/opacities also present in both lungs. Chronic consolidative fibrosis is present in the medial and inferior aspect of the right middle lobe and the lingula. Normal liver. Normal gallbladder and extrahepatic biliary system. Normal spleen. Normal pancreas. Normal bilateral adrenal glands. There is mild cortical atrophy of the right kidney, consistent with chronic medical renal disease. There is mild cortical atrophy of the left kidney, consistent with chronic medical renal disease. Multiple small cysts are present in both kidneys that do not requiring additional imaging or assessment. Diffuse cortical lobularity of both kidneys consistent with chronic medical renal disease. No hydronephrosis or renal masses are present. Normal visualized stomach. Normal small intestine. There are multiple colonic diverticula consistent with diverticulosis. The appendix is visualized and appears normal. There is diffuse atherosclerotic calcification of the abdominal aorta, without a demonstrated aneurysm. Normal inferior vena cava. Normal retroperitoneum. Normal urinary bladder. There is a small umbilical hernia containing fat. There are diffuse degenerative changes of the visualized lumbar spine. No lytic or blastic lesions are seen in the bony structures on the current study. CT/Abdomen/Pelvis WITH Contrast IMPRESSION: 1. Liver: 6.01 x 4.59 cm moderate size partially septated mixed fluid and cystic mucinous appearing lesion in the undersurface and dome of the left lobe of the liver. There is also mild enhancement of the wall of the cystic lesion in left lobe of the liver. MRI of the abdomen liver protocol with and without contrast is recommended. A PET/CT scan can also be obtained to determine if there is any malignant activity in the lesion or if it is benign. Normal remaining aspects of the liver. No demonstrated ductal dilatation. 2. Also consider image guided biopsy with definitive assessment from pathology and definitive diagnosis 3. Uterine mass = A moderate enhancing 3.29 cm soft tissue mass is present in the left uterine body intramural region possibly representing a fibroid, but cannot be excluded from uterine carcinoma on this study. Further assessment with pelvic ultrasound and MRI of the pelvis with and without contrast is recommended. Bilateral adnexal/fallopian tube clips are present. Electronically Signed: Wilson Ivory MD at 10:38 EST , CC: Dr. Kourtney Bergman MD; Dr. Lisa Romero DO Occ Med Physician: Signed Normal [facility] Basic Metabolic Profile (BMP )on 05-23-2024 BUN/CRE 41.1 RATIO High 10-20 [facility] Comment on above: Performed By: #### L 300.3900, L300.4310 #### [facility] Laboratory [address] [place], [address] CA,Total 9.0 mg/dL Normal 8.5-10.1 [facility] Comment on above: Performed By: #### L 300.3900, L300.4310 #### [facility] [address] [place], [address] Chloride [Moles/Vol] 95 mmol/L Low 98-[address] [facility] Comment on above: Performed By: #### L 300.3900, L300.4310 #### [facility] [address] [place], [address] CO2 [Moles/Vol] 40.0 mmol/L High 21.0-32.0 [facility] Comment on above: Performed By: #### L 300.3900, L300.4310 #### [facility] [address] [place], [address] Creatinine [Mass/Vol] 0.58 mg/dL Normal 0.55-1.02 [facility] Comment on above: Result Comment: The validity of the calculated GFR GFRAA in patients over 70 years has not been determined. Clinical correlation is essential. Performed By: #### L 300.3900, L300.4310 #### [facility] [address] [place], [address] ECRCL 151.26 ml/min Normal [facility] Comment on above: Performed By: #### L 300.3900, L300.4310 #### [facility] [address] [place], [address] EST GFR - AA 134 mL/min Normal >60 [facility] Comment on above: Result Comment: Afri can [place] GFR Calc Performed By: #### L 300.3900, L300.4310 #### [facility] [address] [place], [address] GAP 3 Low 5-15 [facility] Comment on above: Performed By: #### L 300.3900, L300.4310 #### [facility] [address] [place], [address] GFR/1.73 sq M.predicted among non-blacks MDRD (S/P/Bld) [Vol rate/Area] 110 mL/min/{1.73_m2} Normal >60 [facility] Comment on above: Result Comment: Non- GFR Calc Performed By: #### L 300.3900, L300.4310 #### [facility] [address] [place], [address] Glucose [Mass/Vol] 109 mg/dL High 74-106 [facility] Comment on above: Result Comment: Fast ing Glucose result from 100 to 125 mg/dL suggests IMPAIRED HOMEOSTASIS per A.D.A. criteria. Performed By: #### L 300.3900, L300.4310 #### [facility] [address] [place], [address] Potassium [Moles/Vol] 3.7 mmol/L Normal 3.5-5.1 [facility] Comment on above: Performed By: #### L 300.3900, L300.4310 #### [facility] [address] [place], [address] Sodium [Moles/Vol] 138 mmol/L Normal 136-145 [facility] Comment on above: Performed By: #### L 300.3900, L300.4310 #### [facility] [address] [place], [address] Urea nitrogen [Mass/Vol] 24 mg/dL High 7-18 [facility] Comment on above: Performed By: #### L 300.3900, L300.4310 #### [facility] [address] [place], [address] CBC W/Diff, Automatedon 11-1 0-2023 Hematocrit (Bld) [Volume fraction] 56.6 % High 37-47 [facility] Comment on above: Performed By: #### L 300.3900, L300.4310 #### [facility] [address] [place], [address] Absolute Lymph 1.37 X10 3/uL Normal 0.83-4.51 [facility] Comment on above: Performed By: #### L 300.3900, L300.4310 #### [facility] [address] [place], [address] Absolute Neut 5.9 X10 3/uL Normal 2.0-7.7 [facility] Comment on above: Performed By: #### L 300.3900, L300.4310 #### [facility] [address] [place], [address] Basophils/100 WBC (Bld) 0.4 % Normal 0-1 [facility] Comment on above: Performed By: #### L 300.3900, L300.4310 #### [facility] [address] [place], [address] Eosinophils/100 WBC (Bld) 0.2 % Normal 0-5 [facility] Comment on above: Performed By: #### L 300.3900, L300.4310 #### [facility] [address] [place], [address] Erythrocyte distribution width (RBC) [Ratio] 16.5 % High 11.6-14.6 [facility] Comment on above: Performed By: #### L 300.3900, L300.4310 #### [facility] [address] [place], [address] Hemoglobin (Bld) [Mass/Vol] 17.0 g/dL High 12.0-15.0 [facility] Comment on above: Performed By: #### L 300.3900, L300.4310 #### [facility] [address] [place], [address] IG% 0.900 Normal 0.0-0.9 [facility] Comment on above: Result Comment: IG% - Immature Granulocytes (promyelocytes, myelocytes and metamyelocytes) > 1% indicates that a LEFT SHIFT is Present. Performed By: #### L 300.3900, L300.4310 #### [facility] [address] [place], [address] Lymphocytes/100 WBC (Bld) 17.0 % Low 19-41 [facility] Comment on above: Performed By: #### L 300.3900, L300.4310 #### [facility] [address] [place], [address] MCH (RBC) [Entitic mass] 29.7 pg Normal 27.0-32.0 [facility] Comment on above: Performed By: #### L 300.3900, L300.4310 #### [facility] [address] [place], [address] MCHC (RBC) [Mass/Vol] 30.0 g/dL Low 32-36 [facility] Comment on above: Performed By: #### L 300.3900, L300.4310 #### [facility] [address] [place], [address] MCV (RBC) [Entitic vol] 98.8 fL Normal 81-99 [facility] Comment on above: Performed By: #### L 300.3900, L300.4310 #### [facility] [address] [place], [address] Monocytes/100 WBC (Bld) 8.1 % Normal 0-10 [facility] Comment on above: Performed By: #### L 300.3900, L300.4310 #### [facility] [address] [place], [address] Neutrophils/100 WBC (Bld) 73.4 % High 47-70 [facility] Comment on above: Performed By: #### L 300.3900, L300.4310 #### [facility] [address] [place], [address] Nucleated RBC (Bld) [#/Vol] 0.5 10*3/uL Normal 0-5 [facility] Comment on above: Performed By: #### L 300.3900, L300.4310 #### [facility] [address] [place], [address] Platelet mean volume (Bld) [Entitic vol] 10.7 fL Normal 6.2-12.0 [facility] Comment on above: Performed By: #### L 300.3900, L300.4310 #### [facility] [address] [place], [address] Platelets (Bld) [#/Vol] 141 10*3/uL Low 150-450 [facility] Comment on above: Performed By: #### L 300.3900, L300.4310 #### [facility] [address] [place], [address] RBC (Bld) [#/Vol] 5.73 10*6/uL High 4.2-5.4 [facility] Comment on above: Performed By: #### L 300.3900, L300.4310 #### [facility] [address] [place], [address] RDW SD 58.8 fl High 35.1-43.9 [facility] Comment on above: Performed By: #### L 300.3900, L300.4310 #### [facility] [address] [place], [address] WBC (Bld) [#/Vol] 8.1 10*3/uL Normal 4.4-11.0 [facility] Comment on above: Performed By: #### L 300.3900, L300.4310 #### [facility] [address] [place], [address] T4 Free Directon 05-23-2024 T4 FREE DIRECT 1.00 ng/dL Normal 0.76-1.46 [facility] Comment on above: Performed By: #### L 300.3900, L300.4310 #### [facility] [place], [address] Absolute lymphocyte countOrd ered By: Maribel Caraballo on 02-13-2023 Lymphocytes Auto (Unsp spec) [#/Vol] 1.48 10*3/uL 0.83-4.51 [facility] Basophil percentageOrdered B y: Maribel Beckernger on 02-13-2023 Basophils/100 WBC (Bld) 0.7 % 0-1 [facility] Bilirubin [Mass/Vol] 0.50 mg/dL 0.20-1.[address] [facility] Comment on above: For patients on eltr ombopag therapy, use of Dimension [place] TBIL is not recommended. Chloride [Moles/Vol] 98 mmol/L 98-[address] [facility] Cholesterol [Mass/Vol] 131 mg/dL <200 [facility] Comment on above: <200 mg/dL Desirable 200-240 mg/dL Borderline >240 mg/dL High Risk Eosinophils/100 WBC (Bld) 1.5 % 0-5 [facility] Glucose [Mass/Vol] 109 mg/dL 74-106 [facility] Comment on above: Fasting Glucose resu lt from 100 to 125 mg/dL suggests IMPAIRED HOMEOSTASIS per A.D.A. criteria. Neutrophils (Bld) [#/Vol] 3.9 10*3/uL 2.0-7.7 [facility] Neutrophils/100 WBC (Bld) 65.3 % 47-70 [facility] Potassium [Moles/Vol] 3.7 mmol/L 3.5-5.1 [facility] Protein [Mass/Vol] 7.1 g/dL 6.4-8.2 [facility] Sodium [Moles/Vol] 139 mmol/L 136-145 [facility] Triglyceride [Mass/Vol] 136 mg/dL <199 [facility] Comment on above: The drugs N-Acetylcy steine and Metamizole may falsely depress this assay.Serum Triglycerides Reference Interval Normal <150 mg/dL Borderline high 150 - 199 mg/dL High 200 - 499 mg/dL Very High > or = 500 mg/dL WBC (Bld) [#/Vol] 6.0 10*3/uL 4.4-11.0 [facility] Blood erythrocytes count (nu mber/volume)Ordered By: Maribel Caraballo on 02-13-2023 RBC (Bld) [#/Vol] 5.42 10*6/uL 4.2-5.4 [facility] Blood hemoglobin measurement (mass/volume)Ordered By: Maribel Caraballo on 02-13-2023 Hemoglobin (Bld) [Mass/Vol] 16.9 g/dL 12.0-15.0 [facility] Blood lymphocytes/100 leukoc ytesOrdered By: Maribel Caraballo on 02-13-2023 Lymphocytes/100 WBC (Bld) 24.8 % 19-41 [facility] Blood monocytes/100 leukocyt esOrdered By: Maribel Caraballo on 02-13-2023 Monocytes/100 WBC (Bld) 7.4 % 0-10 [facility] Blood platelet mean volumeOr dered By: Maribel Caraballo on 02-13-2023 Platelet mean volume (Bld) [Entitic vol] 12.2 fL 6.2-12.0 [facility] Determination of erythrocyte mean corpuscular volume (MCV)Ordered By: Maribel Caraballo on 02-13-2023 MCV (RBC) [Entitic vol] 96.5 fL 81-99 [facility] Hematocrit Auto (Bld) [Volum e fraction]Ordered By: Maribel Caraballo on 02-13-2023 Hematocrit (Bld) [Volume fraction] 52.3 % 37-47 [facility] Laboratory - Chemistry and C hemistry - challengeOrdered By: Maribel Caraballo on 02-13-2023 ALP [Catalytic activity/Vol] 75 U/L 45-117 [facility] ALT [Catalytic activity/Vol] 27 U/L 13-56 [facility] CO2 [Moles/Vol] 35.0 mmol/L 21.0-32.0 [facility] Globulin (S) [Mass/Vol] 3.8 g/dL 2.2-4.2 [facility] Urea nitrogen/Creatinine [Mass ratio] 16.1 mg/mg 10-20 [facility] Laboratory - Hematology and Cell countsOrdered By: Maribel Caraballo on 02-13-2023 Erythrocyte distribution width (RBC) [Entitic vol] 49.9 fL 35.1-43.9 [facility] Erythrocyte distribution width (RBC) [Ratio] 14.0 % 11.6-14.6 [facility] Immature granulocytes/100 WBC (Bld) 0.300 % 0.0-0.9 [facility] Comment on above: IG% - Immature Granu locytes (promyelocytes, myelocytes and metamyelocytes) > 1% indicates that a LEFT SHIFT is Present. MCH (RBC) [Entitic mass] 31.2 pg 27.0-32.0 [facility] Nucleated RBC/100 WBC (Bld) [Ratio] 0 % 0-5 [facility] MCHC Auto (RBC) [Mass/Vol]Or dered By: Maribel Caraballo on 02-13-2023 MCHC (RBC) [Mass/Vol] 32.3 g/dL 32-36 [facility] No Panel InformationOrdered By: Maribel Caraballo on 02-13-2023 Estimated GFR (MDRD) Amer 141 mL/min >60 [facility] Comment on above: GFR Calc Estimated GFR (MDRD) Non-Af Amer 117 mL/min >60 [facility] Comment on above: Non- GFR Calc Thyroid Stimulating Hormone (TSH) 0.92 uIU/mL 0.358-3.74 [facility] Platelets bldOrdered By: Reza Caraballo on 02-13-2023 Platelets (Bld) [#/Vol] 141 10*3/uL 150-450 [facility] Serum or plasma albumin derrick urement (mass/volume)Ordered By: Maribel Caraballo on 02-13-2023 Albumin [Mass/Vol] 3.3 g/dL 3.2-5.0 [facility] Serum or plasma albumin/glob ulin mass ratioOrdered By: Maribel Caraballo on 02-13-2023 Albumin/Globulin [Mass ratio] 0.9 {ratio} 0.9-2.4 [facility] Serum or plasma calcium derrick urement (mass/volume)Ordered By: Maribel Caraballo on 02-13-2023 Calcium [Mass/Vol] 9.2 mg/dL 8.5-10.1 [facility] Serum or plasma cholesterol in HDL measurement (mass/volume)Ordered By: Maribel Caraballo on 02-13-2023 Cholesterol in HDL [Mass/Vol] 56 mg/dL >40 [facility] Comment on above: The drugs N-Acetylcy steine and Metamizole may falsely depress this assay. Reference Range HDL <40 mg/dL Low HDL Cholesterol HDL >or= 60 mg/dL High HDL Cholesterol Serum or plasma cholesterol in VLDL measurement (mass/volume)Ordered By: Maribel Caraballo on 02-13-2023 Cholesterol in VLDL [Mass/Vol] 27 mg/dL 5-40 [facility] Serum or plasma creatinine m easurement (mass/volume)Ordered By: Maribel Caraballo on 02-13-2023 Creatinine [Mass/Vol] 0.56 mg/dL 0.55-1.02 [facility] Comment on above: The validity of the calculated GFR & GFRAA in patients over 70 years has not been determined. Clinical correlation is essential. Serum or plasma low density lipoprotein (LDL) cholesterol measurement (mass/volume)Ordered By: Maribel Caraballo on 02-13-2023 Cholesterol in LDL [Mass/Vol] 48 mg/dL 0-130 [facility] Serum or plasma urea nitroge n measurement (mass/volume)Ordered By: Maribel Caraballo on 02-13-2023 Urea nitrogen [Mass/Vol] 9 mg/dL 7-18 [facility] Thin prep Papanicolaou smear with manual screeningOrdered By: Maribel Caraballo on 02-13-2023 Thin prep Papanicolaou smear with manual screening 19 U/L 15-37 [facility] Thin prep Papanicolaou smear with manual screening 6 5-15 [facility] Whole blood hemoglobin A1c/t otal hemoglobin ratio (mass fraction)Ordered By: Marbiel Caraballo on 02-13-2023 HbA1c (Bld) [Mass fraction] 5.5 % 3.8-5.6 [facility] Comment on above: Normal < 5.7 % Predi abetic 5.7 - 6.4 % Diabetic >or= 6.5 % Please note range changes. Absolute lymphocyte counton 02-18-2022 Lymphocytes Auto (Unsp spec) [#/Vol] 1.39 10*3/uL 0.83-4.51 [facility] Work Phone: Basophil percentageon 2021 Basophils/100 WBC (Bld) 0.5 % 0-1 [facility] Work Phone: Bilirubin [Mass/Vol] 0.50 mg/dL 0.20-1.[address] [facility] Work Phone: Comment on above: For patients on eltr ombopag therapy, use of Dimension [place] TBIL is not recommended. Chloride [Moles/Vol] 96 mmol/L 98-[address] [facility] Work Phone: Cholesterol [Mass/Vol] 151 mg/dL <200 [facility] Work Phone: Comment on above: <200 mg/dL Desirable 200-240 mg/dL Borderline >240 mg/dL High Risk Eosinophils/100 WBC (Bld) 0.7 % 0-5 [facility] Work Phone: Glucose [Mass/Vol] 111 mg/dL 74-106 [facility] Work Phone: Comment on above: Fasting Glucose resu lt from 100 to 125 mg/dL suggests IMPAIRED HOMEOSTASIS per A.D.A. criteria. Neutrophils (Bld) [#/Vol] 3.5 10*3/uL 2.0-7.7 [facility] Work Phone: Neutrophils/100 WBC (Bld) 64.1 % 47-70 [facility] Work Phone: [phone] Potassium [Moles/Vol] 3.7 mmol/L 3.5-5.1 [facility] Work Phone: [phone] Protein [Mass/Vol] 7.3 g/dL 6.4-8.2 [facility] Work Phone: Sodium [Moles/Vol] 136 mmol/L 136-145 [facility] Work Phone: Triglyceride [Mass/Vol] 138 mg/dL <199 [facility] Work Phone: Comment on above: The drugs N-Acetylcy steine and Metamizole may falsely depress this assay.Serum Triglycerides Reference Interval Normal <150 mg/dL Borderline high 150 - 199 mg/dL High 200 - 499 mg/dL Very High > or = 500 mg/dL WBC (Bld) [#/Vol] 5.5 10*3/uL 4.4-11.0 [facility] Work Phone: Blood erythrocytes count (nu mber/volume)on 02-18-2022 RBC (Bld) [#/Vol] 5.51 10*6/uL 4.2-5.4 [facility] Work Phone: Blood hemoglobin measurement (mass/volume)on 02-18-2022 Hemoglobin (Bld) [Mass/Vol] 17.7 g/dL 12.0-15.0 [facility] Work Phone: Blood lymphocytes/100 leukoc yteson 02-18-2022 Lymphocytes/100 WBC (Bld) 25.4 % 19-41 [facility] Work Phone: Blood monocytes/100 leukocyt eson 02-18-2022 Monocytes/100 WBC (Bld) 9.1 % 0-10 [facility] Work Phone: Blood platelet mean volumeon 02-18-2022 Platelet mean volume (Bld) [Entitic vol] 11.3 fL 6.2-12.0 [facility] Work Phone: Determination of erythrocyte mean corpuscular volume (MCV)on 02-18-2022 MCV (RBC) [Entitic vol] 95.3 fL 81-99 [facility] Work Phone: Hematocrit Auto (Bld) [Volum e fraction]on 02-18-2022 Hematocrit (Bld) [Volume fraction] 52.5 % 37-47 [facility] Work Phone: Laboratory - Chemistry and C hemistry - challengeon 02-18-2022 ALP [Catalytic activity/Vol] 75 U/L 45-117 [facility] Work Phone: ALT [Catalytic activity/Vol] 29 U/L 13-56 [facility] Work Phone: CO2 [Moles/Vol] 35.0 mmol/L 21.0-32.0 [facility] Work Phone: Globulin (S) [Mass/Vol] 3.7 g/dL 2.2-4.2 [facility] Work Phone: Urea nitrogen/Creatinine [Mass ratio] 14.3 mg/mg 10-20 [facility] Work Phone: Laboratory - Hematology and Cell countson 02-18-2022 Erythrocyte distribution width (RBC) [Entitic vol] 51.1 fL 35.1-43.9 [facility] Work Phone: Erythrocyte distribution width (RBC) [Ratio] 14.5 % 11.6-14.6 [facility] Work Phone: Immature granulocytes/100 WBC (Bld) 0.200 % 0.0-0.9 [facility] Work Phone: Comment on above: IG% - Immature Granu locytes (promyelocytes, myelocytes and metamyelocytes) > 1% indicates that a LEFT SHIFT is Present. MCH (RBC) [Entitic mass] 32.1 pg 27.0-32.0 [facility] Work Phone: Nucleated RBC/100 WBC (Bld) [Ratio] 0 % 0-5 [facility] Work Phone: MCHC Auto (RBC) [Mass/Vol]on 02-18-2022 MCHC (RBC) [Mass/Vol] 33.7 g/dL 32-36 [facility] Work Phone: No Panel Informationon 02-18 Estimated GFR (MDRD) Amer 98 mL/min >60 [facility] Work Phone: Comment on above: GFR Calc Estimated GFR (MDRD) Non-Af Amer 81 mL/min >60 [facility] Work Phone: Comment on above: Non- GFR Calc Platelets bldon 02-18-2022 Platelets (Bld) [#/Vol] 160 10*3/uL 150-450 [facility] Work Phone: Serum or plasma albumin derrick urement (mass/volume)on 02-18-2022 Albumin [Mass/Vol] 3.6 g/dL 3.2-5.0 [facility] Work Phone: Serum or plasma albumin/glob ulin mass ratioon 02-18-2022 Albumin/Globulin [Mass ratio] 1.0 {ratio} 0.9-2.4 [facility] Work Phone: Serum or plasma calcium derrick urement (mass/volume)on 02-18-2022 Calcium [Mass/Vol] 10.2 mg/dL 8.5-10.1 [facility] Work Phone: Serum or plasma cholesterol in HDL measurement (mass/volume)on 02-18-2022 Cholesterol in HDL [Mass/Vol] 53 mg/dL >40 [facility] Work Phone: Comment on above: The drugs N-Acetylcy steine and Metamizole may falsely depress this assay. Reference Range HDL <40 mg/dL Low HDL Cholesterol HDL >or= 60 mg/dL High HDL Cholesterol Serum or plasma cholesterol in VLDL measurement (mass/volume)on 02-18-2022 Cholesterol in VLDL [Mass/Vol] 28 mg/dL 5-40 [facility] Work Phone: Serum or plasma creatinine m easurement (mass/volume)on 02-18-2022 Creatinine [Mass/Vol] 0.77 mg/dL 0.55-1.02 [facility] Work Phone: Comment on above: The validity of the calculated GFR & GFRAA in patients over 70 years has not been determined. Clinical correlation is essential. Serum or plasma low density lipoprotein (LDL) cholesterol measurement (mass/volume)on 02-18-2022 Cholesterol in LDL [Mass/Vol] 70 mg/dL 0-130 [facility] Work Phone: Serum or plasma urea nitroge n measurement (mass/volume)on 02-18-2022 Urea nitrogen [Mass/Vol] 11 mg/dL 7-18 [facility] Work Phone: Thin prep Papanicolaou smear with manual screeningon 02-18-2022 Thin prep Papanicolaou smear with manual screening 24 U/L 15-37 [facility] Work Phone: Thin prep Papanicolaou smear with manual screening 5 5-15 [facility] Work Phone: Whole blood hemoglobin A1c/t otal hemoglobin ratio (mass fraction)on 02-18-2022 HbA1c (Bld) [Mass fraction] 5.6 % 3.8-5.6 [facility] Work Phone: Comment on above: Normal < 5.7 % Predi abetic 5.7 - 6.4 % Diabetic >or= 6.5 % Please note range changes. Vital Signs Date Time Vital Sign Value Performing Clinician Facility 09-02-2024 08:07-0500 Body mass index (BMI) [Ratio] 39.9 kg/m2 Kourtney Bergman MD Work Phone: [facility] 09-02-2024 08:07-0500 Body temperature 97.4 [degF] Kourtney Bergman MD Work Phone: [facility] 09-02-2024 08:07-0500 Body weight 112.03 kg Kourtney Bergman MD Work Phone: [facility] 09-02-2024 08:07-0500 Diastolic blood pressure 79 mm[Hg] Kourtney Bergman MD Work Phone: [facility] 09-02-2024 08:07-0500 Heart rate 81 /min Kourtney Bergman MD Work Phone: [facility] 09-02-2024 08:07-0500 Respiratory rate 18 /min Kourtney Bergman MD Work Phone: [facility] 09-02-2024 08:07-0500 SaO2% (BldA) [Mass fraction] 98 % Kourtney Bergman MD Work Phone: [facility] 09-02-2024 08:07-0500 Systolic blood pressure 119 mm[Hg] Kourtney Bergman MD Work Phone: [facility] 07-26-2024 11:11-0500 Body height 167.64 cm Kourtney Bergman MD Work Phone: [facility] 07-26-2024 11:11-0500 Body mass index (BMI) [Ratio] 39.2 kg/m2 Kourtney Bergman MD Work Phone: [facility] 07-26-2024 11:11-0500 Body weight 110.33 kg Kourtney Bergman MD Work Phone: [facility] 07-26-2024 11:11-0500 Diastolic blood pressure 66 mm[Hg] Kourtney Bergman MD Work Phone: [facility] 07-26-2024 11:11-0500 Systolic blood pressure 138 mm[Hg] Kourtney Bergman MD Work Phone: [facility] 06-23-2024 10:38-0500 Body height 165.1 cm Mark Evai DO Work Phone: [facility] 06-23-2024 10:38-0500 Body mass index (BMI) [Ratio] 39.94 kg/m2 Mark Masci DO Work Phone: [facility] 06-23-2024 10:38-0500 Body temperature 97.7 [degF] Mark Masci DO Work Phone: [facility] 06-23-2024 10:38-0500 Body weight 108.86 kg Mark Masci DO Work Phone: [facility] 06-23-2024 10:38-0500 Diastolic blood pressure 83 mm[Hg] Mark Masci DO Work Phone: [facility] 06-23-2024 10:38-0500 Heart rate 92 /min Mark Masci DO Work Phone: [facility] 06-23-2024 10:38-0500 SaO2% (BldA) [Mass fraction] 93 % Mark Masci DO Work Phone: [facility] Comment on above: With oxygen 06-23-2024 10:38-0500 Systolic blood pressure 147 mm[Hg] Mark Keen DO Work Phone: [facility] 05-05-2023 12:25-0400 Body temperature 98.1 [degF] DO Maribel Ilya Work Phone: [facility] 05-05-2023 12:25-0400 Diastolic blood pressure 53 mm[Hg] DO Maribel Ilya Work Phone: [facility] 05-05-2023 12:25-0400 Heart rate 63 /min DO Maribel Ilya Work Phone: [facility] 05-05-2023 12:25-0400 Respiratory rate 18 /min DO Maribel Ilya Work Phone: [facility] 05-05-2023 12:25-0400 SaO2% (BldA) [Mass fraction] 97 % DO Maribel Ilya Work Phone: [facility] 05-05-2023 12:25-0400 Systolic blood pressure 103 mm[Hg] DO Maribel Ilya Work Phone: [facility] 05-05-2023 10:46-0400 Body height 167.64 cm DO Maribel Ilya Work Phone: [facility] 05-05-2023 10:46-0400 Body mass index (BMI) [Ratio] 39.8 kg/m2 DO Maribel Ilya Work Phone: [facility] 05-05-2023 10:46-0400 Body weight 112 kg DO Maribel Ilya Work Phone: [facility] 03-11-2023 10:47-0400 Body mass index (BMI) [Ratio] 39 kg/m2 DO Maribel Ilya Work Phone: [facility] 03-11-2023 10:47-0400 Body weight 109.76 kg DO Maribel Ilya Work Phone: [facility] Encounters Encounter Date Encounter Type Care Provider Facility Start: 05-26-2025 ambulatory Morelia Owens NP Fac ility:[facility] Start: 05-19-2025 ambulatory [facility] Facility:[facility] Start: 05-10-2025 End: 05-10-2025 [facility] Facility:[facility] Start: 11-11-2024 End: 11-11-2024 Telephone encounter Mark Keen DO Work Phone: [place] Provider Adult Comment on above: Results Start: 10-28-2024 ambulatory [facility] Facility:[facility] Start: 10-28-2024 End: 10-28-2024 Subsequent hospital visit by physician [employer] [facility] (I-Stat/1.5t) Work Phone: Radiology Comment on above: Liver mass [R16.0] Start: 10-19-2024 End: 10-22-2024 Telephone encounter Meenu Lei child care counselor/Oncology Comment on above: Oil Pit Attendant - O ther (Appointment ) Start: 09-30-2024 End: 09-30-2024 [facility] Kourtney Bergman MD Work Phone: [facility] Work Phone: Start: 09-30-2024 End: 09-30-[address] 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 Cassidy Mathew DO -Outpatient Breast Imaging Work Phone: Start: 08-05-2024 End: 08-05-2024 ambulatory [facility] Facility:[facility] Start: 07-27-2024 End: 07-30-2024 Telephone encounter Mark Keen DO Work Phone: [place] Provider Adult Comment on above: Follow Up Start: 07-26-2024 End: 07-26-[address] Cassidy Mathew DO -Lab, [facility] Start: 07-26-2024 End: 07-26-[address] Cassidy Mathew DO -[facility] Work Phone: Start: 07-26-2024 End: 07-26-2024 ambulatory Kourtney Madalyn [facility] Start: 07-26-2024 End: 07-26-2024 ambulatory Cassidy Mathew Facility:[facility] Start: 07-18-2024 End: 07-19-2024 Telephone encounter Mark Keen DO Work Phone: Hematology/Oncology Comment on above: Results Start: 07-15-2024 End: 07-15-2024 ambulatory [facility] Facility:[facility] Start: 07-05-2024 End: 07-05-[address] Kourtney Bergman MD -Laboratory, [facility] Start: 07-04-2024 End: 07-05-2024 ambulatory Kourtney [facility] Facility:[facility] Start: 07-04-2024 Non-patient / Non-visit Dr. Kourtney mercado MD -[facility] Work Phone: Start: 07-02-2024 End: 07-02-2024 ambulatory [facility] Facility:[facility] Start: 07-02-2024 End: 07-02-[address] Kourtney Bergman MD -Laboratory, [facility] Start: 07-02-2024 End: 07-02-2024 ambulatory Kourtney [facility] Facility:[facility] Start: 06-28-2024 End: 07-27-2024 Telephone encounter Mark Keen DO Work Phone: Hematology/Oncology Comment on above: Follow Up Start: 06-27-2024 End: 06-28-2024 Telephone encounter Mark Keen DO Work Phone: Hematology/Oncology Comment on above: Results Start: 06-24-2024 End: 06-24-2024 Telephone encounter Mark Keen DO Work Phone: Hematology/Oncology Comment on above: Results Start: 06-24-2024 End: 06-24-2024 ambulatory [facility] Facility:[facility] Start: 06-23-2024 End: 06-23-2024 ambulatory [facility] Facility:[facility] Start: 06-23-2024 End: 06-23-2024 ambulatory Mark Keen DO Work Phone: Hematology/Oncology Comment on above: Liver mass (Primary Dx); Secondary polycythemia Start: 06-23-2024 End: 06-23-2024 Patient encounter procedure Mark Keen DO Work Phone: Hematology/Oncology Start: 05-28-2024 End: 06-07-2024 Telephone encounter Mark Keen DO Work Phone: Hematology/Oncology Comment on above: New Patient Start: 05-05-2023 Non-patient / Non-visit DO Reza Caraballo Work Phone: [facility] Start: 05-05-2023 End: 05-05-2023 Admission to same day surgery center DO Maribel Caraballo Work Phone: [facility] Work Phone: Start: 05-05-2023 End: 05-05-2023 ambulatory DO Maribel Caraballo Work Phone: [facility] Work Phone: Start: 03-11-2023 Non-patient / Non-visit DO Reza Caraballo Work Phone: [facility] Work Phone: Start: 02-27-2023 End: 02-27-2023 ambulatory [facility] Work Phone: Start: 02-27-2023 End: 02-27-2023 Patient encounter procedure [facility]-Outpatient Breast Imaging Work Phone: Start: 02-13-2023 End: 02-13-2023 ambulatory [facility] Work Phone: Start: 02-13-2023 End: 02-13-2023 Patient encounter procedure [facility] Work Phone: Start: 02-18-2022 End: 02-18-2022 Patient encounter procedure [facility] Start: 09-25-2021 End: 09-25-2021 Patient encounter procedure [facility] Procedures Date Procedure Procedure Detail Performing Clinician Start: 08-05-2024 Screening mammography C carson Bergman MD Work Phone: Start: 05-05-2023 Colonoscopy DO Maribel Caraballo Work Phone: Start: 02-27-2023 Screening mammography Start: 09-25-2021 Screening mammography Plan of Treatment Date Care Activity Detail Author Start: 2035 RSV Vaccine (1 - 1-dose 75+ series) RSV Vaccine (1 - 1-dose 75+ series) [facility] Start: 06-23-2027 Diabetes Screening Diabetes Screening [facility] Start: 05-26-2025 End: 05-26-2025 ambulatory 05/26/2025 11:50 AM EST Visit (SP) Office Hematology/Oncology [address] [place], [place] [id number] Mark Keen DO [address] [address] 6M OV/MRI 05/19* Hematology/Oncolog y Comment on above: 6M OV/MRI 05/19* Start: 05-19-2025 End: 05-19-2025 Patient encounter procedure 05/19/2025 12:30 PM EST Appointment Radiology [address] [place], [place] [id number] Liver mass [R16.0] Radiology Comment on above: Liver mass [R16.0] Start: 05-14-2025 End: 12-11-2025 MR Liver WO and W contrast IV MRI LIVER WO/W IVCON Radiology Routine Liver mass Expected: 05/14/2025 (Approximate), Expires: 12/11/2025 [facility] Work Phone: Comment on above: Expected: 05/14/2025 (Approximate), Expi res: 12/11/2025 Start: 03-14-2025 Influenza vaccination Influenza Vaccine (Season Ended) [facility] Start: 10-28-2024 End: 10-28-2024 Patient encounter procedure 10/28/2024 1:00 PM EDT Appointment Radiology [address] [place] [address] MRI LIVER (EOVIST) WO/W IVCON Radiology Comment on above: MRI LIVER (EOVIST) WO/W IVCON Start: 10-21-2024 End: 10-21-2024 Patient encounter procedure Radiology Comment on above: Liver mass [R16.0] N85.8 Start: 07-02-2024 End: 07-02-2024 ambulatory 07/02/2024 12:00 PM EST Results Only [facility] [address] [place] [address] LABS [facility] Comment on above: LABS Start: 06-27-2024 End: 09-26-2024 MYELOPROLIFERATIVE NEOPLASM PANEL BLOOD MYELOPROLIFERATIVE NEOPLASM PANEL BLOOD Lab Routine Polycythemia Expected: 06/27/2024, Expires: 09/26/2024 [facility] Comment on above: Expected: 06/27/2024, Expires: Start: 06-27-2024 End: 09-26-2024 Parathyrin related protein [Moles/volume] in Serum or Plasma PTH RELATED PEPTIDE Lab Routine Hyperkalemia Expected: 06/27/2024, Expires: 09/26/2024 [facility] Work Phone: Comment on above: Expected: 06/27/2024, Expires: Start: 06-24-2024 End: 09-23-2024 [id number] [Mass/volume] in Serum or Plasma [facility] Comment on above: Expected: 06/24/2024, Expires: Start: 06-24-2024 End: 09-23-2024 Calcium.ionized [Moles/volume] in Blood [facility] Comment on above: Expected: 06/24/2024, Expires: Start: 06-24-2024 End: 09-23-2024 MONOCLONAL PROTEIN, SERUM (BLOOD) [facility] Comment on above: Expected: 06/24/2024, Expires: Start: 06-24-2024 End: 09-23-2024 Parathyrin.intact [Mass/volume] in Serum or Plasma [facility] Work Phone: Comment on above: Expected: 06/24/2024, Expires: Start: 06-24-2024 End: 09-23-2024 PROTEIN ELECTROPHORESIS SERUM W/INTERP [facility] Comment on above: Expected: 06/24/2024, Expires: Start: 06-23-2024 End: 09-22-2024 [id number] [Mass/volume] in Serum or Plasma [facility] Work Phone: Comment on above: Expected: 06/23/2024, Expires: Start: 06-23-2024 End: 09-22-2024 Chronic hepatitis differentiation between hepatitis B and C virus panel - Serum or Plasma [facility] Comment on above: Expected: 06/23/2024, Expires: Start: 06-23-2024 End: 06-23-2024 [facility] visit new patient 06/23/2024 10:30 AM EST Visit (SP) Office Hematology/Oncology [address] [place] [address] Mark Keen DO [address] [place] [address] NEW PATIENT* 1ST AVAIL Hematology/Oncolog y Comment on above: NEW PATIENT* 1ST AVAIL Start: 03-14-2024 Covid-19 Vaccine (1 - 2024-25 season) Covid-19 Vaccine ( season) [facility] Start: 03-14-2024 Influenza vaccination Influenza Vaccine (#1) [facility] Start: 05-05-2023 Patient discharge [facility] Start: 12-26-2011 Screening for malignant neoplasm of breast Mammogram Screening [facility] Start: 05-14-2011 Screening for malignant neoplasm of cervix Cervical Cancer Screening [facility] Start: 2010 Shingrix Vaccine (1 of 2) Shingrix Vaccine (1 of 2) [facility] Start: 05-14-2009 Screening for malignant neoplasm of cervix Cervical Cancer Screening [facility] Start: 2005 Diabetes Screening Diabetes Screening [facility] Start: 2005 Lipid panel Lipid Screening [facility] Start: 2005 Screening for malignant neoplasm of colon [facility] Start: 1979 Pneumococcal Vaccine: 50+ (1 of 2 - PCV) Pneumococcal Vaccine: 50+ (1 of 2 - PCV) [facility] Start: 1979 Urine microalbumin profile DTaP,Tdap,Td Vaccine (1 - Tdap) [facility] Start: 1978 Anxiety Screening Anxiety Screening [facility] Start: 1978 Depression Screening Depression Screening [facility] Start: 1978 Hepatitis C screening Hepatitis C Screening [facility] Start: 1978 HIV screening HIV Screening [facility] Start: 1966 Pneumococcal vaccination Pneumococcal Vaccine (1 of 2 - PCV) [facility] Colonoscopy [facility] CT Chest [facility] Guidance for percuta neous biopsy of Liver IMAGING GUIDED BIOPSY LIVER Radiology Routine Liver mass Ordered: 06/28/2024 [facility] Work Phone: Comment on above: Ordered: 06/28/2024 End: 08-17-2025 MR Liver WO and W contrast IV MRI LIVER WO/W IVCON Radiology Routine Liver mass 1 Occurrences starting 07/18/2024 until 08/17/2025 [facility] Work Phone: Comment on above: 1 Occurrences starting 07/18/2024 until 08/17/2025 End: 08-26-2025 MR Liver WO and W contrast IV MRI LIVER (EOVIST) WO/W IVCON Radiology Routine Liver disease Liver mass 1 Occurrences starting 07/27/2024 until 08/26/2025 [facility] Work Phone: Comment on above: 1 Occurrences starting 07/27/2024 until 08/26/2025 MR Liver WO and W co ntrast IV MRI LIVER WO/W IVCON Radiology Routine Liver mass 10/28/2024 2:14 PM EDT [facility] Work Phone: Patient referral [facility] Work Phone: Payers Date Payer Category Payer Medicare [id number] 2024 Unknown [id number] 2024 Self-pay [id number] 2021 Private Health Insurance MMO SUP [employer] PPO [id number] 2020 Unknown [id number] 2013 Unknown [id number] Unknown [id number] Unknown [id number] Unknown [id number] Unknown [id number] Unknown [id number] Unknown [id number] Unknown [id number] Unknown [id number] Unknown [id number] Unknown [id number] Social History Date Type Detail Facility Start: 07-31-2018 End: 04-29-2023 Tobacco smoking status NHIS Unknown if ever smoked [facility] Start: 1960 Sex Assigned At Female [facility] Start: 06-23-2024 [facility] Work Phone: Start: 02-27-2022 End: 06-23-2024 Alcoholic beverage intake Current drinker of alcohol (finding) [facility] Start: 1960 Sex assigned at Not on file [facility] Start: 06-23-2024 Gender identity Not on file [facility] History of tobacco use Cigarette Smoker [facility] Start: 06-23-2024 Tobacco use and exposure Smokeless tobacco non-user [facility] Start: 06-23-2024 History of Social function [facility] National Score (1-10 0), lower number is lower risk 48 [facility] Start: 06-23-2024 Tobacco Comment Pt smoked 1/2 pack daily x 50 years, quit May 2024 [facility] Start: 09-02-2024 [facility] Start: 10-07-2024 Sex Female (finding) [facility] Goals Date Patient Goal Desired Activity /State Mental Status Date Assessment Result Facility 05-05-2023 Cognitive function Voice/Name [facility] Work Phone: Clinical Notes 05-05-2023 to 05-19-2025 Telephone Encounter - Alex Weiss - 11/11/2024 11:01 AM EDTTelephone Encounter - Jeanieamairani Alex - 11/11/2024 11:01 AM EDTTelephone Encounter - OsmaniMarkDO - 11/11/2024 10:08 AM EDT Note Date & Type Note Facility 05-19-2025 Note HNO ID: [id number] Author: STEPHY LUO RT(R) Service: ? Author Type: Technologist Type: Progress Notes Filed: 05/19/2025 12:58 Note Text: Radiology Service Progress Note DATE OF SERVICE: May 19, 2025 TIME: 12:57 PM PATIENT IDENTITY VERIFICATION COMPLETED USING TWO (2) STANDARD IDENTIFIERS: Name and Date of confirmed by patient verbally. FALL SCREENING: Has the patient had 2 falls in the last year or 1 fall with injury or currently using an Ambulatory Assistive Device (Walker, Cane, Wheelchair, Crutches, etc.)? No PATIENT GENDER DATA: Assigned female at . status: : No status: NO. PATIENT RELEVANT IMPLANT DATA REVIEWED: Yes PATIENT PRESENTS WITH AN IMPLANTABLE OR ATTACHED CORPORATE PILOT: No ALLERGIES: Reviewed and unchanged CONTRAST ALLERGY: NO. EXAM: MRI - CONTRAST TYPE: GROUP II PERIPHERAL IV DATA: Ambulatory: A peripheral IV was started in the Left forearm with a Angio cath: 22 gauge. RADIOLOGY DEPARTMENT: MR; Exam(s) Completed: Body: Liver (routine). Anesthesia: No. Aromatherapy Administered: No SIGNATURE: RT Marquita(R) PATIENT NAME: Echo Dunn DATE: May 19, 2025 TIME: 12:57 PM [facility] 11-11-2024 Telephone encount er Note Spoke w pt and she is scheduled as directed. Alex Weiss [facility] 11-11-2024 Miscellaneous Notes Formattin g of this note might be different from the original. Spoke w pt and she is scheduled as directed. Alex Weiss Thank you. Filed. Patient aware of all information. Dr. Keen- please file order. PSS- please contact patient to schedule MRI then OV in 6 months. Padmini Benson LPN Can let her know the MRI shows stable findings. No need for repeat biopsy. We would like to perform 1 more MRI of the liver in about 6 months. Office visit with me following that. Mark Keen DO documented in this encounter [facility] 11-11-2024 Telephone encount er Note Thank you. Filed. [facility] 11-11-2024 Telephone encount er Note Patient aware of all information. Dr. Keen- please file order. PSS- please contact patient to schedule MRI then OV in 6 months. Padmini Benson LPN [facility] 11-11-2024 Telephone encount er Note Can let her know the MRI shows stable findings. No need for repeat biopsy. We would like to perform 1 more MRI of the liver in about 6 months. Office visit with me following that. Mark Keen DO [facility] 10-28-2024 History of Presen t illness Narrative Radiology Service Progress Note DATE OF SERVICE: October 28, 2024 TIME: 1:43 PM PATIENT IDENTITY VERIFICATION COMPLETED USING TWO (2) STANDARD IDENTIFIERS: Name and Date of confirmed by patient verbally. FALL SCREENING: Has the patient had 2 falls in the last year or 1 fall with injury or currently using an Ambulatory Assistive Device (Walker, Cane, Wheelchair, Crutches, etc.)? No PATIENT GENDER DATA: Assigned female at . status: : No status: NO. PATIENT RELEVANT IMPLANT DATA REVIEWED: Yes PATIENT PRESENTS WITH AN IMPLANTABLE OR ATTACHED CORPORATE PILOT: No ALLERGIES: Reviewed and unchanged CONTRAST ALLERGY: NO. EXAM: MRI - CONTRAST TYPE: GROUP II PERIPHERAL IV DATA: Ambulatory: A peripheral IV was started in the Right antecubital site with a Angio cath: 22 gauge. RADIOLOGY DEPARTMENT: MR; Exam(s) Completed: Body: Liver (routine) SIGNATURE: RT Marquita(Pallavi) PATIENT NAME: Echo Dunn DATE: October 28, 2024 TIME: 1:43 PM documented in this encounter [facility] 10-28-2024 Note HNO ID: [id number] Author: STEPHY LUO RT (R) Service: ? Author Type: Technologist Type: Progress Notes Filed: 10/28/2024 13:44 Note Text: Radiology Service Progress Note DATE OF SERVICE: October 28, 2024 TIME: 1:43 PM PATIENT IDENTITY VERIFICATION COMPLETED USING TWO (2) STANDARD IDENTIFIERS: Name and Date of confirmed by patient verbally. FALL SCREENING: Has the patient had 2 falls in the last year or 1 fall with injury or currently using an Ambulatory Assistive Device (Walker, Cane, Wheelchair, Crutches, etc.)? No PATIENT GENDER DATA: Assigned female at . status: : No status: NO. PATIENT RELEVANT IMPLANT DATA REVIEWED: Yes PATIENT PRESENTS WITH AN IMPLANTABLE OR ATTACHED CORPORATE PILOT: No ALLERGIES: Reviewed and unchanged CONTRAST ALLERGY: NO. EXAM: MRI - CONTRAST TYPE: GROUP II PERIPHERAL IV DATA: Ambulatory: A peripheral IV was started in the Right antecubital site with a Angio cath: 22 gauge. RADIOLOGY DEPARTMENT: MR; Exam(s) Completed: Body: Liver (routine) SIGNATURE: RT Marquita(R) PATIENT NAME: Echo Dunn DATE: October 28, 2024 TIME: 1:43 PM [facility] 10-21-2024 Telephone encount er Note Pt. Called back and states MRI is scheduled for next 10/28/2024 Jessie England LPN [facility] 10-21-2024 Miscellaneous Notes Formattin g of this note might be different from the original. Pt. Called back and states MRI is scheduled for next 10/28/2024 Jessie England LPN Spoke with pt. Informed of Dr. Keen response concerning getting the MRI in the next few weeks. Pt. Voiced understanding and will call to make arrangements to get sooner as directed. Jessie England LPN I'm sorry about the financial burden, but important to get MRI in next few weeks. Mark Keen DO Patient stated she hasn't met her deductible for the year and she currently has a balance with [facility] of around $1,300. Patient stated the reason is a financial reason because she will be going on Medicare 03/14/25 and the cost will be next to nothing if she waits until March. Patient also stated she is supposed to have another MRI to evaluate a fibroid tumor but is putting this off until March as well. Patient stated if it is really important for her to have the MRI sooner then she will pay for the MRI. Patient was given the number to Billing Customer Service and Patient [employer]. Meenu Lei RN Referral in [facility] is authorized starting 07/18/24 for liver and abdomen. Did insurance not approve it? Is it a co-pay issue? Anything we can do to help get it done in the next couple weeks? Mark Keen DO Patient called back and left a VM stating that she rescheduled her MRI's for March due to insurance reasons. Meenu Lei RN Patient was supposed to have an MRI in 3 months which would've been in October 2024. It looks like the MRI was originally scheduled this morning but then the patient called in to reschedule the scan and it is now scheduled in March. Called patient, no answer, left a VM requesting a call back. When patient calls back, can we see if there is a reason why she rescheduled for March and not an earlier date? Thank you. Meenu Lei RN documented in this encounter [facility] 10-21-2024 Telephone encount er Note Spoke with pt. Informed of Dr. Keen response concerning getting the MRI in the next few weeks. Pt. Voiced understanding and will call to make arrangements to get sooner as directed. Jessie England LPN [facility] 10-21-2024 Telephone encount er Note I'm sorry about the financial burden, but important to get MRI in next few weeks. Mark Keen DO [facility] Work Phone: 10-21-2024 Telephone encount er Note Patient stated she hasn't met her deductible for the year and she currently has a balance with [employer] of around $1,300. Patient stated the reason is a financial reason because she will be going on Medicare 03/14/25 and the cost will be next to nothing if she waits until March. Patient also stated she is supposed to have another MRI to evaluate a fibroid tumor but is putting this off until March as well. Patient stated if it is really important for her to have the MRI sooner then she will pay for the MRI. Patient was given the number to Billing Customer Service and [employer]. Meenu Lei RN [facility] 10-21-2024 Telephone [facility] Note Referral in [facility] is authorized starting 07/18/24 for liver and abdomen. [facility] Work Phone: 10-20-2024 Telephone encount er Note Did insurance not approve it? Is it a co-pay issue? Anything we can do to help get it done in the next couple weeks? Mark Keen DO [facility] 10-19-2024 Telephone [facility] Note Patient called back and left a VM stating that she rescheduled her MRI's for March due to insurance reasons. Meenu Lei RN [facility] 10-19-2024 Telephone encount er Note Patient was supposed to have an MRI in 3 months which would've been in October 2024. It looks like the MRI was originally scheduled this morning but then the patient called in to reschedule the scan and it is now scheduled in March. Called patient, no answer, left a VM requesting a call back. When patient calls back, can we see if there is a reason why she rescheduled for March and not an earlier date? Thank you. Meenu Lei RN [facility] 07-30-2024 Telephone encount er Note PSS linked correct order. Padmini Benson LPN [facility] 07-30-2024 Miscellaneous Notes Formattin g of this note might be different from the original. PSS linked correct order. Padmini Benson LPN Please change 3 month follow up MRI liver to MRI liver with [facility]. New order filed. Mark Keen DO documented in this encounter [facility] 07-27-2024 Telephone encount er Note Please change 3 month follow up MRI liver to MRI liver with [facility]. New order filed. Mark Keen DO [facility] 07-26-2024 Note [facility] Pap Smear Specimen Adequacy July 26, 2024 4:06pm Comment . Satisfactory for evaluation. Endocervical and/or squamous metaplasticcells (endocervical component) are present. Comment on above: Satisfactory for rosenda luation. Endocervical and/or squamous metaplasticcells (endocervical component) are present. 07-26-2024 Evaluation note Diagnosis Onset Date Resolution Uterine fibroid acute July 142024 11:01am Enlarged pulmonary artery acute September 02, 2 025 9:33am ROGER (obstructive sleep apnea) acute September 02, 2 025 9:33am Shortness of breath on exertion acute September 02, 2 025 9:33am Tobacco dependence acute Februa 2024 9:33am [facility] Work Phone: 1(867) 134-788901-06-2025 Telephone encounter Note* Telephone Encounter - Cora Berrios - 07/19/2024 9:50 AM EST Spoke with patient and scheduled Cora Berrios [facility]01-06-2025 Miscellaneous Notes* Telephone Encounter - Cora Berrios - 07/19/2024 9:50 AM EST Spoke with patient and scheduled Cora Berrios * Telephone Encounter - Jessie England LPN - 07/19/2024 9:01 AM EST Spoke with pt. Concerning results of biopsy, but for now recommend repeat MRI liver in about 3 months to assess stability. Order filed.PSS please reach out to pt. To schedule. Mark Keen DO * Telephone Encounter - Mark Keen DO - 07/18/2024 4:18 PM EST Good news. Can let her know the biopsies suggested no cancer. Similar findings to biopsy at [facility]. I will confirm with surgery, but for now recommend repeat MRI liver in about 3 months to assess stability. Order filed. Mark Keen DO [facility] Telephone encounter Note * Telephone Encounter - Jessie England LPN - 07/19/2024 9:01 AM EST Spoke with pt. Concerning results of biopsy, but for now recommend repeat MRI liver in about 3 months to assess stability. Order filed.PSS please reach out to pt. To schedule. Mark Keen DO [facility]01-05-2025 Telephone encounter Note* Telephone Encounter - Mark Keen DO - 07/18/2024 4:18 PM EST Good news. Can let her know the biopsies suggested no cancer. Similar findings to biopsy at [facility]. I will confirm with surgery, but for now recommend repeat MRI liver in about 3 months to assess stability. Order filed. Mark Keen DO [facility]12-22-2024 NoteHemoglobin EvaluationThe [facility] 1:17pm 18.8 g[facility]LW[facility] Telephone encounter Note* Telephone Encounter - Arlette Olea - 07/02/2024 11:36 AM EST Patient is scheduled on 07/15 [facility]12-20-2024 Miscellaneous Notes* Telephone Encounter - Arlette Olea - 07/02/2024 11:36 AM EST Patient is scheduled on 07/15 * Telephone Encounter - Carol Fink - 06/29/2024 9:19 AM EST [employer] Chat started for scheduling purposes for Liver Biopsy. Spoke with patient and she is aware that [facility] will be calling once her biopsy is triaged and ready to schedule. Carol Fink * Telephone Encounter - Padmini Benson LPN - 06/29/2024 8:20 AM EST Patient is aware of all information. PSS- please contact patient to assist in scheduling biopsy at [facility] as directed below. Padmini Benson LPN * Telephone Encounter - Mark Keen DO - 06/28/2024 6:33 PM EST Let her know the surgeons I ran her case by recommended repeat biopsy of the liver lesion. Please schedule at [facility]. Order filed. Mark Keen DO [facility] Telephone encounter Note * Telephone Encounter - Carol Fink - 06/29/2024 9:19 AM EST [employer] started for scheduling purposes for Liver Biopsy. Spoke with patient and she is aware that [facility] will be calling once her biopsy is triaged and ready to schedule. Carol Fink [facility]12-17-2024 Telephone encounter Note* Telephone Encounter - Padmini Benson LPN - 06/29/2024 8:20 AM EST Patient is aware of all information. PSS- please contact patient to assist in scheduling biopsy at [facility] as directed below. Padmini Benson LPN [facility]12-16-2024 Telephone encounter Note* Telephone Encounter - Mark Keen DO - 06/28/2024 6:33 PM EST Let her know the surgeons I ran her case by recommended repeat biopsy of the liver lesion. Please schedule at [facility]. Order filed. Mark Keen DO [facility]12-16-2024 Telephone encounter Note* Telephone Encounter - Cora Berrios - 06/28/2024 11:11 AM EST Scheduled labs as requested Cora Berrios [facility]12-16-2024 Miscellaneous Notes* Telephone Encounter - Cora Berrios - 06/28/2024 11:11 AM EST Scheduled labs as requested Cora Berrios * Telephone Encounter - Jessie England LPN - 06/28/2024 8:43 AM EST Spoke with pt. Given information concerning recent lab results. Also informed the radiologist couldn't come to a definitive answer on liver lesions. Although probably benign, Dr. Keen is going to get the opinion of one of the surgeons at [facility]. Will update her once I here from one of them. Additionally, hematocrit still significantly elevated so would really encourage follow through on sleep apnea testing. Pt. Voiced understanding. PSS please put on lab schedule 07/02/@ 12 noon for labs ordered on 06/27 Mark Keen DO * Telephone Encounter - Mark Keen DO - 06/27/2024 7:01 PM EST Can let her know repeat test (more sensitive) showed calcium a bit high. Need one more lab help sort this out. Order filed. Also let her know our radiologist couldn't come to a definitive answer on liver lesions. Although probably benign, I'm going to get the opinion of one of the surgeons at [facility]. Will update her once I here from one of them. Additionally, hematocrit still significantlyelevated so would really encourage follow through on sleep apnea testing. Mark Keen DO [facility] Telephone encounter Note * Telephone Encounter - Jessie England LPN - 06/28/2024 8:43 AM EST Spoke with pt. Given information concerning recent lab results. Also informed the radiologist couldn't come to a definitive answer on liver lesions. Although probably benign, Dr. Keen is going to get the opinion of one of the surgeons at [facility]. Will update her once I here from one of them. Additionally, hematocrit still significantly elevated so would really encourage follow through on sleep apnea testing. Pt. Voiced understanding. PSS please put on lab schedule 07/02/@ 12 noon for labs ordered on 06/27 Mark Keen DO [facility]12-15-2024 Telephone encounter Note* Telephone Encounter - Mark Keen DO - 06/27/2024 7:01 PM EST Can let her know repeat test (more sensitive) showed calcium a bit high. Need one more lab help sort this out. Order filed. Also let her know our radiologist couldn't come to a definitive answer on liver lesions. Although probably benign, I'm going to get the opinion of one of the surgeons at [facility]. Will update her once I here from one of them. Additionally, hematocrit still significantlyelevated so would really encourage follow through on sleep apnea testing. Mark Keen DO [facility]12-12-2024 Telephone encounter Note* Telephone Encounter - Padmini Benson LPN - 06/24/2024 10:06 AM EST Patient is aware of all information. I faxed the lab results and a copy of this note to her PCP. Padmini Benson LPN [facility]12-12-2024 Miscellaneous Notes* Telephone Encounter - Padmini Benson LPN - 06/24/2024 10:06 AM EST Patient is aware of all information. I faxed the lab results and a copy of this note to her PCP. Padmini Benson LPN * Telephone Encounter - Carol Fink - 06/24/2024 10:03 AM EST Lab scheduled as directed. Carol Fink * Telephone Encounter - Mark Keen DO - 06/24/2024 9:44 AM EST Thank you. Then please fax a copy of her chemistry panel to her PCP and have her reach out to him for further management of the hypokalemia. Mark Keen DO * Telephone Encounter - Padmini Benson LPN - 06/24/2024 9:22 AM EST Patient is taking potassium 20 meq BID but is also taking Lasix 40 mg BID and HCTZ 25 mg every day. PSS- please make a lab appointment for today @ 12:30- patient is aware. Please attach all of Dr. Keen's lab orders to the appointment. Padmini Benson LPN * Telephone Encounter - Mark Keen DO - 06/24/2024 6:45 AM EST Let her know calcium is higher than normal. May be an endocrinologic issue and not related to cancer, but needs ionized calcium and PTH as well as myeloma labs with no urine to further assess. Pleasepend orders. Potassium still really low and I see she already has Rx for potassium. Verify she is taking as prescribed. Mark Keen DO [facility] Telephone encounter Note * Telephone Encounter - Carol Fink - 06/24/2024 10:03 AM EST Lab scheduled as directed. Carol Fink [facility]12-12-2024 Telephone encounter Note* Telephone Encounter - Mark Keen DO - 06/24/2024 9:44 AM EST Thank you. Then please fax a copy of her chemistry panel to her PCP and have her reach out to him for further management of the hypokalemia. Mark Keen DO [facility] Work Phone: [phone]) 203-996812-12-2024 Telephone encounter Note* Telephone Encounter - Padmini Benson LPN - 06/24/2024 9:22 AM EST Patient is taking potassium 20 meq BID but is also taking Lasix 40 mg BID and HCTZ 25 mg every day. PSS- please make a lab appointment for today @ 12:30- patient is aware. Please attach all of Dr. Keen's lab orders to the appointment. Padmini Benson LPN [facility]12-12-2024 Telephone encounter Note* Telephone Encounter - Mark Keen DO - 06/24/2024 6:45 AM EST Let her know calcium is higher than normal. May be an endocrinologic issue and not related to cancer, but needs ionized calcium and PTH as well as myeloma labs with no urine to further assess. Pleasepend orders. Potassium still really low and I see she already has Rx for potassium. Verify she is taking as prescribed. Mark Keen DO [facility]12-11-2024 NoteHNO ID: [id number] Author: MARK KEEN DO Service: ? Author Type: Physician Type: Progress Notes Filed: 06/23/2024 13:32 Note Text: Patient self-referred for liver mass and polycythemia. HPI: The patient is a 64-year-old female with a past medical history as outlined below. Early May 2024, started feeling unwell--generalized malaise--like the flu without fever or muscle aches. No fever, cough, URI symptoms, chills or GI symptoms Went to see PCP. Pulse ox 70s. Sent to ED. CTA of the chest identified no pulmonary embolism but there was an incidental finding of a possible liver mass. Subsequent CT scan of the abdomen on 05/23/2024 demonstrated a 6 cm x 4.6 cm moderately sized partially septated mixed fluid and cystic mucinous appearing lesion on the undersurface do not left lower liver. There is also mild enhancement wall cystic lesion of the left lower liver. MRI was recommended. There was also a enhancing 3.2 cm soft tissue mass in the left uterine body intramural region possibly representing a fibroid. Subsequent MRI on 05/24/2014 revealed that the liver was normal in size, contour and morphology but there was a solid and cystic heterogeneously enhancing mass along posterior aspect lateral segment with the bulk of the tumor measuring 6.4 x 5.4 x 3.9 cm. The solid components and mass exhibited progressive enhancement. There was an adjacent 1.6 mm earphone along the anterior superior aspect of the mass which it also exhibited aggressive enhancement. There is restricted diffusion associated with more solid enhancing components. Patient went on to have have a biopsy of the lesion which demonstrated liver parenchymal tissue with fibrosis, hyalinization and degenerative changes. No malignancy was observed. 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 [place] better after antibiotics. Discharged on O2. Uses 3 lpm at night. Has appointment with pulmonology in August. Quit smoking. Was drinking about 8 beers a night. Quit altogether. No history hepatitis. PAST MEDICAL HISTORY Diagnosis Date Cervicitis and endocervicitis Dysmenorrhea Dysplasia of cervix, unspecified Hypercholesterolemia Hypertension PAST SURGICAL HISTORY Procedure Laterality Date LIG/TRNSXJ FLP TUBE ABDL/VAG APPR UNI/BI 2002 Tubal ligation PAST SURGICAL HISTORY OF AGE 18 MOLAR EXTRACTION amLODIPine (NORVASC) 10 mg tablet Take 10 mg by mouth once daily. hydroCHLOROthiazide 25 mg tablet Take 1 tablet by mouth once daily. atorvastatin (LIPITOR) 40 mg tablet Take 40 mg by mouth daily at bedtime. furosemide (LASIX) 40 mg tablet Take 40 mg by mouth two times a day. potassium chloride ER (KLOR-CON) 20 mEq tablet Take 20 mEq by mouth two times a day. multivitamin tablet Take 1 tablet by mouth once daily. docosahexaenoic acid/epa (FISH OIL ORAL) Take 1 capsule by mouth once daily. ascorbic acid (VITAMIN C ORAL) Take 1 tablet by mouth once daily. cholecalciferol, vitamin D3, (VITAMIN D3 ORAL) Take 1 tablet by mouth once daily. ZINC ORAL Take 1 tablet by mouth once daily. loratadine (CLARITIN) 10 mg tablet Take 10 mg by mouth once daily. ALLERGIES Allergen Reactions Lisinopril Swelling Social History Tobacco Use Smoking status: Every Day Types: Cigarettes Smokeless tobacco: Never Tobacco comments: Pt smoked 1/2 pack daily x 50 years, quit May 2024 Substance Use Topics Alcohol use: Yes Comment: SOCIALLY Drug use: No FAMILY HISTORY Problem Relation Age of Onset Cancer Mother pancreatic Colon Cancer Father Heart Father triple bypass Gastric Cancer Maternal Grandfather Colon Cancer Paternal Grandmother REVIEW OF SYSTEMS: Constitutional: No episodes of fever and night sweats. Not significantly fatigued. Normal appetite. Neuro: No PUCKETT, vertigo, dizziness and imbalance. No symptoms of neuropathy. HEENT: No recent change in voice, vision or hearing. Resp: See above.. CVS: No exertional chest pain, PND, orthopnea and LE edema. GI: No dysphagia and odynophagia. No reflux, n/v, change in bowel habits or abdominal pain. : No dysuria or gross hematuria. No symptoms of bladder outlet obstruction. Endo: No hot flashes. No polyuria and polydipsia. No heat and cold intolerance. Musculoskeletal: No bone, back, joint and muscular pain. Derm: No current rash. No history of jaundice or diffuse pruritis. Heme: No unusual bleeding and unexplained bruising. Psych: Normal mood. PHYSICAL EXAM: Vitals: Blood pressure 147/83, pulse 92, temperature 36.5 ?C (97.7 ?F), temperature source Temporal, height 165.1 cm (5' 5), weight 108.9 kg (240 lb), last menstrual period 05/04/2006, SpO2 93%. Well-appearing and in no acute distress. EYES: Sclerae are anicteric bilaterally. LYMPHATIC: There is no palpable adenopathy. CARDIOVASCULAR: Rhythm is regular. ABDOMEN: The abdomen is nondistended. No splenomegaly or hepato (more content not included)...[facility]12-11-2024 History of Present illness Narrative* Mark Keen DO - 06/23/2024 11:30 AM EST Patient self-referred for liver mass and polycythemia. HPI: The patient is a 64-year-old female with a past medical history as outlined below. Early May 2024, started feeling unwell--generalized malaise--like the flu without fever or muscle aches. No fever, cough, URI symptoms, chills or GI symptoms Went to see PCP. Pulse ox 70s. Sent to ED. CTA of the chest identified no pulmonary embolism but there was an incidental finding of a possible liver mass. Subsequent CT scan of the abdomen on 05/23/2024 demonstrated a 6 cm x 4.6 cm moderately sized partially septated mixed fluid and cystic mucinous appearing lesion on the undersurface do not left lowerliver. There is also mild enhancement wall cystic lesion of the left lower liver. MRI was recommended. There was also a enhancing 3.2 cm soft tissue mass in the left uterine body intramural region possibly representing a fibroid. Subsequent MRI on 05/24/2014 revealed that the liver was normal in size, contour and morphology butthere was a solid and cystic heterogeneously enhancing mass along posterior aspect lateral segment with the bulk of the tumor measuring 6.4 x 5.4 x 3.9 cm. The solid components and mass exhibited progressive enhancement. There was an adjacent 1.6 mm earphone along the anterior superior aspect of the mass which it also exhibited aggressive enhancement. There is restricted diffusion associated withmore solid enhancing components. Patient went on to have have a biopsy of the lesion which demonstrated liver parenchymal tissue with fibrosis, hyalinization and degenerative changes. No malignancy was observed. 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 [place] better after antibiotics. Discharged on O2. Uses 3 lpm at night. Has appointment with pulmonology in August. Quit smoking. Was drinking about 8 beers a night. Quit altogether. No history hepatitis. PAST MEDICAL HISTORY Diagnosis Date Cervicitis and endocervicitis Dysmenorrhea Dysplasia of cervix, unspecified Hypercholesterolemia Hypertension PAST SURGICAL HISTORY Procedure Laterality Date LIG/TRNSXJ FLP TUBE ABDL/VAG APPR UNI/BI 2002 Tubal ligation PAST SURGICAL HISTORY OF AGE 18 MOLAR EXTRACTION amLODIPine (NORVASC) 10 mg tablet Take 10 mg by mouth once daily. hydroCHLOROthiazide 25 mg tablet Take 1 tablet by mouth once daily. atorvastatin (LIPITOR) 40 mg tablet Take 40 mg by mouth daily at bedtime. furosemide (LASIX) 40 mg tablet Take 40 mg by mouth two times a day. potassium chloride ER (KLOR-CON) 20 mEq tablet Take 20 mEq by mouth two times a day. multivitamin tablet Take 1 tablet by mouth once daily. docosahexaenoic acid/epa (FISH OIL ORAL) Take 1 capsule by mouth once daily. ascorbic acid (VITAMIN C ORAL) Take 1 tablet by mouth once daily. cholecalciferol, vitamin D3, (VITAMIN D3 ORAL) Take 1 tablet by mouth once daily. ZINC ORAL Take 1 tablet by mouth once daily. loratadine (CLARITIN) 10 mg tablet Take 10 mg by mouth once daily. ALLERGIES Allergen Reactions Lisinopril Swelling Social History Tobacco Use Smoking status: Every Day Types: Cigarettes Smokeless tobacco: Never Tobacco comments: Pt smoked 1/2 pack daily x 50 years, quit May 2024 Substance Use Topics Alcohol use: Yes Comment: SOCIALLY Drug use: No FAMILY HISTORY Problem Relation Age of Onset Cancer Mother pancreatic Colon Cancer Father Heart Father triple bypass Gastric Cancer Maternal Grandfather Colon Cancer Paternal Grandmother REVIEW OF SYSTEMS: Constitutional: No episodes of fever and night sweats. Not significantly fatigued. Normal appetite. Neuro: No PUCKETT, vertigo, dizziness and imbalance. No symptoms of neuropathy. HEENT: No recent change in voice, vision or hearing. Resp: See above.. CVS: No exertional chest pain, PND, orthopnea and LE edema. GI: No dysphagia and odynophagia. No reflux, n/v, change in bowel habits or abdominal pain. : No dysuria or gross hematuria. No symptoms of bladder outlet obstruction. Endo: No hot flashes. No polyuria and polydipsia. No heat and cold intolerance. Musculoskeletal: No bone, back, joint and muscular pain. Derm: No current rash. No history of jaundice or diffuse pruritis. Heme: No unusual bleeding and unexplained bruising. Psych: Normal mood. PHYSICAL EXAM: Vitals: Blood pressure 147/83, pulse 92, temperature 36.5 C (97.7 F), temperature source Temporal, height 165.1 cm (5' 5), weight 108.9 kg (240 lb), last menstrual period 05/04/2006, SpO2 93%. Well-appearing and in no acute distress. EYES: Sclerae are anicteric bilaterally. LYMPHATIC: There is no palpable adenopathy. CARDIOVASCULAR: Rhythm is regular. ABDOMEN: The abdomen is nondistended. No splenomegaly or hepatomegaly. No tenderness. Extremities: No swelling or edema. SKIN: No jaundice. 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 -Biopsy demonstrated benign findings. -Likely secondary polycythemia. Plan: -Over read of outside MRI. -Recheck CBC now that she has been on oxygen for about a month. -She will need testing for sleep apnea. -Check chemistry panel, AFP and hepatitis renal panel. -Likely will repeat imaging in a few months depending on over read of MRI. I spent a total of 45 minutes on the date of the service which included preparing to see the patient, [id number] patient care, completing clinical documentation, obtaining and/or reviewing separately obtained history, performing a medically appropriate examination, ordering medications, tests, or procedures, communicating with other HCPs (not separately reported), and communicating results to the patient/family/caregiver. Mark Keen DO [facility] Telephone encounter Note * Telephone Encounter - Marie Paz - 06/04/2024 1:45 PM EST Scheduled with patient [facility]-2024 Miscellaneous Notes* Telephone Encounter - Marie Paz - 06/04/2024 1:45 PM EST Scheduled with patient * Telephone Encounter - Carol Fink - 06/04/2024 1:37 PM EST Left message for patient to return call. When she calls, please schedule first available New Patient with Dr. Keen. Carol Bragg * Telephone Encounter - Mark Keen DO - 06/04/2024 12:41 PM EST Can schedule her to see me next new appointment time. I'll see her first and then refer to surgeon if indicated. Mark Keen DO * Telephone Encounter - Padmini Benson LPN - 06/03/2024 8:27 AM EST Images uploaded. Padmini Benson LPN * Telephone Encounter - Jessie England LPN - 05/31/2024 8:09 AM EST Spoke with pt. Infomed that biopsy is negative for cancer. 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 Request for images to be pushed to [facility] were requested 05/28. Willawait complete push thru and Dr. Keen will then request surgeon @ [facility] look to see if surgical BX is indicated. Pt. Voiced understanding . Jessie England LPN * Telephone Encounter - Padmini Benson LPN - 05/31/2024 7:56 AM EST Left message for patient to contact office. Images requested from [facility]. Padmini Benson LPN * Telephone Encounter - Mark Keen DO - 05/30/2024 7:20 PM EST The good news is that biopsy is negative for cancer. The pathologist at [facility] thinks it may just be ascarred benign hemangioma. I took care of her both her mother and father years ago so I know she is distressed about this. Let's get all recent images uploaded from [facility] and we'll get her to see one of the surgeons at [facility] to see if a surgical biopsy is indicated. Mark Keen DO * Telephone Encounter - aMrie Paz - 05/28/2024 9:50 AM EST Patient faxing records to [facility]. States she is still waiting for biopsy results from [facility]. [facility] Telephone encounter Note * Telephone Encounter - Carol Fink - 06/04/2024 1:37 PM EST Left message for patient to return call. When she calls, please schedule first available New Patient with Dr. Keen. Carol Fink [facility]-22-2024 Telephone encounter Note* Telephone Encounter - Mark Keen DO - 06/04/2024 12:41 PM EST Can schedule her to see me next new appointment time. I'll see her first and then refer to surgeon if indicated. Makr Keen DO [facility] Work Phone: 1(925) 596-874511-21-2024 Telephone encounter Note* Telephone Encounter - Padmini Benson LPN - 06/03/2024 8:27 AM EST Images uploaded. Padmini Benson LPN [facility]11-18-2024 Telephone encounter Note* Telephone Encounter - Jessie England LPN - 05/31/2024 8:09 AM EST Spoke with pt. Infomed that biopsy is negative for cancer. 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 Request for images to be pushed to [facility] were requested 05/28. Willawait complete push thru and Dr. Keen will then request surgeon @ [facility] look to see if surgical BX is indicated. Pt. Voiced understanding . Jessie England LPN [facility]11-18-2024 Telephone encounter Note* Telephone Encounter - Padmini Benson LPN - 05/31/2024 7:56 AM EST Left message for patient to contact office. Images requested from [facility]. Padmini Benson LPN [facility]11-17-2024 Telephone encounter Note* Telephone Encounter - Mark Keen DO - 05/30/2024 7:20 PM EST The good news is that biopsy is negative for cancer. The pathologist at [facility] thinks it may just be ascarred benign hemangioma. I took care of her both her mother and father years ago so I know she is distressed about this. Let's get all recent images uploaded from [facility] and we'll get her to see one of the surgeons at [facility] to see if a surgical biopsy is indicated. Mark Keen DO [facility]11-15-2024 Telephone encounter Note* Telephone Encounter - Marie Paz - 05/28/2024 9:50 AM EST Patient faxing records to [facility]. States she is still waiting for biopsy results from [facility]. [facility]11-14-2024 [facility] Medical Records Department [address] [place] [address] Discharge Summary 05/27/2454 MR#: [id number] Acct: [id number] Name: ECHO DUNN Rep #: [id number] : 1960 64 From: Nirav Bolden MD PCP: Dr. Kourtney Bergman MD Status:ADM IN [facility] Prov[facility] Date of Admission: 05/21/24 Date of Discharge: 05/27/24 Primary Care Physician: Kourtney Bergman MD Reason For Visit: HYPOXIA, PNA Diagnosis Discharge Diagnosis (1) Liver mass: Status: Acute Code(s): R16.0 - Hepatomegaly, not elsewhere classified (2) Pneumonia: Status: Acute Code(s): J18.9 - Pneumonia, unspecified organism (3) Acute hypoxic respiratory failure: Status: Acute Code(s): J96.01 - Acute respiratory failure with hypoxia Plan Patient is a 64-year-old lady who presented with progressive shortness of breath and assessment of acute hypoxic respiratory failure secondary to community-acquired pneumonia made admitted to monitored bed for further management 1. Acute hypoxic respiratory failure secondary to community-acquired pneumonia secondary to streptococcal pneumonia, Blood and sputum cultures sent. Sputum cultures came back positive for Streptococcus group F. Patient placed on Levaquin and placed on oxygen titrated to keep Pulse Ox greater than 90. Patient still requires significant amount of oxygen 7 L. Of note patient was not on any oxygen prior to her admission patient will be assessed for home oxygen prior to being discharged ??? 05/25/2024 patient down to 3 L flow per minute ??? I have reviewed the oxygen testing, and this patient qualifies for the home equipment and portability. The patient is mobile in the home and the community. 2. Liver mass -CT of the abdomen and pelvis did show Liver: 6.01 x 4.59 cm moderate size partially septated mixed fluid and cystic mucinous appearing lesion in the undersurface and dome of the left lobe of the liver. There is also mild enhancement of the wall of the cystic lesion in left lobe of the liver MRI of the abdomen liver protocol with and without contrast was recommended by radiology subsequently ordered. An order was also placed for patient to undergo CT-guided biopsy ??? 05/25/2024; patient is scheduled liver biopsy postponed to tomorrow. Patient apparently did receive Lovenox this a.m. ??? 05/26/2024; patient underwent liver biopsy this a.m. MRI obtained the day prior results are as below Solid and cystic and/or necrotic mass in the lateral segment of the liver measuring up to 6.4 cm, compatible with a primary liver malignancy. Favored diagnostic considerations include biliary cystadenocarcinoma and cystic peripheral cholangiocarcinoma. No lymphadenopathy or evidence of metastatic disease. Patient informed of the results and the need to wait for biopsy. Patient's preference would be to follow-up with Dr. Keen as outpatient ??? Plan is for patient to follow-up with oncology as outpatient 3. Uterine mass -Transvaginal ultrasound ordered for subsequent eval ??? Transvaginal ultrasound demonstrated 3.3 cm uterine mass presumed fibroid. 4. Polycythemia ??? Thought to be secondary to chronic hypoxia given patient history of tobacco use. Will continue with monitoring 5. Suspected obstructive sleep apnea -sleep study as outpatient 6. Hypertension ??? Blood pressure controlled, home medications continued with dose adjustment as needed 7. Dyslipidemia ???Patient is on statin therapy, continued at home dose 8. History of colon polyps -Colonoscopy 05/05/2023 showed several colon polyps which were removed; Pathology was consistent with tubular adenomas as well as hyperplastic polyps. Repeat colonoscopy was recommended for 3 years 9. Seasonal allergies -Continue home loratadine 10. Tobacco dependence ??? Counseled on cessation, offered nicotine patch for tobacco cravings 11. Class III obesity with BMI of 40.9 ??? Complicating care weight loss advised. 12. DVT prophylaxis ??? On enoxaparin 13. Hypokalemia -Corrected per protocol Time spent in the patient's overall evaluation,decision-making process, review of diagnostic data, adjustment of management, discussion with other providers, nursing nursing and ancillary staff involved in patient's care documentation, 40 Minutes Medications at Discharge Home Medications loratadine 10 mg tablet (Allergy Relief (loratadine)) 10 mg PO DAILY PRN allergy symptoms 07/31/18 omega-3 fatty acids-fish oil 340 mg-1,000 mg capsule (Fish Oil) 1 ea PO DAILY 07/31/18 ascorbate calcium (vitamin C) 500 mg tablet 500 mg PO DAILY 03/11/23 atorvastatin 40 mg tablet 40 mg PO QHS 03/11/23 cholecalciferol (vitamin D3) 50 mcg (2,000 unit) capsule 50 mcg PO DAILY 03/11/23 hydrochlorothiazide 25 mg tablet 25 mg PO DAILY 03/11/23 zinc gluconate 30 mg tablet 30 mg PO DAILY 03/11/23 amlodipine 10 mg tab (more content not included)...[facility] 05-05-2023 History and physical note Author Gregory Friend [facility] May 05, 2023 10:27am Note Date/Time May 05, 2023 1 0:27am [facility] Medical Records Department [address] [place] [address] History & Physical Exam 05/05/23 1025 MR#: [id number] Acct: [id number] Name: ECHO DUNN Rep #:[id number] : 1960 63 From: Gregory Ruffin DO PCP: Maribel Caraballo DO Status:REG S DC Location: [place] [address] HPI - General General Date of Admission: 05/05/23 Date of Service: 05/05/23 Chief Complaint: Screening colonoscopy HPI Narrative ECHO DUNN, is a 63 F who presents for screening colonoscopy. She has a pastmedical of mild hypertension. She also is past medical history of mild hypercholesterolemia. He had a colonoscopy proxy 5 years ago that showed some inflammation consistent with colitis. She does not take any medicine on daily basis for that now. She did take medicine for few months but cannot recall which medicine it was. She denies any diarrhea, bleeding, nausea, chest pain orshortness of breath. [facility] Medical History Family hx of colon cancer High cholesterol History of echocardiogram History of edema HTN (hypertension) Hypercholesteremia Loose, teeth Smoker Home Medications loratadine 10 mg tablet (Allergy Relief (loratadine)) 10 mg PO DAILY 07/31/18 [History Last Taken Unknown] omega-3 fatty acids-fish oil 340 mg-1,000 mg capsule (Fish Oil) 1 ea PO DAILY 07/31/18 [History Last Taken Unknown] pediatric tsuzvpoq-rtbj-ard (Multi-Vitamins with Iron chewable tablet) 1 ea PO DAILY 07/31/18 [History Last Taken Unknown] amlodipine 5 mg tablet 5 mg PO DAILY 03/11/23 [History Last Taken Unknown] ascorbate calcium (vitamin C) 500 mg tablet 500 mg PO DAILY 03/11/23 [History Last Taken Unknown] atorvastatin 40 mg tablet 40 mg PO QHS 03/11/23 [History Last Taken Unknown] cholecalciferol (vitamin D3) 50 mcg (2,000 unit) capsule 50 mcg PO DAILY 03/11/23 [History Last Taken Unknown] hydrochlorothiazide 25 mg tablet 25 mg PO DAILY 03/11/23 [History Last Taken Unknown] zinc gluconate 30 mg tablet 30 mg PO DAILY 03/11/23 [History Last Taken Unknown] Allergy/AdvReac Type Severity Reaction Status Date / Time lisinopril Allergy Angioedema Verified 04/29/23 12:06 Family History (Updated 03/11/23 @ 10:39 by Charity Holman) Father Colon cancer Grandmother Colon cancer Brother Colon polyps Surgical History (Updated 04/29/23 @ 12:15 by Ginger Resendiz) History of tubal ligation History of wisdom tooth extraction Hx of colonoscopy Social History (Updated 03/11/23 @ 10:39 by Charity Holman) household members: children current occupational status: employed Smoking Status: Current every day smoker tobacco type: cigarettes ROS Review of Systems ROS Unobtainable: other Constitutional Constitutional: Denies fatigue, fever(s), poor appetite, weight gain or weight loss ENT HEENT: Denies mouth lesions Cardiovascular Cardiovascular: Denies abdominal bloating, abdominal edema or abdominal pain Respiratory/Chest Respiratory/Chest: Denies change in mental status, change in phlegm color, chestcongestion or chest tightness Gastrointestinal Gastrointestinal: Denies belching, bloating, change in bowel habits, change in stool character, chewing difficulty, coffee ground emesis, constipation, cramping, diarrhea, dyspepsia, dysphagia, early satiety, excessive flatus, fecalincontinence, heartburn, hematemesis, hematochezia, hemorrhoids, loose stools, melena, nausea, odynophagia, rectal bleeding, tenesmus, vomiting or weight changes Genitourinary Genitourinary: Denies abdominal discomfort, burning urination or itching Musculoskeletal Musculoskeletal: Reports as per HPI; Denies muscle weakness or myalgias Integumentary Integumentary: Denies jaundice Neurologic Neurologic: Denies lack of coordination or weakness Psychiatric Psychiatric: Denies confusion, depression, memory loss, mood swings, paranoia orsuicidal ideation Endocrine Endocrinology: Denies systems reviewed and no addt'l complaints, except as documented Hematologic/Lymphatic Hematologic/Lymphatic: Denies anemia, easy bleeding, easy bruising or lymphadenopathy Allergic/Immunologic Allergic/Immunologic: Denies systems reviewed and no addt'l complaints, except as documented Physical Exam Const alert General Appearance: cooperative Orientation / Consciousness: oriented to person HEENT hearing grossly normal bilaterally Head and Scalp: normal to inspection Face and Sinus: face symmetric Nose: external nose normal Mouth: oral and palatal mucosa normal Eyes conjunctivae normal General Eye: normal appearance of both eyes Neck full ROM General: normal visual inspection Lymph Lymphatic: no lymphadenopathy noted Chest inspection of chest normal and palpation of chest normal Chest: symmetrical chest wall rise Resp normal respiratory effort Effort and Inspection: able to speak in complete sentences Cardio regular rate GI non-distended Percussion: normal to percussion Rectal Exam: deferred Neuro Speech: speech normal Gait (Neuro): normal gait Assessment & Plan Assessment/Plan (1) Encounter for screening for malignant neoplasm of colon: PLAN: She was explained alternatives, risk, benefits including not withstanding bleeding, infection, sepsis, perforation, need for emergent surgery . She will have an ASA of 2. 05/05/23 1027 <Electronically signed by Gregory Ruffin DO> Cosigner Signature (if applicable): CC: Maribel Caraballo DO; Gregory Ruffin DO~ Signed [facility] Work Phone: 1(199) 198-772510-23-2023 Procedure [facility] 05[facility]05-2023 [facility] noteNo assessment information availableWDayton [facility] Work Phone: Evaluation note* Diagnosis Onset Date Resolution Status Encounter for screening for malignant neoplasm of colo n acute [facility] Work Phone: Evaluation note* Diagnosis Liver mass- Primary Unspecified disorder of liver Secondary polycythemia Polycythemia, secondary [facility] Diagnosis Secondary polycythemia- Primary Polycythemia, secondary Liver mass Unspecified disorder of liver Hypercalcemia [facility] Diagnosis Hyperkalemia- Primary Hyperpotassemia Polycythemia Polycythemia vera [facility] Diagnosis Liver mass- Primary Unspecified disorder of liver [facility] Diagnosis Liver mass- Primary Unspecified disorder of liver [facility] Diagnosis Liver disease- Primary Unspecified disorder of liver Liver mass Unspecified disorder of liver [facility] Diagnosis Liver mass Unspecified disorder of liver [facility] Diagnosis Liver mass- Primary Unspecified disorder of liver [facility] (n[facility]ative)No reason for referral information availableWDayton Children's Hospital Work Phone: Reason for visit Narrative* MRI/CT (Routine) - Closed Specialty Diagnoses / Procedures Referred By Flip t Referred To Contact MR IMAGING Diagnoses Liver mass Procedures MRI LIVER WO/W IVCON MRI ABDOMEN W/O & W/CONTRAST MATERIAL Mark Keen, DO [address] [place] [address] Phone: tel: fax: [place] [address] Referral ID Status Reason Start Date Expiration Date V isits Requested Visits Authorized [id number] Closed Auto-Generate d Referral 07/18/2024 08/17/2025 1 1 [facility] Chief Complaint and Reason for Visit Chief Complaint SCREENING Chief Complaint E ORDER Chief Complaint E ORDER [id number] Chief Complaint E ORDER [id number] Amb Documentation Reason for Visit Encounter for screen ing for malignant neoplasm of colon Chief Complaint Admit Date uterine fibroid ([place]) July 26, 2024 11:01am SCREENING August 05, 2024 1 :53pm ROGER September 02, 2024 9:33am Reason for Visit Admit Date Uterine fibroid July 26, 2024 1 1:01am Enlarged pulmonary artery September 02, 2024 9:33am ROGER (obstructive sleep apnea) August 152024 9:33am Shortness of breath on exertion September 02, 2024 9:33am Tobacco dependence September 02, 2024 9:33am Advance Directives No Advanced Directives Records Found Advance Directive Response Recorded Date/ Time Living Will Yes July 31 6:41pm Power of Steel Rigger Yes July 31, 2018 6:41pm Advance Directive Response Recorded Date/ Time Living Will No April 29 12:08pm Power of Steel Rigger No April 29, 2023 12:08pm Family History No Family History Records Found Relationship Condition Age at Onset Recorded Date/T keith father Malignant neoplasm of colon Unknown grandmother Malignant neoplasm of colon Unknown brother Polyp of colon Unknown Relationship Condition Age at Onset Recorded Date/T keith Not Specified Lymphoma Unknown Malignant neoplasm of lung Unknown father Malignant neoplasm of colon Unknown Hypertension Unknown Cardiac disease Unknown mother Malignant neoplasm of pancreas Unknown Summary Purpose Reason for Referral Specialty Diagnoses / Procedures Referred By Flip healy Referred To Contact MR IMAGING Diagnoses Liver mass Procedures MRI LIVER WO/W IVCON MRI ABDOMEN W/O & W/CONTRAST MATERIAL Mark Keen DO [address] [place] [address] [place] [address] Referral ID Status Reason Start Date Expiration Date Visits Requested Visits Authorized [id number] Authorized Auto-Generat ed Referral 07/18/2024 08/17/2025 1 1 Additional Source Comments Goals (unrecognized section and content) Goals may be documented in a n alternate sectionGoals may be documented in an alternate sectionGoals may be documented in an alternate sectionGoals may be documented in an alternate sectionGoals may be documented in an alternate section Care Teams (unrecognized sec tion and content) Team Status: Active Member Role Status Dates Dr. Silvestre Scott MD Family Provider Active Ana Rose COOLER ROOM WORKER, COOLER ROOM WORKER-C Primary Care Provider Active Team Status: Inactive Member Role Status Dates Ana Rose NP, COOLER ROOM WORKER-C Primary Care Provider Active Maribel Caraballo DO Attending Provider Active Team Status: Active Member Role Status Dates Dr. Silvestre Scott MD Family Provider Active Maribel Caraballo DO Primary Care Provider Active Team Status: Inactive Member Role Status Dates Maribel Caraballo DO Primary Care Martell grigsby Attending Provider, Referring Provider Active Team Status: Active Member Role Status Dates Maribel Caraballo DO Primary Care Provider Philomena Holman Attending Provider Active Team Status: Active Member Role Status Dates Maribel M Ilya , DO Primary Care Provider, Referring Provider Active Dr. Gregory Ruffin , DO Attending Provider, Other Prov ider Active Team Status: Inactive Member Role Status Dates Maribel Caraballo , DO Primary Care Provider, Referring Provider Active Dr. Gregory Ruffin , DO Attending Provider Active Fashion Design Professor Relationship Specialty Start Date End Date Kourtney Bergman MD [address] [facility] [address] [place] [address] PCP - General Internal Medicine 06/23/24 Fashion Design Professor Relationship Specialty Start Date End Date Kourtney Bergman MD [address] [facility] [address] [place] [address] PCP - General Internal Medicine 06/23/24 Fashion Design Professor Relationship Specialty Start Date End Date Kourtney Bergman MD [address] [facility] [address] [place] [address] PCP - General Internal Medicine 06/23/24 Fashion Design Professor Relationship Specialty Start Date End Date Kourtney Bergman MD [address] [facility] [address] [place] [address] PCP - General Internal Medicine 06/23/24 Fashion Design Professor Relationship Specialty Start Date End Date Kourtney Bergman MD [address] [facility] [address] [place] [address] PCP - General Internal Medicine 06/23/24 Team Status: Active Member Role Status Dates Dr. Silvestre Scott MD Family Provider Active Kourtney Bergman MD Primary Care Provider Active Team Status: Inactive Member Role Status Dates Kourtney Bergman MD Primary Care Provider Active St art: July 02, 2024 End: July 02, 2024 Kourtney Bergman MD Attending Provider Active Start : July 02, 2024 End: July 02, 2024 Kourtney Bergman MD Referring Provider Active Start : July 02, 2024 End: July 02, 2024 Team Status: Active Member Role Status Merry Bergman MD Primary Care Provider Active St art: July 04, 2024 Kourtney Bergman MD Attending Provider Active Start : July 04, 2024 Team Status: Inactive Member Role Status Merry Bergman MD Primary Care Provider Active St art: July 05, 2024 End: July 05, 2024 Kourtney Bergman MD Attending Provider Active Start : July 05, 2024 End: July 05, 2024 Kourtney Bergman MD Referring Provider Active Start : July 05, 2024 End: July 05, 2024 Team Status: Inactive Member Role Status Merry Bergman MD Primary Care Provider Active St art: July 26, 2024 End: July 26, 2024 Kourtney Bergman MD Referring Provider Active Start : July 26, 2024 End: July 26, 2024 Dr. Cassidy Mathew DO Attending Provider Activ e Start: July 26, 2024 End: July 26, 2024 Team Status: Inactive Member Role Status Merry Bergman MD Primary Care Provider Active St art: July 26, 2024 End: July 26, 2024 Dr. Cassidy Mathew DO Attending Provider Activ e Start: July 26, 2024 End: July 26, 2024 Dr. Cassidy Mathew DO Referring Provider Activ e Start: July 26, 2024 End: July 26, 2024 Team Status: Inactive Member Role Status Merry Bergman MD Primary Care Provider Active St art: August 05, 2024 End: August 05, 2024 Dr. Cassidy Mathew DO Attending Provider Activ e Start: August 05, 2024 End: August 05, 2024 Dr. Cassidy Mathew DO Referring Provider Activ e Start: August 05, 2024 End: August 05, 2024 Team Status: Inactive Member Role Status Merry Bergman MD Primary Care Provider Active St art: September 02, 2024 End: September 02, 2024 Kourtney Bergman MD Referring Provider Active Start : September 02, 2024 End: September 02, 2024 Morelia Owens NP, [employer] WORKER-C Attending Provider Active Start: September 02, 2024 End: September 02, 2024 Team Status: Inactive Member Role Status Dates Kourtney Bergman MD Primary Care Provider Active St art: September 30, 2024 End: September 30, 2024 Kourtney Bergman MD Attending Provider Active Start : September 30, 2024 End: September 30, 2024 Kourtney Bergman MD Referring Provider Active Start : September 30, 2024 End: September 30, 2024 Fashion Design Professor Relationship Specialty Start Date End Date Kourtney Bergman MD [address] [facility] [address] [place] [address] PCP - General Internal Medicine 06/23/24 Fashion Design Professor Relationship Specialty Start Date End Date Kourtney Bergman MD [address] [facility] [facility] [address] [place] [address] PCP - General Internal Medicine 06/23/24 Fashion Design Professor Relationship Specialty Start Date End Date Kourtney Bergman MD [address] [facility] [address] [place] [address] PCP - General Internal Medicine 06/23/24 Source Comments (unrecognize d section and content) In the event this informatio n is protected by the Federal Confidentiality of Alcohol and Drug Abuse Patient Records regulations: The Federal rules restrict any use of the information to criminally investigate or prosecute any alcohol or drug abuse patient.[facility] the event this information is protected by the Federal Confidentiality of Alcohol and Drug Abuse Patient Records regulations: The Federal rules restrict any use of the information to criminally investigate or prosecute any alcohol or drug abuse patient.[facility] the event this information is protected by the Federal Confidentiality of Alcohol and Drug Abuse Patient Records regulations: The Federal rules restrict any use of the information to criminally investigate or prosecute any alcohol or drug abuse patient.[facility] the event this information is protected by the Federal Confidentiality of Alcohol and Drug Abuse Patient Records regulations: The Federal rules restrict any use of the information to criminally investigate or prosecute any alcohol or drug abuse patient.[facility] the event this information is protected by the Federal Confidentiality of Alcohol and Drug Abuse Patient Records regulations: The Federal rules restrict any use of the information to criminally investigate or prosecute any alcohol or drug abuse patient.[facility] the event this information is protected by the Federal Confidentiality of Alcohol and Drug Abuse Patient Records regulations: The Federal rules restrict any use of the information to criminally investigate or prosecute any alcohol or drug abuse patient.[facility] the event this information is protected by the Federal Confidentiality of Alcohol and Drug Abuse Patient Records regulations: The Federal rules restrict any use of the information to criminally investigate or prosecute any alcohol or drug abuse patient.[facility] the event this information is protected by the Federal Confidentiality of Alcohol and Drug Abuse Patient Records regulations: The Federal rules restrict any use of the information to criminally investigate or prosecute any alcohol or drug abuse patient.[facility] the event this information is protected by the Federal Confidentiality of Alcohol and Drug Abuse Patient Records regulations: The Federal rules restrict any use of the information to criminally investigate or prosecute any alcohol or drug abuse patient.[facility] the event this information is protected by the Federal Confidentiality of Alcohol and Drug Abuse Patient Records regulations: The Federal rules restrict any use of the information to criminally investigate or prosecute any alcohol or drug abuse patient.[facility] Reason for Visit (unrecogniz ed section and content) Reason Comments New Patient Reason Comments New Patient Evaluation Reason Comments Results Reason Comments Results Reason Comments Follow Up Reason Comments 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 This clinical summary was aggregated from multiple sources. Caution should be exercised in using it in the provision of clinical care. This summary normalizes information from multiple sources, and as a consequence, information in this document may materially change the coding, format and clinical context of patient data. In addition, data may be omitted in some cases. CLINICAL DECISIONS SHOULD BE BASED ON THE PRIMARY CLINICAL RECORDS. [facility]. provides no warranty or guarantee of the accuracy or completeness of information in this document.
== END | disposition home or self-care (01) ==
LOC: MTRAD 09:25
PROVIDERS: PCP Family Medicine; Referring Provider Family Medicine; Visit Provider Family Medicine
DX: M25.561 Pain in right knee (principal)
CPT/HCPCS: 73564